=== PATIENT | male | born 1960 | race Caucasian/White ===

== ENCOUNTER 2022-02-10 09:40 | Outpatient (REF) | payer OTHER, SELFPAY ==
[2022-02-10 11:39] LABS: Appearance Urine CLEAR; Color Urine YELLOW; Glucose Urine UA NEG (NEG); Leukocyte Esterase Urine NEG (NEG); Nitrite Urine NEG (NEG); PH 5.5 (5.0-8.0); Specific Gravity - Urine 1.015 (1.005-1.025); Urine Blood NEG (NEG); Urine Ketones NEG (NEG); Urine Protein NEG (NEG-TRACE)
[2022-02-10 12:01] LABS: Estimated Average Glucose 169 mg/dL; Hemoglobin A1c % 7.5 %
[2022-02-10 12:07] LABS: Alanine Aminotransferase 48 U/L (0-40); Albumin Level 4.3 g/dL (3.5-5.0); Alkaline Phosphatase 163 U/L (39-117); Anion Gap 13 (12-20); Aspartate Amino Transferase 22 U/L (5-37); Bilirubin Total 0.7 mg/dL (0.0-1.0); Blood Urea Nitrogen 14 mg/dL (9-16); Calcium 9.6 mg/dL (8.4-10.2); Carbon Dioxide 27 mmol/L (22-29); Chloride 99 mmol/L (96-108); Cholesterol 160 mg/dL; Estimated Glomerular Filt Rate > 60; Glucose Fasting 206 mg/dL (60-99); HDL Cholesterol 26 mg/dL; Potassium 4.7 mmol/L (3.3-5.1); Sodium 134 mmol/L (135-145); Total Protein 7.2 g/dL (6.5-8.0); Triglycerides 447 mg/dL
[2022-02-10 12:16] LABS: Prostate Specific Antigen Scr 0.73 ng/mL (<0.05-4.0); TSH reflex Free T4 0.87 uIU/mL (0.32-4.0)
[2022-02-10 12:17] LABS: Creatinine Urine 63.49 mg/dL; Microalbum/Creatinine Ratio Ur 15.7 ug/mg cr
== END 2022-02-10 09:41 | disposition home or self-care (01) ==
LOC: HO.HMGCLDS 09:40
PROVIDERS: Visit Provider Nurse Practitioner Family
DX: E11.9 Type 2 diabetes mellitus without complications (principal); Z12.5 Encounter for screening for malignant neoplasm of prostate
CPT/HCPCS: 36415; 80053; 80061; 81003; 82043; 83036; 84153; 84443

== ENCOUNTER 2022-03-06 10:41 | Outpatient (REF) | payer OTHER, SELFPAY ==
[2022-03-06 12:45] LABS: HBc Num1 0.08 S/CO (0.00-0.79); HBsAGNum1 0.25 S/CO (0.00-0.99); Hepatitis B Core Antibody Nonreactive (Nonreactive); Hepatitis B Surface Antigen Negative (Negative); ~Hepatitis B Surface Antibody NONREACTIVE (Nonreactive); ~Hepatitis C Antibody Nonreactive (Nonreactive)
[2022-03-08 03:53] LABS: Hepatitis A Antibody IgM 0.21 Index (0-0.79); ~Hepatitis A Antibody IgM Nonreactive (Nonreactive)
== END 2022-03-06 10:42 | disposition home or self-care (01) ==
LOC: HO.HMGCLDS 10:41
PROVIDERS: Visit Provider Nurse Practitioner Family
DX: R74.8 Abnormal levels of other serum enzymes (principal)
CPT/HCPCS: 36415; 86704; 86706; 86709; 86803; 87340

== ENCOUNTER 2022-04-14 08:42 | Outpatient (REF) | payer OTHER, SELFPAY ==
--- NOTE | ~2022-04-14 | US_ITS ---
EXAMINATION: US ABDOMEN COMPLETE CLINICAL INFORMATION: Abnormal levels of other serum enzymes. COMPARISON: None TECHNIQUE: Real-time imaging of the abdominal viscera. FINDINGS: PANCREAS: The pancreas appears unremarkable, without masses or ductal dilatation, with the exception of the tail which is obscured by bowel gas. ABDOMINAL AORTA: The proximal, mid, and distal segments are normal in caliber. INFERIOR VENA CAVA: Visualized portions are normal. LIVER: The liver is normal in size. The liver contour is normal. There is diffuse increased liver parenchymal echogenicity, consistent with hepatic steatosis. No focal hepatic lesion. GALLBLADDER: Surgically absent. COMMON BILE DUCT: Normal in caliber measuring 0.98 cm in diameter. RIGHT KIDNEY: An upper pole cyst is present measuring just over a centimeter in size. No solid renal masses are seen. This finding is Bosniak class I and needs no further imaging or follow up. No hydronephrosis or renal calculi. The kidney measures 10.4 cm in maximum dimension. LEFT KIDNEY: A tiny subcentimeter Bosniak class I simple renal cyst is present at the upper pole. 2 echogenic foci seen in the midpole measuring between 2 and 3 mm in size consistent with nonobstructing calculi. No hydronephrosis. The kidney measures 11.0 cm in maximum dimension. SPLEEN: Normal. The spleen measures 8.2 cm in maximum dimension. FREE FLUID: None. US/US abdomen complete IMPRESSION: Hepatic steatosis. Probable nonobstructing punctate left renal calculi.
== END 2022-04-14 08:43 | disposition home or self-care (01) ==
LOC: HO.HMGCX 08:42
PROVIDERS: PCP Nurse Practitioner Family; Visit Provider Nurse Practitioner Family
DX: R74.8 Abnormal levels of other serum enzymes (principal)
CPT/HCPCS: 76700

== ENCOUNTER 2022-04-28 13:29 | Outpatient (REF) | payer OTHER, SELFPAY ==
--- NOTE | ~2022-04-28 | CT_ITS ---
EXAMINATION: CT CHEST SCREENING CLINICAL INFORMATION: Current smoker. 45 pack year history. COMPARISON: None TECHNIQUE: Multidetector volumetric CT imaging of the chest is performed without contrast using low dose technique. Additional 2D coronal and sagittal reformatted images and axial 3D maximum intensity projection (MIP) images are generated on the CT workstation. This CT examination was performed using dose optimization techniques as appropriate, variously including the following: *Automated exposure control *Adjustment of mA and/or kV according to patient size (this includes techniques or standardized protocols for targeted exams where dose is matched to indication/reason for exam; i.e. extremities or head) *Use of iterative reconstruction technique DLP: 223 mGy-cm FINDINGS: LUNGS: There is evidence of mild paraseptal emphysema. There is a 3 mm calcified left upper lobe nodule axial image 133 series 5. There is a 2 mm peripheral or subpleural right upper lobe nodule axial image 157 series 5. There are clustered right lower lobe nodules for example axial image 198 series 5. There is evidence of mild airways disease in the right lower lobe with bronchial wall thickening and soft tissue opacification. There is a 1 cm cyst in the right lower lobe. MEDIASTINUM: There is coronary artery calcification. The heart size is normal. There are no enlarged hilar or mediastinal lymph nodes. There is no pericardial effusion. PLEURA: There is no pleural effusion. No pleural mass or thickening. AXILLA: No lymphadenopathy. UPPER ABDOMEN: The gallbladder has been removed. There is diverticulosis of the colon. OSSEOUS STRUCTURES: There are degenerative changes of the spine. CT/CT lung screening IMPRESSION: Small pulmonary nodules or micronodules. Right lower lobe nodules may be related to airways disease. Mild coronary artery calcification. ASSESSMENT: Lung-RADS category 2: Benign. RECOMMENDATION: Annual low-dose chest CT followup recommended.
== END 2022-04-28 13:30 | disposition home or self-care (01) ==
LOC: HO.CT 13:29
PROVIDERS: Visit Provider Physician Assistant Medical
DX: Z12.2 Encounter for screening for malignant neoplasm of respiratory organs (principal); F17.210 Nicotine dependence, cigarettes, uncomplicated
CPT/HCPCS: 71271; G0296

== ENCOUNTER 2022-05-19 10:28 | Outpatient (REF) | payer OTHER, SELFPAY ==
[2022-05-19 12:00] LABS: MANUAL DIFF FLAG NO
[2022-05-19 12:04] LABS: Basophils Absolute Auto 0.1 X10*3/uL (0.0-0.2); Basophils Percent Auto 0.6 % (0-2); Eosinophils Absolute Auto 0.1 X10*3/uL (0.0-0.4); Eosinophils Percent Auto 1.2 % (0-4); Hematocrit 45.8 % (42.0-52.0); Hemoglobin 15.8 g/dl (14.0-18.0); Imm Gran Abs Auto 0.04 X10*3/uL (0.00-0.03); Imm Gran Pct Auto 0.5 % (0.0-0.4); Lymphocytes Absolute Auto 2.5 X10*3/uL (1.2-4.9); Lymphocytes Percent Auto 31.6 % (20-40); Mean Corpuscular HGB Conc 34.5 g/dl (31.0-36.0); Mean Corpuscular Hemoglobin 32.1 pg (27.0-33.0); Mean Corpuscular Volume 93.1 fL (80.0-98.0); Mean Platelet Volume 9.6 fL (9.4-12.4); Monocytes Absolute Auto 0.7 X10*3/uL (0.1-1.2); Monocytes Percent Auto 8.4 % (2-11); Neutrophils Absolute Auto 4.6 x10*3/uL (2.0-8.3); Neutrophils Percent Auto 57.7 % (45-73); Platelet Count 287 X10*3/uL (160-400); Red Blood Count 4.92 X10*6/uL (4.60-5.80); Red Cell Distribution Width 13.5 % (11.0-16.0); White Blood Count 8.1 X10*3/uL (4.8-10.8)
[2022-05-19 13:08] LABS: Alanine Aminotransferase 40 U/L (0-40); Albumin Level 4.3 g/dL (3.5-5.0); Alkaline Phosphatase 154 U/L (39-117); Anion Gap 14 (12-20); Aspartate Amino Transferase 26 U/L (5-37); Bilirubin Total 0.6 mg/dL (0.0-1.0); Blood Urea Nitrogen 8 mg/dL (9-16); Calcium 9.1 mg/dL (8.4-10.2); Carbon Dioxide 23 mmol/L (22-29); Chloride 107 mmol/L (96-108); Cholesterol 116 mg/dL; Estimated Glomerular Filt Rate > 60; Glucose Random 153 mg/dL (60-115); HDL Cholesterol 33 mg/dL; LDL Cholesterol Calculated 52 mg/dl; Potassium 4.3 mmol/L (3.3-5.1); Sodium 140 mmol/L (135-145); Total Protein 7.5 g/dL (6.5-8.0); Triglycerides 159 mg/dL
[2022-05-19 14:45] LABS: Estimated Average Glucose 143 mg/dL; Hemoglobin A1c % 6.6 %
== END 2022-05-19 10:29 | disposition home or self-care (01) ==
LOC: HO.HMGCLDS 10:28
PROVIDERS: Visit Provider Nurse Practitioner Family
DX: E11.9 Type 2 diabetes mellitus without complications (principal)
CPT/HCPCS: 36415; 80053; 80061; 83036; 85025

== ENCOUNTER 2023-01-18 13:19 | Outpatient (REF) | payer OTHER, SELFPAY ==
[2023-01-18 14:06] LABS: MANUAL DIFF FLAG NO
[2023-01-18 14:10] LABS: Basophils Absolute Auto 0.1 X10*3/uL (0.0-0.2); Basophils Percent Auto 0.9 % (0-2); Eosinophils Absolute Auto 0.4 X10*3/uL (0.0-0.4); Hematocrit 47.6 % (42.0-52.0); Hemoglobin 16.1 g/dl (14.0-18.0); Imm Gran Abs Auto 0.02 X10*3/uL (0.00-0.03); Imm Gran Pct Auto 0.3 % (0.0-0.4); Lymphocytes Absolute Auto 3.5 X10*3/uL (1.2-4.9); Lymphocytes Percent Auto 44.1 % (20-40); Mean Corpuscular HGB Conc 33.8 g/dl (31.0-36.0); Mean Corpuscular Volume 91.7 fL (80.0-98.0); Mean Platelet Volume 9.4 fL (9.4-12.4); Monocytes Absolute Auto 0.6 X10*3/uL (0.1-1.2); Monocytes Percent Auto 7.5 % (2-11); Neutrophils Absolute Auto 3.3 x10*3/uL (2.0-8.3); Neutrophils Percent Auto 42.2 % (45-73); Platelet Count 261 X10*3/uL (160-400); Red Blood Count 5.19 X10*6/uL (4.60-5.80); Red Cell Distribution Width 13.3 % (11.0-16.0); White Blood Count 7.9 X10*3/uL (4.8-10.8)
[2023-01-18 16:37] LABS: Alanine Aminotransferase 18 U/L (0-40); Alkaline Phosphatase 144 U/L (39-117); Anion Gap 14 (12-20); Aspartate Amino Transferase 19 U/L (5-37); Bilirubin Total 0.6 mg/dL (0.0-1.0); Blood Urea Nitrogen 8 mg/dL (9-16); Calcium 9.2 mg/dL (8.4-10.2); Carbon Dioxide 22 mmol/L (22-29); Chloride 105 mmol/L (96-108); Cholesterol 202 mg/dL; Estimated Glomerular Filt Rate > 60; Glucose Fasting 109 mg/dL (60-99); HDL Cholesterol 35 mg/dL; LDL Cholesterol Calculated 115 mg/dl; Potassium 4.7 mmol/L (3.3-5.1); Prostate Specific Antigen Scr 1.06 ng/mL (<0.05-4.0); Sodium 136 mmol/L (135-145); TSH reflex Free T4 1.77 uIU/mL (0.32-4.0); Total Protein 6.9 g/dL (6.5-8.0); Triglycerides 263 mg/dL
[2023-01-18 17:13] LABS: Appearance Urine Clear; Color Urine Yellow; Glucose Urine UA Negative (Negative); Leukocyte Esterase Urine Negative (Negative); Nitrite Urine Negative (Negative); Specific Gravity - Urine 1.015 (1.005-1.025); Urine Blood Negative (Negative); Urine Ketones Negative (Negative); Urine Protein Negative (Neg-Trace)
== END 2023-01-18 13:20 | disposition home or self-care (01) ==
LOC: HO.HMGCLDS 13:19
PROVIDERS: PCP Nurse Practitioner Family; Visit Provider Nurse Practitioner Family
DX: Z12.5 Encounter for screening for malignant neoplasm of prostate (principal); E11.9 Type 2 diabetes mellitus without complications
CPT/HCPCS: 36415; 80053; 80061; 81003; 84153; 84443; 85025

== ENCOUNTER 2023-08-10 14:21 | Outpatient (REF) | payer OTHER, SELFPAY ==
--- NOTE | ~2023-08-10 | CT_ITS ---
EXAMINATION: CT CHEST SCREENING CLINICAL INFORMATION: Current smoker with 45 pack-year history. COMPARISON: 04/28/2022 TECHNIQUE: Multidetector volumetric CT imaging of the chest is performed without contrast using low dose technique. Additional 2D coronal and sagittal reformatted images and axial 3D maximum intensity projection (MIP) images are generated on the CT workstation. This CT examination was performed using dose optimization techniques as appropriate, variously including the following: *Automated exposure control *Adjustment of mA and/or kV according to patient size (this includes techniques or standardized protocols for targeted exams where dose is matched to indication/reason for exam; i.e. extremities or head) *Use of iterative reconstruction technique DLP: 53 mGy-cm FINDINGS: PHYSICAL THERAPY COORDINATOR: Unremarkable LUNGS: Trachea with small amount of debris, likely mucus. Hyperinflation with flattening of the hemidiaphragms. Mild centrilobular emphysema. Diffuse thickening of the bronchi. Trace dependent atelectasis. No change: RUL; 2 mm subpleural, 6:203. MONIQUE: 3 mm calcified, 6:165. MEDIASTINUM: Unremarkable thyroid. Nonspecific lymph nodes. No pathologic lymphadenopathy. CORONARY ARTERY CALCIFICATION: Severe. PLEURA: There is no pleural effusion. No pleural mass or thickening. SOFT TISSUE/AXILLA: Gynecomastia. No lymphadenopathy. UPPER ABDOMEN: Status post cholecystectomy. OSSEOUS STRUCTURES: Healed sternal fracture. Degenerative changes. CT/CT lung screening IMPRESSION: Stable calcified and noncalcified lung nodules, none larger than 3 mm. ASSESSMENT: Lung-RADS category 2: Benign RECOMMENDATION: Routine annual low-dose CT screening in 12 months.
== END 2023-08-10 14:22 | disposition home or self-care (01) ==
LOC: HO.CT 14:21
PROVIDERS: PCP Nurse Practitioner Family; Visit Provider Physician Assistant Medical
DX: Z12.2 Encounter for screening for malignant neoplasm of respiratory organs (principal); F17.210 Nicotine dependence, cigarettes, uncomplicated
CPT/HCPCS: 71271

== ENCOUNTER 2023-10-10 10:01 | Outpatient (REF) | payer OTHER, SELFPAY ==
[2023-10-10 13:20] LABS: MANUAL DIFF FLAG NO
[2023-10-10 13:35] LABS: Basophils Absolute Auto 0.1 X10*3/uL (0.0-0.2); Basophils Percent Auto 0.7 % (0-2); Eosinophils Absolute Auto 0.2 X10*3/uL (0.0-0.4); Eosinophils Percent Auto 2.5 % (0-4); Hematocrit 51.1 % (42.0-52.0); Hemoglobin 17.8 g/dl (14.0-18.0); Imm Gran Abs Auto 0.04 X10*3/uL (0.00-0.03); Imm Gran Pct Auto 0.5 % (0.0-0.4); Lymphocytes Absolute Auto 2.6 X10*3/uL (1.2-4.9); Lymphocytes Percent Auto 31.5 % (20-40); Mean Corpuscular HGB Conc 34.8 g/dl (31.0-36.0); Mean Corpuscular Hemoglobin 34.7 pg (27.0-33.0); Mean Corpuscular Volume 99.6 fL (80.0-98.0); Mean Platelet Volume 9.8 fL (9.4-12.4); Monocytes Absolute Auto 0.7 X10*3/uL (0.1-1.2); Monocytes Percent Auto 8.6 % (2-11); Neutrophils Absolute Auto 4.7 x10*3/uL (2.0-8.3); Neutrophils Percent Auto 56.2 % (45-73); Platelet Count 218 X10*3/uL (160-400); Red Blood Count 5.13 X10*6/uL (4.60-5.80); Red Cell Distribution Width 13.1 % (11.0-16.0); White Blood Count 8.3 X10*3/uL (4.8-10.8)
[2023-10-10 13:44] LABS: Appearance Urine Clear; Color Urine Yellow; Glucose Urine UA >=1000 mg/dL (Negative); Leukocyte Esterase Urine Negative (Negative); Nitrite Urine Negative (Negative); PH 6.5 (5.0-9.0); UMIC TRIGGER UACC YES; Urine Blood Negative (Negative); Urine Ketones Negative (Negative); Urine Protein Negative (Neg-Trace)
[2023-10-10 13:55] LABS: Bacteria Urine None Seen (None Seen); Hyaline Casts Urine 0-2 /LPF (0-2); RBC Urine 0-2 /HPF (0-2); Squamous Epithelial Cell Urine 0-2 /HPF (0-2); WBC Urine 0-5 /HPF (0-5)
[2023-10-10 14:03] LABS: Alanine Aminotransferase 31 U/L (0-40); Albumin Level 4.3 g/dL (3.5-5.0); Alkaline Phosphatase 138 U/L (39-117); Anion Gap 10 (12-20); Aspartate Amino Transferase 24 U/L (5-37); Bilirubin Total 0.4 mg/dL (0.0-1.0); Blood Urea Nitrogen 8 mg/dL (9-16); Carbon Dioxide 27 mmol/L (22-29); Chloride 103 mmol/L (96-108); Cholesterol 147 mg/dL (<200); Estimated Glomerular Filt Rate > 60; Gamma Glutamyl Transpeptidase 90 U/L (11-51); Glucose Fasting 116 mg/dL (60-99); HDL Cholesterol 37 mg/dL (>40); LDL Cholesterol Calculated 42 mg/dL (<100); Potassium 4.1 mmol/L (3.3-5.1); Sodium 136 mmol/L (135-145); Total Protein 7.5 g/dL (6.5-8.0); Triglycerides 341 mg/dL (<150)
[2023-10-10 14:19] LABS: Creatinine Urine 70.14 mg/dL; Microalbum/Creatinine Ratio Ur 8.5 ug/mg cr (<30)
[2023-10-10 14:20] LABS: TSH reflex Free T4 1.18 uIU/mL (0.32-4.0)
[2023-10-10 14:37] LABS: Estimated Average Glucose 108 mg/dL; Hemoglobin A1c % 5.4 % (<6.0)
[2023-10-14 19:53] LABS: Alk.Phos Iso. Macrohepatic 0 % (<=0); Alk.Phos Isoenzymes Bone 25 % (28-66); Alk.Phos Isoenzymes Intest 21 % (1-24); Alk.Phos Isoenzymes Liver 54 % (25-69); Alk.Phos Isoenzymes Placental 0 % (<=0); Alk.Phos Isoenzymes Total 126 U/L (35-144)
== END 2023-10-10 10:02 | disposition home or self-care (01) ==
LOC: HO.HMGCLDS 10:01
PROVIDERS: PCP Nurse Practitioner Family; Visit Provider Nurse Practitioner Family
DX: R74.8 Abnormal levels of other serum enzymes (principal); E11.9 Type 2 diabetes mellitus without complications
CPT/HCPCS: 36415; 80053; 80061; 81001; 82043; 82570; 82977; 83036; 84080; 84443; 85025

== ENCOUNTER 2024-01-10 13:26 | Outpatient (AMB) | payer OTHER, SELFPAY ==
[2024-01-10 13:30] VITALS: BP 116/72; PULSE 81; O2SAT 95; BMI 24.0
--- NOTE | 2024-01-10 13:30 | MHC.PC.OV ---
Vital Signs 01/10/24 13:30 Height 5 ft 7 in Weight 153 lb 4 oz BMI 24.0 BP 116/72 Blood Pressure Location Rt brachial Position Sitting Pulse 81 Pulse Source Pulse Oximeter Pulse Oximetry (%) 95 Oxygen Delivery Method Room Air Intake Visit Reasons: Physical exam Intake Note: Pt is here for his Annual PE Allergies No Known Allergies Allergy (Verified 01/10/24 13:33) Tobacco use date assessed: 01/10/24 Dental Screening Dental Screen Date: 01/10/24 Did you have a dental visit in the last 12 months?: Yes Did you have a dental problem in the last 6 months where you did not have access to dental care?: No Was dental information given to patient?: Patient has dentist HPI Physical exam HPI Details Pt is here for a PE. Will order labs. Colon screen is up to date. Due for PSA, will order. Denies dribbling with urination, weak stream, and frequent nocturia. He does report incomplete bladder emptying. Refuses CHERELLE today. Pt is a diabetic, on a statin. A1C in office today is 5.3. Microalbumin is up to date. Denies polyuria, polydipsia, does report neuropathy. Pt denies any signs and symptoms of hypoglycemia and does know how to correct it. Pt reports a recent blood sugar reading of 109. Eye exam is up to date. Pt follows up with cardiology. Pt has yearly low-dose lung CTs due to smoking. COPD: Stable. Pt smokes very few cigarettes daily. Denies chest pain, shortness of breath, and dizziness. Will confirm pt's med list with his slackline operator. [facility] Medical History (Updated 01/10/24 @ 14:18 by DOMINGO Portillo) Myocardial infarction Cocaine use Cardiac arrest Afib Nephrolithiasis Cervical radiculopathy Chronic low back pain Osteoarthritis of hips, bilateral GERD (gastroesophageal reflux disease) BPH (benign prostatic hyperplasia) Alcoholic peripheral neuropathy Hyperlipidemia Diabetes mellitus type 2, controlled Hypertensive retinopathy Peripheral neuropathy Hypertension, essential Personal history of nicotine dependence Diabetes Surgical History History of colonoscopy History of cholecystectomy History of neck surgery Family History Brother Myocardial infarction Social History Housing: Other Patient Tobacco Use Status: Current everyday Tobacco user Cigarettes Per Day: 5 e-Cigarette/Vaping Use: Never Used Second Hand Smoke Exposure: No service: Yes Current occupational status: disabled Cognitive needs: No Hearing needs: Yes Vision needs: No Questionnaire PHQ-9 Over the last 2 weeks, how often have you been bothered by any of the following problems? 1. Little interest or pleasure in doing things: not at all 2. Feeling down, depressed, or hopeless: not at all 3. Trouble falling or staying asleep, or sleeping too much: several days 4. Feeling tired or having little energy: not at all 5. Poor appetite or overeating: not at all 6. Feeling bad about yourself - or that you are a failure or have let yourself or your family down: not at all 7. Trouble concentrating on things, such as reading the newspaper or watching television: not at all 8. Moving or speaking so slowly that other people could have noticed. Or the opposite - being so fidgety or restless that you have been moving around a lot more than usual: not at all 9. Thoughts that you would be better off or of hurting yourself in some way: not at all Total score: 1 Source: Developed by Drs. Fredo Bah, Gloria Olivas, Ankit Zuniga and colleagues, with an educational sara from [employer]. Thrive Questionnaire Date Thrive assessed: 01/10/24 I am a: Patient What is your living situation today?: I have a place to live, but I am worried about losing it in the future Within the past 12 months, did the food you bought not last and you didn't have the money to get more?: Sometimes True Within the past 12 months, did you worry whether your food would run out before you got money to buy more?: Sometimes True Do you have trouble paying for medicines?: No Do you have trouble getting transportation to medical appointments?: No Do you have trouble paying your heating and electricity bill?: Yes Do you have trouble taking care of your child, family member or friend?: No Do you have trouble with day-to-day activities such as bathing, preparing meals, shopping, managing finances, etc.?: No Are you currently unemployed and looking for a job?: No Are you interested in more education?: No THRIVE Score: 4 AUDIT C Alcohol Use Questionnaire (AUDIT-C) 1. How often do you have a drink containing alcohol?: 2-3 times a week 2. How many drinks containing alcohol do you have on a typical day when you are drinking?: 1 or 2 3. How often do you have six or more drinks on one occasion?: Never Total Score: 3 Score Reviewed/Action Taken: Yes RUTH ANN-7 AMB Questionnaire RUTH ANN-7 Date RUTH ANN - 7 assessed: 01/10/24 Feeling nervous, anxious, or on edge: 0 = Not at all Not being able to stop or control worryin = Not at all Worrying too much about different things: 0 = Not at all Trouble relaxin = Several days Being so restless that it is hard to sit still: 1 = Several days Becoming easily annoyed or irritable: 0 = Not at all Feeling afraid as if something awful might happen: 0 = Not at all Total RUTH ANN-7 score (0-4 normal; 5-9 mild; 10-14 moderate; 15-21 severe): 2 Source: Developed by Drs. Fredo Bah, Gloria Olivas, Ankit Zuniga and colleagues, with an educational sara from [employer]. Review of Systems Const Denies chills and Denies fever(s) Eyes Denies blurry vision ENT Denies vertigo, Denies dizziness and Denies sore throat Card Denies chest pain at rest, Denies chest pain with activity, Denies diaphoresis, Denies dyspnea and Denies dyspnea on exertion Resp Denies cough, Denies dyspnea, Denies dyspnea on exertion and Denies wheezing GI Denies abdominal pain, Denies melena, Denies hematochezia, Denies constipation, Denies diarrhea and Denies loose stools Denies hematuria Musc Denies numbness and Denies tingling Skin/Breast Denies lesions Neuro Denies vertigo, Denies dizziness, Denies numbness and Denies tingling Psych Denies anxiety, Denies depression, Denies homicidal ideation, Denies suicidal ideation and Denies other (substance abuse) Aller/Immun Denies wheezing Physical exam (Primary Care) Vital Signs: Last Vital Signs Pulse 81 01/10/24 13:30 BP 116/72 01/10/24 13:30 Pulse Ox 95 01/10/24 13:30 Oxygen Delivery Method Room Air 01/10/24 13:30 BMI result Body Mass Index 24.0 Tobacco/Smoking Status: Tobacco use Status Tobacco use date assessed 01/10/24 01/10/24 13:38 Patient Tobacco Use Status Current everyday Tobacco 01/10/24 13:38 e-Cigarette/Vaping Use Never Used 01/10/24 13:38 PHQ-9: PHQ-9 Score PHQ-9: Total score 1 01/10/24 17:13 Thrive Assessment: Date of Thrive Assessment Date Thrive assessed 01/10/24 01/10/24 14:23 Const General: cooperative Nutritional Appearance: well nourished Orientation/consciousness: patient oriented x3 HENMT Head: Yes normal to inspection, Yes normocephalic and Yes atraumatic Ears: TM's normal bilaterally Eyes General: appearance normal, both eyes and all related structures Alignment and Position: alignment normal and position normal Neck Neck: Yes normal visual inspection and Yes no lymphadenopathy Thyroid: Thyroid normal Resp Effort & Inspection: normal respiratory effort Auscultation: clear to auscultation bilaterally Cardio Rate: regular rate Rhythm: regular rhythm Heart sounds: S1 normal heart sound present, S2 normal heart sound present and no murmurs GI Palpation (GI): Soft to palpation and nontender Auscultation: normal bowel sounds Male General Exam: Yes normal external exam Penis: normal penis Scrotum: scrotum normal, testes descended bilaterally and no inguinal hernias Testes: no testicular mass Skin Rashes: no rashes Neuro General: patient oriented x3, moves all extremities, no focal motor deficits and deep tendon reflexes 2+ bilaterally Romberg Test: Negative Extrem Other: bilat feet: + sensation with use of monofilament, feet intact, onychomycosis noted bilat, elongated toenails Psych Appearance: grossly normal Mental Status: mental status grossly normal Speech and movement: Normal speech and movement present Affect: normal affect Attitude: cooperative Thought process: Normal thought process present Thought content: Normal thought content present Insight: Good insight present (Psych) Judgement: Good judgement present (Psych) Results AMB Hemoglobin A1c AMB Hemoglobin A1c 5.8 % Last Edit by Mimi [place] CMA on 01/10/24 14:14 Results Reviewed Results Reviewed: Laboratory Last Values Hgb A1c (Clinic) 5.8 % (4.0-6.0) 01/10/24 14:13 Assessment and Plan Assessment & Plan (1) Diabetes: Code(s): E11.9 - Type 2 diabetes mellitus without complications (2) Myocardial infarction: Code(s): I21.9 - Acute myocardial infarction, unspecified (3) Afib: Code(s): I48.91 - Unspecified atrial fibrillation (4) COPD (chronic obstructive pulmonary disease): Code(s): J44.9 - Chronic obstructive pulmonary disease, unspecified Plan The patient agreed to the use of a medical affairs specialist for this encounter. Scribed for DOMINGO Byers by Flora Eagle medical affairs specialist, on 01/10/2024 at 13:40 EST. Orders: Orders Comprehensive [place]. Panel Fast 01/15/24 E11.9 - Type 2 diabetes mellitus without complications Microalbumin, Random (w Creat) 01/15/24 E11.9 - Type 2 diabetes mellitus without complications Prostate Specific Antigen Scr 01/15/24 Z12.5 - Encounter for screening for malignant neoplasm of prostate AMB Hemoglobin A1c 01/10/24 E11.9 - Type 2 diabetes mellitus without complications Complete Blood Count Auto Diff 01/15/24 E11.9 - Type 2 diabetes mellitus without complications TSH reflex Free T4 01/15/24 E11.9 - Type 2 diabetes mellitus without complications UA CC w/rflx Micro + Cult 01/15/24 E11.9 - Type 2 diabetes mellitus without complications Lipid Panel 01/15/24 E11.9 - Type 2 diabetes mellitus without complications Coding Level of Care Code Est Pt Prev Care 40-64y(42947) Diagnoses Diabetes E11.9 Myocardial infarction I21.9 Afib I48.91 COPD (chronic obstructive pulmonary disease) J44.9
== END 2024-01-10 14:19 | disposition home or self-care (01) ==
PROVIDERS: PCP Nurse Practitioner Family; Visit Provider Nurse Practitioner Family
DX: Z00.00 Encounter for general adult medical examination without abnormal findings (principal); E11.9 Type 2 diabetes mellitus without complications; I48.91 Unspecified atrial fibrillation; J44.9 Chronic obstructive pulmonary disease, unspecified; I25.2 Old myocardial infarction
CPT/HCPCS: 83036; 99396

== ENCOUNTER 2024-01-15 11:19 | Outpatient (REF) | payer OTHER, SELFPAY ==
[2024-01-15 13:23] LABS: MANUAL DIFF FLAG NO
[2024-01-15 13:33] LABS: Basophils Absolute Auto 0.1 X10*3/uL (0.0-0.2); Basophils Percent Auto 0.8 % (0-2); Eosinophils Absolute Auto 0.2 X10*3/uL (0.0-0.4); Eosinophils Percent Auto 2.6 % (0-4); Hemoglobin 17.8 g/dl (14.0-18.0); Imm Gran Abs Auto 0.02 X10*3/uL (0.00-0.03); Imm Gran Pct Auto 0.2 % (0.0-0.4); Lymphocytes Absolute Auto 2.4 X10*3/uL (1.2-4.9); Lymphocytes Percent Auto 26.7 % (20-40); Mean Corpuscular HGB Conc 34.2 g/dl (31.0-36.0); Mean Corpuscular Hemoglobin 33.3 pg (27.0-33.0); Mean Corpuscular Volume 97.2 fL (80.0-98.0); Mean Platelet Volume 9.4 fL (9.4-12.4); Monocytes Absolute Auto 0.6 X10*3/uL (0.1-1.2); Monocytes Percent Auto 6.7 % (2-11); Neutrophils Absolute Auto 5.6 x10*3/uL (2.0-8.3); Platelet Count 261 X10*3/uL (160-400); Red Blood Count 5.35 X10*6/uL (4.60-5.80); Red Cell Distribution Width 12.6 % (11.0-16.0); White Blood Count 8.8 X10*3/uL (4.8-10.8)
[2024-01-15 13:36] LABS: Appearance Urine Clear; Color Urine Yellow; Glucose Urine UA >=1000 mg/dL (Negative); Leukocyte Esterase Urine Negative (Negative); Nitrite Urine Negative (Negative); Specific Gravity - Urine 1.025 (1.005-1.025); UMIC TRIGGER UACC YES; Urine Blood Negative (Negative); Urine Ketones Negative (Negative); Urine Protein Negative (Neg-Trace)
[2024-01-15 13:41] LABS: Bacteria Urine None Seen (None Seen); Hyaline Casts Urine 0-2 /LPF (0-2); RBC Urine 0-2 /HPF (0-2); Squamous Epithelial Cell Urine 0-2 /HPF (0-2); WBC Urine 0-5 /HPF (0-5)
[2024-01-15 14:06] LABS: Creatinine Urine 85.32 mg/dL; Microalbum/Creatinine Ratio Ur 11.7 ug/mg cr (<30)
[2024-01-15 14:40] LABS: Alanine Aminotransferase 17 U/L (0-40); Albumin Level 4.1 g/dL (3.5-5.0); Alkaline Phosphatase 115 U/L (39-117); Anion Gap 9 (12-20); Aspartate Amino Transferase 16 U/L (5-37); Bilirubin Total 0.9 mg/dL (0.0-1.0); Blood Urea Nitrogen 6 mg/dL (9-16); Calcium 9.1 mg/dL (8.4-10.2); Carbon Dioxide 27 mmol/L (22-29); Chloride 105 mmol/L (96-108); Cholesterol 174 mg/dL (<200); Estimated Glomerular Filt Rate > 60; Glucose Fasting 104 mg/dL (60-99); HDL Cholesterol 43 mg/dL (>40); LDL Cholesterol Calculated 73 mg/dL (<100); Sodium 137 mmol/L (135-145); Triglycerides 291 mg/dL (<150)
[2024-01-15 14:50] LABS: Prostate Specific Antigen Scr 1.05 ng/mL (<0.05-4.0)
[2024-01-15 14:59] LABS: TSH reflex Free T4 0.68 uIU/mL (0.32-4.0)
== END 2024-01-15 11:20 | disposition home or self-care (01) ==
LOC: HO.HMGCLDS 11:19
PROVIDERS: PCP Nurse Practitioner Family; Visit Provider Nurse Practitioner Family
DX: Z12.5 Encounter for screening for malignant neoplasm of prostate (principal); E11.9 Type 2 diabetes mellitus without complications
CPT/HCPCS: 36415; 80053; 80061; 81001; 82043; 82570; 84153; 84443; 85025

== ENCOUNTER 2024-07-07 10:17 | Outpatient (REF) | payer OTHER, SELFPAY ==
[2024-07-07 13:12] LABS: MANUAL DIFF FLAG NO
[2024-07-07 13:23] LABS: Basophils Absolute Auto 0.1 X10*3/uL (0.0-0.2); Eosinophils Absolute Auto 0.3 X10*3/uL (0.0-0.4); Eosinophils Percent Auto 4.6 % (0-4); Hematocrit 51.7 % (42.0-52.0); Imm Gran Abs Auto 0.04 X10*3/uL (0.00-0.03); Imm Gran Pct Auto 0.6 % (0.0-0.4); Lymphocytes Absolute Auto 2.9 X10*3/uL (1.2-4.9); Lymphocytes Percent Auto 39.8 % (20-40); Mean Corpuscular HGB Conc 34.8 g/dl (31.0-36.0); Mean Corpuscular Hemoglobin 33.8 pg (27.0-33.0); Monocytes Absolute Auto 0.7 X10*3/uL (0.1-1.2); Monocytes Percent Auto 9.1 % (2-11); Neutrophils Absolute Auto 3.3 x10*3/uL (2.0-8.3); Neutrophils Percent Auto 44.9 % (45-73); Platelet Count 291 X10*3/uL (160-400); Red Blood Count 5.33 X10*6/uL (4.60-5.80); Red Cell Distribution Width 12.5 % (11.0-16.0); White Blood Count 7.2 X10*3/uL (4.8-10.8)
[2024-07-07 13:31] LABS: Estimated Average Glucose 108 mg/dL; Hemoglobin A1c % 5.4 % (<6.0)
[2024-07-07 13:32] LABS: Appearance Urine Clear; Color Urine Yellow; Glucose Urine UA >=1000 mg/dL (Negative); Leukocyte Esterase Urine Negative (Negative); Nitrite Urine Negative (Negative); PH 5.5 (5.0-9.0); Specific Gravity - Urine >= 1.030 (1.005-1.025); UMIC TRIGGER UACC YES; Urine Blood Negative (Negative); Urine Ketones Negative (Negative); Urine Protein Negative (Neg-Trace)
[2024-07-07 13:46] LABS: Alanine Aminotransferase 20 U/L (0-40); Albumin Level 4.3 g/dL (3.5-5.0); Alkaline Phosphatase 102 U/L (39-117); Anion Gap 13 (12-20); Aspartate Amino Transferase 21 U/L (5-37); Bilirubin Total 0.8 mg/dL (0.0-1.0); Blood Urea Nitrogen 11 mg/dL (9-16); Calcium 9.6 mg/dL (8.4-10.2); Carbon Dioxide 21 mmol/L (22-29); Chloride 108 mmol/L (96-108); Cholesterol 116 mg/dL (<200); Estimated Glomerular Filt Rate > 60; Glucose Fasting 101 mg/dL (60-99); HDL Cholesterol 37 mg/dL (>40); LDL Cholesterol Calculated 50 mg/dL (<100); Potassium 4.1 mmol/L (3.3-5.1); Sodium 138 mmol/L (135-145); Total Protein 7.5 g/dL (6.5-8.0); Triglycerides 148 mg/dL (<150)
[2024-07-07 13:51] LABS: TSH reflex Free T4 0.39 uIU/mL (0.32-4.0)
[2024-07-07 13:56] LABS: Bacteria Urine None Seen (None Seen); Hyaline Casts Urine 0-2 /LPF (0-2); RBC Urine 0-2 /HPF (0-2); Squamous Epithelial Cell Urine 0-2 /HPF (0-2); WBC Urine 0-5 /HPF (0-5)
== END 2024-07-07 10:18 | disposition home or self-care (01) ==
LOC: HO.HMGCLDS 10:17
PROVIDERS: PCP Nurse Practitioner Family; Visit Provider Nurse Practitioner Family
DX: E11.9 Type 2 diabetes mellitus without complications (principal)
CPT/HCPCS: 36415; 80053; 80061; 81001; 83036; 84443; 85025

== ENCOUNTER 2024-07-10 14:08 | Outpatient (AMB) | payer OTHER, SELFPAY ==
[2024-07-10 14:15] VITALS: BP 118/66; PULSE 72; O2SAT 96; BMI 23.0
--- NOTE | 2024-07-10 14:15 | MHC.PC.OV ---
Vital Signs 07/10/24 14:15 Height 5 ft 7 in Weight 147 lb BMI 23.0 BP 118/66 Blood Pressure Location Rt brachial Position Sitting Pulse 72 Pulse Source Pulse Oximeter Pulse Oximetry (%) 96 Intake Visit Reasons: 6 month follow up Allergies No Known Allergies Allergy (Verified 07/10/24 15:04) Medication List - Last Reconciled 07/10/24 by DOMINGO Portillo aspirin (Adult Aspirin Regimen) 81 mg PO DAILY atorvastatin 80 mg PO DAILY 90 days blood sugar diagnostic (FreeStyle Lite Strips) As directed blood-glucose meter (FreeStyle [place] Lite kit) bid diazepam 5 mg PO BID PRN 30 days empagliflozin (Jardiance) 10 mg PO DAILY 90 days fenofibric acid (choline) 45 mg PO BEDTIME folic acid 1 mg PO DAILY 90 days gabapentin 900 mg PO TID PRN lancets (FreeStyle Lancets) bid loratadine 10 mg PO DAILY metformin ER 1,000 mg (2 x 500 mg) PO BID 90 days metoprolol tartrate 12.5 mg PO BID tramadol 50 mg PO TID PRN Tobacco use date assessed: 01/10/24 Dental Screening Dental Screen Date: 01/10/24 HPI 6 month follow up HPI Details Pt is a diabetic, on a statin. Last A1C was 5.4. Microalbumin is up to date. Denies polyuria, polydipsia, and neuropathy. Pt denies any signs and symptoms of hypoglycemia and does know how to correct it. Eye exam is up to date. [facility] Medical History CAD (coronary artery disease) History of ST elevation myocardial infarction (STEMI) (~08/2022) History of cardiac arrest (~08/2022) Afib (~08/2022) Hypertension, essential Hyperlipidemia Diabetes COPD (chronic obstructive pulmonary disease) Nicotine dependence, cigarettes, uncomplicated Cocaine use GERD (gastroesophageal reflux disease) BPH (benign prostatic hyperplasia) Hypertensive retinopathy Nephrolithiasis Peripheral neuropathy Cervical radiculopathy Chronic low back pain Osteoarthritis of hips, bilateral Surgical History History of heart artery stent History of neck surgery History of cholecystectomy History of colonoscopy Family History Brother Myocardial infarction Social History Housing: Other Patient Tobacco Use Status: Current everyday Tobacco user Cigarettes Per Day: 5 e-Cigarette/Vaping Use: Never Used Second Hand Smoke Exposure: No service: Yes Current occupational status: disabled Cognitive needs: No Hearing needs: Yes Vision needs: No Questionnaire PHQ-9 Over the last 2 weeks, how often have you been bothered by any of the following problems? 1. Little interest or pleasure in doing things: not at all 2. Feeling down, depressed, or hopeless: not at all 3. Trouble falling or staying asleep, or sleeping too much: nearly every day 4. Feeling tired or having little energy: several days 5. Poor appetite or overeating: several days 6. Feeling bad about yourself - or that you are a failure or have let yourself or your family down: not at all 7. Trouble concentrating on things, such as reading the newspaper or watching television: not at all 8. Moving or speaking so slowly that other people could have noticed. Or the opposite - being so fidgety or restless that you have been moving around a lot more than usual: not at all 9. Thoughts that you would be better off or of hurting yourself in some way: not at all Total score: 5 Depression Screening Interpretation: Negative Depression Screening Done: Yes 54184 - PHQ-9 Billing: Yes Source: Developed by Drs. Fredo Bah, Gloria Olivas, Ankit Zuniga and colleagues, with an educational sara from [employer]. Thrive Questionnaire Date Thrive assessed: 07/10/24 I am a: Patient What is your living situation today?: I have a steady place to live Within the past 12 months, did the food you bought not last and you didn't have the money to get more?: Sometimes True Within the past 12 months, did you worry whether your food would run out before you got money to buy more?: Often true Do you have trouble paying for medicines?: No Do you have trouble getting transportation to medical appointments?: No Do you have trouble paying your heating and electricity bill?: Yes Do you have trouble taking care of your child, family member or friend?: No Do you have trouble with day-to-day activities such as bathing, preparing meals, shopping, managing finances, etc.?: No Are you currently unemployed and looking for a job?: No Are you interested in more education?: No Please select the resources that you would like help with: None Currently or been in a relationship where the following occur: No concerns reported THRIVE Score: 3 AUDIT C Alcohol Use Questionnaire (AUDIT-C) 1. How often do you have a drink containing alcohol?: 2-4 times a month 2. How many drinks containing alcohol do you have on a typical day when you are drinking?: 1 or 2 3. How often do you have six or more drinks on one occasion?: Never Total Score: 2 Score Reviewed/Action Taken: Yes RUTH ANN-7 AMB Questionnaire RUTH ANN-7 Date RUTH ANN - 7 assessed: 07/10/24 Feeling nervous, anxious, or on edge: 0 = Not at all Not being able to stop or control worryin = Not at all Worrying too much about different things: 1 = Several days Trouble relaxin = Several days Being so restless that it is hard to sit still: 1 = Several days Becoming easily annoyed or irritable: 0 = Not at all Feeling afraid as if something awful might happen: 0 = Not at all Total RUTH ANN-7 score (0-4 normal; 5-9 mild; 10-14 moderate; 15-21 severe): 3 Source: Developed by Drs. Fredo Bah, Gloria Olivas, Ankit Zuniga and colleagues, with an educational sara from [employer]. RUTH ANN-7 Assessment Billing RUTH ANN-7 Assessment Tool: RUTH ANN-7 Assessment 00703 Review of Systems Const Reports as per HPI Physical exam (Primary Care) Vital Signs: Last Vital Signs Pulse 72 07/10/24 14:15 BP 118/66 07/10/24 14:15 Pulse Ox 96 07/10/24 14:15 BMI result Body Mass Index 23.0 Tobacco/Smoking Status: Tobacco use Status Tobacco use date assessed 01/10/24 07/10/24 14:18 Patient Tobacco Use Status Current everyday Tobacco 07/10/24 14:18 e-Cigarette/Vaping Use Never Used 07/10/24 14:18 PHQ-9: PHQ-9 Score PHQ-9: Total score 5 07/10/24 14:18 Depression Screening Interpretation: Negative Thrive Assessment: Date of Thrive Assessment Date Thrive assessed 07/10/24 07/10/24 14:18 Currently or been in a relationship where the following occur: No concerns reported Const General: cooperative Orientation/consciousness: patient oriented x3 Resp Other: lungs with scattered wheezes, slightly diminished Effort & Inspection: normal respiratory effort Cardio Rate: regular rate Rhythm: regular rhythm Heart sounds: S1 normal heart sound present and S2 normal heart sound present Neuro General: patient oriented x3 Extrem Other: bilat feet: + sensation with use of monofilament, feet intact, onychomycosis noted bilat, feet are dry appearing Psych Appearance: grossly normal Mental Status: mental status grossly normal Speech and movement: Normal speech and movement present Affect: normal affect Attitude: cooperative Thought process: Normal thought process present Thought content: Normal thought content present Insight: Good insight present (Psych) Judgement: Good judgement present (Psych) Assessment and Plan Assessment & Plan (1) Diabetes: Code(s): E11.9 - Type 2 diabetes mellitus without complications Plan: well controlled currently, eating much better, feeling much better Plan The patient agreed to the use of a medical secretary teacher for this encounter. Scribed for DOMINGO Byers by Flora Eagle medical secretary teacher, on 07/10/2024 at 14:45 EST. Coding Level of Care Code Est Pt Level 3 (91924) Diagnoses Diabetes E11.9 Additional Codes RUTH ANN-7 Assessment Billing - RUTH ANN-7 Assessment Tool: RUTH ANN-7 Assessment [id number] ([id number])
== END 2024-07-10 15:00 | disposition home or self-care (01) ==
PROVIDERS: PCP Nurse Practitioner Family; Visit Provider Nurse Practitioner Family
DX: E11.9 Type 2 diabetes mellitus without complications (principal)
CPT/HCPCS: 99213

== ENCOUNTER → 2024-10-02 10:57 | Outpatient (BNVA) | payer OTHER, SELFPAY | PROVIDERS: PCP Nurse Practitioner Family ==

== ENCOUNTER → 2024-10-17 10:38 | Outpatient (BNVA) | payer OTHER, SELFPAY | PROVIDERS: PCP Nurse Practitioner Family ==

== ENCOUNTER 2024-11-20 12:38 | Outpatient (REF) | payer OTHER, SELFPAY ==
--- NOTE | ~2024-11-20 | US_ITS ---
CLINICAL HISTORY: N20.0 - Calculus of kidney US Renal Comparison: None Findings: Right kidney normal size and echotexture, 9.8 cm length. Multiple simple appearing cysts. Scattered sub cm echogenic foci without shadowing or twinkle. Left kidney normal size and echotexture, 10.0 cm length. A single simple appearing 7 mm upper pole cyst is seen. No shadowing stones identified. No collecting system dilatation of either kidney. Normal color Doppler. Urinary bladder is unremarkable. Prevoid volume 78 mL. Postvoid volume 9.5 mL. Bilateral ureteral jets are visualized. IMPRESSION: 1. Simple appearing bilateral renal cysts. 2. Echogenic foci seen on the right without shadowing or twinkle. These could be small stones. No obstruction. This document has been electronically signed by: Mckenzie Burnette MD on 11/25/2024 06:37:59
== END 2024-11-20 12:39 | disposition home or self-care (01) ==
LOC: HO.HMGCX 12:38
PROVIDERS: PCP Nurse Practitioner Family; Visit Provider Nurse Practitioner Family
DX: N20.0 Calculus of kidney (principal)
CPT/HCPCS: 76770

== ENCOUNTER → 2024-11-20 12:39 | Outpatient (BNV) | payer OTHER, SELFPAY | PROVIDERS: PCP Nurse Practitioner Family; Visit Provider Radiology Diagnostic Radiology | DX: N20.0 Calculus of kidney (principal) | CPT/HCPCS: 76770 ==

== ENCOUNTER 2025-02-09 11:05 | Outpatient (AMB) | payer OTHER, SELFPAY ==
[2025-02-09 11:19] VITALS: BP 118/70; PULSE 74; O2SAT 96; BMI 22.7
--- NOTE | 2025-02-09 11:19 | A.OFFPC_ITS ---
Vital Signs 02/09/25 11:19 Height 5 ft 7 in Weight 145 lb BMI 22.7 BP 118/70 Blood Pressure Location Lt brachial Position Sitting Pulse 74 Pulse Source Pulse Oximeter Pulse Oximetry (%) 96 Intake Visit Reasons: PE Web Services Professional Required: No Accompanied by: Self / Same As Patient Allergies No Known Allergies Allergy (Verified 02/09/25 11:48) Medication List - Last Reconciled 02/09/25 by BIA PortilloP- aspirin (Adult Aspirin Regimen) 81 mg PO DAILY atorvastatin 80 mg PO DAILY 90 days blood sugar diagnostic (FreeStyle Lite Strips) As directed blood sugar diagnostic (True Metrix Glucose Test Strip) Test blood sugar once a day blood-glucose meter (FreeStyle [place] Lite kit) bid diazepam 5 mg PO BID PRN 30 days empagliflozin (Jardiance) 10 mg PO DAILY 90 days fenofibric acid (choline) 45 mg PO BEDTIME folic acid 1 mg PO DAILY 90 days gabapentin 900 mg (3 x 300 mg) PO TID 30 days lancets (FreeStyle Lancets) bid lancets (Lancets,Thin) Test blood sugar twice a day loratadine 10 mg PO DAILY metformin ER 1,000 mg (2 x 500 mg) PO BID 90 days metoprolol tartrate 12.5 mg (1/2 x 25 mg) PO BID 90 days Tobacco use date assessed: 02/09/25 Fall risk assessment: No Falls in past year Last assessed Fall Risk: 02/09/25 Dental Screening Dental Screen Date: 02/09/25 Did you have a dental visit in the last 12 months?: Yes Did you have a dental problem in the last 6 months where you did not have access to dental care?: No Was dental information given to patient?: Patient has dentist HPI PE HPI Details History of Present Illness The patient is a 64-year-old male presenting for a physical exam and routine fol low-up. He has a previous history of myocardial infarction. He denies any current symptoms including chest pain, shortness of breath, abdominal pain, blood in stool, constipation, or diarrhea. He has refused a digital rectal exam but will undergo PSA testing. The patient denies experiencing any neuropathy, polyuria, or polydipsia. He has a documented case of onychomycosis bilaterally. His colon cancer screening is up to date, and he undergoes regular eye examinations annually. The patient's lung sounds are diminished bilaterally, and he has a cardiology follow-up scheduled. He was part of our LDCT program. will check to see if we can get him in for a follow up screening. diabetic: a1c is well controlled currently. Health Maintenance - Colon cancer screening is up to date - Refusal of digital rectal exam; PSA te st planned - Regular annual eye examinations - Scheduled cardiology follow-up Social History Review of Systems - Cardiovascular: Denies chest pain, den ies shortness of breath - Gastrointestinal: Denies abdominal michele n, denies blood in stool, denies constipation, denies diarrhea - Genitourinary: Denies polyuria, denies polydipsia - Neurological: Denies neuropathy Physical Exam General: Cooperative, healthy appearing, comfortable, no acute distress and well developed Orientation: Patient oriented x3 Limitations: No limitations Head: Normal to inspection Ears: Hearing grossly normal bilaterally Nose: Normal external nose present Face and sinus: Normal facial exam Eyes: Appearance normal, both eyes and all related structures Neck: Normal visual inspection and Yes full ROM Respiratory: Lungs were somewhat diminished in moving air bilaterally Cardiovascular: Regular rate and rhythm. Normal S1 and S2 GI: Normal to inspection. Soft to palpation and nontender Skin: Onychomycosis noted bilaterally Neuro: Patient oriented x3 Extremities: Normal to inspection. Monofilament test of feet was intact with good sensation. Feet were intact. Results Plan The patient's health concerns were addressed, and necessary plans were made for ongoing management. He will maintain regular cardiac follow-ups due to his past myocardial infarction. Although he refused a digital rectal exam, a PSA test will be conducted as an alternative. I emphasized the importance of promptly completing the ordered lab tests. His lung sounds will continue to be monitored as part of his respiratory evaluation. The patient is advised to keep up with his annual eye examinations. Discussion Notes During the consultation, the patient and I discussed his health maintenance stra tegies, including his cardiology follow-up and annual eye exams. We reviewed the option of the digital rectal exam, but the patient preferred PSA testing instead, to which he agreed. I highlighted the need to complete the pending lab work shortly. The discussion included the observation of diminished lung sounds and its implications. I provided information on the management of onychomycosis and ensured he understood the importance of continued monitoring and follow-up, with reassurance given about the current plan. Patient Instructions - Schedule & complete PSA test as discus sed - Continue with regular cardiology appoi ntments and follow-ups - Maintain annual eye examinations - Complete lab work/tests as soon as pos sible - Continue monitoring for any new sympto ms or changes in health [facility] Medical History CAD (coronary artery disease) History of ST elevation myocardial infarction (STEMI) (~08/2022) History of cardiac arrest (~08/2022) Afib (~08/2022) Hypertension, essential Hyperlipidemia Diabetes COPD (chronic obstructive pulmonary disease) Nicotine dependence, cigarettes, uncomplicated Cocaine use GERD (gastroesophageal reflux disease) BPH (benign prostatic hyperplasia) Hypertensive retinopathy Nephrolithiasis Peripheral neuropathy Cervical radiculopathy Chronic low back pain Osteoarthritis of hips, bilateral Surgical History History of heart artery stent History of neck surgery History of cholecystectomy History of colonoscopy Family History Brother Myocardial infarction Social History Housing: Other Patient Tobacco Use Status: Current everyday Tobacco user Cigarettes Per Day: 5 e-Cigarette/Vaping Use: Never Used Second Hand Smoke Exposure: No service: Yes Current occupational status: disabled Cognitive needs: No Hearing needs: Yes Vision needs: No Questionnaire PHQ-9 Over the last 2 weeks, how often have you been bothered by any of the following problems? 1. Little interest or pleasure in doing things: not at all 2. Feeling down, depressed, or hopeless: not at all 3. Trouble falling or staying asleep, or sleeping too much: several days 4. Feeling tired or having little energy: not at all 5. Poor appetite or overeating: not at all 6. Feeling bad about yourself - or that you are a failure or have let yourself or your family down: not at all 7. Trouble concentrating on things, such as reading the newspaper or watching television: not at all 8. Moving or speaking so slowly that other people could have noticed. Or the opposite - being so fidgety or restless that you have been moving around a lot more than usual: not at all 9. Thoughts that you would be better off or of hurting yourself in some way: not at all Total score: 1 Depression Screening Interpretation: Negative Depression Screening Done: Yes 25532 - PHQ-9 Billing: Yes Source: Developed by Drs. Fredo Bah, Gloria Olivas, Ankit Zuniga and colleagues, with an educational sara from [employer]. Thrive Questionnaire Date Thrive assessed: 02/09/25 I am a: Patient What is your living situation today?: I have a steady place to live Within the past 12 months, did the food you bought not last and you didn't have the money to get more?: Never true Within the past 12 months, did you worry whether your food would run out before you got money to buy more?: Sometimes True Do you have trouble paying for medicines?: No Do you have trouble getting transportation to medical appointments?: No Do you have trouble paying your heating and electricity bill?: Yes Do you have trouble taking care of your child, family member or friend?: No Do you have trouble with day-to-day activities such as bathing, preparing meals, shopping, managing finances, etc.?: No Are you currently unemployed and looking for a job?: No Are you interested in more education?: No Please select the resources that you would like help with: Food and Utilities Currently or been in a relationship where the following occur: No concerns reported THRIVE Score: 2 AUDIT C Alcohol Use Questionnaire (AUDIT-C) 1. How often do you have a drink containing alcohol?: Monthly or less 2. How many drinks containing alcohol do you have on a typical day when you are drinking?: 1 or 2 3. How often do you have six or more drinks on one occasion?: Never Total Score: 1 Score Reviewed/Action Taken: Yes RUTH ANN-7 AMB Questionnaire RUTH ANN-7 Date RUTH ANN - 7 assessed: 02/09/25 Feeling nervous, anxious, or on edge: 1 = Several days Not being able to stop or control worryin = Several days Worrying too much about different things: 1 = Several days Trouble relaxin = Not at all Being so restless that it is hard to sit still: 0 = Not at all Becoming easily annoyed or irritable: 0 = Not at all Feeling afraid as if something awful might happen: 1 = Several days Total RUTH ANN-7 score (0-4 normal; 5-9 mild; 10-14 moderate; 15-21 severe): 4 Source: Developed by Drs. Frdeo Bah, Gloria Olivas, Ankit Zuniga and colleagues, with an educational sara from [employer]. RUTH ANN-7 Assessment Billing RUTH ANN-7 Assessment Tool: RUTH ANN-7 Assessment 73484 Physical exam (Primary Care) Vital Signs: Last Vital Signs Pulse 74 02/09/25 11:19 BP 118/70 02/09/25 11:19 Pulse Ox 96 02/09/25 11:19 BMI result Body Mass Index 22.7 Tobacco/Smoking Status: Tobacco use Status Tobacco use date assessed 02/09/25 02/09/25 11:22 Patient Tobacco Use Status Current everyday Tobacco 02/09/25 11:22 e-Cigarette/Vaping Use Never Used 02/09/25 11:22 PHQ-9: PHQ-9 Score PHQ-9: Total score 1 02/09/25 12:06 Depression Screening Interpretation: Negative Thrive Assessment: Date of Thrive Assessment Date Thrive assessed 02/09/25 02/09/25 11:22 Currently or been in a relationship where the following occur: No concerns reported Results AMB Hemoglobin A1c AMB Hemoglobin A1c 5.2 % Last Edit by Bryan Poon CMA on 02/09/25 11: 44 Results Reviewed Results Reviewed: Laboratory Last Values Hgb A1c (Clinic) 5.2 % (4.0-6.0) 02/09/25 11:33 Coding Level of Care Code Est Pt Prev Care 40-64y(04536) Diagnoses Physical exam Z00.00 Diabetes E11.9 COPD (chronic obstructive pulmonary disease) J44.9 Additional Codes RUTH ANN-7 Assessment Billing - RUTH ANN-7 Assessment Tool: RUTH ANN-7 Assessment 69803 ([id number]) PHQ-9 - 43624 - PHQ-9 Billing: Yes ([id number]) Assessment & Plan Assessment & Plan (1) Physical exam: Code(s): Z00.00 - Encounter for general adult medical examination without abnormal findings Category: Medical (2) Diabetes: Code(s): E11.9 - Type 2 diabetes mellitus without complications Category: Medical (3) COPD (chronic obstructive pulmonary disease): Code(s): J44.9 - Chronic obstructive pulmonary disease, unspecified Category: Medical Plan . Orders: Orders AMB Hemoglobin A1c Today Z13.9 - Encounter for screening, unspecified PFT pulmonary function test Today J44.9 - Chronic obstructive pulmonary disease, unspecified
--- OUTSIDE RECORDS SUMMARY | 2025-02-09 12:41 | XMS_ITS | Encounter Summary ---
[facility] Address [address] [facility] [place] [address] Care Team Providers Care Middle School Director Name Role Phone Ayse Castillo MD Primary Care Provider Quentin Winn PA-C Primary Care Provider [facility] Pcp Primary Care Provider Unavailabl e Reason for Visit * Reason Comments E-prescribe Rx Request Encounter Details Date Type Department Care Team Description 02/25/2021 Refill Medicine/Pediatrics [address] [address] Ayse Castillo MD E-prescribe Rx Request Social History Tobacco Use Types Packs/Day Years Used Date Smoking Tobacco: Every Day Cigarettes 0.5 35 Smokeless Tobacco: Never Alcohol Use Standard Drinks/Week Comments No 0 (1 standard drink = 0.6 oz pure alcohol) Recently detoxed. States he is dry Sex Assigned at Date Recorded Not on file documented as of this encounter Miscellaneous Notes * Telephone Encounter - Vinicio Jainbenedicto - 02/25/2021 4:03 PM EDT Patient would like script to be: E-PRESCRIBED/FAXED TO PHARMACY WHEN WAS THE PATIENT'S LAST APPOINTMENT IN ADULT MEDICINE? 01/19/21 WHEN WAS THE LAST TIME THE PATIENT SAW THEIR PCP? Same as above Does patient have an upcoming appointment? Yes 05/19/21 (THE MEDICATION REQUESTED IS ON THE MED LIST ABOVE) All of the medications requested were on the CURRENT MEDS list Did you check the Pharmacy information above?: YES Patient wants: 90 -day supply Is this a mail order prescription request ? NO If the refill is from a FAXED refill request what is the RX # listed on the fax? N/A Patients current insurance carrier is: Payor: [employer] - MEDICARE / Plan: MEDICARE FFS $0 [place] [id number] / Product Type: INDEMNITY Insurance ID #: [id number] documented in this encounter Plan of Treatment Not on file documented as of this encounter Visit Diagnoses Not on filedocumented in this encounter Care Teams Middle School Director Relationship Specialty Start Date End Date Ayse Castillo MD PCP - General Internal Medicine 05/18/16 1 Quentin Chatterjee PA-C PCP - General Med/Peds 07/08/21 05/30/22 [facility], Pcp PCP - General Internal Medicine 05/31/22 documented as of this encounter
--- OUTSIDE RECORDS SUMMARY | 2025-02-09 12:41 | XMS_ITS | Encounter Summary ---
Author Organization [facility] Address [address] [facility] [place] [address] Care Team Providers Care Account Analyst Name Role Phone Landen Shearer MD Primary Care Provider [phone] Candice Butt MD Primary Care Provider Ronit Frankel MD Primary Care Provider Ayse Jackson MD Primary Care Provider Quentin Winn PA-C Primary Care Provider Unavail [facility] Pcp Primary Care Provider Unavailabl e Encounter Details Date Type Department Care Team Description 09/18/2012 Pt. Non Urgent Medical Question Adult Medicine - [address] [address] Landen Shearer MD [address] [place] [address] Social History Tobacco Use Types Packs/Day Years Used Date Smoking Tobacco: Every Day Cigarettes 0.5 35 Smokeless Tobacco: Current Alcohol Use Standard Drinks/Week Comments Yes 0 (1 standard drink = 0.6 oz pure alcohol) Recently detoxed. States he is dry Sex Assigned at Date Recorded Not on file documented as of this encounter Progress Notes * Melinda Leon L.P.N. - 09/18/2012 1:07 PM ESTFrom: SLICK AMADOR To: Landen Shearer MD Sent: SunSep 18, 2012 12:44 PM Subject: infection stomache not sure if im supposed to get a renewal of medication ran out documented in this encounter Plan of Treatment Not on file documented as of this encounter Visit Diagnoses Not on filedocumented in this encounter Care Teams Account Analyst Relationship Specialty Start Date End Date Landen Shearer MD [address] [place] [address] PCP - General Internal Medicine 08/27/12 08/25/14 Candice Butt MD [address] [place] [address] PCP - General Internal Medicine 08/26/14 09/07/15 Ronit La MD [address] [place] [address] PCP - General Internal Medicine 09/08/15 05/17/16 Ayse Castillo MD [address] [place] [address] PCP - General Internal Medicine 05/18/16 07/07/21 Quentin Chatterjee PA-C [address] [place] [address] PCP - General Med/Peds 07/08/21 05/30/22 [facility]ly [facility], Pcp [address] [place] [address] PCP - General Internal Medicine 05/31/22 documented as of this encounter
--- OUTSIDE RECORDS SUMMARY | 2025-02-09 12:41 | XMS_ITS | Encounter Summary ---
Author Organization [facility] Address [address] [facility] [place] [address] Care Team Providers Care Shot Dropper Name Role Phone Ayse Castillo MD Primary Care Provider Quentin Winn PA-C Primary Care Provider [facility], Pcp [facility] Encounter Details Date Type Department Care Team Description 01/05/2021 Coordinate Measuring Machine Operator Report Medical Records [address] [facility] [place] [address] Landen Nazario Social History Tobacco Use Types Packs/Day Years Used Date Smoking Tobacco: Every Day Cigarettes 0.5 35 Smokeless Tobacco: Never Alcohol Use Standard Drinks/Week Comments No 0 (1 standard drink = 0.6 oz pure alcohol) Recently detoxed. States he is dry Sex Assigned at Date Recorded Not on file documented as of this encounter Plan of Treatment Not on file documented as of this encounter Visit Diagnoses Not on filedocumented in this encounter Care Teams Shot Dropper Relationship Specialty Start Date End Date Ayse Castillo MD PCP - General Internal Medicine 05/18/16 1 Quentin Chatterjee PA-C PCP - General Med/Peds 07/08/21 05/30/22 [facility], Pcp PCP - General Internal Medicine 05/31/22 documented as of this encounter
--- OUTSIDE RECORDS SUMMARY | 2025-02-09 12:41 | XMS_ITS | Encounter Summary ---
Author Organization [facility] Address [address] [facility] [place] [address] Care Team Providers Care Driver Service Technician Name Role Phone Ayse Castillo MD Primary Care Provider Quentin Winn PA-C Primary Care Provider [facility], Pcp Primary Care Provider Unavailabl e Reason for Visit * Reason Onset Date Comments Fifth Hand Feedback 01/16/2020 Dr. Torres Encounter Details Date Type Department Care Team Description 01/16/2020 Telephone Medicine/Pediatrics [address] [address] Ayse Castillo MD Fifth Hand Feedback (Dr. Torres) Social History Tobacco Use Types Packs/Day Years Used Date Smoking Tobacco: Every Day Cigarettes 0.5 35 Smokeless Tobacco: Never Alcohol Use Standard Drinks/Week Comments No 0 (1 standard drink = 0.6 oz pure alcohol) Recently detoxed. States he is dry Sex Assigned at Date Recorded Not on file documented as of this encounter Miscellaneous Notes * Telephone Encounter - Arianne Taylor - 01/16/2020 12:41 PM EST Per faxed request for Dr. Torres at [facility]; provider is out of network. Out of network request submitted online, awaiting response Confirm Notification/Prior Authorization Thank you for your online Notification/Prior Authorization submission. The notification/prior authorization case information was transmitted on 01/16/2020 at 11:54 AM DEVELOPER DESIGNER. The notification/prior authorization reference number is [id number]. Please print this page for your records. The reference number above acknowledges receipt of your notification or prior authorization request. Please write this number down and refer to it for future inquiries. Coverage and payment for an item or service is governed by the member's benefit plan document, and, if applicable, the provider's participation agreement with the Health Plan. Please note that if you wish to cancel these services at any time, or if you have any questions, please contact us by calling the number on the back of the member's ID card. Thank you. Expand all Collapse all Attach Clinical Documentation Select files The maximum file size that can be attached is 25MB, but you can attach multiple files. Acceptable file types are bmp, doc, docx, gif, jpg, jpeg, pdf, png, tiff and txt. Filename can contain only: a-z, A-Z, 0-9, space, underscore and dash/hyphen. Please refer to Medical Records Requirements for Pre-Service to determine what specific clinical documentation is required to be attached to this request. Patient Details PATIENT NAME Relationship Verbal Language Preference Message Slick PerezSNADEC Employee [employer] A future timeline may be available for this member. For future coverageplease call the telephone number located on the back of the member's Medical ID card. Member Number Effective Date Written Language Preference [id number] 11/12/2019 [employer] Group Number Termination Date [id number] 11/11/2020 Product Insurance Type HMO Medicare New Z01.00 ENC EXAM EYES VISION W/O ABNRM FIND New [id number] Office or other outpatient visit for the karen Torres, [id number], [id number], [address] [facility] [address] [address] documented in this encounter Plan of Treatment Not on file documented as of this encounter Visit Diagnoses Not on filedocumented in this encounter Care Teams Driver Service Technician Relationship Specialty Start Date End Date Ayse Castillo MD PCP - General Internal Medicine 05/18/16 1 Quentin Chatterjee PA-C PCP - General Med/Peds 07/08/21 05/30/22 [facility], Pcp PCP - General Internal Medicine 05/31/22 documented as of this encounter
--- OUTSIDE RECORDS SUMMARY | 2025-02-09 12:42 | XMS_ITS | Encounter Summary ---
Author [facility] Address [address] [facility] [place] [address] Care Team Providers Care Recreational Specialist Name Role Phone Ronit La MD Primary Care Provider Ayse Jackson MD Primary Care Provider Quentin Winn PA-C Primary Care Provider Unavail [facility], Pcp [facility] Encounter Details Date Type Department Care Team Description 02/11/2016 Hospital Medical Records [address] [place] [address] Bereket Maurice MD [address] [place] [address] Social History Tobacco Use Types Packs/Day Years [...] on filedocumented in this encounter Care Teams Recreational Specialist Relationship Specialty Start Date End Date Ronit La MD PCP - General Internal Medicine 09/08/15 05/17/16 Ayse Castillo MD PCP - General Internal Medicine 05/18/16 1 Quentin Chatterjee PA-C PCP - General Med/Peds 07/08/21 05/30/22 [facility], Pcp PCP - General Internal Medicine 05/31/22 documented as of this encounter
--- OUTSIDE RECORDS SUMMARY | 2025-02-09 12:42 | XMS_ITS | Encounter Summary ---
Author [facility] Address [address] [facility] [place] [address] Care Team Providers Care Knifeman Name Role Phone Ayse Castillo MD Primary Care Provider Quentin Winn PA-C Primary Care Provider [facility], Pcp [facility] Encounter Details Date Type Department Care Team Description 04/23/2019 Outbound Telemarketer Report Medical Records [address] [facility] [place] [address] Landen Nazario Social History Tobacco Use Types [...] on filedocumented in this encounter Care Teams Knifeman Relationship Specialty Start Date End Date Ayse Castillo MD PCP - General Internal Medicine 05/18/16 1 Quentin Chatterjee PA-C PCP - General Med/Peds 07/08/21 05/30/22 [facility], Pcp PCP - General Internal Medicine 05/31/22 documented as of this encounter
--- OUTSIDE RECORDS SUMMARY | 2025-02-09 12:42 | XMS_ITS | Encounter Summary ---
Author Organization [facility] Address [address] [facility] [place] [address] Care Team Providers Care Auto Tester Name Role Phone Landen Shearer MD Primary Care Provider [phone] Candice Butt MD Primary Care Provider Ronit Frankel MD Primary Care Provider Ayse Jackson MD Primary Care Provider Quentin Winn PA-C Primary Care Provider [facility] Pcp [facility] Encounter Details Date Type Department Care Team Description 02/10/2014 Micrographics Services Supervisor Report Medical Records [address] [place] [address] Quentin Schmitt PA-C Social History Tobacco Use Types Packs/Day Years [...] on filedocumented in this encounter Care Teams Auto Tester Relationship Specialty Start Date End Date Landen Shearer MD [address] [place] [address] PCP - General Internal Medicine 08/27/12 08/25/14 Candice Butt MD [address] [place] [address] PCP - General Internal Medicine 08/26/14 09/07/15 Ronit La MD [address] [place] [address] PCP - General Internal Medicine 09/08/15 05/17/16 Ayse Castillo MD [address] [place] [address] PCP - General Internal Medicine 05/18/16 07/07/21 Quentin Chatterjee PA-C [address] [place] [address] PCP - General Med/Peds 07/08/21 05/30/22 [facility], Pcp [address] [place] [address] PCP - General Internal Medicine 05/31/22 documented as of this encounter
--- OUTSIDE RECORDS SUMMARY | 2025-02-09 12:42 | XMS_ITS | Encounter Summary ---
Author Organization [facility] Address [address] [facility] [place] [address] Care Team Providers Care Scale Attendant Name Role Phone Ayse Castillo MD Primary Care Provider Quentin Winn PA-C Primary Care Provider [facility], Pcp [facility] Encounter Details Date Type Department Care Team Description 07/23/2019 Principal Software Engineer Report Medical Records [address] [facility] [place] [address] Landen Nazario Social History Tobacco Use Types [...] on filedocumented in this encounter Care Teams Scale Attendant Relationship Specialty Start Date End Date Ayse Castillo MD PCP - General Internal Medicine 05/18/16 1 Quentin Chatterjee PA-C PCP - General Med/Peds 07/08/21 05/30/22 [facility], Pcp PCP - General Internal Medicine 05/31/22 documented as of this encounter
--- OUTSIDE RECORDS SUMMARY | 2025-02-09 12:42 | XMS_ITS | Encounter Summary ---
Author Organization [facility] Address [address] [facility] [place] [address] Care Team Providers Care Talent Acquisition Coordinator Name Role Phone Ayse Castillo MD Primary Care Provider Quentin Winn PA-C Primary Care Provider [facility], Pcp Primary Care [facility] Encounter Details Date Type Department Care Team Description 10/23/2016 Archery Equipment Hay Sorter Report Medical Records [address] [facility] [place] [address] Landen Nazario Social History Tobacco Use Types [...] on filedocumented in this encounter Care Teams Talent Acquisition Coordinator Relationship Specialty Start Date End Date Ayse Castillo MD PCP - General Internal Medicine 05/18/16 1 Quentin Chatterjee PA-C PCP - General Med/Peds 07/08/21 05/30/22 [facility], Pcp PCP - General Internal Medicine 05/31/22 documented as of this encounter
--- OUTSIDE RECORDS SUMMARY | 2025-02-09 12:42 | XMS_ITS | Encounter Summary ---
Author Organization [facility] Address [address] [facility] [place] [address] Care Team Providers Care Roofing Layer Name Role Phone Ayse Castillo MD Primary Care Provider Quentin Winn PA-C Primary Care Provider Unavail [facility], Pcp Primary Care Provider Unavailabl e Encounter Details Date Type Department Care Team Description 08/22/2018 Orders Only Medicine/Pediatrics - [address] [id number] Quentin Chatterjee PA-C Social History Tobacco Use Types Packs/Day [...] on filedocumented in this encounter Care Teams Roofing Layer Relationship Specialty Start Date End Date Ayse Castillo MD PCP - General Internal Medicine 05/18/16 1 Quentin Chatterjee PA-C PCP - General Med/Peds 07/08/21 05/30/22 [facility], Pcp PCP - General Internal Medicine 05/31/22 documented as of this encounter
--- OUTSIDE RECORDS SUMMARY | 2025-02-09 12:42 | XMS_ITS | Encounter Summary ---
Author Organization [facility] Address [address] [facility] [place] [address] Care Team Providers Care Edge Plugger Name Role Phone Quentin Chatterjee PA-C Primary Care Provider Unavail able [facility], Pcp Primary Care Provider Unavailabl e Encounter Details Date Type Department Care Team Description 01/05/2022 Freight Car Cleaner Report Medical Records [address] [place] [address] [place] [address] [place] [address] Social History Tobacco Use Types Packs/Day Years [...] on filedocumented in this encounter Care Teams Edge Plugger Relationship Specialty Start Date End Date Quentin Chatterjee PA-C PCP - General Med/Peds 07/08/21 05/30/22 [facility], Pcp PCP - General Internal Medicine 05/31/22 documented as of this encounter
--- OUTSIDE RECORDS SUMMARY | 2025-02-09 12:42 | XMS_ITS | Encounter Summary ---
Author [facility] Address [address] [facility] [place] [address] Care Team Providers Care Dietitian Name Role Phone Ayse Castillo MD Primary Care Provider Quentin Winn PA-C Primary Care Provider [facility], Pcp [facility] Encounter Details Date Type Department Care Team Description 12/10/2018 Tobacco Cutter Report Medical Records 4 [facility] [place] [address] Landen Nazario Social History Tobacco Use Types [...] on filedocumented in this encounter Care Teams Dietitian Relationship Specialty Start Date End Date Ayse Castillo MD PCP - General Internal Medicine 05/18/16 1 Quentin Chatterjee PA-C PCP - General Med/Peds 07/08/21 05/30/22 [facility], Pcp PCP - General Internal Medicine 05/31/22 documented as of this encounter
--- OUTSIDE RECORDS SUMMARY | 2025-02-09 12:42 | XMS_ITS | Encounter Summary ---
Author Organization [facility] Address [address] [facility] [place] [address] Care Team Providers Care Ticket Collector Or Usher Name Role Phone Ayse Castillo MD Primary Care Provider Quentin Winn PA-C Primary Care Provider [facility], Pcp Primary [facility] Encounter Details Date Type Department Care Team Description 03/27/2018 Release of Information Medical Records [address] [place] [address] [place] [address] Abstract, Provider Social History Tobacco Use Types Packs/Day Years [...] on filedocumented in this encounter Care Teams Ticket Collector Or Usher Relationship Specialty Start Date End Date Ayse Castillo MD PCP - General Internal Medicine 05/18/16 1 Quentin Chatterjee PA-C PCP - General Med/Peds 07/08/21 05/30/22 [facility], Pcp PCP - General Internal Medicine 05/31/22 documented as of this encounter
--- OUTSIDE RECORDS SUMMARY | 2025-02-09 12:42 | XMS_ITS | Encounter Summary ---
Author Organization [facility] Address [address] [place] [address] Care Team Providers Care Audit Practice Intern Name Role Phone Ronit La MD Primary Care Provider Ayse Jackson MD Primary Care Provider Quentin Winn PA-C Primary Care Provider Unavail [facility], Pcp Primary Care Provider [facility] Reason for Visit * Reason Onset Date Comments Provider Call Back 03/22/2016 Encounter Details Date Type Department Care Team Description 03/22/2016 Telephone General Surgery [address] [place], [place] [id number] Bereket Maurice MD [address] [place] [address] Provider Call Back Social History Tobacco Use Types Packs/Day Years Used Date Smoking Tobacco: Every Day Cigarettes 0.5 35 Smokeless Tobacco: Never Alcohol Use Standard Drinks/Week Comments No 0 (1 standard drink = 0.6 oz pure alcohol) Recently detoxed. States he is dry Sex Assigned at Date Recorded Not on file documented as of this encounter Miscellaneous Notes * Telephone Encounter - Layne Rodas M.A. - 03/22/2016 3:10 PM EDT Ok thank you . * Telephone Encounter - Bereket Maurice MD - 03/22/2016 3:02 PM EDT I called pt- he will start BAx, come to office tomorrow, to ED before thet if he gets sick * Telephone Encounter - Layne Rodas M.A. - 03/22/2016 2:10 PM EDT I called [facility] spoke to Massiel due to the message being sent back to the surgery pool she states that the PCP wont see the patient due to it not being a medical issue that's it a surgical issue I explain to her that I suggest for him to call them due to the fact I dont have a surgeon in office she stated why I don't call the education program specialist surgeon I explained to her I was sending the message to DR.frank FOUNTAIN and also had suggested for the patient to go to the ER , but the patient refused due to it being to expensive she states she was going to talk to her solar installation manager and the her doctor the patient was not call yet from [facility] , I will forward message to to see if he will add him in tomorrow . Routed to Dr.Frank FOUNTAIN * Telephone Encounter - Layne Rodas M.A. - 03/22/2016 1:15 PM EDT Called patient he had a a hard ball where he has the incision from his surgery on 02/11/16 , it veryred he feels its infected I explained to that there is no surgeon in the office To call his PCP or go to the ER he states its expensive to go to the ER , he willcall his PCP to see if they can see him and I will book him an appt to see Dr Douglas on Sunday if needed he will call me back . * Telephone Encounter - Zahira Quiñones - 03/22/2016 11:36 AM EDT Pt calling stating he did have ( Lap Beatrice 02/11/16) pt c/o increase pain in that area as well as redness,bloating and feels hard to touch. Pt worried this may be infected. Please advise. Pt aware provider not in the office until tomorrow. documented in this encounter Plan of Treatment Not on file documented as of this encounter Visit Diagnoses Diagnosis Cellulitis, unspecified cellulitis site- Primary documented in this encounter Care Teams Audit Practice Intern Relationship Specialty Start Date End Date Ronit La MD PCP - General Internal Medicine 09/08/15 05/17/16 Ayse Castillo MD PCP - General Internal Medicine 05/18/16 1 Quentin Chatterjee PA-C PCP - General Med/Peds 07/08/21 05/30/22 [facility], Pcp PCP - General Internal Medicine 05/31/22 documented as of this encounter
--- OUTSIDE RECORDS SUMMARY | 2025-02-09 12:42 | XMS_ITS | Encounter Summary ---
Author Organization [facility] Address [address] [facility] [place] [address] Care Team Providers Care Rough Patcher Name Role Phone Candice Butt MD Primary Care Provider Ronit Farnkel MD Primary Care Provider Ayse Jackson MD Primary Care Provider Quentin Winn PA-C Primary Care Provider Unavail able [facility] Pcp [facility] Encounter Details Date Type Department Care Team Description 12/11/2014 Clinical Appeals Rn Report Medical Records [address] [place] [address] [place] [address] Landen Nazario Social History Tobacco Use Types [...] on filedocumented in this encounter Care Teams Rough Patcher Relationship Specialty Start Date End Date Candice Butt MD PCP - General Internal Medicine 08/26/14 09/07/15 Ronit La MD PCP - General Internal Medicine 09/08/15 05/17/16 Ayse Castillo MD PCP - General Internal Medicine 05/18/16 1 Quentin Chatterjee PA-C PCP - General Med/Peds 07/08/21 05/30/22 [facility], Pcp PCP - General Internal Medicine 05/31/22 documented as of this encounter
--- OUTSIDE RECORDS SUMMARY | 2025-02-09 12:42 | XMS_ITS | Encounter Summary ---
Author Organization [facility] [employer] [facility] Address [address] [facility] [place] [address] Care Team Providers Care Intraoperative Neuro Tech Name Role Phone Landen Shearer MD Primary Care Provider [phone] Candice Butt MD Primary Care Provider Ronit Frankel MD Primary Care Provider UnavailAyse Jordan MD Primary Care Provider Quentin Winn PA-C Primary Care Provider Unavail [facility] Pcp Primary Care Provider Unavailabl e Encounter Details Date Type Department Care Team Description 10/03/2013 Property Handler Report Medical Records [address] [place] [address] Cristina Anton MD [address] [place] [address] Social History Tobacco Use Types Packs/Day Years [...] on filedocumented in this encounter Care Teams Intraoperative Neuro Tech Relationship Specialty Start Date End Date Landen Shearer MD [address] [place] [address] PCP - General Internal Medicine 08/27/12 08/25/14 Candice Butt MD [address] [place] [address] PCP - General Internal Medicine 08/26/14 09/07/15 Ronit La MD [address] [place] [address] PCP - General Internal Medicine 09/08/15 05/17/16 Ayse Castillo MD [address] [place] [address] PCP - General Internal Medicine 05/18/16 07/07/21 Quentin Chatterjee PA-C [address] [place] [address] PCP - General Med/Peds 07/08/21 05/30/22 [facility], Pcp [address] [place] [address] PCP - General Internal Medicine 05/31/22 documented as of this encounter
--- OUTSIDE RECORDS SUMMARY | 2025-02-09 12:42 | XMS_ITS | Encounter Summary ---
Author Organization [facility] Address [address] [facility] [place] [address] Care Team Providers Care Community Affairs Director Name Role Phone Ayse Castillo MD Primary Care Provider Quentin Winn PA-C Primary Care Provider [facility], Pcp Primary Care Provider Unavailabl e Reason for Visit * Reason Onset Date Comments Coal Cutting Machine Operator Feedback 11/20/2019 Dr Landen Nazario Encounter Details Date Type Department Care Team Description 11/20/2019 Telephone Adult Medicine [facility] [address] [place] [address] Ayse Castillo MD Coal Cutting Machine Operator Feedback (Dr Landen Nazario) Social History Tobacco Use Types Packs/Day Years Used Date Smoking Tobacco: Every Day Cigarettes 0.5 35 Smokeless Tobacco: Never Alcohol Use Standard Drinks/Week Comments No 0 (1 standard drink = 0.6 oz pure alcohol) Recently detoxed. States he is dry Sex Assigned at Date Recorded Not on file documented as of this encounter Miscellaneous Notes * Telephone Encounter - Shannan Howe - 12/09/2019 10:18 AM EST Checked status online, referral still not processed * Telephone Encounter - Nuno Wang - 12/09/2019 9:24 AM EST [facility] calling on the status of the referral, please call specialty office [phone] / Toya * Telephone Encounter - Salma Jorge L - 12/03/2019 10:44 AM EST Referral not on line as of yet we are having an issue with [facility], * Telephone Encounter - Peace Kelly - 12/03/2019 10:40 AM EST [facility] calling on status of refferal please call them back [phone] * Telephone Encounter - Leslie Kaiser - 12/01/2019 11:41 AM EST Checked status online, referral still not processed. Refaxed to [facility]. * Telephone Encounter - Leslie Kaiser - 11/24/2019 8:12 AM EST Could not process online, submitted on paper to [facility]. * Telephone Encounter - Vinicio Martinez - 11/20/2019 1:28 PM EST What insurance does the patient have today? [employer] complete HMO ?? Effective 08/12/09: BS will not retro referral requests over 90 days. If request is for this please instruct patient to call the 800# on their insurance card to appeal. Do not submit a request. ?? Referrals cannot be processed if the insurance is not accurate. If the insurance listed above in red is NO BILLING INFORMATION FOUND FOR THIS ENCOUTNER The patients correct insurance must be obtained and registered in [facility] or their referral can not be processed. ?? Is this a retro request? 11/20/2019 ?? If yes for what date of service do you need the retro referral? 11/20/2019 ?? Who is calling to request this referral? [facility] ?? If the caller is not the patient, what is their name? Shiana ?? Ask the patient WHO referred them to this specialty: Not an initial visit; it is for follow up/continuation of care. Patients PCP is Dr. Ayse Castillo ?? FIRST and LAST NAME of SPECIALIST PATIENT is seeing: Dr. Landen Nazario ?? What specialty is this? Pain Management ?? DIAGNOSIS Patient is being seen for (Not a body part or a procedure) Bilateral primary osteoarthritis of hip; M16.0 ?? Have you seen this SPECIALIST for this PROBLEM/DX before?YES ?? If YES, when:07/23/19 ?? Have you checked REVIEW or the APPT DESK to see if this referral has already been done or has visits left? YES ?? Is this visit:Follow Up ?? Address of Specialist:[address] [place] [address] ?? Phone # of Specialist:[phone] ?? Fax #: (if applicable):[phone] ?? Does patient have an appointment scheduled?: YES ?? Date of appointment- (including a retro-request): 11/20/2019 with 6 visits ?? Is this appointment related to: Not MVA, WC or Surgery related ? documented in this encounter Plan of Treatment Not on file documented as of this encounter Visit Diagnoses Not on filedocumented in this encounter Care Teams Community Affairs Director Relationship Specialty Start Date End Date Ayse Castillo MD PCP - General Internal Medicine 05/18/16 1 Quentin Chatterjee PA-C PCP - General Med/Peds 07/08/21 05/30/22 [facility], Pcp PCP - General Internal Medicine 05/31/22 documented as of this encounter
--- OUTSIDE RECORDS SUMMARY | 2025-02-09 12:42 | XMS_ITS | Encounter Summary ---
Author Organization [facility] Address [address] [facility] [place] [address] Care Team Providers Care Steam Powerplant Supervisor Name Role Phone Quentin Chatterjee PA-C Primary Care Provider Unavail able [facility], Pcp Primary Care Provider Unavailabl e Encounter Details Date Type Department Care Team Description 08/17/2021 Welt Insole Channeler Report Medical Records [address] [facility] [place] [address] Landen Nazario Social History Tobacco Use Types Packs/Day Years Used Date Smoking Tobacco: Every Day Cigarettes 0.5 35 Smokeless Tobacco: Never Alcohol Use Standard Drinks/Week Comments No 0 (1 standard drink = 0.6 oz pure alcohol) Recently detoxed. States he is dry Sex Assigned at Date Recorded Not on file COVID-19 Exposure Response Date Recorded In the last month, have you been in contact with someone who was confirmed or suspected to have Coronavirus / COVID-19? No / Unsure 08/19/2021 1:42 PM EDT documented as of this encounter Plan of Treatment Not on file documented as of this encounter Visit Diagnoses Not on filedocumented in this encounter Care Teams Steam Powerplant Supervisor Relationship Specialty Start Date End Date Quentin Chatterjee PA-C PCP - General Med/Peds 07/08/21 05/30/22 [facility], Pcp PCP - General Internal Medicine 05/31/22 documented as of this encounter
--- OUTSIDE RECORDS SUMMARY | 2025-02-09 12:42 | XMS_ITS | Encounter Summary ---
Author Organization [facility] Address [address] [facility] [place] [address] Care Team Providers Care Warehouse Trainer Name Role Phone Ronit La MD Primary Care Provider Ayse Jackson MD Primary Care Provider Quentin Winn PA-C Primary Care Provider [facility], Pcp Primary Care Provider [facility] Encounter Details Date Type Department Care Team Description 04/03/2016 Back Maker Report Medical Records [address] [place] [address] [place] [address] Landen Nazario Social History Tobacco Use Types [...] on filedocumented in this encounter Care Teams Warehouse Trainer Relationship Specialty Start Date End Date Ronit La MD PCP - General Internal Medicine 09/08/15 05/17/16 Ayse Castillo MD PCP - General Internal Medicine 05/18/16 1 Quentin Chatterjee PA-C PCP - General Med/Peds 07/08/21 05/30/22 [facility], Pcp PCP - General Internal Medicine 05/31/22 documented as of this encounter
--- OUTSIDE RECORDS SUMMARY | 2025-02-09 12:42 | XMS_ITS | Clinical Summary ---
Author Organization [facility] Address [address] [place] [address] Phone Care Team Providers Care Enrollment Management Vice President Name Role Phone Physician, No Pcp Primary Care Provider Unavaila ble Allergies No known active allergies Encounters Date Type Department Care Team Description 11/19/2024 6:18 PM EST - 11/20/2024 1:49 AM EST Emergency [facility] Emergency [address] [place] [address] Heart palpitations (Primary Dx) Discharge Disposition: Home or Self Care from Last 3 Months Surgical History Surgery Date Site/Laterality Comments OTHER SURGICAL HISTORY PROCEDURE: DENIES PREVIOUS SURGERY COLONOSCOPY 08/20/2015 PROCEDURE: HISTORICAL COLONOSCOPY; COMMENT: diverticulosis; no polyps CHOLECYSTECTOMY 02/11/2016 PROCEDURE: HISTORICAL CHOLECYSTECTOMY Medical History Medical History Date Comments Chest pressure 09/09/2012 DX:Chest pressur e GERD (gastroesophageal reflu x disease) 08/29/2012 DX:GERD (gastroesophageal re flux disease) H. pylori infection 09/02/2012 DX:H. pylori infection Tobacco abuse 08/29/2012 DX:Tobacco abuse Herniated lumbar intervertebral disc 09/17/2014 DX:Herniated lumbar intervertebral disc; COMMENT: Sees [facility] Family History Medical History Relation Name Comments No Known Problems Aunt No Known Problems Brother 1 Other: early cad Brother 2 No Known Problems Father No Known Problems Maternal Grandfather No Known Problems Maternal Grandmother Arthritis Mother hands, Glaucoma Cataracts Mother Glaucoma Mother No Known Problems Other No Known Problems Paternal Grandfather No Known Problems Paternal Grandmother Arthritis Sister No Known Problems Uncle Blindness Neg Hx Macular degeneration Neg Hx Strabismus Neg Hx Relation Name Status Comments Aunt Brother 1 (Age 55) [place] Brother 2 Father unsure Maternal Grandfather Maternal Grandmother Mother Alive CAD, stents Other Paternal Grandfather Paternal Grandmother Sister Uncle Social History Tobacco Use Types Packs/Day Years Used Date Smoking Tobacco: Every Day Cigarettes Smokeless Tobacco: Never Alcohol Use Standard Drinks/Week Comments No 0 (1 standard drink = 0.6 oz pur e alcohol) Sex and Gender Information Value Date Recorded Sex Assigned at Not on file Legal Sex Male 5:51 PM EST Gender Identity Not on file Sexual Orientation Not on file Obstetrics History Last Filed Vital Signs Vital Sign Reading Time Taken Comments Blood Pressure 136/75 11/20/2024 12:52 AM EST Pulse 56 11/20/2024 12:52 AM EST Temperature 36.9 ??C (98.4 ??F) 11/19/2024 10:[address] Respiratory Rate 17 11/19/2024 10:29 PM EST Oxygen Saturation 96% 11/19/2024 10:29 PM EST Inhaled Oxygen Concentration - - Weight 66.7 kg (147 lb) 11/19/2024 6:32 PM EST Height 170.2 cm (5' 7 ) 11/19/2024 6:32 PM EST Body Mass Index 23.02 11/19/2024 6:32 PM EST Plan of Treatment Health Maintenance Due Date Last Done Comments Diabetes: Annual Foot Exam 1970 Diabetes: Annual Retina Eye Exam 1970 Zoster Vaccines (1 of 2) 2010 Cholesterol Screening (Lipid Panel) 10/21/2022 Colorectal Cancer Screening: Colonoscopy 10/21/2022 Depression Screening 10/21/2022 HIV Screening 10/21/2022 Hepatitis C Screening 10/21/2022 Medicare Annual Wellness Visit 10/21/2022 Social Influencers of Health Screening 10/21/2022 Diabetes: Annual Urine Albumin-Creatinine Ratio (uACR) 10/28/2022 Diabetes: Blood Sugar Contro l Test (HGBA1C) 10/28/2022 COVID-19 Vaccine (2023-2 5 season) 2024 05/12/2021, 04/14/2021 Influenza Vaccine (#1) 2024 , 10/19/2020, 09/23/2012 Diabetes: Annual GFR (Glomerular Filtration Rate) 11/19/2025 11/19/2024 Hypertension/CHF/CAD Annual BMP Blood Test 11/19/2025 11/19/2024 DTaP,Tdap,and Td Vaccines (2 - Td or Tdap) 08/19/2031 08/19/2021 RSV Immunization Patients 60 + Years Old (1 - 1-dose 75+ series) 2035 Pneumococcal Vaccine: 50+ Years Completed 01/16/2023, 06/24/2015 Pneumococcal Vaccine: Pediatrics (0 to 5 Years) and At-Risk Patients (6 to 64 Years) Completed 01/16/2023, 06/24/2015 HIB Vaccines Aged Out No longer eligi ble based on patient's age to complete this topic HPV Vaccines Aged Out No longer eligi ble based on patient's age to complete this topic Hepatitis A Vaccines Aged Out No long er eligible based on patient's age to complete this topic Hepatitis B Vaccines Aged Out No long er eligible based on patient's age to complete this topic IPV Vaccines Aged Out No longer eligi ble based on patient's age to complete this topic MMR Vaccines Aged Out No longer eligi ble based on patient's age to complete this topic Meningococcal ACWY Vaccine Aged Out N o longer eligible based on patient's age to complete this topic Meningococcal B Vacine Aged Out No lo nger eligible based on patient's age to complete this topic RSV Immunization Patients Under 20 months Aged Out No longer eligible b ased on patient's age to complete this topic Varicella Vaccines Aged Out No longer eligible based on patient's age to complete this topic Procedures Procedure Name Priority Date/Time Associated Diagnosis Comments TROPONIN I HIGH SENSITIVITY STAT 11/19/2024 7:51 PM EST XR CHEST 2 VIEWS STAT 11/19/2024 7:04 PM EST CBC WITH AUTO DIFFERENTIAL STAT 11/19/2024 6:42 PM EST B-TYPE NATRIURETIC PEPTIDE STAT 11/19/2024 6:42 PM EST MAGNESIUM STAT 11/19/2024 6:42 PM EST LIPASE STAT 11/19/2024 6:42 PM EST COMPREHENSIVE METABOLIC PANEL STAT 11/19/2024 6:42 PM EST CBC AND DIFFERENTIAL STAT 11/19/2024 6:42 PM EST TROPONIN I HIGH SENSITIVITY STAT 11/19/2024 6:42 PM EST ECG 12-LEAD STAT 11/19/2024 6:11 PM EST ECG ANNOTATED 11/19/2024 ECG ANNOTATED 11/19/2024 ECG ANNOTATED 11/19/2024 from Last 3 Months Results * Troponin I high sensitivity (11/19/2024 7:51 PM EST) Only the most recent of2 resultswithin the time period is included. High Sensitivity Troponin I 13 <=79 ng/L LAB CHEMISTRY METHOD 11/19/2024 8:25 PM EST [facility] Blood Venous blood specimen / Unknown Venipuncture / Unknown 11/19/2024 7:51 PM EST 11/19/2024 7:56 PM EST Narrative [facility] - 11/19/2024 8:25 PM EST High levels of biotin in samples may falsely decrease hsTroponin values. ??Use caution when interpreting hsTroponin results in patients taking biotin who exhibit renal impairment (eGFR <60) or in patients taking more than 20 mg/day of biotin. us [place] DO LAB BLOOD ORDERABLES Final Res ult [facility] [address] [place] [address], [place] [phone] * XR Chest 2 Views (11/19/2024 7:04 PM EST) Anatomical Region Laterality Modality Body Radiographic Jana ging 11/20/2024 8:57 AM EST Impressions 11/20/2024 8:58 AM EST No acute pulmonary disease. Findings as above consistent with COPD. No change since 03/02/2022. Code 33232 -------- FINAL REPORT -------- Dictated By: Alec Ramsey Dictated Date: 11/20/2024 08:57 ET Assigned Physician: Alec Ramsey Reviewed and Electronically Signed By: Alec Ramsey Signed Date: 11/20/2024 08:58 ET Workstation ID: [id number] Transcribed By: Self Edit Transcribed Date: 11/20/2024 08:57 ET Narrative 11/20/2024 8:58 AM EST HISTORY: The patient is a 64-year-old male smoker with chest pain. FINDINGS: PA and lateral radiographs of the chest demonstrate mild degenerative change of the thoracic spine, without significant change since the prior study performed 03/02/2022. The cardiac silhouette is within normal limits. The aortic knob is calcified. The lungs are again seen to be hyperinflated with flattening of the diaphragm consistent with chronic obstructive pulmonary disease. ??There is no consolidation, mass, pulmonary vascular congestion, or pleural effusion. Procedure Note Alec Ramsey MD - 11/20/2024 HISTORY: The patient is a 64-year-old male smoker with chest pain. FINDINGS: PA and lateral radiographs of the chest demonstrate milddegenerative change of the thoracic spine, without significant changesince the prior study performed 03/02/2022. The cardiac silhouette iswithin normal limits. The aortic knob is calcified. The lungs are againseen to be hyperinflated with flattening of the diaphragm consistent withchronic obstructive pulmonary disease. There is no consolidation, mass,pulmonary vascular congestion, or pleural effusion. IMPRESSION: No acute pulmonary disease. Findings as above consistent with COPD. Nochange since 03/02/2022. Code 56574 -------- FINAL REPORT -------- Dictated By: Alec Ramsey Dictated Date: 11/20/2024 08:57 ET Assigned Physician: Alec Ramsey Reviewed and Electronically Signed By: Alec Ramsey Signed Date: 11/20/2024 08:58 ET Workstation ID: [id number] Transcribed By: Self Edit Transcribed Date: 11/20/2024 08:57 ET [place] DO IMG XR PROCEDURES Final Result * (ABNORMAL) CBC auto differential (11/19/2024 6:42 PM EST) WBC 9.3 4.8 - 10.8 K/mcL LAB HEMETOLOGY METHOD 11/19/2024 7:00 PM [facility] RBC 5.20 4.50 - 5.50 M/mcL LAB HEMETOLOGY METHOD 11/19/2024 7:00 PM [facility] Hemoglobin 17.8(H) 13.5 - 17.5 g/dL LAB HEMETOLOGY METHOD 11/19/2024 7:00 PM [facility] Hematocrit 50.3 42.0 - 54.0 % LAB HEMETOLOGY METHOD 11/19/2024 7:00 PM [facility] MCV 96.5 79.0 - 98.0 FL LAB HEMETOLOGY METHOD 11/19/2024 7:00 PM [facility] MCH 34.2(H) 27.0 - 32.0 pcg LAB HEMETOLOGY METHOD 11/19/2024 7:00 PM [facility] MCHC 35.4 32.0 - 37.0 g/dL LAB HEMETOLOGY METHOD 11/19/2024 7:00 PM [facility] RDW 12.0 11.0 - 15.0 % LAB HEMETOLOGY METHOD 11/19/2024 7:00 PM [facility] Platelets 228 130 - 400 K/mcL LAB HEMETOLOGY METHOD 11/19/2024 7:00 PM [facility] MPV 9.7 7.0 - 11.0 FL LAB HEMETOLOGY METHOD 11/19/2024 7:00 PM [facility] NRBC 0.0 <1.0 % LAB HEMETOLOGY METHOD 11/19/2024 7:00 PM [facility] NRBC Absolute 0.00 <0.10 K/mcL LAB HEMETOLOGY METHOD 11/19/2024 7:00 PM [facility] Neutrophils Relative 50.4 % LAB HEMETOLOGY METHOD 11/19/2024 7:00 PM [facility] Lymphocytes Relative 35.0 % LAB HEMETOLOGY METHOD 11/19/2024 7:00 PM [facility] Monocytes Relative 9.0 % LAB HEMETOLOGY METHOD 11/19/2024 7:00 PM [facility] Eosinophils Relative 4.3 % LAB HEMETOLOGY METHOD 11/19/2024 7:00 PM [facility] Basophils Relative 0.9 % LAB HEMETOLOGY METHOD 11/19/2024 7:00 PM [facility] Immature Granulocytes Relative 0.4 % LAB HEMETOLOGY METHOD 11/19/2024 7:00 PM [facility] Neutrophils Absolute 4.68 1.50 - 7.00 K/mcL LAB HEMETOLOGY METHOD 11/19/2024 7:00 PM [facility] Lymphocytes Absolute 3.25 1.00 - 5.00 K/mcL LAB HEMETOLOGY METHOD 11/19/2024 7:00 PM [facility] Monocytes Absolute 0.84 0.20 - 1.00 K/mcL LAB HEMETOLOGY METHOD 11/19/2024 7:00 PM [facility] Eosinophils Absolute 0.40 0.00 - 0.50 K/mcL LAB HEMETOLOGY METHOD 11/19/2024 7:00 PM [facility] Basophils Absolute 0.08 0.00 - 0.20 K/mcL LAB HEMETOLOGY METHOD 11/19/2024 7:00 PM [facility] Immature Granulocytes Absolute 0.04(H) 0.00 - 0.03 K/mcL LAB HEMETOLOGY METHOD 11/19/2024 7:00 PM EST [facility] Blood Venous blood specimen / Unknown Venipuncture / Unknown 11/19/2024 6:42 PM EST 11/19/2024 6:49 PM EST us [place] DO LAB BLOOD ORDERABLES Final Res ult Performing Organization Address City/[facility]/ZIP Co de Phone Number [facility] [address] [place] [address], [place] [phone] * B-type natriuretic peptide (11/19/2024 6:42 PM EST) BNP 54 <=100 pcg/mL LAB CHEMISTRY METHOD 11/19/2024 7:27 PM EST [facility] Blood Venous blood specimen / Unknown Venipuncture / Unknown 11/19/2024 6:42 PM EST 11/19/2024 6:49 PM EST us [place] DO LAB BLOOD ORDERABLES Final Res ult Performing Organization Address [facility]/ZIP Co de Phone Number [facility] [address] [place] [address], [place] [phone] * Magnesium (11/19/2024 6:42 PM EST) Magnesium 2.2 1.9 - 2.6 mg/dL LAB CHEMISTRY METHOD 11/19/2024 7:36 PM EST [facility] Blood Venous blood specimen / Unknown Venipuncture / Unknown 11/19/2024 6:42 PM EST 11/19/2024 6:49 PM EST us [place] DO LAB BLOOD ORDERABLES Final Res ult Performing Organization Address City/[facility]/ZIP Co de Phone Number [facility] [address] [place] [address], [place] [phone] * Lipase (11/19/2024 6:42 PM EST) Lipase 57 13 - 75 unit/L LAB CHEMISTRY METHOD 11/19/2024 7:36 PM [facility] Blood Venous blood specimen / Unknown Venipuncture / Unknown 11/19/2024 6:42 PM EST 11/19/2024 6:49 PM EST us [place] DO LAB BLOOD ORDERABLES Final Res ult [facility] [address] [place] [address], * (ABNORMAL) Comprehensive metabolic panel (11/19/2024 6:42 PM EST) Pathologist [facility] Sodium 136 133 - 145 mmol/L LAB CHEMISTRY METHOD 11/19/2024 7:36 PM [facility] Potassium 4.3 3.5 - 5.5 mmol/L LAB CHEMISTRY METHOD 11/19/2024 7:36 PM [facility] Chloride 107 96 - 110 mmol/L LAB CHEMISTRY METHOD 11/19/2024 7:36 PM [facility] CO2 24 21 - 32 mmol/L LAB CHEMISTRY METHOD 11/19/2024 7:36 PM [facility] Anion Gap 5 3 - 11 LAB CHEMISTRY METHOD 11/19/2024 7:36 PM [facility] Glucose 92 70 - 100 mg/dL LAB CHEMISTRY METHOD 11/19/2024 7:36 PM [facility] BUN 14 5 - 25 mg/dL LAB CHEMISTRY METHOD 11/19/2024 7:36 PM [facility] Creatinine 0.87 0.70 - 1.30 mg/dL LAB CHEMISTRY METHOD 11/19/2024 7:36 PM [facility] eGFR 96 >=60 mL/min/1. 73m2 LAB CHEMISTRY METHOD 11/19/2024 7:36 PM [facility] Comment:Calculation based on the??Chronic Kidney Disease Epidemiology Collaboration (CKD-EPI) equation refit??without adjustment for race. BUN/Creatinine Ratio 16.1 LAB CHEMISTRY METHOD 11/19/2024 7:36 PM [facility] Calcium 9.5 8.5 - 10.5 mg/dL LAB CHEMISTRY METHOD 11/19/2024 7:36 PM [facility] AST (SGOT) 25 10 - 42 unit/L LAB CHEMISTRY METHOD 11/19/2024 7:36 PM [facility] ALT (SGPT) 36 10 - 60 unit/L LAB CHEMISTRY METHOD 11/19/2024 7:36 PM [facility] Alkaline Phosphatase 125(H) 42 - 121 unit/L LAB CHEMISTRY METHOD 11/19/2024 7:36 PM [facility] Total Protein 7.4 6.0 - 8.0 g/dL LAB CHEMISTRY METHOD 11/19/2024 7:36 PM [facility] Albumin 4.1 3.2 - 5.0 g/dL LAB CHEMISTRY METHOD 11/19/2024 7:36 PM [facility] Total Bilirubin 0.7 0.0 - 1.4 mg/dL LAB CHEMISTRY METHOD 11/19/2024 7:36 PM [facility] Blood Venous blood specimen / Unknown Venipuncture / Unknown 11/19/2024 6:42 PM EST 11/19/2024 6:49 PM EST us [place] DO LAB BLOOD ORDERABLES Final Res ult [facility] [address] [place] [address], * ECG 12 lead (11/19/2024 6:11 PM EST) Ventricular Rate ECG 60 BPM GEMUSE Atrial Rate 60 BPM GEMUSE P-R Interval 132 ms GEMUSE QRS Duration 94 ms GEMUSE Q-T Interval 426 ms GEMUSE QTc 426 ms GEMUSE P Wave [place] 70 degrees GEMUSE R [place] -30 degrees GEMUSE T [place] -6 degrees GEMUSE ECG Interpretation Normal sinus rhythm Left axis deviation Abnormal ECG When compared with ECG of 02-MAR-2022 13:47, Vent. rate has decreased BY ??46 BPM Confirmed by Natalie CRUZ YUFENG ([id number]) on 11/20/2024 5:13:08 PM GEMUSE 11/19/2024 6:11 PM EST 11/20/2024 5:13 PM EST South Cruz DO ECG ORDERABLES Final Result GEMUSE * ECG-Annotated (11/19/2024) Only the most recent of3 resultswithin the time period is included. Provider Onbase MD ECG ORDERABLES Final Result from Last 3 Months Insurance MEDICAID - [place] [employer] MEDICARE Care Teams Enrollment Management Vice President Relationship Specialty Start Date End Date Physician, No Pcp PCP - General 11/19/24
--- OUTSIDE RECORDS SUMMARY | 2025-02-09 12:42 | XMS_ITS | Encounter Summary ---
Author Organization [facility] Address [address] [facility] [place] [address] Care Team Providers Care Quality Audit Representative Name Role Phone Landen Shearer MD Primary Care Provider [phone] Candice Butt MD Primary Care Provider Ronit Frankel MD Primary Care Provider Ayse Jackson MD Primary Care Provider Quentin Winn PA-C Primary Care Provider [facility] Pcp Primary Care Provider Unavailabl e Encounter Details Date Type Department Care Team Description 03/06/2014 Quality Officer Report Medical Records [address] [place] [id number] Fredo Menendez Social History Tobacco Use Types Packs/Day Years [...] on filedocumented in this encounter Care Teams Quality Audit Representative Relationship Specialty Start Date End Date Landen Shearer MD [address] [place] [phone] PCP - General Internal Medicine 08/27/12 08/25/14 Candice Butt MD [address] [place] [phone] PCP - General Internal Medicine 08/26/14 09/07/15 Ronit La MD [address] [place] [address] PCP - General Internal Medicine 09/08/15 05/17/16 Ayse Castillo MD [address] [place] [id number] PCP - General Internal Medicine 05/18/16 07/07/21 Quentin Chatterjee PA-C [address] [place] [id number] PCP - General Med/Peds 07/08/21 05/30/22 [facility], Pcp [address] [place] [phone] PCP - General Internal Medicine 05/31/22 documented as of this encounter
--- OUTSIDE RECORDS SUMMARY | 2025-02-09 12:42 | XMS_ITS | Clinical Summary ---
Author Organization [facility] Address [address] [facility] [place] [address] Care Team Providers Care Laboratory Sampler Name Role Phone Community, Pcp Primary Care Provider Unavailabl e Allergies Active Allergy Reactions Severity Noted Date Comments Pamelor 03/12/2018 Medications Medication Sig Dispensed Refills Start Date End Date Status gabapentin (NEURONTIN) 300 MG capsule Take 300 mg by mouth. 3 tabs tid 0 Active diazepam (VALIUM) 5 MG tablet Take 5 mg by mouth 2 times daily as needed. 0 Active Eszopiclone (LUNESTA OR) Take 2 mg by mouth at bedtime. 0 Active tramadol (ULTRAM) 50 MG tablet Take 1 Tab by mouth every 6 hours as needed for Pain. 56 Tab 0 03/12/2018 Active Alcohol Swabs (ALCOHOL PADS) 70 % Pads Apply 1 Each topically daily. Before pricking finger to check sugars. 200 Each 0 12/18/2018 Active Blood Glucose Monitoring Suppl (ONE TOUCH ULTRA SYSTEM KIT) W/DEVICE Kit Use to check sugars twice daily for DM, E11.65 1 Kit 0 01/14/2019 Active Lancet Devices (ONE TOUCH DELICA LANCING DEV) Misc Use to check sugars twice daily for DM, E11.65 100 Each 5 01/14/2019 Active ONETOUCH DELICA LANCETS FINE Misc Use to check sugars twice daily for DM, E11.65 100 Each 06/23/2020 Active Nicotine Polacrilex 2 MG Gum Take 1 Each by mouth as needed for Other (cigarette cravings; not to exceed one piece an hour or 20/day). 270 Each 1 10/19/2020 Active ALBUTEROL SULFATE (PROAIR HFA) 108 (90 Base) MCG/ACT Aero Soln Inhale 2 Puffs into the lungs every 6 hours as needed for Cough, Wheezing or Shortness of Breath. 1 Inhaler 1 10/19/2020 Active hydrOXYzine (VISTARIL) 50 MG capsule Take 1 capsule by mouth daily. 0 04/08/2021 Active celecoxib (CELEBREX) 200 MG capsule TAKE 1 CAPSULE DAILY 90 capsule 1 07/20/2021 Active Glucose Blood (ONE TOUCH ULTRA TEST STRIPS) Strip Use to check sugars twice daily for DM, E11.65 100 Strip 5 08/18/2021 Active atorvastatin (LIPITOR) 80 MG tablet TAKE 1 TABLET DAILY 90 tablet 1 08/22/2021 Active glipiZIDE (GLUCOTROL) 2.5 MG 24 hr tablet Take 1 tablet by mouth daily (with breakfast). In addition to metformin for diabetes; do not take if unable to eat 90 tablet 0 11/23/2021 Active hydrochlorothiazide (HYDRODIURIL) 25 MG tablet TAKE 1 TABLET EVERY MORNING 30 Tablet 0 05/01/2022 Active metformin (GLUCOPHAGE-XR) 500 MG 24 hr tablet TAKE 2 TABLETS 2 TIMES DAILY WITH MEALS 360 Tablet 0 05/31/2022 Active Active Problems Problem Noted Date Nephrolithiasis 12/14/2020 Overview: [facility]rology Osteoarthritis, hip, bilateral 9 Overview: PSS Alcoholic peripheral neuropathy 12/18/19 19 Diabetes mellitus 05/20/2018 Ventral hernia 10/14/2017 Polysubstance abuse 10/14/2017 Cervical radiculopathy 01/16/2017 Overview: Injections C6-7 with [facility] Essential hypertension 10/26/2015 Hyperlipemia 07/07/2015 BPH (benign prostatic hyperplasia) 06/24 Herniated lumbar intervertebral disc 04/2014 Overview: Sees [facility] Shoulder bursitis 01/27/2013 Chest pressure 09/09/2012 Overview: Stress test negative. H. pylori infection 09/02/2012 GERD (gastroesophageal reflux disease) 1 Tobacco abuse 08/29/2012 Immunizations Name Administration Dates Next Due COVID-19 (Moderna) 05/12/2021,04/14/2021 Influenza (> 6 Months) 09/23/2012 Influenza Vaccine-preservati ve Free-quadrivalent 4 Years 08/19/2021,10/19/2020 Pneumoccoccal(Adult) Polysaccharide PPSV23 06/24 Tdap 08/19/2021 Family History Medical History Relation Name Comments No Known Problems Aunt No Known Problems Brother 1 early cad Brother 2 No Known Problems Father No Known Problems Maternal Grandfather No Known Problems Maternal Grandmother Arthritis Mother hands, Glaucoma Cataract Mother Glaucoma Mother No Known Problems Other No Known Problems Paternal Grandfather No Known Problems Paternal Grandmother Arthritis Sister No Known Problems Uncle Blindness Negative Hx Macular Degeneration Negative Hx Strabismus Negative Hx Relation Name Status Comments Aunt Brother 1 (Age 55) [place] Brother 2 Father unsure Maternal Grandfather Maternal Grandmother Mother Alive CAD, stents Other Paternal Grandfather Paternal Grandmother Sister Uncle Social History Tobacco Use Types Packs/Day Years Used Date Smoking Tobacco: Every Day Cigarettes 0.5 35 Smokeless Tobacco: Never Tobacco Cessation:Ready to Q uit: No; Counseling Given: Yes Alcohol Use Standard Drinks/Week Comments No 0 (1 standard drink = 0.6 oz pure alcohol) Recently detoxed. States he is dry Sex Assigned at Date Recorded Not on file Last Filed Vital Signs Vital Sign Reading Time Taken Comments Blood Pressure 128/68 08/19/2021 1:47 PM EDT Pulse 88 08/19/2021 1:47 PM EDT Temperature 36.6 ??C (97.8 ??F) 03/15/2020 1:58 PM ED T Respiratory Rate 10 07/08/2020 12:59 PM EDT Oxygen Saturation 94% 08/20/2015 1:52 PM EDT Inhaled Oxygen Concentration - - Weight 81.9 kg (180 lb 9.6 oz) 08/19/2021 1:47 P M EDT Height 170.2 cm (5' 7 ) 08/19/2021 1:47 PM EDT Body Mass Index 28.29 08/19/2021 1:47 PM EDT Plan of Treatment Health Maintenance Due Date Last Done Comments DEPRESSION SCREEN 1972 SHINGLES VACCINE (1 of 2) 2010 DIABETES: ANNUAL URINE PROTE IN TEST (MICROALBUMIN) 10/25/2021 10/25/2020, 03/13/2019 DIABETES: BLOOD SUGAR CONTRO L TEST (HGBA1C) 11/17/2021 08/17/2021, 05/17/2021, 01/13/2021, Additional history exists DIABETES: ANNUAL FOOT EXAM 01/19/202201/19 (Completed), 03/15/2020 (External Completion), 03/21/2019 DIABETES: ANNUAL EYE EXAM 05/03/20222020, 04/25/2021 (External Completion of test per patient (Patient reports normal results)), 08/13/2018, Additional history exists DIABETES/HEART DISEASE: MIKEY AL CHOLESTEROL (LDL) 05/17/2022 05/17/2021, 05/17/2021, 07/08/2020, Additional history exists TOBACCO CHECK/ADVISE 06/09/2024 06/09/2022, 05/31/2022, 05/01/2022, Additional history exists Covid-19 Vaccine (3 - 2022-2 4 season) 2024 05/12/2021, 04/14/2021 INFLUENZA (#1) 2024 08/19/2021, 06/2020 (Completed), 10/19/2020, Additional history exists BMI CHECK/ADVISE 11/12/2024 08/19/2021, 06/2021, 01/19/2021, Additional history exists PNEUMOCOCCAL VACCINE FOR HIG H RISK PATIENTS (#2) 2025 06/24/2015 COLON CANCER SCREENING 08/20/2025 5, 12/04/2012 (Refused) DTAP/TDAP/TD (3 - Td or Tdap) 08/19/2031, 08/15/2011 (External Completion) HEPATITIS C SCREENING Completed 10/09/2017, 015 Care Teams Laboratory Sampler Relationship Specialty Start Date End Date [facility], Pcp PCP - General Internal Medicine 05/31/22
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
--- OUTSIDE RECORDS SUMMARY | 2025-02-09 12:42 | XMS_ITS | Encounter Summary ---
Author Organization [facility] Address [address] [facility] [place] [address] Care Team Providers Care Housekeeping And Laundry Team Leader Name Role Phone Ayse Castillo MD Primary Care Provider Quentin Winn PA-C Primary Care Provider [facility], Pcp [facility] Encounter Details Date Type Department Care Team Description 04/09/2018 Chief Talent Officer Report Medical Records 4 [facility] [place] [address] Landen Nazario Social History Tobacco Use Types [...] on filedocumented in this encounter Care Teams Housekeeping And Laundry Team Leader Relationship Specialty Start Date End Date Ayse Castillo MD PCP - General Internal Medicine 05/18/16 1 Quentin Chatterjee PA-C PCP - General Med/Peds 07/08/21 05/30/22 [facility], Pcp PCP - General Internal Medicine 05/31/22 documented as of this encounter
--- OUTSIDE RECORDS SUMMARY | 2025-02-09 12:42 | XMS_ITS | Encounter Summary ---
Author Organization [facility] Address [address] [facility] [place] [address] Care Team Providers Care Photographic Editor Name Role Phone [facility], Pcp Primary Care Provider Unavailabl e Reason for Visit * Reason Comments E-prescribe Rx Request Encounter Details Date Type Department Care Team Description 06/09/2022 Refill Walk In [facility] [address] [place] [address] Dilia Gonzalez PA-C E-prescribe Rx Request Social History Tobacco Use [...] on filedocumented in this encounter Care Teams Photographic Editor Relationship Specialty Start Date End Date Community, Pcp PCP - General Internal Medicine 05/31/22 documented as of this encounter
--- OUTSIDE RECORDS SUMMARY | 2025-02-09 12:42 | XMS_ITS | Encounter Summary ---
[facility] Organization [facility] Address [address] [facility] [place] [address] Care Team Providers Care Computer Animator Name Role Phone Ayse Castillo MD Primary Care Provider Quentin Winn PA-C Primary Care Provider [facility], Pcp Primary Care Provider [facility] Encounter Details Date Type Department Care Team Description 10/09/2017 Basket Person Report Medical Records 4 [facility] [place] [address] Abstract, Provider Social History Tobacco Use Types [...] on filedocumented in this encounter Care Teams Computer Animator Relationship Specialty Start Date End Date Ayse Castillo MD PCP - General Internal Medicine 05/18/16 1 Quentin Chatterjee PA-C PCP - General Med/Peds 07/08/21 05/30/22 [facility], Pcp PCP - General Internal Medicine 05/31/22 documented as of this encounter
--- OUTSIDE RECORDS SUMMARY | 2025-02-09 12:42 | XMS_ITS | Encounter Summary ---
Author Organization [facility] Address [address] [facility] [place] [address] Care Team Providers Care Human Service Coordinator Name Role Phone Candice Butt MD Primary Care Provider Ronit Frankel MD Primary Care Provider Ayse Jackson MD Primary Care Provider Quentin Winn PA-C Primary Care Provider Unavail able [facility], Pcp Primary Care [facility] Encounter Details Date Type Department Care Team Description 05/17/2015 Pharmacy Technologist Report Medical Records [address] [place] [address] [place] [address] Landen Nazario Social History Tobacco Use Types [...] on filedocumented in this encounter Care Teams Human Service Coordinator Relationship Specialty Start Date End Date Candice Butt MD PCP - General Internal Medicine 08/26/14 09/07/15 Ronit La MD PCP - General Internal Medicine 09/08/15 05/17/16 Ayse Castillo MD PCP - General Internal Medicine 05/18/16 1 Quentin Chatterjee PA-C PCP - General Med/Peds 07/08/21 05/30/22 [facility], Pcp PCP - General Internal Medicine 05/31/22 documented as of this encounter
--- OUTSIDE RECORDS SUMMARY | 2025-02-09 12:42 | XMS_ITS | Encounter Summary ---
Author Organization [facility] Address [address] [facility] [place] [address] Care Team Providers Care Commercial Fisher Name Role Phone Candice Butt MD Primary Care Provider Ronit Frankel MD Primary Care Provider Ayse Jackson MD Primary Care Provider Quentin Winn PA-C Primary Care Provider Unavail able [facility], Pcp Primary Care Provider [facility] Encounter Details Date Type Department Care Team Description 10/30/2014 SOFTWARE LICENSING SPECIALIST/Mass[place] Report Medical Records [address] [place] [address] Abstract, Provider Social History Tobacco Use Types [...] on filedocumented in this encounter Care Teams Commercial Fisher Relationship Specialty Start Date End Date Candice Butt MD PCP - General Internal Medicine 08/26/14 09/07/15 Ronit La MD PCP - General Internal Medicine 09/08/15 05/17/16 Ayse Castillo MD PCP - General Internal Medicine 05/18/16 1 Quentin Chatterjee PA-C PCP - General Med/Peds 07/08/21 05/30/22 [facility], Pcp PCP - General Internal Medicine 05/31/22 documented as of this encounter
--- OUTSIDE RECORDS SUMMARY | 2025-02-09 12:42 | XMS_ITS | Encounter Summary ---
Author Organization [facility] Address [address] [facility] [place] [address] Care Team Providers Care Bleach Maker Name Role Phone Ayse Castillo MD Primary Care Provider Quentin Winn PA-C Primary Care Provider [facility], Pcp Primary Care Provider Unavailabl e Reason for Visit * Reason Onset Date Comments Medication 05/03/2017 Encounter Details Date Type Department Care Team Description 05/03/2017 Telephone Medicine/Pediatrics [address] [address] Ayse Castillo MD Medication Social History Tobacco Use Types Packs/Day Years Used Date Smoking Tobacco: Every Day Cigarettes 0.5 35 Smokeless Tobacco: Never Alcohol Use Standard Drinks/Week Comments No 0 (1 standard drink = 0.6 oz pure alcohol) Recently detoxed. States he is dry Sex Assigned at Date Recorded Not on file documented as of this encounter Miscellaneous Notes * Telephone Encounter - Yasmeen Hester M.A. - 05/03/2017 5:11 PM EDT Spoke with the pt. He is taking flexeril 10 mg at for his back pain. Med list updated. () to PCP * Telephone Encounter - Catrachito Hess - 05/03/2017 4:56 PM EDT Caller requesting call back from provider: Is the caller the patient? YES Reason for call back: Patient had apt today, calling to update medication list, cycoodenzatri cream. Caller offered to speak with the nurse for assistance: YES Response: Patient offered to speak with nurse for assistance and patient agreed. Message forwarded to nurse. documented in this encounter Plan of Treatment Not on file documented as of this encounter Visit Diagnoses Not on filedocumented in this encounter Care Teams Bleach Maker Relationship Specialty Start Date End Date Ayse Castillo MD PCP - General Internal Medicine 05/18/16 1 Quentin Chatterjee PA-C PCP - General Med/Peds 07/08/21 05/30/22 [facility] PCP - General Internal Medicine 05/31/22 documented as of this encounter
--- OUTSIDE RECORDS SUMMARY | 2025-02-09 12:42 | XMS_ITS | Encounter Summary ---
Author Organization [facility] Address [address] [place] [address] Care Team Providers Care Job Order Clerk Name Role Phone Quentin Chatterjee PA-C Primary Care Provider Unavail able [facility], Pcp Primary Care Provider Unavailabl e Reason for Visit * Reason Onset Date Comments Annual Wellness Outreach 08/05/2021 Encounter Details Date Type Department Care Team Description 08/05/2021 Telephone Adult Medicine [address] [place] [address] Carmela Gottlieb MD Annual Wellness Outreach Social History Tobacco Use Types Packs/Day Years Used Date Smoking Tobacco: Every Day Cigarettes 0.5 35 Smokeless Tobacco: Never Alcohol Use Standard Drinks/Week Comments No 0 (1 standard drink = 0.6 oz pure alcohol) Recently detoxed. States he is dry Sex Assigned at Date Recorded Not on file documented as of this encounter Miscellaneous Notes * Telephone Encounter - Eugenia Baptiste - 08/05/2021 3:32 PM EDT Mr. Chanel was contacted by telephone. Annual Wellness Visit flowsheet NOT completed today. Pt statedrather go over questions with provider at visit. documented in this encounter Plan of Treatment Not on file documented as of this encounter Visit Diagnoses Not on filedocumented in this encounter Care Teams Job Order Clerk Relationship Specialty Start Date End Date Quentin Chatterjee PA-C PCP - General Med/Peds 07/08/21 05/30/22 [facility], Pcp PCP - General Internal Medicine 05/31/22 documented as of this encounter
--- OUTSIDE RECORDS SUMMARY | 2025-02-09 12:42 | XMS_ITS | Encounter Summary ---
Author Organization [facility] Address [address] [facility] [place] [address] Care Team Providers Care Deer Farmer Name Role Phone Ayse Castillo MD Primary Care Provider Quentin Winn PA-C Primary Care Provider [facility], Pcp Primary Care Provider [facility] Encounter Details Date Type Department Care Team Description 04/17/2017 Postpartum Rn Report Medical Records 4 [facility] [place] [address] Landen Nazario Social History Tobacco Use Types [...] on filedocumented in this encounter Care Teams Deer Farmer Relationship Specialty Start Date End Date Ayse Castillo MD PCP - General Internal Medicine 05/18/16 1 Quentin Chatterjee PA-C PCP - General Med/Peds 07/08/21 05/30/22 [facility], Pcp PCP - General Internal Medicine 05/31/22 documented as of this encounter
--- OUTSIDE RECORDS SUMMARY | 2025-02-09 12:42 | XMS_ITS | Encounter Summary ---
Author Organization [facility] Address [address] [facility] [place] [address] Care Team Providers Care Plugman Name Role Phone Ronit La MD Primary Care Provider Ayse Jackson MD Primary Care Provider Quentin Winn PA-C Primary Care Provider [facility], Pcp Primary Care Provider [facility] Encounter Details Date Type Department Care Team Description 10/22/2015 Board Hammer Operator Report Medical Records [address] [place], [place] [address] [address] Fredo Menendez Social History Tobacco Use Types Packs/Day Years Used Date Smoking Tobacco: Every Day Cigarettes 0.5 35 Smokeless Tobacco: Current Alcohol Use Standard Drinks/Week Comments No 0 (1 standard drink = 0.6 oz pure alcohol) Recently detoxed. States he is dry Sex Assigned at Date Recorded Not on file documented as of this encounter Plan of Treatment Not on file documented as of this encounter Visit Diagnoses Not on filedocumented in this encounter Care Teams Plugman Relationship Specialty Start Date End Date Ronit La MD PCP - General Internal Medicine 09/08/15 05/17/16 Ayse Castillo MD PCP - General Internal Medicine 05/18/16 1 Quentin Chatterjee PA-C PCP - General Med/Peds 07/08/21 05/30/22 [facility], Pcp PCP - General Internal Medicine 05/31/22 documented as of this encounter
--- OUTSIDE RECORDS SUMMARY | 2025-02-09 12:42 | XMS_ITS | Encounter Summary ---
Author Organization [facility] Address [address] [facility] [place] [address] Care Team Providers Care Detailer Furniture Name Role Phone Landen Shearer MD Primary Care Provider [phone] Candice Butt MD Primary Care Provider Ronit Frankel MD Primary Care Provider Ayse Jackson MD Primary Care Provider Quentin Winn PA-C Primary Care Provider [facility] Pcp Primary Care Provider Unavailabl e Encounter Details Date Type Department Care Team Description 01/01/2014 Gmat Tutor Report Medical Records [address] [place] [address] Landen Nazario Social History Tobacco Use Types [...] on filedocumented in this encounter Care Teams Detailer Furniture Relationship Specialty Start Date End Date Landen Shearer MD [address] [place] [id number] PCP - General Internal Medicine 08/27/12 08/25/14 Candice Butt MD [address] [place] [address] PCP - General Internal Medicine 08/26/14 09/07/15 Ronit La MD [address] [place] [address] PCP - General Internal Medicine 09/08/15 05/17/16 Ayse Castillo MD [address] [place] [address] PCP - General Internal Medicine 05/18/16 07/07/21 Quentin Chatterjee PA-C [address] [place] [address] PCP - General Med/Peds 07/08/21 05/30/22 [facility], Pcp [address] [place] [address] PCP - General Internal Medicine 05/31/22 documented as of this encounter
--- OUTSIDE RECORDS SUMMARY | 2025-02-09 12:42 | XMS_ITS | Encounter Summary ---
Author Organization [facility] Address [address] [facility] [place] [address] Care Team Providers Care Statistical Secretary Name Role Phone Ayse Castillo MD Primary Care Provider Quentin Winn PA-C Primary Care Provider [facility], Pcp [facility] Encounter Details Date Type Department Care Team Description 10/20/2016 Release of Information Medical Records [address] [place] [address] [place] [address] Abstract, Provider Social History Tobacco Use Types [...] on filedocumented in this encounter Care Teams Statistical Secretary Relationship Specialty Start Date End Date Ayse Castillo MD PCP - General Internal Medicine 05/18/16 1 Quentin Chatterjee PA-C PCP - General Med/Peds 07/08/21 05/30/22 [facility], Pcp PCP - General Internal Medicine 05/31/22 documented as of this encounter
--- OUTSIDE RECORDS SUMMARY | 2025-02-09 12:42 | XMS_ITS | Encounter Summary ---
Author Organization [facility] Address [address] [facility] [place] [address] Care Team Providers Care Programmer Engineering And Scientific Name Role Phone Ayse Castillo MD Primary Care Provider Qeuntin Winn PA-C Primary Care Provider [facility], Pcp Primary Care Provider [facility] Encounter Details Date Type Department Care Team Description 07/02/2018 Resident Care Technician Report Medical Records 4 [facility] [place] [address] Landen Nazario Social History Tobacco Use Types [...] on filedocumented in this encounter Care Teams Programmer Engineering And Scientific Relationship Specialty Start Date End Date Ayse Castillo MD PCP - General Internal Medicine 05/18/16 1 Quentin Chatterjee PA-C PCP - General Med/Peds 07/08/21 05/30/22 [facility], Pcp PCP - General Internal Medicine 05/31/22 documented as of this encounter
== END 2025-02-09 11:55 | disposition home or self-care (01) ==
PROVIDERS: PCP Nurse Practitioner Family; Visit Provider Nurse Practitioner Family
DX: Z00.00 Encounter for general adult medical examination without abnormal findings (principal); E11.9 Type 2 diabetes mellitus without complications; J44.9 Chronic obstructive pulmonary disease, unspecified; Z13.9 Encounter for screening, unspecified

== ENCOUNTER → 2025-02-09 11:05 | Outpatient (BNVA) | payer OTHER, SELFPAY | PROVIDERS: PCP Nurse Practitioner Family; Visit Provider Nurse Practitioner Family | DX: Z00.00 Encounter for general adult medical examination without abnormal findings (principal); E11.9 Type 2 diabetes mellitus without complications; J44.9 Chronic obstructive pulmonary disease, unspecified; I25.2 Old myocardial infarction | CPT/HCPCS: 83036; 96127 ==

== ENCOUNTER 2025-03-20 12:48 | Outpatient (REF) | payer MEDICARE, MEDICAID, SELFPAY ==
--- NOTE | 2025-03-20 12:51 | PFT_ITS ---
Indication: COPD Spirometry [FEV1 FVC 69%; FEV1 2.45 L; FVC 3.53 L. no significant response to bronchodilators noted. To note, the patient did have difficulties performing this maneuver and was stopping prematurely. Therefore the data is suboptimal.] Lung Volumes [Total lung capacity 90% predicted] Diffusion Capacity [DLCO 98% predicted] Comparisons [none] Interpretation [This was a suboptimal study. The patient had difficult time performing the spirometry. Evaluating the post bronchodilator numbers are appears to be a mild obstructive ventilatory defect which could be consistent with COPD. Although his Breo bronchodilator numbers are perfectly normal. Lung volumes and diffusing capacity are both within normal limits. Clinical correlation warranted.] MTDD
--- OUTSIDE RECORDS SUMMARY | 2025-03-20 12:51 | XMS_ITS | Encounter Summary ---
Author Organization [facility] Address [address] [facility] [place] [address] Care Team Providers Care Director Of Enrollment Name Role Phone Ayse Castillo MD Primary Care Provider Quentin Winn PA-C Primary Care Provider [facility], Pcp Primary Care Provider [facility] e Encounter Details Date Type Department Care Team Description 09/03/2020 Brass Pickler Report Medical Records 4 [facility] [place] [address] Landen Nazario Social History Tobacco Use Types [...] on filedocumented in this encounter Care Teams Director Of Enrollment Relationship Specialty Start Date End Date Ayse Castillo MD PCP - General Internal Medicine 05/18/16 1 Quentin Chatterjee PA-C PCP - General Med/Peds 07/08/21 05/30/22 [facility], Pcp PCP - General Internal Medicine 05/31/22 documented as of this encounter
--- OUTSIDE RECORDS SUMMARY | 2025-03-20 12:51 | XMS_ITS | Encounter Summary ---
Author Organization [facility] Address [address] [facility] [place] [address] Care Team Providers Care Medical Records Tech Name Role Phone Ronit La MD Primary Care Provider Ayse Jackson MD Primary Care Provider Quentin Winn PA-C Primary Care Provider [facility], Pcp Primary Care Provider [facility] Encounter Details Date Type Department Care Team Description 01/13/2016 Business Doc Medical Records [address] [place] [address] [place] [address] Abstract, Provider Social History Tobacco Use Types [...] on filedocumented in this encounter Care Teams Medical Records Tech Relationship Specialty Start Date End Date Ronit La MD PCP - General Internal Medicine 09/08/15 05/17/16 Ayse Castillo MD PCP - General Internal Medicine 05/18/16 1 Quentin Chatterjee PA-C PCP - General Med/Peds 07/08/21 05/30/22 [facility], Pcp PCP - General Internal Medicine 05/31/22 documented as of this encounter
--- OUTSIDE RECORDS SUMMARY | 2025-03-20 12:51 | XMS_ITS | Encounter Summary ---
Author Organization [facility] Address [address] [facility] [place] [address] Care Team Providers Care Pathology Tech Name Role Phone Ayse Castillo MD Primary Care Provider Quentin Winn PA-C Primary Care Provider [facility], Pcp Primary Care Provider [facility] Encounter Details Date Type Department Care Team Description 04/27/2021 Results Technician Report Medical Records [address] [facility] [place] [address] Landen Nazario Social History Tobacco Use Types [...] on filedocumented in this encounter Care Teams Pathology Tech Relationship Specialty Start Date End Date Ayse Castillo MD PCP - General Internal Medicine 05/18/16 1 Quentin Chatterjee PA-C PCP - General Med/Peds 07/08/21 05/30/22 [facility], Pcp PCP - General Internal Medicine 05/31/22 documented as of this encounter
--- OUTSIDE RECORDS SUMMARY | 2025-03-20 12:51 | XMS_ITS | Encounter Summary ---
Author Organization [facility] Address [address] [facility] [place] [address] Care Team Providers Care Health Technician Name Role Phone Landen Shearer MD Primary Care Provider [phone] Candice Butt MD Primary Care Provider Ronit Frankel MD Primary Care Provider Ayse Jackson MD Primary Care Provider Quentin Winn PA-C Primary Care Provider [facility] Pcp Primary Care Provider [facility] Encounter Details Date Type Department Care Team Description 02/10/2014 Fashion Consultant Report Medical Records [address] [place] [address] Quentin Schmitt PA-C Social History Tobacco Use [...] on filedocumented in this encounter Care Teams Health Technician Relationship Specialty Start Date End Date Landen Shearer MD [address] [place] [address] PCP - General Internal Medicine 08/27/12 08/25/14 Candice Butt MD [address] [place] [address] PCP - General Internal Medicine 08/26/14 09/07/15 Ronit La MD [address] [place] [address] PCP - General Internal Medicine 09/08/15 05/17/16 Ayse Castillo MD [address] [place] [address] PCP - General Internal Medicine 05/18/16 07/07/21 Quentin Chatterjee PA-C [address] [place] [address] PCP - General Med/Peds 07/08/21 05/30/22 [facility], Pcp [address] [place] [address] PCP - General Internal Medicine 05/31/22 documented as of this encounter
--- OUTSIDE RECORDS SUMMARY | 2025-03-20 12:51 | XMS_ITS | Encounter Summary ---
Author Organization [facility] Address [address] [facility] [place] [address] Care Team Providers Care Metal Bonding Worker Name Role Phone Landen Shearer MD Primary Care Provider [phone] Candice Butt MD Primary Care Provider Ronit Frankel MD Primary Care Provider Ayse Jackson MD Primary Care Provider Quentin Winn PA-C Primary Care Provider [facility] Pcp Primary Care Provider Unavailabl e Encounter Details Date Type Department Care Team Description 01/01/2014 Rehab Assistant Report Medical Records [address] [place] [id number] Landen Nazario Social History Tobacco Use Types [...] on filedocumented in this encounter Care Teams Metal Bonding Worker Relationship Specialty Start Date End Date Landen Shearer MD [address] [place] [address] [phone] PCP - General Internal Medicine 08/27/12 08/25/14 Candice Butt MD [address] [place] [address] PCP - General Internal Medicine 08/26/14 09/07/15 Ronit La MD [address] [place] [address] PCP - General Internal Medicine 09/08/15 05/17/16 Ayse Castillo MD [address] [place] [address] PCP - General Internal Medicine 05/18/16 07/07/21 Quentin Chatterjee PA-C [address] [place] [address] PCP - General Med/Peds 07/08/21 05/30/22 [facility] Pcp [address] [place] [address] PCP - General Internal Medicine 05/31/22 documented as of this encounter
--- OUTSIDE RECORDS SUMMARY | 2025-03-20 12:51 | XMS_ITS | Encounter Summary ---
Author Organization [facility] Address [address] [facility] [place] [address] Care Team Providers Care Stained Glass Installer Name Role Phone Landen Shearer MD Primary Care Provider [phone] Candice Butt MD Primary Care Provider Ronit Frankel MD Primary Care Provider Ayse Jackson MD Primary Care Provider Quentin Winn PA-C Primary Care Provider [facility] Pcp Primary Care Provider Unavailabl e Encounter Details Date Type Department Care Team Description 02/13/2013 Supervisor Offset Plate Preparation Report Medical Records [address] [place] [address] Landen Nazario Social History Tobacco Use Types [...] on filedocumented in this encounter Care Teams Stained Glass Installer Relationship Specialty Start Date End Date Landen Shearer MD [address] [place] [address] [phone] PCP - General Internal Medicine 08/27/12 08/25/14 Candice Butt MD [address] [place] [address] PCP - General Internal Medicine 08/26/14 09/07/15 Ronit La MD [address] [place] [address] PCP - General Internal Medicine 09/08/15 05/17/16 Ayse Castillo MD [address] [place] [address] PCP - General Internal Medicine 05/18/16 07/07/21 Quentin Chatterjee PA-C [address] [place] [address] PCP - General Med/Peds 07/08/21 05/30/22 [facility], Pcp [address] [place] [address] PCP - General Internal Medicine 05/31/22 documented as of this encounter
--- OUTSIDE RECORDS SUMMARY | 2025-03-20 12:51 | XMS_ITS | Encounter Summary ---
Author Organization [facility] Address [address] [facility] [place] [address] Care Team Providers Care Pilot Can Router Name Role Phone Ayse Castillo MD Primary Care Provider Quentin Winn PA-C Primary Care Provider [facility], Pcp Primary Care Provider [facility] e Encounter Details Date Type Department Care Team Description 07/02/2018 Faucet Polisher Report Medical Records 4 [facility] [place] [address] Landen Nazario Social History Tobacco Use Types [...] on filedocumented in this encounter Care Teams Pilot Can Router Relationship Specialty Start Date End Date Ayse Castillo MD PCP - General Internal Medicine 05/18/16 1 Quentin Chatterjee PA-C PCP - General Med/Peds 07/08/21 05/30/22 [facility], Pcp PCP - General Internal Medicine 05/31/22 documented as of this encounter
--- OUTSIDE RECORDS SUMMARY | 2025-03-20 12:51 | XMS_ITS | Encounter Summary ---
Author Organization [facility] Address [address] [facility] [place] [address] Care Team Providers Care Terra Cotta Setter Name Role Phone Candice Butt MD Primary Care Provider Ronit Frankel MD Primary Care Provider Ayse Jackson MD Primary Care Provider Quentin Winn PA-C Primary Care Provider Unavail able [facility], Pcp [facility] Encounter Details Date Type Department Care Team Description 12/11/2014 Patch Setter Report Medical Records [address] [place] [address] [place] [address] Landen Nazario Social History Tobacco Use Types [...] on filedocumented in this encounter Care Teams Terra Cotta Setter Relationship Specialty Start Date End Date Candice Butt MD PCP - General Internal Medicine 08/26/14 09/07/15 Ronit La MD PCP - General Internal Medicine 09/08/15 05/17/16 Ayse Castillo MD PCP - General Internal Medicine 05/18/16 1 Quentin Chatterjee PA-C PCP - General Med/Peds 07/08/21 05/30/22 [facility], Pcp PCP - General Internal Medicine 05/31/22 documented as of this encounter
--- OUTSIDE RECORDS SUMMARY | 2025-03-20 12:51 | XMS_ITS | Clinical Summary ---
Author Organization [facility] Address [address] [place] [address] Phone Care Team Providers Care Equipment Sales Specialist Name Role Phone Physician, No Pcp Primary Care Provider Unavaila ble Allergies No known active allergies Surgical History Surgery Date Site/Laterality Comments OTHER [...] 09/17/2014 DX:Herniated lumbar intervertebral disc; COMMENT: Sees [facility] Family History Medical History [...] Status Comments Aunt Brother 1 (Age 55) [place] Brother 2 Father unsure Maternal Grandfather Maternal [...] 1970 Diabetes: Annual Retina Eye Exam 1970 Hepatitis A Vaccines (1 of 2 - Risk 2-dose series) 1979 Zoster Vaccines (1 of 2) 2010 Cholesterol Screening (Lipid Panel) 10/21/2022 Colorectal Cancer Screening: Colonoscopy 10/21/2022 Depression Screening 10/21/2022 HIV Screening 10/21/2022 Hepatitis C Screening 10/21/2022 Medicare Annual Wellness Visit 10/21/2022 Social Influencers of Health Screening 10/21/2022 Diabetes: Annual Urine Albumin-Creatinine Ratio (uACR) 10/28/2022 Diabetes: Blood Sugar Contro l Test (HGBA1C) 10/28/2022 COVID-19 Vaccine (2023-2 5 season) 2024 05/12/2021, 04/14/2021 Influenza Vaccine (Season Ended) 2025 08/19/2021, 10/19/2020, 09/23/2012 Diabetes: Annual GFR (Glomerular Filtration Rate) 11/19/2025 11/19/2024 Hypertension/CHF/CAD Annual BMP Blood Test 11/19/2025 11/19/2024 DTaP,Tdap,and Td Vaccines (2 - Td or Tdap) 08/19/2031 08/19/2021 RSV Immunization Adult Patients (1 - 1-dose 75+ series) 2035 Pneumococcal [...] age to complete this topic Meningococcal B Vaccine Aged Out No l onger eligible based on patient's age to complete this topic RSV Immunization Patients Under 20 months Aged Out No longer eligible b ased on patient's age to complete this topic Varicella Vaccines Aged Out No longer eligible based on patient's age to complete this topic Procedures Procedure Name Priority Date/Time Associated Diagnosis Comments COMPREHENSIVE METABOLIC PANEL STAT 11/19/2024 6:42 PM EST from Last 3 Months or Most Recently Relevant to Health Maintenance Results * (ABNORMAL) Comprehensive metabolic panel (11/19/2024 6:42 PM EST) Sodium 136 133 - 145 mmol/L LAB CHEMISTRY METHOD 11/19/2024 7:36 PM EST [facility] Potassium 4.3 3.5 - 5.5 mmol/L LAB CHEMISTRY METHOD 11/19/2024 7:36 PM EST [facility] Chloride 107 96 - 110 mmol/L LAB CHEMISTRY METHOD 11/19/2024 7:36 PM EST [facility] CO2 24 21 - 32 mmol/L LAB CHEMISTRY METHOD 11/19/2024 7:36 PM EST [facility] Anion Gap 5 3 - 11 LAB CHEMISTRY METHOD 11/19/2024 7:36 PM [facility] Glucose 92 70 - 100 mg/dL LAB CHEMISTRY METHOD 11/19/2024 7:36 PM [facility] BUN 14 5 - 25 mg/dL LAB CHEMISTRY METHOD 11/19/2024 7:36 PM [facility] Creatinine 0.87 0.70 - 1.30 mg/dL LAB CHEMISTRY METHOD 11/19/2024 7:36 PM [facility] eGFR 96 >=60 mL/min/1. 73m2 LAB CHEMISTRY METHOD 11/19/2024 7:36 PM [facility] Comment:Calculation based on the??Chronic Kidney Disease Epidemiology Collaboration (CKD-EPI) equation refit??without adjustment for race. BUN/Creatinine Ratio 16.1 LAB CHEMISTRY METHOD 11/19/2024 7:36 PM [facility] Calcium 9.5 8.5 - 10.5 mg/dL LAB CHEMISTRY METHOD 11/19/2024 7:36 PM [facility] AST (SGOT) 25 10 - 42 unit/L LAB CHEMISTRY METHOD 11/19/2024 7:36 PM [facility] ALT (SGPT) 36 10 - 60 unit/L LAB CHEMISTRY METHOD 11/19/2024 7:36 PM [facility] Alkaline Phosphatase 125(H) 42 - 121 unit/L LAB CHEMISTRY METHOD 11/19/2024 7:36 PM [facility] Total Protein 7.4 6.0 - 8.0 g/dL LAB CHEMISTRY METHOD 11/19/2024 7:36 PM [facility] Albumin 4.1 3.2 - 5.0 g/dL LAB CHEMISTRY METHOD 11/19/2024 7:36 PM [facility] Total Bilirubin 0.7 0.0 - 1.4 mg/dL LAB CHEMISTRY METHOD 11/19/2024 7:36 PM [facility] Blood Venous blood specimen / Unknown Venipuncture / Unknown 11/19/2024 6:42 PM EST 11/19/2024 6:49 PM EST [place] DO LAB BLOOD ORDERABLES Final Res ult [facility] [address] [place] [address], from Last 3 Months or Most Recently Relevant to Health Maintenance Insurance MEDICAID - [place] [employer] MEDICARE Care Teams Equipment Sales Specialist Relationship Specialty Start Date End Date Physician, No Pcp PCP - General 11/19/24
--- OUTSIDE RECORDS SUMMARY | 2025-03-20 12:51 | XMS_ITS | Encounter Summary ---
Author Organization [facility] Address [address] [facility] [place] [address] Care Team Providers Care Superintendent Nonselling Name Role Phone Landen Shearer MD Primary Care Provider [phone] Candice Butt MD Primary Care Provider Ronit Frankel MD Primary Care Provider Ayse Jackson MD Primary Care Provider Quentin Winn PA-C Primary Care Provider [facility] Pcp Primary Care Provider Unavailabl e Encounter Details Date Type Department Care Team Description 03/20/2013 Poultry Dressing Worker Report Medical Records [address] [place] [address] Landen Nazario Social History Tobacco Use Types [...] on filedocumented in this encounter Care Teams Superintendent Nonselling Relationship Specialty Start Date End Date Landen Shearer MD [address] [place] [address] [phone] PCP - General Internal Medicine 08/27/12 08/25/14 Candice Butt MD [address] [place] [address] PCP - General Internal Medicine 08/26/14 09/07/15 Ronit La MD [address] [place] [address] PCP - General Internal Medicine 09/08/15 05/17/16 Ayse Castillo MD [address] [place] [address] PCP - General Internal Medicine 05/18/16 07/07/21 Quentin Chatterjee PA-C [address] [place] [address] PCP - General Med/Peds 07/08/21 05/30/22 [facility], Pcp [address] [place] [address] PCP - General Internal Medicine 05/31/22 documented as of this encounter
--- OUTSIDE RECORDS SUMMARY | 2025-03-20 12:51 | XMS_ITS | Encounter Summary ---
[facility] Organization [facility] Address [address] [facility] [place] [address] Care Team Providers Care Construction Trench Digger Name Role Phone Ayse Castillo MD Primary Care Provider Quentin Winn PA-C Primary Care Provider [facility], Pcp Primary Care Provider [facility] Encounter Details Date Type Department Care Team Description 04/09/2018 Chemistry Intern Report Medical Records 4 [facility] [place] [address] Landen Nazario Social History Tobacco Use Types [...] on filedocumented in this encounter Care Teams Construction Trench Digger Relationship Specialty Start Date End Date Ayse Castillo MD PCP - General Internal Medicine 05/18/16 1 Quentin Chatterjee PA-C PCP - General Med/Peds 07/08/21 05/30/22 [facility], Pcp PCP - General Internal Medicine 05/31/22 documented as of this encounter
--- OUTSIDE RECORDS SUMMARY | 2025-03-20 12:51 | XMS_ITS | Encounter Summary ---
Author Organization [facility] Address [address] [facility] [place] [address] Care Team Providers Care Cable Engineer Name Role Phone Landen Shearer MD Primary Care Provider [phone] Candice Butt MD Primary Care Provider Ronit Frankel MD Primary Care Provider Ayse Jackson MD Primary Care Provider Quentin Winn PA-C Primary Care Provider [facility] Pcp Primary Care Provider Unavailabl Encounter Details Date Type Department Care Team Description 09/02/2012 Release of Information Medical Records [address] [place] [address] Abstract, Provider Social History Tobacco Use Types [...] on filedocumented in this encounter Care Teams Cable Engineer Relationship Specialty Start Date End Date Landen Shearer MD [address] [place] [address] [phone] PCP - General Internal Medicine 08/27/12 08/25/14 Candice Butt MD [address] [place] [address] PCP - General Internal Medicine 08/26/14 09/07/15 Ronit La MD [address] [place] [address] [place] [address] PCP - General Internal Medicine 09/08/15 05/17/16 Ayse Castillo MD [address] [place] [address] PCP - General Internal Medicine 05/18/16 07/07/21 Quentin Chatterjee PA-C [address] [place] [address] PCP - General Med/Peds 07/08/21 05/30/22 [facility], Pcp [address] [place] [address] PCP - General Internal Medicine 05/31/22 documented as of this encounter
--- OUTSIDE RECORDS SUMMARY | 2025-03-20 12:51 | XMS_ITS | Encounter Summary ---
Author Organization [facility] Address [address] [facility] [place] [address] Care Team Providers Care Garnett Room Worker Name Role Phone Ayse Castillo MD Primary Care Provider Quentin Winn PA-C Primary Care Provider [facility], Pcp Primary Care Provider [facility] Encounter Details Date Type Department Care Team Description 05/03/2021 Manager Art Report Medical Records [address] [facility] [place] [address] [place] Social History Tobacco Use Types Packs/Day Years [...] on filedocumented in this encounter Care Teams Garnett Room Worker Relationship Specialty Start Date End Date Ayse Castillo MD PCP - General Internal Medicine 05/18/16 1 Quentin Chatterjee PA-C PCP - General Med/Peds 07/08/21 05/30/22 [facility], Pcp PCP - General Internal Medicine 05/31/22 documented as of this encounter
--- OUTSIDE RECORDS SUMMARY | 2025-03-20 12:51 | XMS_ITS | Encounter Summary ---
Author Organization [facility] Address [address] [facility] [place] [address] Care Team Providers Care Billing Checker Name Role Phone Ayse Castillo MD Primary Care Provider Quentin Winn PA-C Primary Care Provider [facility], Pcp Primary Care Provider Unavailabl e Reason for Visit * Reason Onset Date Comments Telecasting Technician Feedback 11/20/2019 Dr Landen Nazario Encounter Details Date Type Department Care Team Description 11/20/2019 Telephone Adult Medicine [facility] [address] [place] [address] Ayse Castillo MD Telecasting Technician Feedback (Dr Landen Nazario) Social History Tobacco [...] Nuno Wang - 12/09/2019 9:24 AM EST [facility] calling on the status of the referral, please call specialty office [phone] / Toya * Telephone Encounter - Salma Jorge L - 12/03/2019 10:44 AM EST Referral not on line as of yet we are having an issue with [facility], * Telephone Encounter - Peace Kelly - 12/03/2019 10:40 AM EST [facility] calling on status of refferal please call them back [phone] * Telephone Encounter - Leslie Kaiser - 12/01/2019 11:41 AM EST Checked status online, referral still not processed. Refaxed to [facility]. * Telephone Encounter - Leslie Kaiser - 11/24/2019 8:12 AM EST Could not process online, submitted on paper to [facility]. * Telephone Encounter - Vinicio Martinez - [...] insurance must be obtained and registered in [facility] or their referral can not be processed. ?? Is this a retro request? 11/20/2019 ?? If yes for what date of service do you need the retro referral? 11/20/2019 ?? Who is calling to request this referral? [facility] ?? If the caller [...] Is this visit:Follow Up ?? Address of Specialist:[address] [place] [address] ?? Phone # of Specialist:[phone] ?? Fax #: (if applicable):[phone] ?? Does patient have an appointment scheduled?: YES ?? Date of appointment- (including a retro-request): 11/20/2019 with 6 visits ?? Is this appointment related to: Not MVA, WC or Surgery related ? documented in this encounter Plan of Treatment Not on file documented as of this encounter Visit Diagnoses Not on filedocumented in this encounter Care Teams Billing Checker Relationship Specialty Start Date End Date Ayse Castillo MD PCP - General Internal Medicine 05/18/16 1 Quentin Chatterjee PA-C PCP - General Med/Peds 07/08/21 05/30/22 [facility], Pcp PCP - General Internal Medicine 05/31/22 documented as of this encounter
--- OUTSIDE RECORDS SUMMARY | 2025-03-20 12:51 | XMS_ITS | Encounter Summary ---
[facility] Address [address] [facility] [place] [address] Care Team Providers Care Director Of Agronomy Name Role Phone Ayse Castillo MD Primary Care Provider Quentin Winn PA-C Primary Care Provider [facility], Pcp Primary Care Provider [facility] Encounter Details Date Type Department Care Team Description 07/23/2019 Manager Maintenance Report Medical Records [address] [facility] [place] [address] Landen Nazario Social History Tobacco Use Types [...] in this encounter Care Teams Director Of Agronomy Relationship Specialty Start Date End Date Ayse Castillo MD PCP - General Internal Medicine 05/18/16 1 Quentin Chatterjee PA-C PCP - General Med/Peds 07/08/21 05/30/22 [facility], Pcp PCP - General Internal Medicine 05/31/22 documented as of this encounter
--- OUTSIDE RECORDS SUMMARY | 2025-03-20 12:51 | XMS_ITS | Encounter Summary ---
[facility] Address [address] [facility] [place] [address] Care Team Providers Care Foil Cutter Name Role Phone Ayse Castillo MD Primary Care Provider Quentin Winn PA-C Primary Care Provider [facility], Pcp Primary Care [facility] Encounter Details Date Type Department Care Team Description 01/05/2021 Truck Driver Report Medical Records 4 [facility] [place] [address] Landen Nazario Social History Tobacco Use Types [...] on filedocumented in this encounter Care Teams Foil Cutter Relationship Specialty Start Date End Date Ayse Castillo MD PCP - General Internal Medicine 05/18/16 1 Quentin Chatterjee PA-C PCP - General Med/Peds 07/08/21 05/30/22 [facility], Pcp PCP - General Internal Medicine 05/31/22 documented as of this encounter
--- OUTSIDE RECORDS SUMMARY | 2025-03-20 12:51 | XMS_ITS | Encounter Summary ---
Author [facility] Address [address] [facility] [place] [address] Care Team Providers Care Basic Combatant Swimmer Name Role Phone Candice Butt MD Primary Care Provider Ronit Frankel MD Primary Care Provider Ayse Jackson MD Primary Care Provider Quentin Winn PA-C Primary Care Provider Unavail [facility] Pcp Primary Care Provider [facility] Encounter Details Date Type Department Care Team Description 08/24/2015 Business Doc Medical Records [address] [place] [address] [place] [address] Abstract, Provider Social History Tobacco Use Types [...] on filedocumented in this encounter Care Teams Basic Combatant Swimmer Relationship Specialty Start Date End Date Candice Butt MD PCP - General Internal Medicine 08/26/14 09/07/15 Ronit La MD PCP - General Internal Medicine 09/08/15 05/17/16 Ayse Castillo MD PCP - General Internal Medicine 05/18/16 1 Quentin Chatterjee PA-C PCP - General Med/Peds 07/08/21 05/30/22 [facility], Pcp PCP - General Internal Medicine 05/31/22 documented as of this encounter
--- OUTSIDE RECORDS SUMMARY | 2025-03-20 12:51 | XMS_ITS | Encounter Summary ---
Author Organization [facility] Address [address] [place] [address] Care Team Providers Care Wildland Firefighter Name Role Phone Ronit La MD Primary Care Provider Ayse Jackson MD Primary Care Provider Quentin Winn PA-C Primary Care Provider Unavail [facility], Pcp Primary [facility] Reason for Visit * Reason Onset Date Comments Provider Call Back 03/22/2016 Encounter Details Date Type Department Care Team Description 03/22/2016 Telephone General Surgery [address] [place], [place] [phone] Bereket Maurice MD [address] [place] [id number] Provider Call Back Social History Tobacco Use [...] she stated why I don't call the mobile home set up person surgeon I explained to her I was sending the message to DR.frank F[place] and also had suggested for the patient to go to the ER , but the patient refused due to it being to expensive she states she was going to talk to her manager msw and the her doctor the patient was [...] back . * Telephone Encounter - Zahira uQiñones - 03/22/2016 11:36 AM EDT Pt calling [...] Primary documented in this encounter Care Teams Wildland Firefighter Relationship Specialty Start Date End Date Ronit La MD PCP - General Internal Medicine 09/08/15 05/17/16 Ayse Castillo MD PCP - General Internal Medicine 05/18/16 1 Quentin Chatterjee PA-C PCP - General Med/Peds 07/08/21 05/30/22 [facility], Pcp PCP - General Internal Medicine 05/31/22 documented as of this encounter
--- OUTSIDE RECORDS SUMMARY | 2025-03-20 12:51 | XMS_ITS | Encounter Summary ---
Author Organization [facility] Address [address] [facility] [place] [address] Care Team Providers Care Clay Miller Name Role Phone Ronit La MD Primary Care Provider Ayse Jackson MD Primary Care Provider Quentin Winn PA-C Primary Care Provider [facility], Pcp Primary Care Provider [facility] Encounter Details Date Type Department Care Team Description 03/24/2016 [facility] Medical Records [address] [place] [address] [place] [address] [facility] Social History Tobacco Use Types Packs/Day Years [...] on filedocumented in this encounter Care Teams Clay Miller Relationship Specialty Start Date End Date Ronit La MD PCP - General Internal Medicine 09/08/15 05/17/16 Ayse Castillo MD PCP - General Internal Medicine 05/18/16 1 Quentin Chatterjee PA-C PCP - General Med/Peds 07/08/21 05/30/22 [facility], Pcp PCP - General Internal Medicine 05/31/22 documented as of this encounter
--- OUTSIDE RECORDS SUMMARY | 2025-03-20 12:51 | XMS_ITS | Encounter Summary ---
Author Organization [facility] Address [address] [facility] [place] [address] Care Team Providers Care Engineering Intern Name Role Phone Ayse Casitllo MD Primary Care Provider Quentin Winn PA-C Primary Care Provider [facility], Pcp Primary Care Provider Unavailabl e Reason for Visit * Reason Onset Date Comments Medication 05/03/2017 Encounter Details Date Type Department Care Team Description 05/03/2017 Telephone Medicine/Pediatrics [address] [address] Ayse Castillo MD Medication Social History Tobacco [...] on filedocumented in this encounter Care Teams Engineering Intern Relationship Specialty Start Date End Date Ayse Castillo MD PCP - General Internal Medicine 05/18/16 1 Quentin Chatterjee PA-C PCP - General Med/Peds 07/08/21 05/30/22 [facility], [facility] PCP - General Internal Medicine 05/31/22 documented as of this encounter
--- OUTSIDE RECORDS SUMMARY | 2025-03-20 12:51 | XMS_ITS | Encounter Summary ---
Author Organization [facility] Address [address] [facility] [place] [address] Care Team Providers Care Smudger Name Role Phone Quentin Chatterjee PA-C Primary Care Provider Unavail able [facility], Pcp Primary Care Provider Unavailabl e Encounter Details Date Type Department Care Team Description 01/05/2022 Teacher Vocational Training Report Medical Records [address] [place] [address] [place] [address] [place] [address] Social History Tobacco Use Types Packs/Day Years [...] on filedocumented in this encounter Care Teams Smudger Relationship Specialty Start Date End Date Quentin Chatterjee PA-C PCP - General Med/Peds 07/08/21 05/30/22 [facility], Pcp PCP - General Internal Medicine 05/31/22 documented as of this encounter
--- OUTSIDE RECORDS SUMMARY | 2025-03-20 12:51 | XMS_ITS | Encounter Summary ---
Author Organization [facility] Address [address] [facility] [place] [address] Care Team Providers Care Child Nutrition Manager Name Role Phone Community, Pcp Primary Care Provider Unavailabl e Reason for Visit * Reason Comments E-prescribe Rx Request Encounter Details Date Type Department Care Team Description 08/29/2022 Refill Walk In [facility] [address] [place] [address] Dilia Gonzalez PA-C E-prescribe Rx Request Social [...] encounter Miscellaneous Notes * Telephone Encounter - Josi Muhammad - 08/29/2022 11:45 AM EDT Pcp community documented in this encounter Plan of Treatment Not on file documented as of this encounter Visit Diagnoses Not on filedocumented in this encounter Care Teams Child Nutrition Manager Relationship Specialty Start Date End Date Community, Pcp PCP - General Internal Medicine 05/31/22 documented as of this encounter
--- OUTSIDE RECORDS SUMMARY | 2025-03-20 12:51 | XMS_ITS | Encounter Summary ---
Author Organization [facility] Address [address] [facility] [place] [address] Care Team Providers Care Sales Associate Name Role Phone Ayse Castillo MD Primary Care Provider Quentin Winn PA-C Primary Care Provider [facility], Pcp [facility] Encounter Details Date Type Department Care Team Description 12/10/2018 Mounter Saxophones Report Medical Records [address] [facility] [place] [address] Landen Nazario Social History Tobacco Use Types [...] on filedocumented in this encounter Care Teams Sales Associate Relationship Specialty Start Date End Date Ayse Castillo MD PCP - General Internal Medicine 05/18/16 1 Quentin Chatterjee PA-C PCP - General Med/Peds 07/08/21 05/30/22 Community, Pcp PCP - General Internal Medicine 05/31/22 documented as of this encounter
--- OUTSIDE RECORDS SUMMARY | 2025-03-20 12:51 | XMS_ITS | Encounter Summary ---
[facility] Organization [facility] Address [address] [facility] [place] [address] Care Team Providers Care Master At Arms Name Role Phone [facility], Pcp Primary Care Provider Unavailabl e Reason for Visit * Reason Comments E-prescribe Rx Request Encounter Details Date Type Department Care Team Description 06/09/2022 Refill Walk In [facility] [address] [place] [address] Dilia Gonzalez PA-C E-prescribe Rx Request Social [...] on filedocumented in this encounter Care Teams Master At Arms Relationship Specialty Start Date End Date Community, Pcp PCP - General Internal Medicine 05/31/22 documented as of this encounter
--- OUTSIDE RECORDS SUMMARY | 2025-03-20 12:51 | XMS_ITS | Encounter Summary ---
Author Organization [facility] Address [address] [facility] [place] [address] Care Team Providers Care Molded Goods Embossing Press Operator Name Role Phone Ayse Castillo MD Primary Care Provider Quentin Winn PA-C Primary Care Provider [facility], Pcp Primary Care Provider [facility] e Encounter Details Date Type Department Care Team Description 04/17/2017 Gamma Facilities Operator Report Medical Records 4 [facility] [place] [address] Landen Nazario Social History Tobacco Use Types [...] on filedocumented in this encounter Care Teams Molded Goods Embossing Press Operator Relationship Specialty Start Date End Date Ayse Castillo MD PCP - General Internal Medicine 05/18/16 1 Quentin Chatterjee PA-C PCP - General Med/Peds 07/08/21 05/30/22 Community, Pcp PCP - General Internal Medicine 05/31/22 documented as of this encounter
--- OUTSIDE RECORDS SUMMARY | 2025-03-20 12:51 | XMS_ITS | Encounter Summary ---
Author Organization [facility] Address [address] [facility] [place] [address] Care Team Providers Care Infection Control Coordinator Name Role Phone Landen Shearer MD Primary Care Provider [phone] Candice Butt MD Primary Care Provider Ronit Frankel MD Primary Care Provider Ayse Jackson MD Primary Care Provider Quentin Winn PA-C Primary Care Provider [facility] Pcp Primary Care Provider Unavailabl e Encounter Details Date Type Department Care Team Description 10/30/2013 Payroll Analyst Report Medical Records [address] [place] [address] Landen Nazario Social History Tobacco Use Types [...] on filedocumented in this encounter Care Teams Infection Control Coordinator Relationship Specialty Start Date End Date Landen Shearer MD [address] [place] [id number] PCP - General Internal Medicine 08/27/12 08/25/14 Candice Butt MD [address] [place] [id number] PCP - General Internal Medicine 08/26/14 09/07/15 Ronit La MD [address] [place] [id number] PCP - General Internal Medicine 09/08/15 05/17/16 Ayse Castillo MD [address] [place] [address] PCP - General Internal Medicine 05/18/16 07/07/21 Quentin Chatterjee PA-C [address] [place] [address] PCP - General Med/Peds 07/08/21 05/30/22 [facility], Pcp [address] [place] [address] PCP - General Internal Medicine 05/31/22 documented as of this encounter
--- OUTSIDE RECORDS SUMMARY | 2025-03-20 12:51 | XMS_ITS | Encounter Summary ---
Author Organization [facility] Address [address] [facility] [place] [address] Care Team Providers Care Flanger Name Role Phone Ronit La MD Primary Care Provider Ayse Jackson MD Primary Care Provider Quentin Winn PA-C Primary Care Provider [facility], Pcp Primary Care Provider [facility] Encounter Details Date Type Department Care Team Description 04/03/2016 Hogshead Salvage Report Medical Records [address] [place] [address] [place] [address] Landen Nazario Social History Tobacco Use Types [...] on filedocumented in this encounter Care Teams Flanger Relationship Specialty Start Date End Date Ronit La MD PCP - General Internal Medicine 09/08/15 05/17/16 Ayse Castillo MD PCP - General Internal Medicine 05/18/16 1 Quentin Chatterjee PA-C PCP - General Med/Peds 07/08/21 05/30/22 [facility], Pcp PCP - General Internal Medicine 05/31/22 documented as of this encounter
[2025-03-20 13:29] VITALS: PULSE 69; O2SAT 95
== END 2025-03-20 12:49 | disposition home or self-care (01) ==
LOC: HO.RESP 12:48
PROVIDERS: PCP Nurse Practitioner Family; Visit Provider Nurse Practitioner Family
DX: J44.9 Chronic obstructive pulmonary disease, unspecified (principal)
CPT/HCPCS: 94010; 94727; 94729

== ENCOUNTER → 2025-03-20 12:51 | Outpatient (BNV) | payer MEDICARE, MEDICAID, SELFPAY | PROVIDERS: PCP Nurse Practitioner Family; Visit Provider Hospitalist | DX: J44.9 Chronic obstructive pulmonary disease, unspecified (principal) | CPT/HCPCS: 94060; 94727; 94729 ==

== ENCOUNTER 2025-03-26 14:42 | Outpatient (AMB) | payer OTHER, MEDICAID, SELFPAY ==
--- NOTE | 2025-03-26 14:56 | MHC.OFFVIS ---
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/ old CT /prev [facility] ins change Instructional Support Services Director Required: No Accompanied by: Self / Same As Patient Allergies No Known Allergies Allergy (Verified 02/09/25 11:48) Medication List - Last Reconciled 03/26/25 by Poncho Priest MD aspirin (Adult Aspirin Regimen) 81 mg PO DAILY atorvastatin 80 mg PO DAILY 90 days blood sugar diagnostic (FreeStyle Lite Strips) As directed blood sugar diagnostic (True Metrix Glucose Test Strip) Test blood sugar once a day blood-glucose meter (FreeStyle Ruby Lite kit) bid diazepam 5 mg PO BID PRN 30 days empagliflozin (Jardiance) 10 mg PO DAILY 90 days fenofibric acid (choline) 45 mg PO BEDTIME folic acid 1 mg PO DAILY 90 days gabapentin 900 mg (3 x 300 mg) PO TID 30 days lancets (FreeStyle Lancets) bid lancets (Lancets,Thin) Test blood sugar twice a day loratadine 10 mg PO DAILY metformin ER 1,000 mg (2 x 500 mg) PO BID 90 days metoprolol tartrate 12.5 mg (1/2 x 25 mg) PO BID 90 days HPI Comments Details: Slick is here for consultation regarding coronary disease. Previously seen at [facility], but trying to switch to [place]. Prior notes reviewed. Many risk factors including diabetes, hypertension, dyslipidemia, smoking, cocaine use. In 2021, it seems that he had VF arrest. Subsequently, detected to have inferior wall myocardial infarction and had occluded circumflex. Underwent drug-eluting stenting. He also had severe disease in the RCA, medically treated. Had atrial fibrillation in that setting and was on Eliquis/amiodarone but then it seems they were all stopped after few months. He states that he feels quite well. He does not have any chest pain or shortness of breath or any other cardiac symptoms. He states he lost smoked few days ago. [facility] Medical History (Updated 03/26/25 @ 15:48 by Poncho Priest MD) CAD (coronary artery disease) History of ST elevation myocardial infarction (STEMI) (~08/2022) History of cardiac arrest (~08/2022) Afib (~08/2022) Hypertension, essential Hyperlipidemia Diabetes COPD (chronic obstructive pulmonary disease) Nicotine dependence, cigarettes, uncomplicated Cocaine use GERD (gastroesophageal reflux disease) BPH (benign prostatic hyperplasia) Hypertensive retinopathy Nephrolithiasis Peripheral neuropathy Cervical radiculopathy Chronic low back pain Osteoarthritis of hips, bilateral Surgical History History of heart artery stent History of neck surgery History of cholecystectomy History of colonoscopy Family History Brother Myocardial infarction Social History Housing: Other Patient Tobacco Use Status: Current everyday Tobacco user Cigarettes Per Day: 5 e-Cigarette/Vaping Use: Never Used Second Hand Smoke Exposure: No service: Yes Current occupational status: disabled Cognitive needs: No Hearing needs: Yes Vision needs: No Review of Systems Const Denies chills, Denies fatigue, Denies fever(s), Denies frequent falls, Denies weakness, Denies weight gain and Denies weight loss ENT Denies dizziness Card Denies chest pain, Denies leg edema, Denies lightheadedness, Denies palpitations, Denies dyspnea, Denies dyspnea on exertion and Denies orthopnea Resp Denies cough, Denies dyspnea and Denies dyspnea on exertion GI Denies bloating and Denies change in bowel habits Musc Denies muscle weakness, Denies numbness and Denies tingling Neuro Denies dizziness, Denies frequent falls, Denies numbness, Denies tingling and Denies weakness Endo Denies fatigue and Denies palpitations Physical Exam Vital Signs: Last Vital Signs Pulse 56 03/26/25 14:58 BP 120/70 03/26/25 14:58 BMI result Body Mass Index 23.8 Const General: comfortable and no acute distress Orientation/consciousness: patient oriented x3 HEENT Other: Unremarkable Head: Yes normal to inspection Neck Neck: Yes normal visual inspection Chest Chest palpation & inspection: normal inspection of the chest Resp Auscultation: clear to auscultation bilaterally Cardio Palpation: normal PMI Heart sounds: S1 normal heart sound present, S2 normal heart sound present, no gallops, no murmurs and no rubs GI Palpation (GI): Soft to palpation Back/Spine/Pelvis Other: unremarkable Skin General skin exam: no rashes or lesions noted Neuro General: patient oriented x3 Extrem General: Yes normal to inspection Psych Mental Status: mental status grossly normal Office Procedures EKG Details: EKG with sinus bradycardia at 56/Min; old inferior infarct; PACs; [place]. [id number], Complete Assessment & Plan Assessment & Plan (1) Atherosclerotic cardiovascular disease: Code(s): I25.10 - Atherosclerotic heart disease of [place] coronary artery without angina pectoris Category: Medical (2) Type 2 diabetes mellitus with unspecified complications: Code(s): E11.8 - Type 2 diabetes mellitus with unspecified complications Category: Medical (3) Hyperlipidemia: Code(s): E78.5 - Hyperlipidemia, unspecified Category: Medical Plan Prior cardiac data reviewed. Cardiac catheterization 2021 with occlusion of left circumflex status post PCI. Severe RCA stenosis medically treated. Echocardiogram with LVEF of 50-60%. No definitive wall motion abnormalities but not exclude either. Grade 2 diastolic dysfunction. Left atrium dilated. Grossly normal right ventricle. Overall, seems to be stable coronary artery disease. Remains on aspirin and beta-blockers. For diabetes, on Jardiance and metformin. Hemoglobin A1c is 5.2%. With regard to dyslipidemia, on statins. History of elevated triglycerides up to 341 but most recently 148. LDL 50 mg/dL. Blood pressure seems stable. Smoking cessation. Avoidance of alcohol/drugs. Discussion Notes I revisited the patient's past cardiac history, attributing previous events to smoking and substance use. Emphasis was placed on sustained smoking cessation and its benefits for cardiovascular health. I reviewed the patient's current medication, and the importance of adherence to prevent future cardiac events. I explained the need for a follow-up echocardiogram in six months to assess heart function. We discussed managing diabetes and maintaining a healthy lifestyle to mitigate cardiovascular risks. Patient was informed and verbally consented to the use of an ambient scribe for clinic note documentation during this visit. Orders: Orders CA echo transthoracic complete 6 Months I25.10 - Atherosclerotic heart disease of [place] coronary artery without angina pectoris, I25.2 - Old myocardial infarction Patient Instructions: - Continue taking your medication. - Stop smoking completely. - Follow a healthy lifestyle to support heart health. - Monitor blood sugar levels regularly. - Expect a follow-up appointment and heart ultrasound in six months. - Contact healthcare provider if chest pain or shortness of breath occurs. Coding Level of Care Code New Pt Level 4 (33166) Complex EM visit Add On G2211 Diagnoses Atherosclerotic cardiovascular disease I25.10 Type 2 diabetes mellitus with unspecified complications E11.8 Hyperlipidemia E78.5 CPT Codes EKG - CPT: 30286-[id number], Complete ([id number])
[2025-03-26 14:58] VITALS: BP 120/70; PULSE 56; BMI 23.8
--- OUTSIDE RECORDS SUMMARY | 2025-03-26 15:29 | XMS_ITS | Clinical Summary ---
Author Organization [facility] Address [address] [place] [address] Phone Care Team Providers Care Divinity Professor Name Role Phone Physician, No Pcp Primary [...] 09/17/2014 DX:Herniated lumbar intervertebral disc; COMMENT: [facility]es [facility] Family History Medical History [...] Status Comments Aunt Brother 1 (Age 55) [place] Brother 2 Father unsure Maternal Grandfather Maternal [...] LAB CHEMISTRY METHOD 11/19/2024 7:36 PM EST [facility] Potassium 4.3 3.5 - 5.5 mmol/L LAB CHEMISTRY METHOD 11/19/2024 7:36 PM EST [facility] Chloride 107 96 - 110 mmol/L LAB CHEMISTRY METHOD 11/19/2024 7:36 PM EST [facility] CO2 24 21 - 32 mmol/L LAB CHEMISTRY METHOD 11/19/2024 7:36 PM EST [facility] Anion Gap 5 3 - 11 [...] LAB BLOOD ORDERABLES Final Res ult [facility] [address] [place] [address], from Last 3 Months or Most Recently Relevant to Health Maintenance Insurance MEDICAID - [place] [employer] MEDICARE Care Teams Divinity Professor Relationship Specialty Start Date End Date Physician, No Pcp PCP - General 11/19/24
== END 2025-03-26 15:17 | disposition home or self-care (01) ==
PROVIDERS: PCP Nurse Practitioner Family; Visit Provider Internal Medicine
DX: I25.10 Atherosclerotic heart disease of native coronary artery without angina pectoris (principal); E11.8 Type 2 diabetes mellitus with unspecified complications; E78.5 Hyperlipidemia, unspecified
CPT/HCPCS: 93010; 99204

== ENCOUNTER → 2025-03-26 14:42 | Outpatient (BNVA) | payer MEDICARE, SELFPAY | PROVIDERS: PCP Nurse Practitioner Family; Visit Provider Internal Medicine | DX: I25.10 Atherosclerotic heart disease of native coronary artery without angina pectoris (principal); I25.2 Old myocardial infarction; E11.8 Type 2 diabetes mellitus with unspecified complications; E78.5 Hyperlipidemia, unspecified; F17.210 Nicotine dependence, cigarettes, uncomplicated | CPT/HCPCS: 93005 ==

== ENCOUNTER 2025-08-11 11:31 | Outpatient (AMB) | payer OTHER, SELFPAY ==
[2025-08-11 11:39] VITALS: BP 116/60; PULSE 56; RESP 16; O2SAT 96; BMI 22.4
--- NOTE | 2025-08-11 11:39 | MHC.PC.OV ---
Vital Signs 08/11/25 11:39 Height 5 ft 7 in Weight 143 lb BMI 22.4 BP 116/60 Blood Pressure Location Lt brachial Position Sitting Respiration 16 Pulse 56 Pulse Source Pulse Oximeter Pulse Oximetry (%) 96 Oxygen Delivery Method Room Air Intake Visit Reasons: 6m follow up a1c - see comments Teacher Advisor Required: No Accompanied by: Self / Same As Patient Allergies No Known Allergies Allergy (Verified 08/12/25 09:08) Medication List - Last Reviewed 08/11/25 by Jennifer Ashraf MA aspirin (Adult Aspirin Regimen) 81 mg PO DAILY atorvastatin 80 mg PO DAILY 90 days blood sugar diagnostic (FreeStyle Lite Strips) As directed blood sugar diagnostic (True Metrix Glucose Test Strip) Test blood sugar once a day blood-glucose meter (FreeStyle [place] Lite kit) bid diazepam 5 mg PO BID PRN 30 days fenofibric acid (choline) 45 mg PO BEDTIME gabapentin 900 mg (3 x 300 mg) PO TID 30 days lancets (FreeStyle Lancets) bid lancets (Lancets,Thin) Test blood sugar twice a day loratadine 10 mg PO DAILY metformin ER 500 mg PO BID 90 days metoprolol tartrate 12.5 mg (1/2 x 25 mg) PO BID [address] 40 mg PO DAILY Tobacco use date assessed: 08/11/25 Fall risk assessment: No Falls in past year Last assessed Fall Risk: 08/11/25 Dental Screening Dental Screen Date: 02/09/25 HPI 6m follow up a1c - see comments HPI Details Chief Complaint The patient presents for a follow-up regarding diabetes management. History of Present Illness The patient is a 65-year-old male presenting with a follow-up for diabetes management. His Hemoglobin A1c is currently 5.4, which is considered well-controlled, leading to a reduction in his metformin dosage from 1000 mg ER twice daily to 500 mg ER twice daily. The patient reports experiencing neuropathy, primarily affecting his left foot, which occurs intermittently. He has positive sensation with the use of a monofilament test bilaterally, indicating preserved sensory function. The patient has a history of onychomycosis and elongated toenails bilaterally. In June, the patient quit smoking tobacco, which is a significant lifestyle change. On the of this month, he underwent coronary artery bypass grafting (CABG) and mitral valve replacement. Post-surgery, he reports feeling much better and denies any shortness of breath or chest pain. Social History - Tobacco use: Quit smoking in June Health Maintenance - Vaccinations: Updated and provided to the patient for administration at the pharmacy Review of Systems - Neurological: Reports intermittent neuropathy in the left foot. Denies other neurological symptoms. - Cardiovascular: Denies chest pain or dyspnea. Physical Exam General: Cooperative, healthy appearing, comfortable, no acute distress and well developed Orientation: Patient oriented x3 Limitations: No limitations Head: Normal to inspection Ears: Hearing grossly normal bilaterally Nose: Normal external nose present Face and sinus: Normal facial exam Eyes: Appearance normal, both eyes and all related structures Neck: Normal visual inspection and Yes full ROM Respiratory: Slightly diminished bilaterally, able to speak in complete sentences Cardiovascular: Systolic murmur, regular rate and rhythm GI: Normal to inspection. Soft to palpation and nontender Skin: large sternal vertical incision, with dermabond, well approximated/no infection. Lower horizontal incision without signs of infection, scabbed, suturing noted Neuro: Patient oriented x3 Extremities: Onychomycosis noted bilaterally, elongated toenails noted bilaterally (partially ingrown big toenails without infection), neuropathy mostly to left foot, positive sensation with use of monofilament bilaterally Results - Labs: Hemoglobin A1c is 5.4 Plan 1. Diabetes Mellitus The patient's diabetes is well-controlled with a current Hemoglobin A1c of 5.4. The plan includes reducing metformin dosage from 1000 mg ER twice daily to 500 mg ER twice daily. 2. Neuropathy The patient reports intermittent neuropathy in the left foot. Positive sensation with monofilament bilaterally suggests preserved sensory function. 3. Onychomycosis The patient has onychomycosis and elongated toenails bilaterally. 4. Coronary Artery Bypass Grafting (Cabg) The patient underwent CABG and mitral valve replacement on the 10th of this month. He reports feeling much better post-surgery and denies any shortness of breath or chest pain. 5. Mitral Valve Replacement The patient underwent mitral valve replacement along with CABG. He reports significant improvement in symptoms post-surgery. 6. Preventative Care Vaccinations were updated and provided to the patient for administration at the pharmacy. Discussion Notes During the visit, I discussed the patient's diabetes management, noting the impressive control of his Hemoglobin A1c at 5.4, and decided to reduce his metformin dosage. We also reviewed his recent coronary artery bypass grafting and mitral valve replacement, with the patient reporting significant improvement in symptoms. I provided him with updated vaccination information for administration at the pharmacy. Patient Instructions - Continue taking metformin at the reduced dosage of 500 mg ER twice daily. - Monitor for any changes in neuropathy symptoms and report if they worsen. - Follow up with the pharmacy to receive updated vaccinations. FORMERLY [facility], [facility] Medical History (Updated 10/15/25 @ 15:25 by Poncho Priest MD) CAD (coronary artery disease) History of ST elevation myocardial infarction (STEMI) (~08/2022) History of cardiac arrest (~08/2022) Afib (~08/2022) Hypertension, essential Hyperlipidemia Diabetes COPD (chronic obstructive pulmonary disease) Nicotine dependence, cigarettes, uncomplicated Cocaine use GERD (gastroesophageal reflux disease) BPH (benign prostatic hyperplasia) Hypertensive retinopathy Nephrolithiasis Peripheral neuropathy Cervical radiculopathy Chronic low back pain Osteoarthritis of hips, bilateral Surgical History (Updated 08/26/25 @ 09:20 by Poncho Priest MD) Status post mitral valve replacement with bioprosthetic valve Status post aorto-coronary artery bypass graft S/P CABG x 1 Mitral valve replaced History of heart artery stent History of neck surgery History of cholecystectomy History of colonoscopy Family History Brother Myocardial infarction Social History Housing: Other Patient Tobacco Use Status: Former Tobacco user Cigarettes Per Day: 5 Years Smoked: Started at 13 years old ,quit 06/29/2025 e-Cigarette/Vaping Use: Never Used Second Hand Smoke Exposure: No service: Yes Current occupational status: disabled Cognitive needs: No Hearing needs: Yes Vision needs: No Questionnaire Thrive Questionnaire Date Thrive assessed: 02/09/25 I am a: Patient What is your living situation today?: I have a steady place to live Within the past 12 months, did the food you bought not last and you didn't have the money to get more?: Never true Within the past 12 months, did you worry whether your food would run out before you got money to buy more?: Sometimes True Do you have trouble paying for medicines?: No Do you have trouble getting transportation to medical appointments?: No Do you have trouble paying your heating and electricity bill?: Yes Do you have trouble taking care of your child, family member or friend?: No Do you have trouble with day-to-day activities such as bathing, preparing meals, shopping, managing finances, etc.?: No Are you currently unemployed and looking for a job?: No Are you interested in more education?: No Currently or been in a relationship where the following occur: No concerns reported THRIVE Score: 2 RUTH ANN-7 AMB Questionnaire RUTH ANN-7 Date RUTH ANN - 7 assessed: 02/09/25 Source: Developed by Drs. Fredo Bah, Gloria Olivas, Ankit Zuniga and colleagues, with an educational sara from [employer]. Physical exam (Primary Care) Vital Signs: Last Vital Signs Pulse 56 08/11/25 11:39 Resp 16 08/11/25 11:39 BP 116/60 08/11/25 11:39 Pulse Ox 96 08/11/25 11:39 Oxygen Delivery Method Room Air 08/11/25 11:39 BMI result Body Mass Index 22.4 Tobacco/Smoking Status: Tobacco use Status Tobacco use date assessed 08/11/25 08/11/25 11:42 Patient Tobacco Use Status Former Tobacco user 08/11/25 11:47 e-Cigarette/Vaping Use Never Used 08/11/25 11:42 Thrive Assessment: Date of Thrive Assessment Date Thrive assessed 02/09/25 08/11/25 11:42 Currently or been in a relationship where the following occur: No concerns reported Results AMB Hemoglobin A1c AMB Hemoglobin A1c 5.4 % Last Edit by Jennifer Ashraf MA on 08/11/25 13:30 Results Reviewed Results Reviewed: Laboratory Last Values Hgb A1c (Clinic) 5.4 % (4.0-6.0) 08/11/25 11:37 Coding Level of Care Code Est Pt Level 3 (31571) Diagnoses Type 2 diabetes mellitus with unspecified complications E11.8 Assessment & Plan Assessment & Plan (1) Type 2 diabetes mellitus with unspecified complications: Code(s): E11.8 - Type 2 diabetes mellitus with unspecified complications Category: Medical Plan . Orders: Referrals Gastroenterology Referral Z12.11 - Encounter for screening for malignant neoplasm of colon Medications: Changed From metformin ER 1,000 mg (2 x 500 mg) PO BID 90 days 360 tabs 1RF To metformin ER 500 mg PO BID 180 tabs 1RF 90 days
--- OUTSIDE RECORDS SUMMARY | 2025-08-11 12:57 | XMS_ITS | Encounter Summary ---
Author Organization [facility] Address [address] [place] [address] Care Team Providers Care Mobile Phone Salesperson Name Role Phone Holger Manuel NP Primary Care Provider + [phone] Encounter Details Date Type Department Care Team (Late st Contact Info) Description 08/11/2025 Telephone [facility] [address] [place] [address] [place] [address] Salma Strong PA [address] [place] [address] [address] [place] [address] Social History Tobacco Use Types Packs/Day Years Used Date Smoking Tobacco: Former Cigarettes 1 52.6 1 973 - 06/29/2025 Smokeless Tobacco: Never Alcohol Use Standard Drinks/Week Comments Not Currently 0 (1 standard drink = 0.6 oz pur e alcohol) Occasional Food Risk Answer Date Recorded Within the past 12 months we worried whether our food would run out before we got money to buy more. Never true 07/29/2025 Within the past 12 months th e food we bought just didn't last and we didn't have money to get more. Never true 07/29/2025 Interpersonal Safety Answer Date Record ed Physical Abuse Unrecognized value 07/13/2025 Verbal Abuse Unrecognized value 07/13/2025 Sex and Gender Information Value Date Recorded Sex Assigned at Male 07/20/2025 3:00 PM EDT Legal Sex Male 5:51 PM EST Gender Identity Male 07/22/2025 5:27 AM EDT Sexual Orientation Choose not to disclose 2024 5:27 AM EDT documented as of this encounter Progress Notes * Shahid Luna RN - 08/11/2025 9:19 AM EDT Called pt back and made aware he would have to follow up with cardiac sx - Dr. Arias's office on concerns for suture removal after valve sx. Is thankful for the call back. * Shasta Wagner - 08/11/2025 8:39 AM EDT Patient recently had mitral valve replacement. He is question if he can come into the office and have stitches removed. Please advise. Best call back number is [phone] documented in this encounter Plan of Treatment Upcoming Encounters Date Type Department Care Team (Late st Contact Info) Description 08/20/2025 10:10 AM EDT Office Visit [facility] - [address] [facility] [address] [place] [id number] Salma Strong PA [address] [place] [address] [place] [id number] documented as of this encounter Visit Diagnoses Not on filedocumented in this encounter Care Teams Mobile Phone Salesperson Relationship Specialty Start Date End Date Holger Manuel NP [address] [place] [phone] PCP - General Family Medicine 07/20/25 documented as of this encounter
--- OUTSIDE RECORDS SUMMARY | 2025-08-11 12:57 | XMS_ITS ---
Author Name [facility] Organization Unknown Results Test Name/Text Value Interpretation Date Range Source Glucose Bld-mCnc 107.0 mg/dL 07/31/2025 70 - 199 [facility] Rpt comment Notified Nurse 07/31/2025 [facility] Magnesium SerPl-mCnc 2.0 mg/dL 07/31/2025 1.7 - 2.8 [facility] Potassium SerPl-sCnc 4.1 mmol/L 07/31/2025 3.5 - 5.1 [facility] PT Bld 15.8 sec Above high normal 07/31/2025 10.5 - 13.3 [facility] INR PPP 1.4 Above high normal 07/31/2025 0.8 - 1.1 C [facility] Ca-I Bld-mCnc 1.22 mg/dL 07/31/2025 1.19 - 1.35 CT [facility] Glucose Bld-mCnc 114.0 mg/dL 07/31/2025 70 - 199 [facility] Glucose Bld-mCnc 151.0 mg/dL 07/31/2025 70 - 199 [facility] Glucose Bld-mCnc 150.0 mg/dL 07/30/2025 70 - 199 [facility] Glucose Bld-mCnc 118.0 mg/dL 07/30/2025 70 - 199 [facility] Glucose Bld-mCnc 105.0 mg/dL 07/30/2025 70 - 199 [facility] BUN/Creat SerPl 25.0 Above high normal 07/30/2025 12 - 20 [facility] eGFRcr SerPlBld CKD-EPI 2020 98.0 mL/min/1.73m2 07/30/2025 - [facility] CO2 SerPl-sCnc 25.0 mmol/L 07/30/2025 24 - 32 [facility] BUN SerPl-mCnc 20.0 mg/dL 07/30/2025 9 - 20 [facility] Potassium SerPl-sCnc 4.4 mmol/L 07/30/2025 3.5 - 5.1 [facility] Chloride SerPl-sCnc 105.0 mmol/L 07/30/2025 98 - 107 [facility] Anion Gap SerPl Calc-sCnc 9.0 07/30/2025 5 - 14 [facility] Calcium SerPl-mCnc 8.4 mg/dL 07/30/2025 8.4 - 10.2 [facility] Sodium SerPl-sCnc 139.0 mmol/L 07/30/2025 135 - 14 5 [facility] Glucose SerPl-mCnc 93.0 mg/dL 07/30/2025 70 - 199 [facility] Creat SerPl-mCnc 0.8 mg/dL 07/30/2025 0.7 - 1.3 CT [facility] Phosphate SerPl-mCnc 3.4 mg/dL 07/30/2025 2.5 - 4.5 [facility] Magnesium SerPl-mCnc 2.0 mg/dL 07/30/2025 1.7 - 2.8 [facility] INR PPP 1.7 Above high normal 07/30/2025 0.8 - 1.1 C [facility] PT Bld 19.3 sec Above high normal 07/30/2025 10.5 - 13.3 [facility] MCHC RBC Auto-EntMCnc 32.7 g/dL 07/30/2025 32 - 36 [facility] Hct VFr Bld Auto 27.3 % Below low normal 07/30/2025 40 - 54 [facility] RDW RBC Auto 15.0 % 07/30/2025 12.1 - 17.7 [facility] Hgb Bld-mCnc 8.9 g/dL Below low normal 07/30/2025 13.5 - 18 [facility] MCH RBC Qn Auto 32.1 pcg 07/30/2025 25 - 33 [facility] WBC # Bld Auto 7.7 K/mcL 07/30/2025 4 - 10.5 [facility] RBC Auto 98.2 FL 07/30/2025 78 - 100 [facility] N RBC # Bld Auto 2.78 M/mcL Below low normal 07/30/2025 4.7 - 6 [facility] PMV Bld Auto 9.0 FL 07/30/2025 7.4 - 11.4 [facility] Platelet # Bld Auto 218.0 K/mcL 07/30/2025 150 - 450 [facility] Ca-I Bld-mCnc 1.06 mg/dL Below low normal 07/30/2025 1.19 - 1.35 [facility] Glucose Bld-mCnc 110.0 mg/dL 07/30/2025 70 - 199 [facility] Glucose Bld-mCnc 84.0 mg/dL 07/29/2025 70 - 199 C [facility] PT Bld 16.6 sec Above high normal 07/29/2025 10.5 - 13.3 [facility] INR PPP 1.4 Above high normal 07/29/2025 0.8 - 1.1 [facility] Phosphate SerPl-mCnc 3.4 mg/dL 07/29/2025 2.5 - 4.5 [facility] BUN/Creat SerPl 22.5 Above high normal 07/29/2025 12 - 20 [facility] Anion Gap SerPl Calc-sCnc 7.0 07/29/2025 5 - 14 [facility] Sodium SerPl-sCnc 139.0 mmol/L 07/29/2025 135 - 14 5 [facility] Glucose SerPl-mCnc 99.0 mg/dL 07/29/2025 70 - 199 [facility] CO2 SerPl-sCnc 28.0 mmol/L 07/29/2025 24 - 32 [facility] BUN SerPl-mCnc 18.0 mg/dL 07/29/2025 9 - 20 [facility] Calcium SerPl-mCnc 7.9 mg/dL Below low normal 07/29/2025 8.4 - 10.2 [facility] eGFRcr SerPlBld CKD-EPI 2020 98.0 mL/min/1.73m2 07/29/2025 - [facility] Potassium SerPl-sCnc 3.9 mmol/L 07/29/2025 3.5 - 5.1 [facility] Chloride SerPl-sCnc 104.0 mmol/L 07/29/2025 98 - 107 [facility] Creat SerPl-mCnc 0.8 mg/dL 07/29/2025 0.7 - 1.3 CT [facility] Magnesium SerPl-mCnc 2.0 mg/dL 07/29/2025 1.7 - 2.8 [facility] Lactate BldV-sCnc 1.2 mmol/L 07/29/2025 0.5 - 2.2 [facility] RBC # Bld Auto 2.47 M/mcL Below low normal 07/29/2025 4.7 - 6 [facility] PMV Bld Auto 8.7 FL 07/29/2025 7.4 - 11.4 [facility] Hgb Bld-mCnc 8.0 g/dL Below low normal 07/29/2025 13.5 - 18 [facility] MCH RBC Qn Auto 32.5 pcg 07/29/2025 25 - 33 [facility] WBC # Bld Auto 7.1 K/mcL 07/29/2025 4 - 10.5 [facility] Hct VFr Bld Auto 24.2 % Below low normal 07/29/2025 40 - 54 [facility] MCHC RBC Auto-EntMCnc 33.1 g/dL 07/29/2025 32 - 36 [facility] Platelet # Bld Auto 162.0 K/mcL 07/29/2025 150 - 450 [facility] RBC Auto 98.2 FL 07/29/2025 78 - 100 [facility] RDW RBC Auto 14.8 % 07/29/2025 12.1 - 17.7 [facility] Ca-I Bld-mCnc 1.15 mg/dL Below low normal 07/29/2025 1.19 - 1.35 [facility] Lactate BldV-sCnc 0.9 mmol/L 07/29/2025 0.5 - 2.2 [facility] Glucose Bld-mCnc 117.0 mg/dL 07/29/2025 70 - 199 [facility] Lactate BldV-sCnc 1.0 mmol/L 07/28/2025 0.5 - 2.2 [facility] Glucose Bld-mCnc 95.0 mg/dL 07/28/2025 70 - 199 C [facility] Hgb Bld-mCnc 8.1 g/dL Below low normal 07/28/2025 13.5 - 18 [facility] Hct VFr Bld Auto 23.7 % Below low normal 07/28/2025 40 - 54 [facility] Glucose Bld-mCnc 133.0 mg/dL 07/28/2025 70 - 199 [facility] Lactate BldV-sCnc 1.1 mmol/L 07/28/2025 0.5 - 2.2 [facility] Glucose Bld-mCnc 128.0 mg/dL 07/28/2025 70 - 199 [facility] Rh Bld Positive 07/28/2025 [facility] N ABO Group Bld O 07/28/2025 [facility] Bld gp Ab Scn SerPl Ql Negative 07/28/2025 [facility] pO2 BldMV 30.0 mmHg 07/28/2025 [facility] N Squamous #/area UrnS HPF 2.2 mmol/L 07/28/2025 [facility] Mucous Threads #/area UrnS HPF 25.6 mmol/L 07/28/2025 [facility] Cystine Cry #/area UrnS HPF 7.41 pH 07/28/2025 7.35 - 7.45 [facility] Mixed Cell Casts #/area UrnS HPF 43.0 mmHg 07/28/2025 [facility] Glucose SerPl-mCnc 106.0 mg/dL Above high normal 07/28/2025 70 - 99 [facility] CO2 SerPl-sCnc 26.0 mmol/L 07/28/2025 24 - 32 [facility] Anion Gap SerPl Calc-sCnc 6.0 07/28/2025 5 - 14 [facility] Creat SerPl-mCnc 0.7 mg/dL 07/28/2025 0.7 - 1.3 CT [facility] BUN SerPl-mCnc 15.0 mg/dL 07/28/2025 9 - 20 [facility] Chloride SerPl-sCnc 107.0 mmol/L 07/28/2025 98 - 107 [facility] Potassium SerPl-sCnc 3.6 mmol/L 07/28/2025 3.5 - 5.1 [facility] Bilirub SerPl-mCnc 1.3 mg/dL Above high normal 07/28/2025 0. 3 - 1 [facility] eGFRcr SerPlBld CKD-EPI 2020 102.0 mL/min/1.73m2 07/28/2025 - [facility] Albumin SerPl-mCnc 3.2 g/dL Below low normal 07/28/2025 3.5 - 5 [facility] Sodium SerPl-sCnc 139.0 mmol/L 07/28/2025 135 - 14 5 [facility] Prot SerPl-mCnc 5.2 g/dL Below low normal 07/28/2025 6.4 - 8.5 [facility] BUN/Creat SerPl 21.4 Above high normal 07/28/2025 12 - 20 [facility] ALT SerPl-cCnc 141.0 unit/L Above high normal 07/28/2025 7 - 52 [facility] Calcium SerPl-mCnc 7.6 mg/dL Below low normal 07/28/2025 8.4 - 10.2 [facility] ALP SerPl-cCnc 75.0 unit/L 07/28/2025 34 - 104 [facility] AST SerPl-cCnc 38.0 unit/L 07/28/2025 5 - 40 [facility] Magnesium SerPl-mCnc 1.8 mg/dL 07/28/2025 1.7 - 2.8 [facility] Phosphate SerPl-mCnc 2.8 mg/dL 07/28/2025 2.5 - 4.5 [facility] RDW RBC Auto 15.1 % 07/28/2025 12.1 - 17.7 [facility] WBC # Bld Auto 8.1 K/mcL 07/28/2025 4 - 10.5 [facility] PMV Bld Auto 9.7 FL 07/28/2025 7.4 - 11.4 [facility] RBC # Bld Auto 2.37 M/mcL Below low normal 07/28/2025 4.7 - 6 [facility] Hct VFr Bld Auto 22.5 % Below low normal 07/28/2025 40 - 54 [facility] MCHC RBC Auto-EntMCnc 34.2 g/dL 07/28/2025 32 - 36 [facility] MCH RBC Qn Auto 32.6 pcg 07/28/2025 25 - 33 [facility] RBC Auto 95.1 FL 07/28/2025 78 - 100 [facility] N Hgb Bld-mCnc 7.7 g/dL Below low normal 07/28/2025 13.5 - 18 [facility] Platelet # Bld Auto 90.0 K/mcL Below low normal 07/28/2025 150 - 450 [facility] PT Bld 21.1 sec Above high normal 07/28/2025 10.5 - 13.3 [facility] INR PPP 1.8 Above high normal 07/28/2025 0.8 - 1.1 C [facility] Ca-I Bld-mCnc 1.1 mg/dL Below low normal 07/28/2025 1.19 - 1 .35 [facility] Glucose Bld-mCnc 149.0 mg/dL 07/28/2025 70 - 199 [facility] Glucose Bld-mCnc 117.0 mg/dL 07/27/2025 70 - 199 [facility] Glucose Bld-mCnc 160.0 mg/dL 07/27/2025 70 - 199 [facility] Glucose Bld-mCnc 193.0 mg/dL 07/27/2025 70 - 199 [facility] Potassium SerPl-sCnc 3.8 mmol/L 07/27/2025 3.5 - 5.1 [facility] eGFRcr SerPlBld CKD-EPI 2020 98.0 mL/min/1.73m2 07/27/2025 - [facility] BUN/Creat SerPl 23.8 Above high normal 07/27/2025 12 - 20 [facility] Creat SerPl-mCnc 0.8 mg/dL 07/27/2025 0.7 - 1.3 CT [facility] Chloride SerPl-sCnc 106.0 mmol/L 07/27/2025 98 - 107 [facility] Sodium SerPl-sCnc 139.0 mmol/L 07/27/2025 135 - 14 5 [facility] Anion Gap SerPl Calc-sCnc 7.0 07/27/2025 5 - 14 [facility] BUN SerPl-mCnc 19.0 mg/dL 07/27/2025 9 - 20 [facility] Glucose SerPl-mCnc 148.0 mg/dL 07/27/2025 70 - 199 [facility] CO2 SerPl-sCnc 26.0 mmol/L 07/27/2025 24 - 32 [facility] Calcium SerPl-mCnc 7.7 mg/dL Below low normal 07/27/2025 8.4 - 10.2 [facility] Albumin SerPl-mCnc 3.2 g/dL Below low normal 07/27/2025 3.5 - 5 [facility] ALT SerPl-cCnc 200.0 unit/L Above high normal 07/27/2025 7 - 52 [facility] Prot SerPl-mCnc 5.3 g/dL Below low normal 07/27/2025 6.4 - 8.5 [facility] Bilirub SerPl-mCnc 1.1 mg/dL Above high normal 07/27/2025 0. 3 - 1 [facility] AST SerPl-cCnc 70.0 unit/L Above high normal 07/27/2025 5 - 40 [facility] Bilirub Direct SerPl-mCnc 0.3 mg/dL Above high normal 07/27/2025 0 - 0.2 [facility] ALP SerPl-cCnc 76.0 unit/L 07/27/2025 34 - 104 [facility] Globulin Ser Calc-mCnc 2.1 g/dL Below low normal 07/27/2025 2.3 - 3.5 [facility] Albumin/Glob SerPl 1.5 07/27/2025 [facility] Phosphate SerPl-mCnc 2.6 mg/dL 07/27/2025 2.5 - 4.5 [facility] Magnesium SerPl-mCnc 2.0 mg/dL 07/27/2025 1.7 - 2.8 [facility] PT Bld 25.0 sec Above high normal 07/27/2025 10.5 - 13.3 [facility] INR PPP 2.2 Above high normal 07/27/2025 0.8 - 1.1 C [facility] Ca-I Bld-mCnc 1.09 mg/dL Below low normal 07/27/2025 1.19 - 1.35 [facility] MCH RBC Qn Auto 32.4 pcg 07/27/2025 25 - 33 [facility] Eosinophil NFr Bld Auto 0.6 % 07/27/2025 0 - 6 [facility] Neutrophils # Bld Auto 5.3 K/mcL 07/27/2025 1.8 - 7.8 [facility] MCHC RBC Auto-EntMCnc 33.7 g/dL 07/27/2025 32 - 36 [facility] Lymphocytes NFr Bld Auto 12.1 % Below low normal 07/27/2025 20 - 48 [facility] Hct VFr Bld Auto 23.4 % Below low normal 07/27/2025 40 - 54 [facility] PMV Bld Auto 9.0 FL 07/27/2025 7.4 - 11.4 [facility] WBC # Bld Auto 7.1 K/mcL 07/27/2025 4 - 10.5 [facility] Hgb Bld-mCnc 7.9 g/dL Below low normal 07/27/2025 13.5 - 18 [facility] Lymphocytes # Bld Auto 0.9 K/mcL Below low normal 07/27/2025 1 - 3.2 [facility] RBC # Bld Auto 2.43 M/mcL Below low normal 07/27/2025 4.7 - 6 [facility] Basophils NFr Bld Auto 0.6 % 07/27/2025 0 - 2 [facility] Eosinophil # Bld Auto 0.0 K/mcL 07/27/2025 0 - 0.5 [facility] Monocytes # Bld Auto 0.8 K/mcL 07/27/2025 0 - 0.8 [facility] RBC Auto 96.1 FL 07/27/2025 78 - 100 [facility] RDW RBC Auto 15.5 % 07/27/2025 12.1 - 17.7 [facility] Platelet # Bld Auto 89.0 K/mcL Below low normal 07/27/2025 150 - 450 [facility] Neutrophils NFr Bld Auto 74.8 % Above high normal 07/27/2025 44 - 74 [facility] Monocytes NFr Bld Auto 11.9 % 07/27/2025 2 - 12 [facility] Basophils # Bld Auto 0.0 K/mcL 07/27/2025 0 - 0.2 [facility] Magnesium SerPl-mCnc 2.0 mg/dL 07/27/2025 1.7 - 2.8 [facility] Potassium SerPl-sCnc 3.7 mmol/L 07/27/2025 3.5 - 5.1 [facility] Glucose Bld-mCnc 188.0 mg/dL 2025 70 - 199 [facility] Glucose Bld-mCnc 174.0 mg/dL 2025 70 - 199 [facility] Mucous Threads #/area UrnS HPF 23.6 mmol/L 2025 [facility] Cystine Cry #/area UrnS HPF 7.38 pH 2025 7.35 - 7.45 [facility] Mixed Cell Casts #/area UrnS HPF 41.0 mmHg 2025 [facility] Squamous #/area UrnS HPF -0.8 mmol/L 2025 [facility] pO2 BldMV 38.0 mmHg 2025 [facility] N pO2 BldMV 30.0 mmHg 2025 [facility] N Mixed Cell Casts #/area UrnS HPF 44.0 mmHg 2025 [facility] Squamous #/area UrnS HPF 0.0 mmol/L 2025 [facility] Cystine Cry #/area UrnS HPF 7.37 pH 2025 7.35 - 7.45 [facility] Mucous Threads #/area UrnS HPF 24.2 mmol/L 2025 [facility] Glucose Bld-mCnc 139.0 mg/dL 2025 70 - 199 [facility] Globulin Ser Calc-mCnc 1.5 g/dL Below low normal 2025 2.3 - 3.5 [facility] Albumin SerPl-mCnc 2.8 g/dL Below low normal 2025 3.5 - 5 [facility] Albumin/Glob SerPl 1.9 2025 [facility] Bilirub Direct SerPl-mCnc 0.3 mg/dL Above high normal 2025 0 - 0.2 [facility] AST SerPl-cCnc 157.0 unit/L Above high normal 2025 5 - 40 [facility] Prot SerPl-mCnc 4.3 g/dL Below low normal 2025 6.4 - 8.5 [facility] ALP SerPl-cCnc 64.0 unit/L 2025 34 - 104 [facility] ALT SerPl-cCnc 248.0 unit/L Above high normal 2025 7 - 52 [facility] Bilirub SerPl-mCnc 1.0 mg/dL 2025 0.3 - 1 [facility] Potassium SerPl-sCnc 3.1 mmol/L Below low normal 2025 3.5 - 5.1 [facility] BUN/Creat SerPl 28.3 Above high normal 2025 12 - 20 [facility] Calcium SerPl-mCnc 5.9 mg/dL Critically low 2025 8.4 - 10.2 [facility] eGFRcr SerPlBld CKD-EPI 2020 107.0 mL/min/1.73m2 2025 - [facility] Sodium SerPl-sCnc 139.0 mmol/L 2025 135 - 14 5 [facility] Chloride SerPl-sCnc 113.0 mmol/L Above high normal 2025 98 - 107 [facility] CO2 SerPl-sCnc 23.0 mmol/L Below low normal 2025 24 - 32 [facility] Glucose SerPl-mCnc 99.0 mg/dL 2025 70 - 199 [facility] Creat SerPl-mCnc 0.6 mg/dL Below low normal 2025 0.7 - 1.3 [facility] BUN SerPl-mCnc 17.0 mg/dL 2025 9 - 20 [facility] Anion Gap SerPl Calc-sCnc 3.0 Below low normal 2025 5 - 14 [facility] PT Bld 27.3 sec Above high normal 2025 10.5 - 13.3 [facility] INR PPP 2.4 Above high normal 2025 0.8 - 1.1 C [facility] Phosphate SerPl-mCnc 1.4 mg/dL Below low normal 2025 2.5 - 4.5 [facility] Magnesium SerPl-mCnc 1.5 mg/dL Below low normal 2025 1.7 - 2.8 [facility] MCH RBC Qn Auto 31.7 pcg 2025 25 - 33 [facility] RDW RBC Auto 15.1 % 2025 12.1 - 17.7 [facility] RBC # Bld Auto 2.42 M/mcL Below low normal 2025 4.7 - 6 [facility] Hgb Bld-mCnc 7.7 g/dL Below low normal 2025 13.5 - 18 [facility] Hct VFr Bld Auto 23.8 % Below low normal 2025 40 - 54 [facility] Platelet # Bld Auto 68.0 K/mcL Below low normal 2025 150 - 450 [facility] PMV Bld Auto 8.8 FL 2025 7.4 - 11.4 [facility] RBC Auto 98.4 FL 2025 78 - 100 [facility] WBC # Bld Auto 6.2 K/mcL 2025 4 - 10.5 [facility] MCHC RBC Auto-EntMCnc 32.2 g/dL 2025 32 - 36 [facility] Ca-I Bld-mCnc 1.05 mg/dL Below low normal 2025 1.19 - 1.35 [facility] Glucose Bld-mCnc 148.0 mg/dL 2025 70 - 199 [facility] Glucose Bld-mCnc 125.0 mg/dL 07/25/2025 70 - 199 [facility] Glucose Bld-mCnc 135.0 mg/dL 07/25/2025 70 - 199 [facility] Glucose Bld-mCnc 123.0 mg/dL 07/25/2025 70 - 199 [facility] RBC # Bld Auto 2.39 M/mcL Below low normal 07/25/2025 4.7 - 6 [facility] WBC # Bld Auto 9.3 K/mcL 07/25/2025 4 - 10.5 [facility] MCH RBC Qn Auto 32.6 pcg 07/25/2025 25 - 33 [facility] RDW RBC Auto 15.4 % 07/25/2025 12.1 - 17.7 [facility] Platelet # Bld Auto 59.0 K/mcL Below low normal 07/25/2025 150 - 450 [facility] PMV Bld Auto 8.9 FL 07/25/2025 7.4 - 11.4 [facility] RBC Auto 96.2 FL 07/25/2025 78 - 100 [facility] MCHC RBC Auto-EntMCnc 33.9 g/dL 07/25/2025 32 - 36 [facility] Hct VFr Bld Auto 23.0 % Below low normal 07/25/2025 40 - 54 [facility] Hgb Bld-mCnc 7.8 g/dL Below low normal 07/25/2025 13.5 - 18 [facility] Sodium SerPl-sCnc 139.0 mmol/L 07/25/2025 135 - 14 5 [facility] Glucose SerPl-mCnc 123.0 mg/dL 07/25/2025 70 - 199 [facility] Creat SerPl-mCnc 0.8 mg/dL 07/25/2025 0.7 - 1.3 CT [facility] eGFRcr SerPlBld CKD-EPI 2020 99.0 mL/min/1.73m2 07/25/2025 - [facility] Anion Gap SerPl Calc-sCnc 5.0 07/25/2025 5 - 14 [facility] Potassium SerPl-sCnc 4.0 mmol/L 07/25/2025 3.5 - 5.1 [facility] Calcium SerPl-mCnc 7.1 mg/dL Below low normal 07/25/2025 8.4 - 10.2 [facility] Chloride SerPl-sCnc 108.0 mmol/L Above high normal 07/25/2025 98 - 107 [facility] CO2 SerPl-sCnc 26.0 mmol/L 07/25/2025 24 - 32 [facility] BUN SerPl-mCnc 16.0 mg/dL 07/25/2025 9 - 20 [facility] BUN/Creat SerPl 20.0 07/25/2025 12 - 20 [facility] Glucose Bld-mCnc 100.0 mg/dL 07/25/2025 70 - 199 [facility] eGFRcr SerPlBld CKD-EPI 2020 114.0 mL/min/1.73m2 07/25/2025 - [facility] Potassium SerPl-sCnc 2.8 mmol/L Below low normal 07/25/2025 3.5 - 5.1 [facility] BUN SerPl-mCnc 12.0 mg/dL 07/25/2025 9 - 20 [facility] BUN/Creat SerPl 24.0 Above high normal 07/25/2025 12 - 20 [facility] Chloride SerPl-sCnc 116.0 mmol/L Above high normal 07/25/2025 98 - 107 [facility] Glucose SerPl-mCnc 89.0 mg/dL 07/25/2025 70 - 199 [facility] CO2 SerPl-sCnc 21.0 mmol/L Below low normal 07/25/2025 24 - 32 [facility] Calcium SerPl-mCnc 5.6 mg/dL Critically low 07/25/2025 8.4 - 10.2 [facility] Creat SerPl-mCnc 0.5 mg/dL Below low normal 07/25/2025 0.7 - 1.3 [facility] Sodium SerPl-sCnc 140.0 mmol/L 07/25/2025 135 - 14 5 [facility] Anion Gap SerPl Calc-sCnc 3.0 Below low normal 07/25/2025 5 - 14 [facility] Magnesium SerPl-mCnc 1.4 mg/dL Below low normal 07/25/2025 1.7 - 2.8 [facility] PT Bld 18.2 sec Above high normal 07/25/2025 10.5 - 13.3 [facility] INR PPP 1.6 Above high normal 07/25/2025 0.8 - 1.1 C [facility] RDW RBC Auto 16.2 % 07/25/2025 12.1 - 17.7 [facility] MCH RBC Qn Auto 32.3 pcg 07/25/2025 25 - 33 [facility] WBC # Bld Auto 8.6 K/mcL 07/25/2025 4 - 10.5 [facility] Platelet # Bld Auto 56.0 K/mcL Below low normal 07/25/2025 150 - 450 [facility] RBC Auto 96.8 FL 07/25/2025 78 - 100 [facility] PMV Bld Auto 8.9 FL 07/25/2025 7.4 - 11.4 [facility] Hgb Bld-mCnc 7.1 g/dL Below low normal 07/25/2025 13.5 - 18 [facility] Hct VFr Bld Auto 21.2 % Below low normal 07/25/2025 40 - 54 [facility] MCHC RBC Auto-EntMCnc 33.3 g/dL 07/25/2025 32 - 36 [facility] RBC # Bld Auto 2.19 M/mcL Below low normal 07/25/2025 4.7 - 6 [facility] Glucose Bld-mCnc 114.0 mg/dL 07/25/2025 70 - 199 [facility] Glucose Bld-mCnc 164.0 mg/dL 07/25/2025 70 - 199 [facility] Glucose Bld-mCnc 157.0 mg/dL 07/25/2025 70 - 199 [facility] INR PPP 1.4 Above high normal 07/24/2025 0.8 - 1.1 C [facility] PT Bld 15.6 sec Above high normal 07/24/2025 10.5 - 13.3 [facility] Glucose Bld-mCnc 144.0 mg/dL 07/24/2025 70 - 199 [facility] Glucose Bld-mCnc 138.0 mg/dL 07/24/2025 70 - 199 [facility] Glucose Bld-mCnc 147.0 mg/dL 07/24/2025 70 - 199 [facility] Glucose Bld-mCnc 104.0 mg/dL 07/24/2025 70 - 199 [facility] Glucose SerPl-mCnc 115.0 mg/dL 07/24/2025 70 - 199 [facility] eGFRcr SerPlBld CKD-EPI 2020 84.0 mL/min/1.73m2 07/24/2025 - [facility] BUN SerPl-mCnc 18.0 mg/dL 07/24/2025 9 - 20 [facility] Anion Gap SerPl Calc-sCnc 5.0 07/24/2025 5 - 14 [facility] BUN/Creat SerPl 18.0 07/24/2025 12 - 20 [facility] Sodium SerPl-sCnc 139.0 mmol/L 07/24/2025 135 - 14 5 [facility] Potassium SerPl-sCnc 4.0 mmol/L 07/24/2025 3.5 - 5.1 [facility] Chloride SerPl-sCnc 109.0 mmol/L Above high normal 07/24/2025 98 - 107 [facility] Calcium SerPl-mCnc 7.8 mg/dL Below low normal 07/24/2025 8.4 - 10.2 [facility] Creat SerPl-mCnc 1.0 mg/dL 07/24/2025 0.7 - 1.3 CT [facility] CO2 SerPl-sCnc 25.0 mmol/L 07/24/2025 24 - 32 CT [facility] Magnesium SerPl-mCnc 2.4 mg/dL 07/24/2025 1.7 - 2.8 [facility] Platelet # Bld Auto 64.0 K/mcL Below low normal 07/24/2025 150 - 450 [facility] Hct VFr Bld Auto 24.6 % Below low normal 07/24/2025 40 - 54 [facility] Hgb Bld-mCnc 8.1 g/dL Below low normal 07/24/2025 13.5 - 18 [facility] RBC Auto 96.1 FL 07/24/2025 78 - 100 [facility] N WBC # Bld Auto 10.5 K/mcL 07/24/2025 4 - 10.5 [facility]_ [facility] PMV Bld Auto 9.4 FL 07/24/2025 7.4 - 11.4 [facility] MCHC RBC Auto-EntMCnc 33.0 g/dL 07/24/2025 32 - 36 [facility] RBC # Bld Auto 2.56 M/mcL Below low normal 07/24/2025 4.7 - 6 [facility] MCH RBC Qn Auto 31.8 pcg 07/24/2025 25 - 33 [facility] RDW RBC Auto 16.1 % 07/24/2025 12.1 - 17.7 [facility] pH BldA 7.43 pH 07/24/2025 7.35 - 7.45 [facility] pCO2 BldA 35.0 mmHg 07/24/2025 35 - 45 [facility] N pO2 BldA 89.0 mmHg 07/24/2025 80 - 105 [facility] N SaO2 % BldA 97.4 % 07/24/2025 95 - 98 [facility] Base excess BldA Calc-sCnc -0.6 mmol/L Below low normal 07/24/2025 0 - 2 [facility] HCO3 BldA-sCnc 24.5 mmol/L 07/24/2025 22 - 26 CT [facility] Glucose Bld-mCnc 128.0 mg/dL 07/24/2025 70 - 199 [facility] pO2 BldMV 34.0 mmHg 07/24/2025 [facility] N Mixed Cell Casts #/area UrnS HPF 42.0 mmHg 07/24/2025 [facility] Mucous Threads #/area UrnS HPF 23.7 mmol/L 07/24/2025 [facility] Cystine Cry #/area UrnS HPF 7.38 pH 07/24/2025 7.35 - 7.45 [facility] Squamous #/area UrnS HPF -0.4 mmol/L 07/24/2025 [facility] Glucose Bld-mCnc 125.0 mg/dL 07/24/2025 70 - 199 [facility] Glucose Bld-mCnc 149.0 mg/dL 07/24/2025 70 - 199 [facility] Glucose Bld-mCnc 183.0 mg/dL 07/24/2025 70 - 199 [facility] Glucose Bld-mCnc 192.0 mg/dL 07/24/2025 70 - 199 [facility] Glucose Bld-mCnc 177.0 mg/dL 07/23/2025 70 - 199 [facility] Glucose Bld-mCnc 149.0 mg/dL 07/23/2025 70 - 199 [facility] HCO3 BldA-sCnc 22.4 mmol/L 07/23/2025 22 - 26 CT [facility] pO2 BldA 104.0 mmHg 07/23/2025 80 - 105 [facility] pH BldA 7.38 pH 07/23/2025 7.35 - 7.45 [facility] pCO2 BldA 36.0 mmHg 07/23/2025 35 - 45 [facility] N Base excess BldA Calc-sCnc -3.3 mmol/L Below low normal 07/23/2025 0 - 2 [facility] SaO2 % BldA 99.1 % Above high normal 07/23/2025 95 - 98 [facility] Potassium SerPl-sCnc 4.4 mmol/L 07/23/2025 3.5 - 5.1 [facility] Glucose Bld-mCnc 150.0 mg/dL 07/23/2025 70 - 199 [facility] Glucose Bld-mCnc 125.0 mg/dL 07/23/2025 70 - 199 [facility] Hgb Bld-mCnc 8.5 g/dL Below low normal 07/23/2025 13.5 - 18 [facility] Hct VFr Bld Auto 24.6 % Below low normal 07/23/2025 40 - 54 [facility] Squamous #/area UrnS HPF -3.0 mmol/L 07/23/2025 [facility] pO2 BldMV 33.0 mmHg 07/23/2025 [facility] N Cystine Cry #/area UrnS HPF 7.34 pH Below low normal 07/23/2025 7.35 - 7.45 [facility] Mucous Threads #/area UrnS HPF 21.5 mmol/L 07/23/2025 [facility] Mixed Cell Casts #/area UrnS HPF 42.0 mmHg 07/23/2025 [facility] Glucose Bld-mCnc 119.0 mg/dL 07/23/2025 70 - 199 [facility] Potassium SerPl-sCnc 4.9 mmol/L 07/23/2025 3.5 - 5.1 [facility] Glucose Bld-mCnc 174.0 mg/dL 07/23/2025 70 - 199 [facility] HCO3 BldA-sCnc 22.6 mmol/L 07/23/2025 22 - 26 CT [facility] SaO2 % BldA 96.8 % 07/23/2025 95 - 98 [facility] pCO2 BldA 35.0 mmHg 07/23/2025 35 - 45 [facility] N pH BldA 7.39 pH 07/23/2025 7.35 - 7.45 [facility] pO2 BldA 152.0 mmHg Above high normal 07/23/2025 80 - 105 [facility] Base excess BldA Calc-sCnc -3.1 mmol/L Below low normal 07/23/2025 0 - 2 [facility] Glucose Bld-mCnc 244.0 mg/dL Above high normal 07/23/2025 70 - 199 [facility] pH BldA 7.37 pH 07/23/2025 7.35 - 7.45 [facility] HCO3 BldA-sCnc 23.0 mmol/L 07/23/2025 22 - 26 CT [facility] pO2 BldA 143.0 mmHg Above high normal 07/23/2025 80 - 105 [facility] SaO2 % BldA 100.0 % Above high normal 07/23/2025 95 - 98 [facility] Base excess BldA Calc-sCnc -2.5 mmol/L Below low normal 07/23/2025 0 - 2 [facility] pCO2 BldA 39.0 mmHg 07/23/2025 35 - 45 [facility] Glucose Bld-mCnc 196.0 mg/dL 07/23/2025 70 - 199 [facility] Glucose Bld-mCnc 187.0 mg/dL 07/23/2025 70 - 199 [facility] Acute kidney injury risk NephroCheck 2.33 Above high normal 07/23/2025 - [facility] Glucose Bld-mCnc 194.0 mg/dL 07/23/2025 70 - 199 [facility] Glucose SerPl-mCnc 189.0 mg/dL Above high normal 07/23/2025 70 - 99 [facility] Sodium SerPl-sCnc 137.0 mmol/L 07/23/2025 135 - 14 5 [facility] Creat SerPl-mCnc 1.3 mg/dL 07/23/2025 0.7 - 1.3 CT [facility] Chloride SerPl-sCnc 109.0 mmol/L Above high normal 07/23/2025 98 - 107 [facility] Potassium SerPl-sCnc 6.0 mmol/L Above high normal 07/23/2025 3.5 - 5.1 [facility] CO2 SerPl-sCnc 24.0 mmol/L 07/23/2025 24 - 32 CT [facility] Anion Gap SerPl Calc-sCnc 4.0 Below low normal 07/23/2025 5 - 14 [facility] Calcium SerPl-mCnc 7.3 mg/dL Below low normal 07/23/2025 8.4 - 10.2 [facility] BUN/Creat SerPl 16.2 07/23/2025 12 - 20 [facility]_ [facility] eGFRcr SerPlBld CKD-EPI 2020 61.0 mL/min/1.73m2 07/23/2025 - [facility] BUN SerPl-mCnc 21.0 mg/dL Above high normal 07/23/2025 9 - 2 0 [facility] Phosphate SerPl-mCnc 4.1 mg/dL 07/23/2025 2.5 - 4.5 [facility] Magnesium SerPl-mCnc 2.5 mg/dL 07/23/2025 1.7 - 2.8 [facility] PMV Bld Auto 9.0 FL 07/23/2025 7.4 - 11.4 [facility] MCH RBC Qn Auto 33.1 pcg Above high normal 07/23/2025 25 - 33 [facility] Platelet # Bld Auto 93.0 K/mcL Below low normal 07/23/2025 150 - 450 [facility] Hgb Bld-mCnc 6.8 g/dL Critically low 07/23/2025 13.5 - 18 C [facility] MCHC RBC Auto-EntMCnc 33.5 g/dL 07/23/2025 32 - 36 [facility] Hct VFr Bld Auto 20.2 % Below low normal 07/23/2025 40 - 54 [facility] WBC # Bld Auto 7.2 K/mcL 07/23/2025 4 - 10.5 [facility] RBC Auto 98.9 FL 07/23/2025 78 - 100 [facility] RDW RBC Auto 14.2 % 07/23/2025 12.1 - 17.7 [facility] RBC # Bld Auto 2.04 M/mcL Below low normal 07/23/2025 4.7 - 6 [facility] Mucous Threads #/area UrnS HPF 20.4 mmol/L 07/23/2025 [facility] Squamous #/area UrnS HPF -4.5 mmol/L 07/23/2025 [facility] Cystine Cry #/area UrnS HPF 7.31 pH Below low normal 07/23/2025 7.35 - 7.45 [facility] pO2 BldMV 35.0 mmHg 07/23/2025 [facility] N Mixed Cell Casts #/area UrnS HPF 43.0 mmHg 07/23/2025 [facility] Ca-I Bld-mCnc 1.06 mg/dL Below low normal 07/23/2025 1.19 - 1.35 [facility] pCO2 BldA 39.0 mmHg 07/23/2025 35 - 45 [facility] N SaO2 % BldA 100.0 % Above high normal 07/23/2025 95 - 98 [facility] HCO3 BldA-sCnc 22.0 mmol/L 07/23/2025 22 - 26 CT _[facility] pH BldA 7.35 pH 07/23/2025 7.35 - 7.45 [facility] Arterial patency Wrist a Pass 07/23/2025 - [facility] Base excess BldA Calc-sCnc -3.8 mmol/L Below low normal 07/23/2025 0 - 2 [facility] pO2 BldA 181.0 mmHg Above high normal 07/23/2025 80 - 105 [facility] Trigl SerPl-mCnc 101.0 mg/dL 07/23/2025 - 150 [facility] pCO2 temp adj BldA 33.8 mmHg Below low normal 07/23/2025 35 - 45 [facility] pH temp adj BldA 7.36 07/23/2025 7.35 - 7.45 [facility] Body temperature 99.8 C 07/23/2025 CT _[facility] Breezy index Bld+IhG-Rto 40.0 % 07/23/2025 - [facility] Base excess BldA Calc-sCnc -7.0 mmol/L Below low normal 07/23/2025 0 - 2 [facility] SaO2 % BldA 97.0 % 07/23/2025 95 - 98 [facility] pCO2 BldA 32.8 mmHg Below low normal 07/23/2025 35 - 45 CT _[facility] pO2 BldA 93.0 mmHg 07/23/2025 80 - 105 [facility] N HCO3 BldA-sCnc 18.8 mmol/L Below low normal 07/23/2025 22 - 26 [facility] Specimen drawn from Patient ART 07/23/2025 [facility] pH BldA 7.37 07/23/2025 7.35 - 7.45 [facility] pO2 temp adj BldA 97.0 mmHg Critically high 07/23/2025 35 - 45 [facility] Glucose Bld-mCnc 168.0 mg/dL 07/23/2025 70 - 199 [facility] pCO2 temp adj BldA 35.7 mmHg 07/23/2025 35 - 45 [facility] SaO2 % BldA 93.0 % Below low normal 07/23/2025 95 - 98 [facility] pH temp adj BldA 7.34 Below low normal 07/23/2025 7.35 - 7.45 [facility] pO2 BldA 69.0 mmHg Below low normal 07/23/2025 80 - 105 CT _[facility] Specimen drawn from Patient ART 07/23/2025 [facility] pH BldA 7.35 07/23/2025 7.35 - 7.45 [facility] HCO3 BldA-sCnc 19.2 mmol/L Below low normal 07/23/2025 22 - 26 [facility] Base excess BldA Calc-sCnc -6.0 mmol/L Below low normal 07/23/2025 0 - 2 [facility] Body temperature 99.9 C 07/23/2025 CT _[facility] Breezy index Bld+IhG-Rto 40.0 % 07/23/2025 - [facility] pCO2 BldA 34.6 mmHg Below low normal 07/23/2025 35 - 45 CT [facility] pO2 temp adj BldA 73.0 mmHg Above high normal 07/23/2025 35 - 45 [facility] Glucose Bld-mCnc 166.0 mg/dL 07/23/2025 70 - 199 [facility] Body temperature 100.0 C 07/23/2025 CT _[facility] pO2 temp adj BldA 95.0 mmHg Critically high 07/23/2025 35 - 45 [facility] Base excess BldA Calc-sCnc -6.0 mmol/L Below low normal 07/23/2025 0 - 2 [facility] Specimen drawn from Patient ART 07/23/2025 [facility] pH BldA 7.34 Below low normal 07/23/2025 7.35 - 7.45 [facility] pO2 BldA 90.0 mmHg 07/23/2025 80 - 105 [facility] HCO3 BldA-sCnc 19.9 mmol/L Below low normal 07/23/2025 22 - 26 [facility] pCO2 temp adj BldA 38.4 mmHg 07/23/2025 35 - 45 [facility] pH temp adj BldA 7.32 Below low normal 07/23/2025 7.35 - 7.45 [facility] Breezy index Bld+IhG-Rto 50.0 % 07/23/2025 - [facility] pCO2 BldA 37.1 mmHg 07/23/2025 35 - 45 [facility] SaO2 % BldA 96.0 % 07/23/2025 95 - 98 [facility] Glucose Bld-mCnc 148.0 mg/dL 07/23/2025 70 - 199 [facility] Potassium SerPl-sCnc 5.3 mmol/L Above high normal 07/23/2025 3.5 - 5.1 [facility] Hct VFr Bld Auto 20.8 % Below low normal 07/23/2025 40 - 54 [facility] Hgb Bld-mCnc 7.1 g/dL Below low normal 07/23/2025 13.5 - 18 [facility] INR PPP 1.5 Above high normal 07/23/2025 0.8 - 1.1 C [facility] PT Bld 16.8 sec Above high normal 07/23/2025 10.5 - 13.3 [facility] aPTT PPP 42.4 sec Above high normal 07/23/2025 25 - 37 C [facility] Base excess BldA Calc-sCnc -6.0 mmol/L Below low normal 07/23/2025 0 - 2 [facility] pO2 temp adj BldA 78.0 mmHg Critically high 07/23/2025 35 - 45 [facility] Body temperature 99.7 C 07/23/2025 CT _[facility] HCO3 BldA-sCnc 19.9 mmol/L Below low normal 07/23/2025 22 - 26 [facility] Breezy index Bld+IhG-Rto 50.0 % 07/23/2025 - [facility] pO2 BldA 75.0 mmHg Below low normal 07/23/2025 80 - 105 CT [facility] pCO2 BldA 36.1 mmHg 07/23/2025 35 - 45 [facility] N pCO2 temp adj BldA 37.1 mmHg 07/23/2025 35 - 45 [facility] Specimen drawn from Patient ART 07/23/2025 [facility] SaO2 % BldA 94.0 % Below low normal 07/23/2025 95 - 98 [facility] pH BldA 7.35 07/23/2025 7.35 - 7.45 [facility] pH temp adj BldA 7.34 Below low normal 07/23/2025 7.35 - 7.45 [facility] Glucose Bld-mCnc 132.0 mg/dL 07/23/2025 70 - 199 [facility] pO2 BldA 129.0 mmHg Above high normal 07/24/2025 80 - 105 [facility] Base excess BldA Calc-sCnc -6.0 mmol/L Below low normal 07/24/2025 0 - 2 [facility] pO2 temp adj BldA 129.0 mmHg Critically high 07/24/2025 35 - 45 [facility] pCO2 BldA 36.1 mmHg 07/24/2025 35 - 45 [facility] Breezy index Bld+IhG-Rto 50.0 % 07/24/2025 - [facility] pCO2 temp adj BldA 36.0 mmHg 07/24/2025 35 - 45 [facility] pH BldA 7.34 Below low normal 07/24/2025 7.35 - 7.45 [facility] Body temperature 98.5 C 07/24/2025 CT _[facility] SaO2 % BldA 99.0 % Above high normal 07/24/2025 95 - 98 [facility] HCO3 BldA-sCnc 19.5 mmol/L Below low normal 07/24/2025 22 - 26 [facility] Specimen drawn from Patient ART 07/24/2025 [facility] pH temp adj BldA 7.34 Below low normal 07/24/2025 7.35 - 7.45 [facility] Glucose Bld-mCnc 136.0 mg/dL 07/22/2025 70 - 199 [facility] Body temperature 98.9 C 07/24/2025 CT _[facility] pH BldA 7.3 Below low normal 07/24/2025 7.35 - 7.45 [facility] pCO2 BldA 42.1 mmHg 07/24/2025 35 - 45 [facility] N Specimen drawn from Patient ART 07/24/2025 [facility] Breezy index Bld+IhG-Rto 50.0 % 07/24/2025 - [facility] pCO2 temp adj BldA 42.4 mmHg 07/24/2025 35 - 45 [facility] pO2 BldA 122.0 mmHg Above high normal 07/24/2025 80 - 105 [facility] Base excess BldA Calc-sCnc -6.0 mmol/L Below low normal 07/24/2025 0 - 2 [facility] pH temp adj BldA 7.3 Below low normal 07/24/2025 7.35 - 7.45 [facility] SaO2 % BldA 98.0 % 07/24/2025 95 - 98 [facility] pO2 temp adj BldA 123.0 mmHg Critically high 07/24/2025 35 - 45 [facility] HCO3 BldA-sCnc 20.7 mmol/L Below low normal 07/24/2025 22 - 26 [facility] pO2 BldA 142.0 mmHg Above high normal 07/22/2025 80 - 105 [facility] pH BldA 7.3 pH Below low normal 07/22/2025 7.35 - 7.45 [facility] Base excess BldA Calc-sCnc -5.5 mmol/L Below low normal 07/22/2025 0 - 2 [facility] HCO3 BldA-sCnc 20.7 mmol/L Below low normal 07/22/2025 22 - 26 [facility] SaO2 % BldA 99.0 % Above high normal 07/22/2025 95 - 98 [facility] pCO2 BldA 42.0 mmHg 07/22/2025 35 - 45 [facility] Glucose Bld-mCnc 116.0 mg/dL 07/22/2025 70 - 199 [facility] Phosphate SerPl-mCnc 3.1 mg/dL 07/22/2025 2.5 - 4.5 [facility] Potassium SerPl-sCnc 4.5 mmol/L 07/22/2025 3.5 - 5.1 [facility] CO2 SerPl-sCnc 23.0 mmol/L Below low normal 07/22/2025 24 - 32 [facility] Anion Gap SerPl Calc-sCnc 4.0 Below low normal 07/22/2025 5 - 14 [facility] BUN SerPl-mCnc 14.0 mg/dL 07/22/2025 9 - 20 [facility]_ [facility] Creat SerPl-mCnc 0.8 mg/dL 07/22/2025 0.7 - 1.3 CT _[facility] BUN/Creat SerPl 17.5 07/22/2025 12 - 20 [facility] Sodium SerPl-sCnc 140.0 mmol/L 07/22/2025 135 - 14 5 [facility] Potassium SerPl-sCnc 4.5 mmol/L 07/22/2025 3.5 - 5.1 [facility] eGFRcr SerPlBld CKD-EPI 2020 99.0 mL/min/1.73m2 07/22/2025 - [facility] Glucose SerPl-mCnc 114.0 mg/dL Above high normal 07/22/2025 70 - 99 [facility] Chloride SerPl-sCnc 113.0 mmol/L Above high normal 07/22/2025 98 - 107 [facility] Calcium SerPl-mCnc 7.7 mg/dL Below low normal 07/22/2025 8.4 - 10.2 [facility] PT Bld 16.1 sec Above high normal 07/22/2025 10.5 - 13.3 [facility] INR PPP 1.4 Above high normal 07/22/2025 0.8 - 1.1 C [facility] aPTT PPP 36.3 sec 07/22/2025 25 - 37 [facility] Ca-I Bld-mCnc 1.18 mg/dL Below low normal 07/22/2025 1.19 - 1.35 [facility] Hct VFr Bld Auto 29.2 % Below low normal 07/22/2025 40 - 54 [facility] Hgb Bld-mCnc 10.0 g/dL Below low normal 07/22/2025 13.5 - 18 [facility] PMV Bld Auto 8.3 FL 07/22/2025 7.4 - 11.4 [facility] Hgb Bld-mCnc 10.0 g/dL Below low normal 07/22/2025 13.5 - 18 [facility] MCH RBC Qn Auto 33.5 pcg Above high normal 07/22/2025 25 - 33 [facility] MCHC RBC Auto-EntMCnc 34.2 g/dL 07/22/2025 32 - 36 [facility] RBC Auto 97.8 FL 07/22/2025 78 - 100 [facility] Platelet # Bld Auto 103.0 K/mcL Below low normal 07/22/2025 150 - 450 [facility] RBC # Bld Auto 2.99 M/mcL Below low normal 07/22/2025 4.7 - 6 [facility] WBC # Bld Auto 10.6 K/mcL Above high normal 07/22/2025 4 - 1 0.5 [facility] Hct VFr Bld Auto 29.2 % Below low normal 07/22/2025 40 - 54 [facility] RDW RBC Auto 14.4 % 07/22/2025 12.1 - 17.7 [facility] Squamous #/area UrnS HPF -5.2 mmol/L 07/22/2025 [facility] pO2 BldMV 41.0 mmHg 07/22/2025 [facility] N Mucous Threads #/area UrnS HPF 20.0 mmol/L 07/22/2025 [facility] Mixed Cell Casts #/area UrnS HPF 51.0 mmHg 07/22/2025 [facility] Cystine Cry #/area UrnS HPF 7.25 pH Below low normal 07/22/2025 7.35 - 7.45 [facility] pO2 temp adj BldA 162.0 mmHg Critically high 07/22/2025 35 - 45 [facility] pH temp adj BldA 7.3 Below low normal 07/22/2025 7.35 - 7.45 [facility] pO2 BldA 162.0 mmHg Above high normal 07/22/2025 80 - 105 [facility] Glucose BldA-mCnc 119.0 mg/dL 07/22/2025 70 - 199 [facility] pH BldA 7.3 Below low normal 07/22/2025 7.35 - 7.45 [facility] Breezy index Bld+IhG-Rto 70.0 % 07/22/2025 - [facility] Hct VFr BldA Calc 26.0 % Below low normal 07/22/2025 40 - 54 [facility] Sodium BldA-sCnc 143.0 mmol/L 07/22/2025 135 - 145 [facility] HCO3 BldA-sCnc 21.5 mmol/L Below low normal 07/22/2025 22 - 26 [facility] pCO2 temp adj BldA 43.6 mmHg 07/22/2025 35 - 45 [facility] Body temperature 37.0 C 07/22/2025 CT [facility] SaO2 % BldA 99.0 % Above high normal 07/22/2025 95 - 98 [facility] Potassium BldA-sCnc 4.1 mmol/L 07/22/2025 3.5 - 5.1 [facility] pCO2 BldA 43.6 mmHg 07/22/2025 35 - 45 [facility] N Hgb BldA-mCnc 8.8 g/dL Below low normal 07/22/2025 13.5 - 1 8 [facility] Base excess BldA Calc-sCnc -5.0 mmol/L Below low normal 07/22/2025 0 - 2 [facility] Ca-I Bld-mCnc 1.16 mmol/L Below low normal 07/22/2025 1.19 - 1.35 [facility] Citrated Rapid TEG- Max Amplitude 51.1 mm Below low normal 07/22/2025 52 - 70 [facility] MCF Bld TEG 277.4 mg/dL Below low normal 07/22/2025 278 - 58 1 [facility] Citrated Kaolin with Heparinase Reaction Time 6.4 min 07/22/2025 4.3 - 8.3 [facility] CFT Bld TEG 1.8 min 07/22/2025 0.8 - 2.1 [facility] Clot init Bld TEG 6.3 min 07/22/2025 4.6 - 9.1 C [facility] Clot angle Bld TEG 70.7 deg 07/22/2025 63 - 78 [facility] pH BldA 7.3 Below low normal 07/22/2025 7.35 - 7.45 [facility] pCO2 temp adj BldA 41.5 mmHg 07/22/2025 35 - 45 [facility] pH temp adj BldA 7.3 Below low normal 07/22/2025 7.35 - 7.45 [facility] Ca-I Bld-mCnc 0.91 mmol/L Below low normal 07/22/2025 1.19 - 1.35 [facility] Breezy index Bld+IhG-Rto 70.0 % 07/22/2025 - [facility] Body temperature 37.0 C 07/22/2025 CT [facility] Glucose BldA-mCnc 104.0 mg/dL 07/22/2025 70 - 199 [facility] pO2 BldA 169.0 mmHg Above high normal 07/22/2025 80 - 105 [facility] pCO2 BldA 41.5 mmHg 07/22/2025 35 - 45 [facility] N Base excess BldA Calc-sCnc -6.0 mmol/L Below low normal 07/22/2025 0 - 2 [facility] Hgb BldA-mCnc 8.8 g/dL Below low normal 07/22/2025 13.5 - 1 8 [facility] HCO3 BldA-sCnc 20.7 mmol/L Below low normal 07/22/2025 22 - 26 [facility] Potassium BldA-sCnc 4.2 mmol/L 07/22/2025 3.5 - 5.1 [facility] Hct VFr BldA Calc 26.0 % Below low normal 07/22/2025 40 - 54 [facility] SaO2 % BldA 99.0 % Above high normal 07/22/2025 95 - 98 [facility] pO2 temp adj BldA 169.0 mmHg Critically high 07/22/2025 35 - 45 [facility] Sodium BldA-sCnc 143.0 mmol/L 07/22/2025 135 - 145 [facility] pO2 BldA 175.0 mmHg Above high normal 07/22/2025 80 - 105 [facility] Body temperature 37.0 C 07/22/2025 CT [facility] Hct VFr BldA Calc 24.0 % Below low normal 07/22/2025 40 - 54 [facility] Breezy index Bld+IhG-Rto 70.0 % 07/22/2025 - [facility] Hgb BldA-mCnc 8.2 g/dL Below low normal 07/22/2025 13.5 - 1 8 [facility] Sodium BldA-sCnc 143.0 mmol/L 07/22/2025 135 - 145 [facility] HCO3 BldA-sCnc 21.3 mmol/L Below low normal 07/22/2025 22 - 26 [facility] SaO2 % BldA 100.0 % Above high normal 07/22/2025 95 - 98 [facility] Potassium BldA-sCnc 4.5 mmol/L 07/22/2025 3.5 - 5.1 [facility] pH BldA 7.39 07/22/2025 7.35 - 7.45 [facility] pCO2 BldA 35.2 mmHg 07/22/2025 35 - 45 [facility] N pO2 temp adj BldA 175.0 mmHg Critically high 07/22/2025 35 - 45 [facility] Ca-I Bld-mCnc 1.11 mmol/L Below low normal 07/22/2025 1.19 - 1.35 [facility] Base excess BldA Calc-sCnc -4.0 mmol/L Below low normal 07/22/2025 0 - 2 [facility] pCO2 temp adj BldA 35.2 mmHg 07/22/2025 35 - 45 [facility] Glucose BldA-mCnc 110.0 mg/dL 07/22/2025 70 - 199 [facility] pH temp adj BldA 7.39 07/22/2025 7.35 - 7.45 [facility] SaO2 % BldA 100.0 % Above high normal 07/22/2025 95 - 98 [facility] pH temp adj BldA 7.44 07/22/2025 7.35 - 7.45 [facility] Body temperature 37.0 C 07/22/2025 CT [facility] Ca-I Bld-mCnc 0.91 mmol/L Below low normal 07/22/2025 1.19 - 1.35 [facility] pH BldA 7.44 07/22/2025 7.35 - 7.45 [facility] Base excess BldA Calc-sCnc -1.0 mmol/L Below low normal 07/22/2025 0 - 2 [facility] pCO2 BldA 33.1 mmHg Below low normal 07/22/2025 35 - 45 CT [facility] Glucose BldA-mCnc 88.0 mg/dL 07/22/2025 70 - 199 [facility] pO2 temp adj BldA 344.0 mmHg Critically high 07/22/2025 35 - 45 [facility] pO2 BldA 344.0 mmHg Above high normal 07/22/2025 80 - 105 [facility] Breezy index Bld+IhG-Rto 70.0 % 07/22/2025 - [facility] Potassium BldA-sCnc 6.0 mmol/L Above high normal 07/22/2025 3.5 - 5.1 [facility] HCO3 BldA-sCnc 22.6 mmol/L 07/22/2025 22 - 26 CT [facility] Hct VFr BldA Calc 23.0 % Below low normal 07/22/2025 40 - 54 [facility] pCO2 temp adj BldA 33.1 mmHg Below low normal 07/22/2025 35 - 45 [facility] Sodium BldA-sCnc 141.0 mmol/L 07/22/2025 135 - 145 [facility] Hgb BldA-mCnc 7.8 g/dL Below low normal 07/22/2025 13.5 - 1 8 [facility] Potassium BldA-sCnc 6.2 mmol/L Critically high 07/22/2025 3.5 - 5.1 [facility] pH temp adj BldA 7.51 Critically high 07/22/2025 7.35 - 7.45 [facility] Hct VFr BldA Calc 25.0 % Below low normal 07/22/2025 40 - 54 [facility] Breezy index Bld+IhG-Rto 70.0 % 07/22/2025 - [facility] Ca-I Bld-mCnc 0.92 mmol/L Below low normal 07/22/2025 1.19 - 1.35 [facility] pO2 BldA 364.0 mmHg Above high normal 07/22/2025 80 - 105 [facility] Hgb BldA-mCnc 8.5 g/dL Below low normal 07/22/2025 13.5 - 1 8 [facility] pO2 temp adj BldA 364.0 mmHg Critically high 07/22/2025 35 - 45 [facility] HCO3 BldA-sCnc 21.7 mmol/L Below low normal 07/22/2025 22 - 26 [facility] pH BldA 7.51 Critically high 07/22/2025 7.35 - 7.45 C [facility] pCO2 BldA 27.3 mmHg Below low normal 07/22/2025 35 - 45 CT [facility] Base excess BldA Calc-sCnc -1.0 mmol/L Below low normal 07/22/2025 0 - 2 [facility] Sodium BldA-sCnc 142.0 mmol/L 07/22/2025 135 - 145 [facility] Glucose BldA-mCnc 91.0 mg/dL 07/22/2025 70 - 199 [facility] Body temperature 37.0 C 07/22/2025 CT [facility] pCO2 temp adj BldA 27.3 mmHg Below low normal 07/22/2025 35 - 45 [facility] SaO2 % BldA 100.0 % Above high normal 07/22/2025 95 - 98 [facility] pH BldA 7.43 07/22/2025 7.35 - 7.45 [facility] Body temperature 37.0 C 07/22/2025 CT [facility] Hgb BldA-mCnc 9.2 g/dL Below low normal 07/22/2025 13.5 - 1 8 [facility] pO2 BldA 359.0 mmHg Above high normal 07/22/2025 80 - 105 [facility] Potassium BldA-sCnc 6.1 mmol/L Critically high 07/22/2025 3.5 - 5.1 [facility] Glucose BldA-mCnc 100.0 mg/dL 07/22/2025 70 - 199 [facility] pO2 temp adj BldA 359.0 mmHg Critically high 07/22/2025 35 - 45 [facility] Breezy index Bld+IhG-Rto 70.0 % 07/22/2025 - [facility] pH temp adj BldA 7.43 07/22/2025 7.35 - 7.45 [facility] pCO2 BldA 32.2 mmHg Below low normal 07/22/2025 35 - 45 CT [facility] Hct VFr BldA Calc 27.0 % Below low normal 07/22/2025 40 - 54 [facility] pCO2 temp adj BldA 32.2 mmHg Below low normal 07/22/2025 35 - 45 [facility] SaO2 % BldA 100.0 % Above high normal 07/22/2025 95 - 98 [facility] Base excess BldA Calc-sCnc -3.0 mmol/L Below low normal 07/22/2025 0 - 2 [facility] Sodium BldA-sCnc 141.0 mmol/L 07/22/2025 135 - 145 [facility] Ca-I Bld-mCnc 0.97 mmol/L Below low normal 07/22/2025 1.19 - 1.35 [facility] HCO3 BldA-sCnc 21.4 mmol/L Below low normal 07/22/2025 22 - 26 [facility] pCO2 temp adj BldA 45.8 mmHg Above high normal 07/22/2025 35 - 45 [facility] pO2 BldA 346.0 mmHg Above high normal 07/22/2025 80 - 105 [facility] Breezy index Bld+IhG-Rto 70.0 % 07/22/2025 - [facility] HCO3 BldA-sCnc 23.9 mmol/L 07/22/2025 22 - 26 CT [facility] pH temp adj BldA 7.32 Below low normal 07/22/2025 7.35 - 7.45 [facility] Glucose BldA-mCnc 107.0 mg/dL 07/22/2025 70 - 199 [facility] pO2 temp adj BldA 346.0 mmHg Critically high 07/22/2025 35 - 45 [facility] Sodium BldA-sCnc 140.0 mmol/L 07/22/2025 135 - 145 [facility] Ca-I Bld-mCnc 1.03 mmol/L Below low normal 07/22/2025 1.19 - 1.35 [facility] Body temperature 37.0 C 07/22/2025 CT [facility] Hct VFr BldA Calc 29.0 % Below low normal 07/22/2025 40 - 54 [facility] pCO2 BldA 45.8 mmHg Above high normal 07/22/2025 35 - 45 C [facility] Hgb BldA-mCnc 9.9 g/dL Below low normal 07/22/2025 13.5 - 1 8 [facility] SaO2 % BldA 100.0 % Above high normal 07/22/2025 95 - 98 [facility] Base excess BldA Calc-sCnc -2.0 mmol/L Below low normal 07/22/2025 0 - 2 [facility] Potassium BldA-sCnc 6.6 mmol/L Critically high 07/22/2025 3.5 - 5.1 [facility] pH BldA 7.32 Below low normal 07/22/2025 7.35 - 7.45 [facility] Fibrinogen PPP-mCnc 171.0 mg/dL 07/22/2025 145 - 415 [facility] Platelet # Bld Auto 106.0 K/mcL Below low normal 07/22/2025 150 - 450 [facility] PMV Bld Auto 07/22/2025 [facility] Sodium BldA-sCnc 140.0 mmol/L 07/22/2025 135 - 145 [facility] pO2 temp adj BldA 338.0 mmHg Critically high 07/22/2025 35 - 45 [facility] pCO2 BldA 43.6 mmHg 07/22/2025 35 - 45 [facility] N Potassium BldA-sCnc 6.2 mmol/L Critically high 07/22/2025 3.5 - 5.1 [facility] Ca-I Bld-mCnc 1.05 mmol/L Below low normal 07/22/2025 1.19 - 1.35 [facility] Body temperature 37.0 C 07/22/2025 CT _[facility] Breezy index Bld+IhG-Rto 70.0 % 07/22/2025 - [facility] Glucose BldA-mCnc 113.0 mg/dL 07/22/2025 70 - 199 [facility] HCO3 BldA-sCnc 24.3 mmol/L 07/22/2025 22 - 26 CT [facility] Hct VFr BldA Calc 28.0 % Below low normal 07/22/2025 40 - 54 [facility] pH BldA 7.36 07/22/2025 7.35 - 7.45 [facility] pCO2 temp adj BldA 43.6 mmHg 07/22/2025 35 - 45 [facility] Base excess BldA Calc-sCnc -1.0 mmol/L Below low normal 07/22/2025 0 - 2 [facility] SaO2 % BldA 100.0 % Above high normal 07/22/2025 95 - 98 [facility] Hgb BldA-mCnc 9.5 g/dL Below low normal 07/22/2025 13.5 - 1 8 [facility] pO2 BldA 338.0 mmHg Above high normal 07/22/2025 80 - 105 [facility] pH temp adj BldA 7.36 07/22/2025 7.35 - 7.45 [facility] Breezy index Bld+IhG-Rto 70.0 % 07/22/2025 - [facility] pO2 BldA 331.0 mmHg Above high normal 07/22/2025 80 - 105 [facility] Ca-I Bld-mCnc 1.08 mmol/L Below low normal 07/22/2025 1.19 - 1.35 [facility] pH BldA 7.34 Below low normal 07/22/2025 7.35 - 7.45 [facility] Body temperature 37.0 C 07/22/2025 CT _[facility] pO2 temp adj BldA 331.0 mmHg Critically high 07/22/2025 35 - 45 [facility] Glucose BldA-mCnc 119.0 mg/dL 07/22/2025 70 - 199 [facility] SaO2 % BldA 100.0 % Above high normal 07/22/2025 95 - 98 [facility] Potassium BldA-sCnc 6.5 mmol/L Critically high 07/22/2025 3.5 - 5.1 [facility] pCO2 BldA 44.7 mmHg 07/22/2025 35 - 45 [facility] N HCO3 BldA-sCnc 23.9 mmol/L 07/22/2025 22 - 26 CT _[facility] Hct VFr BldA Calc 31.0 % Below low normal 07/22/2025 40 - 54 [facility] pH temp adj BldA 7.34 Below low normal 07/22/2025 7.35 - 7.45 [facility] Base excess BldA Calc-sCnc -2.0 mmol/L Below low normal 07/22/2025 0 - 2 [facility] Hgb BldA-mCnc 10.5 g/dL Below low normal 07/22/2025 13.5 - 1 8 [facility] pCO2 temp adj BldA 44.7 mmHg 07/22/2025 35 - 45 [facility] Sodium BldA-sCnc 139.0 mmol/L 07/22/2025 135 - 145 [facility] pO2 temp adj BldA 323.0 mmHg Critically high 07/22/2025 35 - 45 [facility] pO2 BldA 323.0 mmHg Above high normal 07/22/2025 80 - 105 [facility] Glucose BldA-mCnc 125.0 mg/dL 07/22/2025 70 - 199 [facility] SaO2 % BldA 100.0 % Above high normal 07/22/2025 95 - 98 [facility] Hgb BldA-mCnc 11.2 g/dL Below low normal 07/22/2025 13.5 - 1 8 [facility] Ca-I Bld-mCnc 1.09 mmol/L Below low normal 07/22/2025 1.19 - 1.35 [facility] pCO2 temp adj BldA 45.5 mmHg Above high normal 07/22/2025 35 - 45 [facility] Base excess BldA Calc-sCnc -2.0 mmol/L Below low normal 07/22/2025 0 - 2 [facility] Sodium BldA-sCnc 138.0 mmol/L 07/22/2025 135 - 145 [facility] HCO3 BldA-sCnc 23.7 mmol/L 07/22/2025 22 - 26 CT _[facility] Breezy index Bld+IhG-Rto 70.0 % 07/22/2025 - [facility] Body temperature 37.0 C 07/22/2025 CT _[facility] Hct VFr BldA Calc 33.0 % Below low normal 07/22/2025 40 - 54 [facility] pH temp adj BldA 7.32 Below low normal 07/22/2025 7.35 - 7.45 [facility] pCO2 BldA 45.5 mmHg Above high normal 07/22/2025 35 - 45 C [facility] Potassium BldA-sCnc 6.3 mmol/L Critically high 07/22/2025 3.5 - 5.1 [facility] pH BldA 7.32 Below low normal 07/22/2025 7.35 - 7.45 [facility] Ca-I Bld-mCnc 1.11 mmol/L Below low normal 07/22/2025 1.19 - 1.35 [facility] Breezy index Bld+IhG-Rto 70.0 % 07/22/2025 - [facility] Sodium BldA-sCnc 139.0 mmol/L 07/22/2025 135 - 145 [facility] Body temperature 37.0 C 07/22/2025 CT _[facility] pCO2 BldA 53.3 mmHg Above high normal 07/22/2025 35 - 45 C T_[facility] Base excess BldA Calc-sCnc -1.0 mmol/L Below low normal 07/22/2025 0 - 2 [facility] Potassium BldA-sCnc 6.1 mmol/L Critically high 07/22/2025 3.5 - 5.1 [facility] SaO2 % BldA 100.0 % Above high normal 07/22/2025 95 - 98 [facility] HCO3 BldA-sCnc 25.3 mmol/L 07/22/2025 22 - 26 CT [facility] pO2 temp adj BldA 311.0 mmHg Critically high 07/22/2025 35 - 45 [facility] pH BldA 7.28 Below low normal 07/22/2025 7.35 - 7.45 [facility] Hct VFr BldA Calc 35.0 % Below low normal 07/22/2025 40 - 54 [facility] pCO2 temp adj BldA 53.3 mmHg Above high normal 07/22/2025 35 - 45 [facility] Hgb BldA-mCnc 11.9 g/dL Below low normal 07/22/2025 13.5 - 1 8 [facility] pH temp adj BldA 7.28 Below low normal 07/22/2025 7.35 - 7.45 [facility] Glucose BldA-mCnc 133.0 mg/dL 07/22/2025 70 - 199 [facility] pO2 BldA 311.0 mmHg Above high normal 07/22/2025 80 - 105 [facility] Breezy index Bld+IhG-Rto 70.0 % 07/22/2025 - [facility] Ca-I Bld-mCnc 1.14 mmol/L Below low normal 07/22/2025 1.19 - 1.35 [facility] pO2 temp adj BldA 308.0 mmHg Critically high 07/22/2025 35 - 45 [facility] pCO2 BldA 49.6 mmHg Above high normal 07/22/2025 35 - 45 C [facility] pO2 BldA 308.0 mmHg Above high normal 07/22/2025 80 - 105 [facility] pH BldA 7.29 Below low normal 07/22/2025 7.35 - 7.45 [facility] Potassium BldA-sCnc 5.9 mmol/L Above high normal 07/22/2025 3.5 - 5.1 [facility] Base excess BldA Calc-sCnc -3.0 mmol/L Below low normal 07/22/2025 0 - 2 [facility] Hgb BldA-mCnc 11.2 g/dL Below low normal 07/22/2025 13.5 - 1 8 [facility] SaO2 % BldA 100.0 % Above high normal 07/22/2025 95 - 98 [facility] Glucose BldA-mCnc 143.0 mg/dL 07/22/2025 70 - 199 [facility] Body temperature 37.0 C 07/22/2025 CT _[facility] Hct VFr BldA Calc 33.0 % Below low normal 07/22/2025 40 - 54 [facility] pCO2 temp adj BldA 49.6 mmHg Above high normal 07/22/2025 35 - 45 [facility] pH temp adj BldA 7.29 Below low normal 07/22/2025 7.35 - 7.45 [facility] HCO3 BldA-sCnc 23.8 mmol/L 07/22/2025 22 - 26 CT [facility] Sodium BldA-sCnc 138.0 mmol/L 07/22/2025 135 - 145 [facility] Breezy index Bld+IhG-Rto 60.0 % 07/22/2025 - [facility] Base excess BldA Calc-sCnc -4.0 mmol/L Below low normal 07/22/2025 0 - 2 [facility] Hgb BldA-mCnc 14.3 g/dL 07/22/2025 13.5 - 18 [facility] Sodium BldA-sCnc 139.0 mmol/L 07/22/2025 135 - 145 [facility] Hct VFr BldA Calc 42.0 % 07/22/2025 40 - 54 C [facility] pH BldA 7.25 Below low normal 07/22/2025 7.35 - 7.45 [facility] HCO3 BldA-sCnc 23.5 mmol/L 07/22/2025 22 - 26 CT _[facility] pCO2 BldA 53.2 mmHg Above high normal 07/22/2025 35 - 45 C [facility] SaO2 % BldA 99.0 % Above high normal 07/22/2025 95 - 98 [facility] pCO2 temp adj BldA 53.2 mmHg Above high normal 07/22/2025 35 - 45 [facility] pO2 BldA 190.0 mmHg Above high normal 07/22/2025 80 - 105 [facility] pH temp adj BldA 7.25 Below low normal 07/22/2025 7.35 - 7.45 [facility] Ca-I Bld-mCnc 1.24 mmol/L 07/22/2025 1.19 - 1.35 C [facility] Glucose BldA-mCnc 142.0 mg/dL 07/22/2025 70 - 199 [facility] Body temperature 37.0 C 07/22/2025 CT _[facility] pO2 temp adj BldA 190.0 mmHg Critically high 07/22/2025 35 - 45 [facility] Potassium BldA-sCnc 4.6 mmol/L 07/22/2025 3.5 - 5.1 [facility] pH BldA 7.4 07/22/2025 7.35 - 7.45 [facility] Sodium BldA-sCnc 140.0 mmol/L 07/22/2025 135 - 145 [facility] Potassium BldA-sCnc 4.1 mmol/L 07/22/2025 3.5 - 5.1 [facility] HCO3 BldA-sCnc 21.6 mmol/L Below low normal 07/22/2025 22 - 26 [facility] pCO2 BldA 34.9 mmHg Below low normal 07/22/2025 35 - 45 CT _[facility] pO2 BldA 257.0 mmHg Above high normal 07/22/2025 80 - 105 [facility] Hgb BldA-mCnc 14.3 g/dL 07/22/2025 13.5 - 18 [facility] Glucose BldA-mCnc 110.0 mg/dL 07/22/2025 70 - 199 [facility] SaO2 % BldA 100.0 % Above high normal 07/22/2025 95 - 98 [facility] Ca-I Bld-mCnc 1.25 mmol/L 07/22/2025 1.19 - 1.35 C [facility] Hct VFr BldA Calc 42.0 % 07/22/2025 40 - 54 C [facility] pCO2 temp adj BldA 34.9 mmHg Below low normal 07/22/2025 35 - 45 [facility] pO2 temp adj BldA 257.0 mmHg Critically high 07/22/2025 35 - 45 [facility] pH temp adj BldA 7.4 07/22/2025 7.35 - 7.45 [facility] Body temperature 37.0 C 07/22/2025 CT _[facility] Breezy index Bld+IhG-Rto 60.0 % 07/22/2025 - [facility] Base excess BldA Calc-sCnc -3.0 mmol/L Below low normal 07/22/2025 0 - 2 [facility] Glucose Bld-mCnc 92.0 mg/dL 07/22/2025 70 - 199 C T_[facility] Bld gp Ab Scn SerPl Ql Negative 07/22/2025 [facility] ABO Group Bld O 07/22/2025 [facility] Rh Bld Positive 07/22/2025 [facility] N aPTT PPP 38.8 sec Above high normal 07/22/2025 25 - 37 C [facility] INR PPP 1.0 07/22/2025 0.8 - 1.1 [facility] N PT Bld 11.2 sec 07/22/2025 10.5 - 13.3 [facility] Rh Bld Positive 07/20/2025 [facility] N ABO Group Bld O 07/20/2025 [facility] Bld gp Ab Scn SerPl Ql Negative 07/20/2025 [facility] PT Bld 12.2 sec 07/20/2025 10.5 - 13.3 [facility] INR PPP 1.1 07/20/2025 0.8 - 1.1 [facility] N aPTT PPP 42.9 sec Above high normal 07/20/2025 25 - 37 C [facility] BNP SerPl-mCnc 581.0 pcg/mL Above high normal 07/20/2025 0 - 100 [facility] HDLc SerPl-mCnc 44.0 mg/dL 07/20/2025 32 - 70 CT [facility] LDLc SerPl Calc-mCnc 33.0 mg/dL Below low normal 07/20/2025 50 - 130 [facility] VLDLc SerPl Calc-mCnc 20.4 mg/dL 07/20/2025 [facility] Cholest SerPl-mCnc 97.0 mg/dL 07/20/2025 0 - 200 [facility] Trigl SerPl-mCnc 102.0 mg/dL 07/20/2025 - 150 [facility] Bilirub SerPl-mCnc 1.5 mg/dL Above high normal 07/20/2025 0. 3 - 1 [facility] ALT SerPl-cCnc 36.0 unit/L 07/20/2025 7 - 52 CT [facility] Bilirub Direct SerPl-mCnc 0.4 mg/dL Above high normal 07/20/2025 0 - 0.2 [facility] Albumin/Glob SerPl 1.5 07/20/2025 [facility] AST SerPl-cCnc 25.0 unit/L 07/20/2025 5 - 40 CT [facility] Prot SerPl-mCnc 6.8 g/dL 07/20/2025 6.4 - 8.5 [facility] Albumin SerPl-mCnc 4.1 g/dL 07/20/2025 3.5 - 5 [facility] Globulin Ser Calc-mCnc 2.7 g/dL 07/20/2025 2.3 - 3.5 [facility] ALP SerPl-cCnc 106.0 unit/L Above high normal 07/20/2025 34 - 104 [facility] Potassium SerPl-sCnc 4.5 mmol/L 07/20/2025 3.5 - 5.1 [facility] Creat SerPl-mCnc 0.9 mg/dL 07/20/2025 0.7 - 1.3 CT _[facility] BUN SerPl-mCnc 17.0 mg/dL 07/20/2025 9 - 20 [facility] Calcium SerPl-mCnc 9.5 mg/dL 07/20/2025 8.4 - 10.2 [facility] BUN/Creat SerPl 18.9 07/20/2025 12 - 20 [facility] CO2 SerPl-sCnc 23.0 mmol/L Below low normal 07/20/2025 24 - 32 [facility] Anion Gap SerPl Calc-sCnc 9.0 07/20/2025 5 - 14 [facility] eGFRcr SerPlBld CKD-EPI 2020 95.0 mL/min/1.73m2 07/20/2025 - [facility] Chloride SerPl-sCnc 108.0 mmol/L Above high normal 07/20/2025 98 - 107 [facility] Glucose SerPl-mCnc 87.0 mg/dL 07/20/2025 70 - 199 [facility] Sodium SerPl-sCnc 140.0 mmol/L 07/20/2025 135 - 14 5 [facility] Prealb SerPl-mCnc 18.0 mg/dL 07/20/2025 17 - 34 [facility] Hct VFr Bld Auto 42.8 % 07/20/2025 40 - 54 CT [facility] MCHC RBC Auto-EntMCnc 34.9 g/dL 07/20/2025 32 - 36 [facility] Basophils # Bld Auto 0.0 K/mcL 07/20/2025 0 - 0.2 [facility] Monocytes # Bld Auto 0.7 K/mcL 07/20/2025 0 - 0.8 [facility] Monocytes NFr Bld Auto 11.6 % 07/20/2025 2 - 12 [facility] WBC # Bld Auto 6.2 K/mcL 07/20/2025 4 - 10.5 CT_T [facility] Eosinophil NFr Bld Auto 3.1 % 07/20/2025 0 - 6 [facility] Neutrophils # Bld Auto 3.6 K/mcL 07/20/2025 1.8 - 7.8 [facility] PMV Bld Auto 9.4 FL 07/20/2025 7.4 - 11.4 [facility] RDW RBC Auto 14.4 % 07/20/2025 12.1 - 17.7 [facility] RBC Auto 97.0 FL 07/20/2025 78 - 100 [facility] N Basophils NFr Bld Auto 0.8 % 07/20/2025 0 - 2 [facility] Eosinophil # Bld Auto 0.2 K/mcL 07/20/2025 0 - 0.5 [facility] Hgb Bld-mCnc 14.9 g/dL 07/20/2025 13.5 - 18 [facility] Neutrophils NFr Bld Auto 58.4 % 07/20/2025 44 - 74 [facility] Lymphocytes # Bld Auto 1.6 K/mcL 07/20/2025 1 - 3.2 [facility] MCH RBC Qn Auto 33.8 pcg Above high normal 07/20/2025 25 - 33 [facility] RBC # Bld Auto 4.41 M/mcL Below low normal 07/20/2025 4.7 - 6 [facility] Platelet # Bld Auto 176.0 K/mcL 07/20/2025 150 - 450 [facility] Lymphocytes NFr Bld Auto 26.1 % 07/20/2025 20 - 48 [facility] History of Medication Use Medication Directions Dispensed Refills Start Date End Date Stat apixaban (ELIQUIS) tablet 5 mg 5 mg, oral, 2 times daily, First dose on Sun07/31/25 at 0945, Indication: Atrial Fibrillation 07/31/2025 active metoprolol tartrate (LOPRESSOR) 25 mg tablet Take 0.5 tablets (12.5 mg total) by mouth 2 (two) times a day. 07/31/2025 active oxyCODONE (ROXICODONE) 5 mg immediate release tablet Take 1 tablet (5 mg total) by mouth every 4 (four) hours if needed for moderate pain. Max Daily Amount: 30 mg 07/29/2025 active oxyCODONE (ROXICODONE) immediate release tablet 10 mg 10 mg, oral, Every 4 hours PRN, severe pain, Starting on Sun07/29/25 at 1927 07/29/2025 active dextromethorphan-gu aiFENesin (ROBITUSSIN-DM) 10-100 mg/5 mL syrup 10 mL 10 mL, oral, Every 4 hours PRN, cough, Starting on Sun07/27/25 at 2324 07/28/2025 active furosemide (LASIX) injection 40 mg 40 mg, intravenous, BID Diuretic, First dose (after last modification) on Sun07/27/25 at 0907/27/2025 5 aborted metoprolol tartrate (LOPRESSOR) tablet 12.5 mg 12.5 mg, oral, 2 times daily, [place]07[place] [address]/27/2025 5 active potassium chloride (KLOR-CON M20) 20 mEq CR tablet Take 1 tablet (20 mEq total) by mouth 1 (one) time each day. Tablet may be swallowed whole (do not crush/chew/suck on) OR broken in half and each half swallowed separately OR dissolved (whole tablet) in ~4 ounces of water (allow ~2 minutes to dissolve, stir well and administer immediately). Please t 07/27/2025 active melatonin tablet 3 mg 3 mg, oral, Nightly, First dose on Sun07/26/25 at 2100 07/27/2025 active potassium chloride 20 mEq/100 mL IVPB (premix) 20 mEq 20 mEq, intravenous, at 100 mL/hr, Administer over 1 Hours, Every 1 hour, First dose on Sun07/29/25 at 0700, For 2 doses, For central line administration only. 2025 5 completed ipratropium-albuter oL (DUONEB) 0.5-2.5 mg/3 mL nebulizer solution 3 mL 3 mL, nebulization, Every 6 hours PRN, wheezing, Starting on 07/27/25 at 1400 2025 5 active sodium phosphates 60 mmol in sodium chloride 0.9 % 500 mL IVPB 60 mmol, intravenous, at 83.3 mL/hr, Administer over 6 Hours, Once, On 07/26/25 at 0530, For 1 dose 2025 completed warfarin (COUMADIN) tablet 1 mg 1 mg, oral, Once, On [place] 07/26/25 at 1700, For 1 dose, Hazardous Medication Intact: - Single pair of ASTM standard [id number] certified gloves - Eye/face protection if vomit or potential to spit up Manipulated: - Double pair of ASTM standard [id number] certified gloves - Eye/face protection if vomit or poten 2025 5 completed insulin lispro injection 1-6 Units 1-6 Units, subcutaneous, 3 times daily before meals, First dose on 07/26/25 at 0730, Indication: Total Daily Dose (TDD) LESS than 40 units Correction Scale: Low Dose Administer with meal and/or mealtime dose of insulin to correct high blood glucose If mealtime insulin dose not given (e.g. patien 2025 active warfarin (COUMADIN) tablet 2 mg 2 mg, oral, Once, On [place] 07/30/25 at 1700, For 1 dose, Hazardous Medication Intact: - Single pair of ASTM standard [id number] certified gloves - Eye/face protection if vomit or potential to spit up Manipulated: - Double pair of ASTM standard [id number] certified gloves - Eye/face protection if vomit or poten 07/24/2025 5 completed furosemide (LASIX) injection 20 mg 20 mg, intravenous, Daily, First dose (after last modification) on [place] 07/30/25 at 0900 07/24/2025 5 active calcium gluconate 2 gram/100 mL IVPB (premix) 2 g 2 g, intravenous, at 100 mL/hr, Administer over 60 Minutes, Once, On [place] 07/30/25 at 0945, For 1 dose 07/23/2025 5 completed perflutren lipid microsphere (DEFINITY) 1.3 mL in sodium chloride 0.9% 8.7 mL injection 10 mL, intravenous, Administer over 10 Minutes, Once in imaging, Starting on 07/26/25 at 1206, For 1 dose, CV Medication Orders 07/23/2025 5 completed ceFAZolin (ANCEF) 2 g in sterile water 20 mL IV syringe 2 g, intravenous, Administer over 3 Minutes, Every 8 hours, First dose on Sun07/22/25 at 2000, For 5 doses, Indication: Prophylaxis-Surgica l 07/23/2025 5 completed albumin human 5 % infusion 25 g 25 g, intravenous, Once, On Sun07/22/25 at 2045, For 1 dose 07/23/2025 5 completed insulin regular (HumuLIN R) injection 10 Units 10 Units, intravenous, Once, On [place] 07/23/25 at 0700, For 1 dose, IV Push, flush with NS after administration, Give with D50W, First Dose: STAT ONLY use an IV INSULIN SYRINGE with graduations in UNITS to draw up and administer each dose. 07/23/2025 5 completed gabapentin (NEURONTIN) capsule 300 mg 300 mg, oral, Every 8 hours scheduled, First dose on Sun07/23/25 at 1400 07/23/2025 active acetaminophen (TYLENOL) 325 mg tablet Take 2 tablets (650 mg total) by mouth every 6 (six) hours if needed for mild pain, moderate pain, headaches or fever - temperature GREATER than 38 C (100.4 F) for up to 10 days. 07/22/2025 5 active pantoprazole (PROTONIX) injection 40 mg 40 mg, intravenous, Administer over 2 Minutes, Every 24 hours, First dose on Sun07/22/25 at 1615, Patient MUST have BOTH: -Strict NPO (unable to take oral or liquid PPI) -Contraindication to H2RA Pantroprazole - IV push: Reconstitute powder for injection with 10 mL NS; final concentration: 4 mg/mL., 07/22/2025 5 aborted magnesium sulfate 2 gram/50 mL (4 %) IVPB 2 g 2 g, intravenous, at 25 mL/hr, Administer over 2 Hours, Once, On Sun07/28/25 at 0545, For 1 dose 07/22/2025 completed HYDROmorphone (DILAUDID) injection 0.5 mg 0.5 mg, intravenous, Every 2 hours PRN, severe pain, Starting on Sun07/22/25 at 1553, Recovery & On Unit 07/22/2025 5 aborted mupirocin (BACTROBAN) 2 % ointment 1 Application 1 Application, Each Nostril, 2 times daily, First dose on Sun07/22/25 at 2100, For 10 doses, Total of 10 doses, including any pre-operative doses received. Request from pharmacy if additional product needed. 07/22/2025 5 completed insulin regular in NS 100 unit/100 mL (1 unit/mL) IV 0.5-20 Units/hr (0.5-20 mL/hr), intravenous, Continuous, Starting on Sun07/22/25 at 1615, GOAL EFFECT: BG range 120-170 mg/dL (Cardiac Surgery) Titrate per insulin infusion calculator If enteral / parenteral nutrition is stopped abruptly, REDUCE the insulin infusion rate by 50%. 1. Check BG hourly 07/22/2025 5 aborted chlorhexidine (PERIDEX) 0.12 % solution 15 mL 15 mL, Mouth/Throat, 2 times daily, First dose on Sun07/22/25 at 2100 07/22/2025 5 aborted vasopressin (VASOSTRICT) 20 Units in sodium chloride 0.9 % 50 mL (0.4 Units/mL) infusion 0.01-0.06 Units/min (1.5-9 mL/hr), intravenous, Continuous, Starting on Sun07/22/25 at 1830, GOAL EFFECT: SBP greater than 100 mmHg DOSE RANGE: 0.01 to 0.06 units/min TITRATION DOSE: 0.005 units/min TITRATION FREQUENCY: 10 min CONTACT PRESCRIBER: HR less than 60 or greater than 120 BPM; SBP less th 07/22/2025 5 aborted albumin human 5 % infusion - ADS Override Pull Starting on Sun07/22/25 at 1631, For 1 dose, Created by cabinet override 07/22/2025 5 completed aspirin suppository 300 mg 300 mg, rectal, Daily, First dose on Sun07/22/25 at 1615, Recovery & On Unit 07/22/2025 5 aborted dextrose (D50W) 50% injection 25 g 25 g, intravenous, Once, On [place] 07/23/25 at 0700, For 1 dose 07/22/2025 5 completed lactated Ringer's infusion 100 mL/hr, intravenous, Continuous, Starting on Sun07/22/25 at 1615 07/22/2025 5 aborted EPINEPHrine HCl in 0.9 % NaCl 5 mg/250 mL infusion - ADS Override Pull Starting on Sun07/22/25 at 1822, For 1 dose, Created by [employer] override 07/22/2025 5 completed dextrose (D50W) 50% injection 12.5 g 12.5 g, intravenous, Every 15 min PRN, low blood sugar, moderate hypoglycemia *Patient is Unconscious, NPO, unable to swallow: BG 54 - 69 mg/dl*, Starting on Sun07/22/25 at 1553 07/22/2025 active dextrose 15 gram/60 mL oral solution 15 g 15 g, oral, Every 15 min PRN, low blood sugar, hypoglycemia *Patient conscious AND able to drink and swallow safely*, Starting on Sun07/22/25 at 1553 07/22/2025 active dextrose 15 gram/60 mL oral solution 30 g 30 g, oral, Every 15 min PRN, low blood sugar, hypoglycemia *Patient conscious AND able to drink and swallow safely*, Starting on Sun07/22/25 at 1553 07/22/2025 active glucagon HCL injection 1 mg 1 mg, intramuscular, Once as needed, low blood sugar, severe hypoglycemia, Starting on Sun07/22/25 at 1553, For 1 dose 07/22/2025 active ondansetron (PF) (ZOFRAN) injection 4 mg 4 mg, intravenous, Every 6 hours PRN, nausea, vomiting, Starting on Sun07/22/25 at 1553 07/22/2025 active amiodarone (PACERONE) 200 mg tablet Take 1 tablet (200 mg total) by mouth 1 (one) time each day. 07/19/2025 active aspirin 81 mg EC tablet Take 1 tablet (81 mg total) by mouth 1 (one) time each day. 07/19/2025 active enoxaparin (LOVENOX) 60 mg/0.6 mL syringe Inject 0.6 mL (60 mg total) under the skin every 12 (twelve) hours for 6 doses. 07/18/2025 active furosemide (LASIX) 20 mg tablet Take 1 tablet (20 mg total) by mouth 1 (one) time each day. 07/18/2025 active metoprolol tartrate (LOPRESSOR) 25 mg tablet Take 1 tablet (25 mg total) by mouth 2 (two) times a day. 07/18/2025 active atorvastatin (LIPITOR) 80 mg tablet Take 1 tablet (80 mg total) by mouth at bedtime. active diazePAM (VALIUM) 5 mg tablet Take 1 tablet (5 mg total) by mouth every 12 (twelve) hours if needed for muscle spasms. active fenofibric acid (TRILIPIX) 45 mg capsule Take 1 capsule (45 mg total) by mouth 1 (one) time each day. Do not crush, chew, or split. active gabapentin (NEURONTIN) 300 mg capsule Take 3 capsules (900 mg total) by mouth 3 (three) times a day. active meloxicam (MOBIC) 7.5 mg tablet Take 1 tablet (7.5 mg total) by mouth 2 (two) times a day. active metFORMIN (FORTAMET) 500 mg 24 hr tablet Take 1 tablet (500 mg total) by mouth 2 (two) times a day. Do not crush, chew, or split. active pantoprazole (PROTONIX) 40 mg EC tablet Take 1 tablet (40 mg total) by mouth at bedtime. Do not crush, chew, or split. suspended traMADoL (ULTRAM) 50 mg tablet Take 1 tablet (50 mg total) by mouth every 8 (eight) hours if needed. active Problems Problem Status Onset Date Problem Type Date of Resoluti on Source Hypertension active ProblemAct [facility] [place]rial [place] with [place] [place] [facility] [place] active 2025-07-13 ProblemAct [facility] Mitral regurgitation active 2025-07-22 ProblemAct [facility] Cardiomyopathy [place] [place] [facility] [place] active 2025-07-13 ProblemAct [facility] S/P MVR (mitral valve replacement) active 2025-07-25 ProblemAct [facility] S/P CABG x 1 active 2025-07-25 ProblemAct [facility] Acute on chronic diastolic (congestive) heart failure [place] [place] [facility] [place] active 2025-07-27 ProblemAct [facility] COPD (chronic obstructive pulmonary disease) [place] [place] [facility] [place] active ProblemAct [facility] Secondary hypercoagulable state [place] [place] active 2025-07-27 ProblemAct [facility] Type II diabetes mellitus [place] [place] [facility] [place] active ProblemAct [facility] History of left atrial appendage closure active 2025-07-25 ProblemAct [facility] Encounters Encounter Type Encounter Reason Primary Diagnosis Location Date Inpatient Nonrheumatic mitral (valve) insufficiency [place]rhe[place] (valve[place] [facility] [place] [facility] [place] Shortness of breath Shortness of breath [facility] 07/20/2025 Ambulatory Encounter for other preprocedural examination Encounter for other preprocedural [place] [facility] [place] Care Team Organization Name Specialty Phone Email Start Date End Da te [facility] Holger Manuel Primary Care 07/20/2025 [facility] PHYSICIAN Primary Care 07/19/2025 [facility] NO PHYSICIAN Primary Care 07/19/2025
--- OUTSIDE RECORDS SUMMARY | 2025-08-11 12:58 | XMS_ITS | Clinical Summary ---
Author Organization [facility] Address [address] [place] [address] Phone Care Team Providers Care Instrument Specialist Name Role Phone Holger Manuel NP Primary Care Provider + [phone] Allergies No known active allergies Medications metFORMIN (FORTAMET) 500 mg 24 hr tablet Take 1 tablet (500 mg total) by mouth 2 (two) times a day. Do not crush, chew, or split. Active gabapentin (NEURONTIN) 300 mg capsule Take 3 capsules (900 mg total) by mouth 3 (three) times a day. Active fenofibric acid (TRILIPIX) 45 mg capsule Take 1 capsule (45 mg total) by mouth 1 (one) time each day. Do not crush, chew, or split. Active atorvastatin (LIPITOR) 80 mg tablet Take 1 tablet (80 mg total) by mouth at bedtime. Active amiodarone (PACERONE) 200 mg tablet Take 1 tablet (200 mg total) by mouth 1 (one) time each day. 30 each 07/19/20 25 025 Active aspirin 81 mg EC tablet Take 1 tablet (81 mg total) by mouth 1 (one) time each day. 30 each 07/19/20 25 025 Active pantoprazole (PROTONIX) 40 mg EC tablet Take 1 tablet (40 mg total) by mouth at bedtime. Do not crush, chew, or split. Active metoprolol tartrate (LOPRESSOR) 25 mg tablet Take 0.5 tablets (12.5 mg total) by mouth 2 (two) times a day. 30 each 07/31/20 Active oxyCODONE (ROXICODONE) 5 mg immediate release tablet Take 1 tablet (5 mg total) by mouth every 4 (four) hours if needed for moderate pain. Max Daily Amount: 30 mg 42 tablet 5 4:12 PM EDT 07/31/20 25 Active furosemide (Lasix) 20 mg tablet Take 1 tablet (20 mg total) by mouth 1 (one) time each day. 30 each 07/31/20 25 Active potassium chloride (KLOR-CON M20) 20 mEq CR tablet Take 1 tablet (20 mEq total) by mouth 1 (one) time each day. Tablet may be swallowed whole (do not crush/chew/suc k on) OR broken in half and each half swallowed separately OR dissolved (whole tablet) in ~4 ounces of water (allow ~2 minutes to dissolve, stir well and administer immediately). Please take the dose of potassium with the dose of lasix if you stop taking the lasix also stop taking the potassium 30 each 5 4:12 PM EDT 07/31/20 Active apixaban (ELIQUIS) 5 mg tablet Take 1 tablet (5 mg total) by mouth 2 (two) times a day. 60 tablet 2 4:12 PM EDT 07/31/20 25 Active diazePAM (VALIUM) 5 mg tablet Take 1 tablet (5 mg total) by mouth every 12 (twelve) hours if needed for muscle spasms. 025 Discontinued(St op Taking at Discharge) meloxicam (MOBIC) 7.5 mg tablet Take 1 tablet (7.5 mg total) by mouth 2 (two) times a day. 025 Discontinued(St op Taking at Discharge) traMADoL (ULTRAM) 50 mg tablet Take 1 tablet (50 mg total) by mouth every 8 (eight) hours if needed. 025 Discontinued(St op Taking at Discharge) metoprolol tartrate (LOPRESSOR) 25 mg tablet Take 1 tablet (25 mg total) by mouth 2 (two) times a day. 60 each 07/18/20 25 025 Discontinued(St op Taking at Discharge) furosemide (LASIX) 20 mg tablet Take 1 tablet (20 mg total) by mouth 1 (one) time each day. 30 each 07/18/20 25 025 Discontinued(St op Taking at Discharge) enoxaparin (LOVENOX) 60 mg/0.6 mL syringe Inject 0.6 mL (60 mg total) under the skin every 12 (twelve) hours for 6 doses. 6 each 07/18/20 25 025 Discontinued(St op Taking at Discharge) acetaminophen (TYLENOL) 325 mg tablet Take 2 tablets (650 mg total) by mouth every 6 (six) hours if needed for mild pain, moderate pain, headaches or fever - temperature GREATER than 38 C (100.4 F) for up to 10 days. 07/31/20 25 025 apixaban (ELIQUIS) 5 mg tablet Take 1 tablet (5 mg total) by mouth 2 (two) times a day. 60 tablet 5 07/31/20 25 025 Discontinued Active Problems Problem Noted Date Diagnosed Date Acute on chronic diastolic ( congestive) heart failure ([facility] V24, [facility] V28) 07/27/2025 Secondary hypercoagulable state ([facility] V24) S/P MVR (mitral valve replacement) 07/25/2025 S/P CABG x 1 07/25/2025 H/O maze procedure 07/25/2025 History of left atrial appendage closure 025 Mitral regurgitation 07/22/2025 Atrial fibrillation with RVR (CMS/HCC V24, CMS/H CC V28) 07/13/2025 Cardiomyopathy ([facility] V24, [facility] V28) 2024 Nonrheumatic mitral valve regurgitation 07/13/20 25 COPD (chronic obstructive pu lmonary disease) (CMS/HCC V24, CMS/HCC V28) Hypertension Type II diabetes mellitus (CMS/[facility] V24, CMS/HCC V28) Encounters Date Type Department Care Team Description 08/11/2025 Telephone [facility] [address] [facility] [address] [place] [address] Salma Strong PA 08/04/2025 Telephone [facility] CV Pre Admission Testing [address] [place] [address] Gavi Ahumada RN 07/22/2025 7:15 AM EDT - 07/22/2025 1:37 PM EDT Surgery [facility] CV OR [address] [place] [phone] Jayjay Arias MD REPLACE VALVE MITRAL [13784 (CPT ) +1 more] 07/22/2025 7:14 AM EDT Anesthesia Event [facility] [place] [facility] CV OR [address] [place] [phone] Gerber Quinones MD Wilson, Gary S, MD 07/22/2025 5:27 AM EDT - 07/31/2025 4:08 PM EDT Hospital Encounter [facility] CV Surg Card 8-[address] [place] [phone] Jayjay Arias MD Mitral valve insufficiency, unspecified etiology (Primary Dx); Atrial fibrillation with RVR (CMS/HCC V24, CMS/HCC V28); Nonrheumatic mitral valve regurgitation; Atherosclerosis of [place] coronary artery of [place] heart without angina pectoris; S/P CABG x 1; S/P MVR (mitral valve replacement) Discharge Disposition: Home-Health Care [facility] 07/20/2025 2:59 PM EDT - 07/20/2025 11:59 PM EDT Hospital Encounter [facility] Xray [address] [place] [phone] Discharge Disposition: Home or Self Care 07/20/2025 1:30 PM EDT Consult [facility] CV Pre Admission Testing [address] [place] [phone] Vida Restrepo PA SOB (shortness of breath) (Primary Dx); IFG (impaired fasting glucose); Hyperlipidemia, unspecified hyperlipidemia type; Pre-op testing; Nonrheumatic mitral valve regurgitation; Cardiomyopathy, unspecified type (CMS/HCC V24, CMS/HCC V28); Atrial fibrillation with RVR (CMS/HCC V24, CMS/HCC V28); Chronic obstructive pulmonary disease, unspecified COPD type (CMS/HCC V24, CMS/HCC V28); Primary hypertension; Type 2 diabetes mellitus with other specified complication, without long-term current use of insulin ([facility] V24, [facility] V28) 07/20/2025 12:25 PM EDT - 07/20/2025 11:59 PM EDT Hospital Encounter [facility] Pulmonary Lab [address] [place] [phone] Pre-op testing Discharge Disposition: Home or Self Care 07/17/2025 12:29 PM EDT Anesthesia Event [facility] Cardiac Rag [facility] [address] [place] [address] Wolf Azul MD 07/16/2025 1:00 PM EDT - 07/16/2025 4:[address] [facility] [address] [place] [phone] Holger Coates MD Left heart cath / Coronary angiography 07/15/2025 8:06 AM EDT Anesthesia Event [facility] Cardiac [facility] [address] [place] [address] Casey Flanagan MD 07/13/2025 7:26 AM EDT - 07/18/2025 3:15 PM EDT Hospital Encounter [facility] Intermediate Care Unit [address] [place] [address] Holger Vazquez MD Bukalo, Nermina, MD Kokosadze, Estate, MD Atrial fibrillation with RVR ([facility] V24, [facility] V28) (Primary Dx); Cardiomyopathy, unspecified type ([facility] V24, [facility] V28); Nonrheumatic mitral valve regurgitation; A-fib ([facility] V24, [facility] V28) Discharge Disposition: Home-Health Care Svc from Last 3 Months Surgical History Surgery Date Site/Laterality Comments COLONOSCOPY 08/20/2015 PROCEDURE: HISTORICAL COLONOSCOPY; COMMENT: diverticulosis; no polyps CHOLECYSTECTOMY 02/11/2016 PROCEDURE: HISTORICAL CHOLECYSTECTOMY CARDIOVERSION WITH PABLO 07/15/2025 CARDIOVERSION WITH PABLO 07/17/2025 PTCA WITH STENT 11/12/2021 - 11/11/2022 LCx stent with known residual RCA disease Medical History Medical History Date Comments Chest pressure 09/09/2012 DX:Chest pressur e GERD (gastroesophageal reflu x disease) 08/29/2012 DX:GERD (gastroesophageal re flux disease) H. pylori infection 09/02/2012 DX:H. pylori infection Tobacco abuse 08/29/2012 DX:Tobacco abuse Herniated lumbar intervertebral disc 09/17/2014 DX:Herniated lumbar intervertebral disc; COMMENT: Sees [facility] COPD (chronic obstructive pu lmonary disease) ([facility] V24, [facility] V28) Type II diabetes mellitus ([facility]/HCC V24, [facility] V28) CAD (coronary artery disease) s/ p stent in 2020 at [facility] Mitral valve prolapse Heart murmur Myocardial infarction ([facility]/H CC V24, [facility] V28) 08/2022 Inferoposterior STEMI s/p le ft circumflex stent CHF (congestive heart failur e) ([facility] V24, [facility] V28) AF (paroxysmal atrial fibril lation) ([facility] V24, [facility] V28) Heart failure with mid-range ejection fraction (HFmEF) ([facility]/HCC V24, [facility] V28) Severe mitral regurgitation FARHAT (acute kidney injury) ([facility]/HCC V24) 07/2025 Peripheral neuropathy OA (osteoarthritis) Cardiac arrest ([facility] V24, [facility] V28) 08/2022 VF cardiac arrest BPH (benign prostatic hyperplasia) Hypertension Family History Medical History Relation Name Comments No Known Problems Aunt Fainting Brother 1 Heart disease Brother 1 OK COPD Brother 2 Seizures Brother 3 No Known Problems Father No Known Problems Maternal Grandfather No Known Problems Maternal Grandmother Arthritis Mother hands, Glaucoma Cataracts Mother Diabetes type II Mother Glaucoma Mother Heart disease Mother s/p stent No Known Problems Other No Known Problems Paternal Grandfather No Known Problems Paternal Grandmother Arthritis Sister 1 No Known Problems Sister 2 No Known Problems Son No Known Problems Uncle Blindness Neg Hx Macular degeneration Neg Hx Strabismus Neg Hx Relation Name Status Comments Aunt Brother 1 (Age 55) OK Brother 2 Alive Brother 3 Alive Father unsure Maternal Grandfather Maternal Grandmother Mother Alive CAD, stents Other Paternal Grandfather Paternal Grandmother Sister 1 Alive Sister 2 Alive Son Alive Uncle Social History Tobacco Use Types Packs/Day Years Used Date Smoking Tobacco: Former Cigarettes 1 52.6 1 973 - 06/29/2025 Smokeless Tobacco: Never Tobacco Cessation:Counseling Given: Not Answered Alcohol Use Standard Drinks/Week Comments Not Currently [...] not to disclose 2024 5:27 AM EDT Obstetrics History Last Filed Vital Signs Vital Sign Reading Time Taken Comments Blood Pressure 122/68 07/31/2025 9:48 AM EDT Pulse 67 07/31/2025 9:48 AM EDT Temperature 36.8 C (98.2 F) 07/31/2025 9:48 AM EDT Respiratory Rate 26 07/31/2025 9:48 AM EDT Oxygen Saturation 97% 07/31/2025 9:48 AM EDT Inhaled Oxygen Concentration - - Weight 70 kg (154 lb 6.4 oz) 07/30/2025 5:00 AM EDT Height 163 cm (5' 4.17 ) 2025 9:46 AM EDT Body Mass Index 26.36 2025 9:46 AM EDT Plan of Treatment Upcoming Encounters Date Type Department Care Team (Late st Contact Info) Description 08/20/2025 10:10 AM EDT Office Visit [facility] [address] [place] [phone] Salma Strong PA [address] [place] [address] [place] [phone] Health Maintenance Due Date Last Done Comments Colorectal Cancer Screening: Colonoscopy 1960 Diabetes: Annual Foot Exam 1970 Diabetes: Annual Retina Eye Exam 1970 Hepatitis A Vaccines (1 of 2 - Risk 2-dose series) 1979 Zoster Vaccines (1 of 2) 2010 RSV Immunization Adult Patients (1 - Risk 60-74 years 1-dose series) 2020 Abdominal Aortic Aneurysm (AAA) Screen 10/21/2022 Hepatitis C Screening 10/21/2022 Lung Cancer Screening (Low Dose CT) 10/21/2022 Medicare Annual Wellness Visit 10/21/2022 Diabetes: Annual Urine Albumin-Creatinine Ratio (uACR) 10/28/2022 Depression Screening 11/12/2024 Influenza Vaccine (#1) 2025 , 08/19/2021, 10/19/2020, Additional history exists COVID-19 Vaccine ( season) 2025 12/02/2024, 05/12/2021, 04/14/2021 Diabetes: Blood Sugar Control Test (HGBA1C) 01/10/2026 07/13/2025 Social Influencers of Health Screening 07/29/2026 07/29/2025 Diabetes: Annual GFR (Glomerular Filtration Rate) 07/30/2026 07/30/2025, 07/29/2025, 07/28/2025, Additional history exists Hypertension/CHF/CAD Annual BMP Blood Test 07/30/2026 07/30/2025, 07/29/2025, 07/28/2025, Additional history exists Falls Risk Assessment 07/31/2026 07/31/2025 Cholesterol Screening (Lipid Panel) 07/20/2030 07/20/2025 DTaP,Tdap,and Td Vaccines (2 - Td or Tdap) 08/19/2031 08/19/2021 Pneumococcal Vaccine: 50+ Years Completed 01/16/2023, 06/24/2015 HIB Vaccines Aged Out [...] 20 months Aged Out No longer eligible based on patient's age to complete this topic Varicella Vaccines Aged Out No longer eligible based on patient's age to complete this topic Medical Devices Implanted Type Area Soft Drink Powder Mixer Device Identifier Shelf Expiration Date Model / Serial / Lot Valve Mitral Mitris Resilia Sz 29 - [id number] - [id number] Implanted:Q ty: 1 on 07/22/2025 by Jayjay Airas MD at [facility] Heart Valve N/A: Heart [employer]ONG [employer] ELE 03/25/2030 [id number] / [id number] / N/A Hemostat Absorb Surgicel 6x9in Ster Nuknit - Sn/A - [id number] Implanted:Q ty: 2 on 07/22/2025 by Jayjay Arias MD at [facility] Hemostasis N/A: Chest [employer] 12/12/2029 1946 / N/A / [id number] Plate Manubrium - Sn/A - [id number] Implanted:Q ty: 1 on 07/22/2025 by Jayjay Arias MD at [facility] Internal and External Fixation N/A: Sternum CHUCK [employer]ANI[employer]AXILL[employer]IAL [id number] / N/A / N/A Plate X - Sn/A - [id number] Implanted:Q ty: 2 on 07/22/2025 by Jayjay Arias MD at [facility] Internal and External Fixation N/A: Sternum CHUCK [employer]ANIOMAXILLOFACIAL [id number] / N/A / N/A Screw Sd Locking 2.3x14mm - Sn/A - [id number] Implanted:Q ty: 12 on 07/22/2025 by Jayjay Arias MD at [facility] Internal and External Fixation N/A: Sternum [employer] [id number] / N/A / N/A Screw Sd Locking 2.3x16mm - Sn/A - [id number] Implanted:Q ty: 10 on 07/22/2025 by Jayjay Arias MD at [facility] Internal and External Fixation N/A: Sternum [employer]OM[employer]IAL [id number] / N/A / N/A Procedures Procedure Name Priority Date/Time Associated Diagnosis Comments POCT GLUCOSE BLOOD Routine 07/31/2025 1: 15 PM EDT CALCIUM, IONIZED Timed 07/31/2025 8:17 AM EDT MAGNESIUM Timed 07/31/2025 8:17 AM EDT POTASSIUM Timed 07/31/2025 8:17 AM EDT PROTHROMBIN TIME WITH INR Timed 07/31/2025 8:17 AM EDT POCT GLUCOSE BLOOD Routine 07/31/2025 8: 11 AM EDT XR CHEST 1 VIEW Routine 07/31/2025 6:07 AM EDT POCT GLUCOSE BLOOD Routine 07/30/2025 9: 12 PM EDT POCT GLUCOSE BLOOD Routine 07/30/2025 5: 13 PM EDT POCT GLUCOSE BLOOD Routine 07/30/2025 12:19 PM EDT POCT GLUCOSE BLOOD Routine 07/30/2025 8: 27 AM EDT PHOSPHORUS Timed 07/30/2025 6:34 AM EDT MAGNESIUM Timed 07/30/2025 6:34 AM EDT COMPLETE BLOOD COUNT Timed 07/30/2025 6:34 AM EDT CALCIUM, IONIZED Timed 07/30/2025 6:34 AM EDT BASIC METABOLIC PANEL Timed 07/30/2025 6:34 AM EDT PROTHROMBIN TIME WITH INR Timed 07/30/2025 6:34 AM EDT POCT GLUCOSE BLOOD Routine 07/29/2025 9: 22 PM EDT OXYGEN THERAPY, ADULT Routine 07/29/2025 8:00 PM EDT POCT GLUCOSE BLOOD Routine 07/29/2025 5: 27 PM EDT OXYGEN THERAPY, ADULT Routine 07/29/2025 8:01 AM EDT LACTATE Timed 07/29/2025 5:12 AM EDT PROTHROMBIN TIME WITH INR Routine 07/29/2025 5:12 AM EDT BASIC METABOLIC PANEL Routine 07/29/2025 5:12 AM EDT COMPLETE BLOOD COUNT Routine 07/29/2025 5:12 AM EDT PHOSPHORUS Routine 07/29/2025 5:12 AM EDT MAGNESIUM Routine 07/29/2025 5:12 AM EDT CALCIUM, IONIZED Routine 07/29/2025 12:06 AM EDT LACTATE Timed 07/29/2025 12:06 AM EDT POCT GLUCOSE BLOOD Routine 07/28/2025 9: 18 PM EDT OXYGEN THERAPY, ADULT Routine 07/28/2025 8:00 PM EDT LACTATE Timed 07/28/2025 7:19 PM EDT POCT GLUCOSE BLOOD Routine 07/28/2025 5: 44 PM EDT HEMOGLOBIN AND HEMATOCRIT Routine 07/28/2025 2:44 PM EDT POCT GLUCOSE BLOOD Routine 07/28/2025 12:48 PM EDT LACTATE Timed 07/28/2025 12:36 PM EDT POCT GLUCOSE BLOOD Routine 07/28/2025 8: 37 AM EDT OXYGEN THERAPY, ADULT Routine 07/28/2025 8:02 AM EDT PREPARE RBC Routine 07/28/2025 7:45 AM EDT MIXED VENOUS BLOOD GAS Routine 5:24 AM EDT TYPE AND SCREEN Routine 07/28/2025 5:24 AM EDT COMPLETE BLOOD COUNT Routine 07/28/2025 3:34 AM EDT CALCIUM, IONIZED Routine 07/28/2025 3:34 AM EDT PHOSPHORUS Routine 07/28/2025 3:34 AM EDT MAGNESIUM Routine 07/28/2025 3:34 AM EDT COMPREHENSIVE METABOLIC PANEL Routine 07/28/2025 3:34 AM EDT PROTHROMBIN TIME WITH INR Routine 07/28/2025 3:34 AM EDT POCT GLUCOSE BLOOD Routine 07/27/2025 10:11 PM EDT OXYGEN THERAPY, ADULT Routine 07/27/2025 8:00 PM EDT OXYGEN THERAPY, ADULT Routine 07/27/2025 6:25 PM EDT OXYGEN THERAPY, ADULT Routine 07/27/2025 6:25 PM EDT POCT GLUCOSE BLOOD Routine 07/27/2025 6: 03 PM EDT POCT GLUCOSE BLOOD Routine 07/27/2025 11:41 AM EDT POCT GLUCOSE BLOOD Routine 07/27/2025 8: 06 AM EDT XR CHEST 1 VIEW Timed 07/27/2025 6:02 AM EDT PROTHROMBIN TIME WITH INR Routine 07/27/2025 2:57 AM EDT CBC WITH AUTO DIFFERENTIAL Timed 07/27/2025 2:57 AM EDT HEPATIC FUNCTION PANEL Routine 2:57 AM EDT MAGNESIUM Timed 07/27/2025 2:57 AM EDT BASIC METABOLIC PANEL Timed 07/27/2025 2:57 AM EDT CBC AND DIFFERENTIAL Timed 07/27/2025 2:57 AM EDT PHOSPHORUS Routine 07/27/2025 2:57 AM EDT CALCIUM, IONIZED Routine 07/27/2025 2:57 AM EDT MAGNESIUM Routine 2025 8:41 PM EDT POTASSIUM Routine 2025 8:41 PM EDT OXYGEN THERAPY, ADULT Routine 2025 7:09 PM EDT OXYGEN THERAPY, ADULT Routine 2025 7:09 PM EDT POCT GLUCOSE BLOOD Routine 2025 5: 31 PM EDT TRANSTHORACIC ECHOCARDIOGRAM (TTE) LIMITED W/ COLOR FLOW & CONTRAST Today 2025 12:38 PM EDT S/P CABG x 1 S/P MVR (mitral valve replacement) POCT GLUCOSE BLOOD Routine 2025 12:38 PM EDT MIXED VENOUS BLOOD GAS Timed 12:32 PM EDT MIXED VENOUS BLOOD GAS STAT 8:24 AM EDT POCT GLUCOSE BLOOD Routine 2025 8: 15 AM EDT HEPATIC FUNCTION PANEL STAT 5:27 AM EDT PROTHROMBIN TIME WITH INR Routine 2025 4:04 AM EDT PHOSPHORUS Routine 2025 4:04 AM EDT CALCIUM, IONIZED Routine 2025 4:04 AM EDT MAGNESIUM Routine 2025 4:04 AM EDT BASIC METABOLIC PANEL Routine 2025 4:04 AM EDT COMPLETE BLOOD COUNT Routine 2025 4:04 AM EDT POCT GLUCOSE BLOOD Routine 07/25/2025 8: 32 PM EDT POCT GLUCOSE BLOOD Routine 07/25/2025 1: 22 PM EDT POCT GLUCOSE BLOOD Routine 07/25/2025 8: 51 AM EDT OXYGEN THERAPY, ADULT Routine 07/25/2025 8:00 AM EDT POCT GLUCOSE BLOOD Routine 07/25/2025 6: 55 AM EDT BASIC METABOLIC PANEL Routine 07/25/2025 6:52 AM EDT COMPLETE BLOOD COUNT Routine 07/25/2025 6:52 AM EDT POCT GLUCOSE BLOOD Routine 07/25/2025 4: 12 AM EDT PROTHROMBIN TIME WITH INR Routine 07/25/2025 4:04 AM EDT MAGNESIUM Routine 07/25/2025 4:04 AM EDT BASIC METABOLIC PANEL Routine 07/25/2025 4:04 AM EDT COMPLETE BLOOD COUNT Routine 07/25/2025 4:04 AM EDT POCT GLUCOSE BLOOD Routine 07/25/2025 2: 19 AM EDT POCT GLUCOSE BLOOD Routine 07/24/2025 10:22 PM EDT POCT GLUCOSE BLOOD Routine 07/24/2025 8: 20 PM EDT OXYGEN THERAPY, ADULT Routine 07/24/2025 8:00 PM EDT PROTHROMBIN TIME WITH INR Routine 07/24/2025 2:21 PM EDT POCT GLUCOSE BLOOD Routine 07/24/2025 12:07 PM EDT POCT GLUCOSE BLOOD Routine 07/24/2025 8: 38 AM EDT OXYGEN THERAPY, ADULT Routine 07/24/2025 8:02 AM EDT POCT GLUCOSE BLOOD Routine 07/24/2025 6: 25 AM EDT POCT GLUCOSE BLOOD Routine 07/24/2025 4: 32 AM EDT ARTERIAL BLOOD GAS Routine 07/24/2025 3: 19 AM EDT MAGNESIUM Routine 07/24/2025 3:19 AM EDT BASIC METABOLIC PANEL Routine 07/24/2025 3:19 AM EDT COMPLETE BLOOD COUNT Routine 07/24/2025 3:19 AM EDT POCT GLUCOSE BLOOD Routine 07/24/2025 3: 16 AM EDT MIXED VENOUS BLOOD GAS Routine 3:09 AM EDT POCT GLUCOSE BLOOD Routine 07/24/2025 2: 03 AM EDT POCT GLUCOSE BLOOD Routine 07/24/2025 12:59 AM EDT POCT GLUCOSE BLOOD Routine 07/23/2025 11:09 PM EDT POCT GLUCOSE BLOOD Routine 07/23/2025 9: 09 PM EDT OXYGEN THERAPY, ADULT Routine 07/23/2025 8:00 PM EDT POCT GLUCOSE BLOOD Routine 07/23/2025 7: 39 PM EDT POCT GLUCOSE BLOOD Routine 07/23/2025 6: 10 PM EDT ARTERIAL BLOOD GAS Routine 07/23/2025 4: 52 PM EDT POTASSIUM Routine 07/23/2025 4:51 PM EDT POCT GLUCOSE BLOOD Routine 07/23/2025 4: 48 PM EDT POCT GLUCOSE BLOOD Routine 07/23/2025 1: 22 PM EDT HEMOGLOBIN AND HEMATOCRIT Routine 07/23/2025 1:19 PM EDT MIXED VENOUS BLOOD GAS Routine 1:19 PM EDT POCT GLUCOSE BLOOD Routine 07/23/2025 12:43 PM EDT POTASSIUM Routine 07/23/2025 10:58 AM EDT POCT GLUCOSE BLOOD Routine 07/23/2025 9: 59 AM EDT ARTERIAL BLOOD GAS Routine 07/23/2025 9: 51 AM EDT POCT GLUCOSE BLOOD Routine 07/23/2025 8: 15 AM EDT OXYGEN THERAPY, ADULT Routine 07/23/2025 8:15 AM EDT OXYGEN THERAPY, ADULT Routine 07/23/2025 8:15 AM EDT EXTUBATION Routine 07/23/2025 8:15 AM EDT ARTERIAL BLOOD GAS STAT 07/23/2025 7: 27 AM EDT TRANSFUSE RED BLOOD CELLS Routine 07/23/2025 6:50 AM EDT POCT GLUCOSE BLOOD Routine 07/23/2025 6: 27 AM EDT POCT GLUCOSE BLOOD Routine 07/23/2025 5: 39 AM EDT TRANSFUSE RED BLOOD CELLS Routine 07/23/2025 5:23 AM EDT ECG 12-LEAD Routine 07/23/2025 5:10 AM EDT VENTILATOR, ADULT Routine 07/23/2025 5:0 4 AM EDT XR CHEST 1 VIEW Timed 07/23/2025 4:51 AM EDT ACUTE KIDNEY INJURY SCORE Routine 07/23/2025 4:36 AM EDT PREPARE RBC Routine 07/23/2025 4:21 AM EDT POCT GLUCOSE BLOOD Routine 07/23/2025 3: 44 AM EDT COMPLETE BLOOD COUNT Timed 07/23/2025 3:36 AM EDT BASIC METABOLIC PANEL Timed 07/23/2025 3:36 AM EDT MAGNESIUM Timed 07/23/2025 3:36 AM EDT CALCIUM, IONIZED Timed 07/23/2025 3:36 AM EDT PHOSPHORUS Timed 07/23/2025 3:36 AM EDT MIXED VENOUS BLOOD GAS Timed 3:36 AM EDT ARTERIAL BLOOD GAS Timed 07/23/2025 3: 35 AM EDT TRIGLYCERIDES Timed 07/22/2025 11:56 PM EDT POCT BLOOD GAS, ARTERIAL Routine 025 11:45 PM EDT POCT GLUCOSE BLOOD Routine 07/22/2025 11:42 PM EDT POCT BLOOD GAS, ARTERIAL Routine 025 10:29 PM EDT POCT GLUCOSE BLOOD Routine 07/22/2025 10:28 PM EDT POCT BLOOD GAS, ARTERIAL Routine 025 8:58 PM EDT POCT GLUCOSE BLOOD Routine 07/22/2025 8: 55 PM EDT ACTIVATED PARTIAL THROMBOPLASTIN TIME Timed 07/22/2025 8:51 PM EDT PROTHROMBIN TIME WITH INR Timed 07/22/2025 8:51 PM EDT HEMOGLOBIN AND HEMATOCRIT Timed 07/22/2025 8:51 PM EDT POTASSIUM Timed 07/22/2025 8:51 PM EDT POCT BLOOD GAS, ARTERIAL Routine 025 7:20 PM EDT POCT GLUCOSE BLOOD Routine 07/22/2025 7: 18 PM EDT POCT BLOOD GAS, ARTERIAL Routine 025 5:04 PM EDT POCT GLUCOSE BLOOD Routine 07/22/2025 5: 00 PM EDT XR CHEST 1 VIEW STAT 07/22/2025 4:15 PM EDT POCT BLOOD GAS, ARTERIAL Routine 025 4:09 PM EDT POCT GLUCOSE BLOOD Routine 07/22/2025 4: 06 PM EDT ARTERIAL BLOOD GAS STAT 07/22/2025 4: 06 PM EDT COMPLETE BLOOD COUNT STAT 07/22/2025 4:05 PM EDT BASIC METABOLIC PANEL STAT 07/22/2025 4:05 PM EDT CALCIUM, IONIZED STAT 07/22/2025 4:05 PM EDT PHOSPHORUS STAT 07/22/2025 4:05 PM EDT MIXED VENOUS BLOOD GAS STAT 4:05 PM EDT ACTIVATED PARTIAL THROMBOPLASTIN TIME Timed 07/22/2025 4:05 PM EDT PROTHROMBIN TIME WITH INR Timed 07/22/2025 4:05 PM EDT HEMOGLOBIN AND HEMATOCRIT Timed 07/22/2025 4:05 PM EDT POTASSIUM Timed 07/22/2025 4:05 PM EDT ECG 12-LEAD STAT 07/22/2025 4:01 PM EDT VENTILATOR, ADULT Routine 07/22/2025 3:5 3 PM EDT TRANSFUSE CRYOPRECIPITATE Routine 07/22/2025 3:02 PM EDT TRANSFUSE CRYOPRECIPITATE Routine 07/22/2025 3:02 PM EDT POCT ARTERIAL BLOOD GAS CHEM4, HH Routine 07/22/2025 2:56 PM EDT TRANSFUSE CRYOPRECIPITATE Routine 07/22/2025 2:39 PM EDT PREPARE CRYOPRECIPITATE STAT 07/22/20 25 2:26 PM EDT PREPARE CRYOPRECIPITATE STAT 07/22/20 2:21 PM EDT THROMBOELASTOGRAPH 6 GLOBAL HEMOSTASIS PANEL STAT 07/22/2025 2:21 PM EDT Atherosclerosis of [place] coronary artery of [place] heart without angina pectoris Nonrheumatic mitral valve regurgitation PREPARE PLATELETS STAT 07/22/2025 2:2 0 PM EDT TRANSFUSE CRYOPRECIPITATE Routine 07/22/2025 2:09 PM EDT POCT ARTERIAL BLOOD GAS CHEM4, HH Routine 07/22/2025 1:59 PM EDT TRANSFUSE PLATELETS Routine 07/22/2025 1 :51 PM EDT PREPARE CRYOPRECIPITATE STAT 07/22/20 1:30 PM EDT POCT ARTERIAL BLOOD GAS CHEM4, Routine 07/22/2025 1:27 PM EDT POCT ARTERIAL BLOOD GAS CHEM4, Routine 07/22/2025 12:50 PM EDT POCT ARTERIAL BLOOD GAS CHEM4, Routine 07/22/2025 12:31 PM EDT POCT ARTERIAL BLOOD GAS CHEM4, Routine 07/22/2025 12:06 PM EDT POCT ARTERIAL BLOOD GAS CHEM4, Routine 07/22/2025 11:36 AM EDT FIBRINOGEN STAT 07/22/2025 11:27 AM EDT Atherosclerosis of [place] coronary artery of [place] heart without angina pectoris Nonrheumatic mitral valve regurgitation PLATELET COUNT STAT 07/22/2025 11:27 AM EDT Atherosclerosis of [place] coronary artery of [place] heart without angina pectoris Nonrheumatic mitral valve regurgitation POCT ARTERIAL BLOOD GAS CHEM4, Routine 07/22/2025 11:13 AM EDT POCT ARTERIAL BLOOD GAS CHEM4, HH Routine 07/22/2025 10:52 AM EDT TISSUE EXAM Routine 07/22/2025 10:50 AM EDT Nonrheumatic mitral valve regurgitation POCT ARTERIAL BLOOD GAS CHEM4, Routine 07/22/2025 10:29 AM EDT POCT ARTERIAL BLOOD GAS CHEM4, HH Routine 07/22/2025 10:07 AM EDT POCT ARTERIAL BLOOD GAS CHEM4, HH Routine 07/22/2025 9:40 AM EDT POCT ARTERIAL BLOOD GAS CHEM4, HH Routine 07/22/2025 9:02 AM EDT ANESTHESIA PAC LINE PLACEMENT Routine 07/22/2025 8:37 AM EDT TH AN ENDOTRACHEAL(NO CHARGE) Routine 07/22/2025 8:36 AM EDT POCT ARTERIAL BLOOD GAS CHEM4, HH Routine 07/22/2025 8:03 AM EDT MAZE PROCEDURE 07/22/2025 7:14 AM EDT Atherosclerosis of [place] coronary artery of [place] heart without angina pectoris Nonrheumatic mitral valve regurgitation Paroxysmal atrial fibrillation (CMS/HCC V24, CMS/HCC V28) TX ENDO SURG CORONARY ART BYPASS PROC INCL VIDEO-ASSISTED HARVEST VEIN(S) 07/22/2025 7:14 AM EDT Atherosclerosis of [place] coronary artery of [place] heart without angina pectoris Nonrheumatic mitral valve regurgitation Paroxysmal atrial fibrillation (CMS/HCC V24, CMS/HCC V28) TX CORONARY ARTERY BYPASS VEIN ONLY SINGLE CORONARY VENOUS GRAFT 07/22/2025 7:14 AM EDT Atherosclerosis of [place] coronary artery of [place] heart without angina pectoris Nonrheumatic mitral valve regurgitation Paroxysmal atrial fibrillation (CMS/HCC V24, CMS/HCC V28) TX REPLACEMENT MITRAL VALVE WITH CARDIOPULMONARY BYPASS 07/22/2025 7:14 AM EDT Atherosclerosis of [place] coronary artery of [place] heart without angina pectoris Nonrheumatic mitral valve regurgitation Paroxysmal atrial fibrillation (CMS/HCC V24, CMS/HCC V28) TX ECHOCARDIOGRAPHY TRANSESOPHAGEAL REAL-TIME W IMG DOC INCL PROBE PLCMNT 07/22/2025 7:14 AM EDT Atherosclerosis of [place] coronary artery of [place] heart without angina pectoris Nonrheumatic mitral valve regurgitation Paroxysmal atrial fibrillation (CMS/HCC V24, CMS/HCC V28) PABLO INTRA OP ONLY Routine 07/22/2025 7:0 3 AM EDT Mitral valve insufficiency, unspecified etiology Atrial fibrillation with RVR (CMS/HCC V24, CMS/HCC V28) POCT GLUCOSE BLOOD Routine 07/22/2025 6: 21 AM EDT TYPE AND SCREEN STAT 07/22/2025 6:09 AM EDT ACTIVATED PARTIAL THROMBOPLASTIN TIME STAT 07/22/2025 6:09 AM EDT PROTHROMBIN TIME WITH INR STAT 07/22/2025 6:09 AM EDT PREPARE PLATELETS Routine 07/22/2025 5:5 4 AM EDT PREPARE RBC Routine 07/22/2025 5:54 AM EDT OXYGEN THERAPY, ADULT Routine 07/22/2025 5:53 AM EDT ECG OUTSIDE 07/21/2025 XR CHEST 2 VIEWS STAT 07/20/2025 3:16 PM EDT Pre-op testing ECG 12-LEAD Routine 07/20/2025 1:28 PM EDT Pre-op testing CBC WITH AUTO DIFFERENTIAL STAT 07/20/2025 1:14 PM EDT Pre-op testing TYPE AND SCREEN STAT 07/20/2025 1:14 PM EDT Pre-op testing PROTHROMBIN TIME WITH INR STAT 07/20/2025 1:14 PM EDT SOB (shortness of breath) PREALBUMIN STAT 07/20/2025 1:14 PM EDT Pre-op testing LIPID PANEL WITH REFLEX TO DIRECT LDL STAT 07/20/2025 1:14 PM EDT Hyperlipidemia, unspecified hyperlipidemia type HEPATIC FUNCTION PANEL STAT 1:14 PM EDT Pre-op testing CBC AND DIFFERENTIAL STAT 07/20/2025 1:14 PM EDT Pre-op testing B-TYPE NATRIURETIC PEPTIDE STAT 07/20/2025 1:14 PM EDT SOB (shortness of breath) BASIC METABOLIC PANEL STAT 07/20/2025 1:14 PM EDT Pre-op testing ACTIVATED PARTIAL THROMBOPLASTIN TIME STAT 07/20/2025 1:14 PM EDT SOB (shortness of breath) HC SPIROMETRY Routine 07/20/2025 1:09 PM EDT Pre-op testing ECG ANNOTATED 07/20/2025 ECG OUTSIDE 07/20/2025 POCT GLUCOSE BLOOD Routine 07/18/2025 11:23 AM EDT POCT GLUCOSE BLOOD Routine 07/18/2025 7: 20 AM EDT CBC WITH AUTO DIFFERENTIAL Routine 07/18/2025 5:31 AM EDT MAGNESIUM Routine 07/18/2025 5:31 AM EDT BASIC METABOLIC PANEL Routine 07/18/2025 5:31 AM EDT CBC AND DIFFERENTIAL Routine 07/18/2025 5:31 AM EDT ACTIVATED PARTIAL THROMBOPLASTIN TIME Routine 07/18/2025 5:31 AM EDT POCT GLUCOSE BLOOD Routine 07/17/2025 7: 41 PM EDT POCT GLUCOSE BLOOD Routine 07/17/2025 4: 29 PM EDT POCT GLUCOSE BLOOD Routine 07/17/2025 2: 00 PM EDT CARDIOVERSION EXTERNAL Routine 12:45 PM EDT A-fib (CMS/HCC V24, CMS/HCC V28) POCT GLUCOSE BLOOD Routine 07/17/2025 7: 52 AM EDT CBC WITH AUTO DIFFERENTIAL Routine 07/17/2025 6:11 AM EDT ACTIVATED PARTIAL THROMBOPLASTIN TIME Timed 07/17/2025 6:11 AM EDT TYPE AND SCREEN Routine 07/17/2025 6:11 AM EDT CBC AND DIFFERENTIAL Routine 07/17/2025 6:11 AM EDT BASIC METABOLIC PANEL Routine 07/17/2025 6:11 AM EDT ECG 12-LEAD Routine 07/17/2025 12:15 AM EDT ACTIVATED PARTIAL THROMBOPLASTIN TIME Timed 07/17/2025 12:07 AM EDT URINALYSIS WITH REFLEX MICROSCOPIC Routine 07/16/2025 10:15 PM EDT URINALYSIS WITH REFLEX MICROSCOPIC Routine 07/16/2025 10:15 PM EDT MAGNESIUM Routine 07/16/2025 9:16 PM EDT BASIC METABOLIC PANEL Routine 07/16/2025 9:16 PM EDT POCT GLUCOSE BLOOD Routine 07/16/2025 7: 45 PM EDT ACTIVATED PARTIAL THROMBOPLASTIN TIME STAT 07/16/2025 6:08 PM EDT POCT GLUCOSE BLOOD Routine 07/16/2025 5: 41 PM EDT RIGHT HEART CATH Routine 07/16/2025 1:37 PM EDT Cardiomyopathy, unspecified type (CMS/HCC V24, CMS/HCC V28) Nonrheumatic mitral valve regurgitation LEFT HEART CATH / CORONARY ANGIOGRAPHY Routine 07/16/2025 1:37 PM EDT Cardiomyopathy, unspecified type (CMS/HCC V24, CMS/HCC V28) Nonrheumatic mitral valve regurgitation POCT ARTERIAL CARDIAC CATH Routine 07/16/2025 1:29 PM EDT POCT ARTERIAL CARDIAC CATH Routine 07/16/2025 1:05 PM EDT ACTIVATED PARTIAL THROMBOPLASTIN TIME Timed 07/16/2025 11:46 AM EDT POCT GLUCOSE BLOOD Routine 07/16/2025 11:21 AM EDT POCT GLUCOSE BLOOD Routine 07/16/2025 8: 32 AM EDT LAVENDER - EDTA Routine 07/16/2025 4:50 AM EDT EXTRA TUBES Routine 07/16/2025 4:50 AM EDT BASIC METABOLIC PANEL Routine 07/16/2025 4:50 AM EDT ACTIVATED PARTIAL THROMBOPLASTIN TIME Timed 07/16/2025 4:50 AM EDT ACTIVATED PARTIAL THROMBOPLASTIN TIME Timed 07/15/2025 9:41 PM EDT POCT GLUCOSE BLOOD Routine 07/15/2025 8: 04 PM EDT ACTIVATED PARTIAL THROMBOPLASTIN TIME STAT 07/15/2025 7:43 PM EDT POCT GLUCOSE BLOOD Routine 07/15/2025 3: 54 PM EDT ACTIVATED PARTIAL THROMBOPLASTIN TIME Timed 07/15/2025 3:45 PM EDT POCT GLUCOSE BLOOD Routine 07/15/2025 11:50 AM EDT ACTIVATED PARTIAL THROMBOPLASTIN TIME Routine 07/15/2025 9:25 AM EDT PABLO COMPLETE W/ CARDIOVERSION Routine 07/15/2025 8:50 AM EDT Atrial fibrillation with RVR (CMS/HCC V24, CMS/HCC V28) ACTIVATED PARTIAL THROMBOPLASTIN TIME Timed 07/15/2025 6:25 AM EDT ACTIVATED PARTIAL THROMBOPLASTIN TIME STAT 07/15/2025 4:40 AM EDT COMPLETE BLOOD COUNT Timed 07/15/2025 4:40 AM EDT BASIC METABOLIC PANEL Routine 07/15/2025 4:40 AM EDT ACTIVATED PARTIAL THROMBOPLASTIN TIME Timed 07/14/2025 11:58 PM EDT POCT GLUCOSE BLOOD Routine 07/14/2025 8: 17 PM EDT ACTIVATED PARTIAL THROMBOPLASTIN TIME Timed 07/14/2025 6:00 PM EDT POCT GLUCOSE BLOOD Routine 07/14/2025 4: 16 PM EDT HEPARIN AND LOW MOLECULAR WEIGHT ANTI XA LEVEL STAT 07/14/2025 2:34 PM EDT POCT GLUCOSE BLOOD Routine 07/14/2025 10:53 AM EDT TRANSTHORACIC ECHOCARDIOGRAM (TTE) COMPLETE W/ CONTRAST Routine 07/14/2025 9:44 AM EDT Atrial fibrillation with RVR (CMS/HCC V24, CMS/HCC V28) POCT GLUCOSE BLOOD Routine 07/14/2025 7: 35 AM EDT COMPLETE BLOOD COUNT Routine 07/14/2025 5:38 AM EDT BASIC METABOLIC PANEL Routine 07/14/2025 5:38 AM EDT POCT GLUCOSE BLOOD Routine 07/13/2025 7: 34 PM EDT POCT GLUCOSE BLOOD Routine 07/13/2025 3: 57 PM EDT TROPONIN I HIGH SENSITIVITY Timed 07/13/2025 2:23 PM EDT POCT GLUCOSE BLOOD Routine 07/13/2025 11:18 AM EDT FENTANYL AND METABOLITE, QUANTITATIVE, URINE Routine 07/13/2025 11:11 AM EDT DRUG ABUSE SCREEN 8A PANEL, URINE Routine 07/13/2025 11:11 AM EDT ACTIVATED PARTIAL THROMBOPLASTIN TIME STAT 07/13/2025 10:47 AM EDT PROTHROMBIN TIME WITH INR STAT 07/13/2025 10:47 AM EDT TROPONIN I HIGH SENSITIVITY Timed 07/13/2025 10:47 AM EDT RESPIRATORY VIRUS PANEL MOLECULAR STUDY STAT 07/13/2025 10:11 AM EDT HEMOGLOBIN A1C Add-On 07/13/2025 7:59 AM EDT ETHANOL STAT Add-on 07/13/2025 7:59 AM EDT PROCALCITONIN STAT Add-on 07/13/2025 7:59 AM EDT THYROID STIMULATING HORMONE WITH REFLEX TO FREE T4 AND FREE T3 Add-On 07/13/2025 7:59 AM EDT CBC WITH AUTO DIFFERENTIAL STAT 07/13/2025 7:59 AM EDT B-TYPE NATRIURETIC PEPTIDE STAT 07/13/2025 7:59 AM EDT MAGNESIUM STAT 07/13/2025 7:59 AM EDT LIPASE STAT 07/13/2025 7:59 AM EDT COMPREHENSIVE METABOLIC PANEL STAT 07/13/2025 7:59 AM EDT CBC AND DIFFERENTIAL STAT 07/13/2025 7:59 AM EDT TROPONIN I HIGH SENSITIVITY Timed 07/13/2025 7:59 AM EDT XR CHEST 1 VIEW STAT 07/13/2025 7:55 AM EDT ECG 12-LEAD STAT 07/13/2025 7:42 AM EDT ECG 12-LEAD STAT 07/13/2025 7:20 AM EDT TX CRITICAL CARE 30-74 MINUTES Routine 07/13/2025 7:14 AM EDT from Last 3 Months Results * POCT Glucose, blood (07/31/2025 1:15 PM EDT) Only the most recent of73 resultswithin the time period is included. [facility] Glucose POCT 107 70 - 199 mg/dL 07/31/2025 1:15 PM EDT [facility] ([facility] Comment: Fasting Reference Range: 70-99 mg/dL Non-Fasting Reference Range: 70-199 mg/dL POCT Comment Notified Nurse 07/31/2025 1:15 PM EDT [facility] Blood Capillary blood specimen / Unknown 07/31/2025 1:15 PM EDT 07/31/2025 1:16 PM EDT Jayjay Arias MD LAB POINT OF CARE TE ST DOCKED DEVICE UNSOLICITED RESULTS Final Result Performing Organization Address City/[facility]/ZIP Co de Phone Number [facility] [address] [place] [address], * (ABNORMAL) Prothrombin time with INR (07/31/2025 8:17 AM EDT) Only the most recent of13 resultswithin the time period is included. Protime 15.8(H) 10.5 - 13.3 sec LAB COAGULATION METHOD 07/31/2025 8:53 AM EDT [facility] INR 1.4(H) 0.8 - 1.1 LAB COAGULATION METHOD 07/31/2025 8:53 AM EDT [facility] Blood Venous blood specimen / Unknown Venipuncture / Unknown 07/31/2025 8:17 AM EDT 07/31/2025 8:31 AM EDT Narrative [facility] - 07/31/2025 8:53 AM EDT Std. Therapy 2.0-3.0 INR High Dose Therapy 3.0-4.5 INR Ranges may vary depending on clinical indications and protocol. Fabio RUTHERFORD LAB BLOOD ORDERABLES Final Resul t [facility] [address] [place] [phone], * Potassium (07/31/2025 8:17 AM EDT) Only the most recent of6 resultswithin the time period is included. Potassium 4.1 3.5 - 5.1 mmol/L LAB CHEMISTRY METHOD 07/31/2025 9:12 AM EDT [facility] Blood Venous blood specimen / Unknown Venipuncture / Unknown 07/31/2025 8:17 AM EDT 07/31/2025 8:31 AM EDT us Fabio [facility]HER[facility] LAB BLOOD ORDERABLES Final Resul t Performing Organization Address City/[facility]/ZIP Co de Phone Number [facility] [address] [place] [phone], * Magnesium (07/31/2025 8:17 AM EDT) Only the most recent of13 resultswithin the time period is included. Magnesium 2.0 1.7 - 2.8 mg/dL LAB CHEMISTRY METHOD 07/31/2025 9:12 AM EDT [facility] Blood Venous blood specimen / Unknown Venipuncture / Unknown 07/31/2025 8:17 AM EDT 07/31/2025 8:31 AM EDT us Fabio R[facility]HER[facility]ORD LAB BLOOD ORDERABLES Final Resul t Performing Organization Address [facility] de Phone Number [facility] [address] [place] [phone], * Calcium, ionized (07/31/2025 8:17 AM EDT) Only the most recent of8 resultswithin the time period is included. Calcium Ionized 1.22 1.19 - 1.35 mg/dL LAB BLOOD GAS METHOD 07/31/2025 8:39 AM EDT [facility] Blood Venous blood specimen / Unknown Venipuncture / Unknown 07/31/2025 8:17 AM EDT 07/31/2025 8:29 AM EDT us Fabio RUTHERFORD LAB BLOOD ORDERABLES Final Resul t Performing Organization Address City/[facility] de Phone Number [facility] ([facility] [address] [facility] [place] [address], [place] [phone] * XR Chest 1 View (07/31/2025 6:07 AM EDT) Only the most recent of5 resultswithin the time period is included. Anatomical Region Laterality Modality Body Radiographic Jana ging 07/31/2025 7:05 AM EDT Impressions 07/31/2025 7:08 AM EDT Removal of right IJ central line and [place] catheter. Improved visualization of the left lung base with mild atelectasis in small left pleural effusion remaining. -------- FINAL REPORT -------- Dictated By: Julian Mayfield Dictated Date: 07/31/2025 07:05 ET Assigned Physician: Julian Mayfield Reviewed and Electronically Signed By: Julian Mayfield Signed Date: 07/31/2025 07:08 ET Workstation ID: [id number] Transcribed By: Self Edit Transcribed Date: 07/31/2025 07:05 ET Narrative 07/31/2025 7:08 AM EDT EXAM: XR CHEST 1 VIEW HISTORY: s/p MVR CABG COMPARISON:07/27/2025, 07/23/2025, 07/22/2025 FINDINGS: Interval removal of right IJ central line and [place] catheter. Cardiac silhouette remains enlarged. Improved visualization of left lung base with mild atelectasis remaining and small pleural effusion. The right lung is clear. No pneumothorax. Status post sternotomy and mitral valve replacement. Procedure Note Julian Mayfield MD - 07/31/2025 EXAM: XR CHEST 1 VIEW HISTORY: s/p MVR CABG COMPARISON:07/27/2025, 07/23/2025, 07/22/2025 FINDINGS: Interval removal of right IJ central line and [place] catheter. Cardiacsilhouette remains enlarged. Improved visualization of left lung base withmild atelectasis remaining and small pleural effusion. The right lung isclear. No pneumothorax. Status post sternotomy and mitral valvereplacement. IMPRESSION: Removal of right IJ central line and [place] catheter. Improvedvisualization of the left lung base with mild atelectasis in small leftpleural effusion remaining. -------- FINAL REPORT -------- Dictated By: Julian Mayfield Dictated Date: 07/31/2025 07:05 ET Assigned Physician: Julian Mayfield Reviewed and Electronically Signed By: Julian Mayfield Signed Date: 07/31/2025 07:08 ET Workstation ID: [id number] Transcribed By: Self Edit Transcribed Date: 07/31/2025 07:05 ET us Josafat RUTHERFORD IMG XR PROCEDURES Final Result * (ABNORMAL) Complete blood count (07/30/2025 6:34 AM EDT) Only the most recent of11 resultswithin the time period is included. WBC 7.7 4.0 - 10.5 K/mcL LAB HEMETOLOGY METHOD 07/30/2025 7:13 AM EDT [facility] RBC 2.78(L) 4.70 - 6.00 M/mcL LAB HEMETOLOGY METHOD 07/30/2025 7:13 AM EDT [facility] Hemoglobin 8.9(L) 13.5 - 18.0 g/dL LAB HEMETOLOGY METHOD 07/30/2025 7:13 AM EDT [facility] Hematocrit 27.3(L) 40.0 - 54.0 % LAB HEMETOLOGY METHOD 07/30/2025 7:13 AM EDT [facility] MCV 98.2 78.0 - 100.0 FL LAB HEMETOLOGY METHOD 07/30/2025 7:13 AM EDT [facility] MCH 32.1 25.0 - 33.0 pcg LAB HEMETOLOGY METHOD 07/30/2025 7:13 AM EDT [facility] MCHC 32.7 32.0 - 36.0 g/dL LAB HEMETOLOGY METHOD 07/30/2025 7:13 AM EDT [facility] RDW 15.0 12.1 - 17.7 % LAB HEMETOLOGY METHOD 07/30/2025 7:13 AM EDT [facility] Platelets 218 150 - 450 K/mcL LAB HEMETOLOGY METHOD 07/30/2025 7:13 AM EDT [facility] Comment:Verified by repeat a nalysis MPV 9.0 7.4 - 11.4 FL LAB HEMETOLOGY METHOD 07/30/2025 7:13 AM EDT [facility] Blood Venous blood specimen / Unknown Venipuncture / Unknown 07/30/2025 6:34 AM EDT 07/30/2025 6:58 AM EDT Fabio RUTHERFORD LAB BLOOD ORDERABLES Final Resul t Performing Organization Address City/[facility]/ZIP Co de Phone Number [facility] [address] [place] [phone], [place] [phone] * Phosphorus (07/30/2025 6:34 AM EDT) Only the most recent of7 resultswithin the time period is included. Phosphorus 3.4 2.5 - 4.5 mg/dL LAB CHEMISTRY METHOD 07/30/2025 7:39 AM EDT [facility] Blood Venous blood specimen / Unknown Venipuncture / Unknown 07/30/2025 6:34 AM EDT 07/30/2025 6:58 AM EDT Fabio Borjas ME LAB BLOOD ORDERABLES Final Resul t [facility] [address] [place] [phone], [place] [phone] * (ABNORMAL) Basic metabolic panel (07/30/2025 6:34 AM EDT) Only the most recent of16 resultswithin the time period is included. Sodium 139 135 - 145 mmol/L LAB CHEMISTRY METHOD 07/30/2025 7:39 AM EDT [facility] Potassium 4.4 3.5 - 5.1 mmol/L LAB CHEMISTRY METHOD 07/30/2025 7:39 AM EDT [facility] Comment:Slightly Hemolyzed Chloride 105 98 - 107 mmol/L LAB CHEMISTRY METHOD 07/30/2025 7:39 AM EDT [facility] CO2 25 24 - 32 mmol/L LAB CHEMISTRY METHOD 07/30/2025 7:39 AM EDT [facility] Anion Gap 9 5 - 14 LAB CHEMISTRY METHOD 07/30/2025 7:39 AM EDT [facility] Glucose 93 70 - 199 mg/dL LAB CHEMISTRY METHOD 07/30/2025 7:39 AM [facility] BUN 20 9 - 20 mg/dL LAB CHEMISTRY METHOD 07/30/2025 7:39 AM [facility] Creatinine 0.80 0.70 - 1.30 mg/dL LAB CHEMISTRY METHOD 07/30/2025 7:39 AM EDT [facility] eGFR 98 >=60 mL/min/1. 73m2 LAB CHEMISTRY METHOD 07/30/2025 7:39 AM [facility] Comment:Calculation based on the Chronic Kidney Disease Epidemiology Collaboration (CKD-EPI) equation refit without adjustment for race. BUN/Creatinine Ratio 25.0(H) 12.0 - 20.0 LAB CHEMISTRY METHOD 07/30/2025 7:39 AM T [facility] Calcium 8.4 8.4 - 10.2 mg/dL LAB CHEMISTRY METHOD 07/30/2025 7:39 AM [facility] Blood Venous blood specimen / Unknown Venipuncture / Unknown 07/30/2025 6:34 AM EDT 07/30/2025 6:58 AM EDT us Fabio RUTHERFORD LAB BLOOD ORDERABLES Final Resul t Performing Organization Address City/[facility]/ZIP Co de Phone Number [facility] [address] [place] [address], [place] [phone] * Lactate, whole blood (07/29/2025 5:12 AM EDT) Only the most recent of4 resultswithin the time period is included. Lactate, Whole Blood 1.2 0.5 - 2.2 mmol/L LAB BLOOD GAS METHOD 07/29/2025 5:53 AM EDT [facility] Blood Blood sample taken from central line / Unknown Venipuncture / Unknown 07/29/2025 5:12 AM EDT 07/29/2025 5:28 AM EDT us [place] [facility] LAB BLOOD ORDERABLES Final Res ult Performing Organization Address [facility] Co de Phone Number [facility] [address] [place] [phone], [place] [phone] * (ABNORMAL) Hemoglobin and hematocrit (07/28/2025 2:44 PM EDT) Only the most recent of4 resultswithin the time period is included. Pathologist [facility] Hemoglobin 8.1(L) 13.5 - 18.0 g/dL LAB HEMETOLOGY METHOD 07/28/2025 3:02 PM EDT [facility] Hematocrit 23.7(L) 40.0 - 54.0 % LAB HEMETOLOGY METHOD 07/28/2025 3:02 PM EDT [facility] Blood Venous blood specimen / Unknown Venipuncture / Unknown 07/28/2025 2:44 PM EDT 07/28/2025 2:55 PM EDT [place] [facility] LAB BLOOD ORDERABLES Final Res ult Performing Organization Address City/[facility]/ZIP Co de Phone Number [facility] [address] [place] [address], [place] [phone] * Prepare RBC: 1 Units (07/28/2025 7:45 AM EDT) Only the most recent of3 resultswithin the time period is included. Pathologist [facility] Product Code [id number] 07/29/2025 10:07 AM EDT [facility] Unit Number [id number] 07/29/20 10:07 AM EDT [facility] Crossmatch Compatible 07/28/2025 7:49 AM EDT [facility] Dispense Status Released From Crossmatch 07/29/2025 10:07 AM EDT [facility] Unit ABO Rh OPOS 07/29/2025 10:07 AM EDT [facility] Unit Expiration Date Time [id number] 07/29/2025 10:07 AM EDT [facility] Unit Blood Type 5100 07/29/2025 10:07 AM EDT [facility] Blood Venous blood specimen / Unknown 07/28/2025 7:45 AM EDT 07/28/2025 5:43 AM EDT [place] [facility] PRODUCT ORDERABLES Final Result [facility] [address] [place] [address], [place] [phone] * Mixed venous blood gas (07/28/2025 5:24 AM EDT) Only the most recent of7 resultswithin the time period is included. Pathologist [facility] pH, Mixed Venous Blood 7.41 7.35 - 7.45 pH LAB BLOOD GAS METHOD 07/28/2025 5:52 AM EDT [facility] Carbon Dioxide Mixed Venous 43 mmHg LAB BLOOD GAS METHOD 07/28/2025 5:52 AM EDT [facility] Comment:No established refer ence range. PO2 Mixed Venous 30 mmHg LAB BLOOD GAS METHOD 07/28/2025 5:52 AM EDT [facility] Comment:No established refer ence range. Bicarbonate Mixed Venous 25.6 mmol/L LAB BLOOD GAS METHOD 07/28/2025 5:52 AM EDT [facility] Comment:No established refer ence range. Oxygen Saturation Mixed Venous 47.7 % LAB BLOOD GAS METHOD 07/28/2025 5:52 AM EDT [facility] Comment:No established refer ence range. Base Excess Mixed Venous 2.2 mmol/L LAB BLOOD GAS METHOD 07/28/2025 5:52 AM EDT [facility] Comment:No established refer ence range. Blood Mixed venous blood specimen / Unknown Existing Catheter / Unknown 07/28/2025 5:24 AM EDT 07/28/2025 5:42 AM EDT us Mark [facility] LAB BLOOD ORDERABLES Final Result [facility] [address] [place] [address], [place] [phone] * Type and screen (07/28/2025 5:24 AM EDT) Only the most recent of4 resultswithin the time period is included. ABO Group O 07/28/2025 7:21 AM EDT [facility] Rh Type Positive 07/28/2025 7:21 AM EDT [facility] Antibody Screen Negative 07/28/2025 7:21 AM EDT [facility] Blood Venous blood specimen / Unknown Existing Catheter / Unknown 07/28/2025 5:24 AM EDT 07/28/2025 5:43 AM EDT us Mark [facility] LAB BLOOD BANK TEST ORDERA BLES Final Result [facility] [address] [place] [address], * (ABNORMAL) Comprehensive metabolic panel (07/28/2025 3:34 AM EDT) Only the most recent of2 resultswithin the time period is included. Sodium 139 135 - 145 mmol/L LAB CHEMISTRY METHOD 07/28/2025 4:08 AM EDT [facility] Potassium 3.6 3.5 - 5.1 mmol/L LAB CHEMISTRY METHOD 07/28/2025 4:08 AM EDT [facility] Chloride 107 98 - 107 mmol/L LAB CHEMISTRY METHOD 07/28/2025 4:08 AM EDT [facility] CO2 26 24 - 32 mmol/L LAB CHEMISTRY METHOD 07/28/2025 4:08 AM EDT [facility] Anion Gap 6 5 - 14 LAB CHEMISTRY METHOD 07/28/2025 4:08 AM EDT [facility] Glucose 106(H) 70 - 99 mg/dL LAB CHEMISTRY METHOD 07/28/2025 4:08 AM EDT [facility] BUN 15 9 - 20 mg/dL LAB CHEMISTRY METHOD 07/28/2025 4:08 AM EDT [facility] Creatinine 0.70 0.70 - 1.30 mg/dL LAB CHEMISTRY METHOD 07/28/2025 4:08 AM EDT [facility] eGFR 102 >=60 mL/min/1. 73m2 LAB CHEMISTRY METHOD 07/28/2025 4:08 AM EDT [facility] Comment:Calculation based on the Chronic Kidney Disease Epidemiology Collaboration (CKD-EPI) equation refit without adjustment for race. BUN/Creatinine Ratio 21.4(H) 12.0 - 20.0 LAB CHEMISTRY METHOD 07/28/2025 4:08 AM EDT [facility] Calcium 7.6(L) 8.4 - 10.2 mg/dL LAB CHEMISTRY METHOD 07/28/2025 4:08 AM EDT [facility] AST (SGOT) 38 5 - 40 unit/L LAB CHEMISTRY METHOD 07/28/2025 4:08 AM EDT [facility] ALT (SGPT) 141(H) 7 - 52 unit/L LAB CHEMISTRY METHOD 07/28/2025 4:08 AM EDT [facility] Alkaline Phosphatase 75 34 - 104 unit/L LAB CHEMISTRY METHOD 07/28/2025 4:08 AM EDT [facility] Total Protein 5.2(L) 6.4 - 8.5 g/dL LAB CHEMISTRY METHOD 07/28/2025 4:08 AM EDT [facility] Albumin 3.2(L) 3.5 - 5.0 g/dL LAB CHEMISTRY METHOD 07/28/2025 4:08 AM EDT [facility] Total Bilirubin 1.3(H) 0.3 - 1.0 mg/dL LAB CHEMISTRY METHOD 07/28/2025 4:08 AM EDT [facility] Blood Blood sample taken from central line / Unknown Venipuncture / Unknown 07/28/2025 3:34 AM EDT 07/28/2025 3:38 AM EDT us Jayjay Arias MD LAB BLOOD ORDERABLES Final Res ult [facility] [address] [place] [address], [place] [phone] * (ABNORMAL) CBC auto differential (07/27/2025 2:57 AM EDT) Only the most recent of5 resultswithin the time period is included. WBC 7.1 4.0 - 10.5 K/mcL LAB HEMETOLOGY METHOD 07/27/2025 3:23 AM EDT [facility] RBC 2.43(L) 4.70 - 6.00 M/mcL LAB HEMETOLOGY METHOD 07/27/2025 3:23 AM EDT [facility] Hemoglobin 7.9(L) 13.5 - 18.0 g/dL LAB HEMETOLOGY METHOD 07/27/2025 3:23 AM EDT [facility] Hematocrit 23.4(L) 40.0 - 54.0 % LAB HEMETOLOGY METHOD 07/27/2025 3:23 AM EDT [facility] MCV 96.1 78.0 - 100.0 FL LAB HEMETOLOGY METHOD 07/27/2025 3:23 AM EDT [facility] MCH 32.4 25.0 - 33.0 pcg LAB HEMETOLOGY METHOD 07/27/2025 3:23 AM EDT [facility] MCHC 33.7 32.0 - 36.0 g/dL LAB HEMETOLOGY METHOD 07/27/2025 3:23 AM EDT [facility] RDW 15.5 12.1 - 17.7 % LAB HEMETOLOGY METHOD 07/27/2025 3:23 AM EDT [facility] Platelets 89(L) 150 - 450 K/mcL LAB HEMETOLOGY METHOD 07/27/2025 3:23 AM EDT [facility] Comment:Verified by repeat a nalysis MPV 9.0 7.4 - 11.4 FL LAB HEMETOLOGY METHOD 07/27/2025 3:23 AM EDT [facility] Neutrophils Relative 74.8(H) 44.0 - 74.0 % LAB HEMETOLOGY METHOD 07/27/2025 3:23 AM EDT [facility] Lymphocytes Relative 12.1(L) 20.0 - 48.0 % LAB HEMETOLOGY METHOD 07/27/2025 3:23 AM EDT [facility] Monocytes Relative 11.9 2.0 - 12.0 % LAB HEMETOLOGY METHOD 07/27/2025 3:23 AM EDT [facility] Eosinophils Relative 0.6 0.0 - 6.0 % LAB HEMETOLOGY METHOD 07/27/2025 3:23 AM EDT [facility] Basophils Relative 0.6 0.0 - 2.0 % LAB HEMETOLOGY METHOD 07/27/2025 3:23 AM EDT [facility] Neutrophils Absolute 5.30 1.80 - 7.80 K/mcL LAB HEMETOLOGY METHOD 07/27/2025 3:23 AM EDT [facility] Lymphocytes Absolute 0.90(L) 1.00 - 3.20 K/mcL LAB HEMETOLOGY METHOD 07/27/2025 3:23 AM EDT [facility] Monocytes Absolute 0.80 0.00 - 0.80 K/mcL LAB HEMETOLOGY METHOD 07/27/2025 3:23 AM EDT [facility] Eosinophils Absolute 0.00 0.00 - 0.50 K/mcL LAB HEMETOLOGY METHOD 07/27/2025 3:23 AM EDT [facility] Basophils Absolute 0.00 0.00 - 0.20 K/mcL LAB HEMETOLOGY METHOD 07/27/2025 3:23 AM EDT [facility] Blood Venous blood specimen / Unknown Venipuncture / Unknown 07/27/2025 2:57 AM EDT 07/27/2025 3:08 AM EDT us Mark [facility] LAB BLOOD ORDERABLES Final Result [facility] [address] [place] [address], * (ABNORMAL) Hepatic function panel (07/27/2025 2:57 AM EDT) Only the most recent of3 resultswithin the time period is included. ALT (SGPT) 200(H) 7 - 52 unit/L LAB CHEMISTRY METHOD 07/27/2025 3:37 AM EDT [facility] AST (SGOT) 70(H) 5 - 40 unit/L LAB CHEMISTRY METHOD 07/27/2025 3:37 AM EDT [facility] Alkaline Phosphatase 76 34 - 104 unit/L LAB CHEMISTRY METHOD 07/27/2025 3:37 AM EDT [facility] Bilirubin, Direct 0.3(H) 0.0 - 0.2 mg/dL LAB CHEMISTRY METHOD 07/27/2025 3:37 AM EDT [facility] Total Bilirubin 1.1(H) 0.3 - 1.0 mg/dL LAB CHEMISTRY METHOD 07/27/2025 3:37 AM EDT [facility] Total Protein 5.3(L) 6.4 - 8.5 g/dL LAB CHEMISTRY METHOD 07/27/2025 3:37 AM EDT [facility] Albumin 3.2(L) 3.5 - 5.0 g/dL LAB CHEMISTRY METHOD 07/27/2025 3:37 AM EDT [facility] Globulin, Total 2.1(L) 2.3 - 3.5 g/dL LAB CHEMISTRY METHOD 07/27/2025 3:37 AM EDT [facility] A/G Ratio 1.5 LAB CHEMISTRY METHOD 07/27/2025 3:37 AM EDT [facility] Blood Venous blood specimen / Unknown Venipuncture / Unknown 07/27/2025 2:57 AM EDT 07/27/2025 3:08 AM EDT us Bere[place] LAB BLOOD ORDERABLES Final Resul t [facility] [address] [place] [address], [place] [phone] * (ABNORMAL) TRANSTHORACIC ECHOCARDIOGRAM (TTE) LIMITED W/ COLOR FLOW & CONTRAST (2025 12:38 PM EDT) Aortic Root 2.9 cm CV PACS Ascending Aorta 3.5 cm CV PACS IVSD 0.9 0.6 - 1.0 cm CV PACS LVIDD 5.9(A) 4.2 - 5.8 cm CV PACS LVIDS 5.0(A) 2.5 - 4.0 cm CV PACS LVPWD 1.3(A) 0.6 - 1.0 cm CV PACS MV E' Tissue Velocity Septal 7 cm/s CV PACS LA Size 5.2 cm CV PACS MV Deceleration Evans 7.8 m/s2 CV PACS E Wave Deceleration Time 210 119 - 242 ms CV PACS MV PHT 62 ms CV PACS MV Peak A Hilario 0.39 m/s CV PACS MV Peak E Hilario 1.64 m/s CV PACS MV Mean Gradient 3 mmHg CV PACS MV VTI 40.6 cm CV PACS Mitral Valve Max Velocity 1.7 m/s CV PACS MV Peak Gradient 11 mmHg CV PACS MV Area PHT 3.6 cm2 CV PACS RV S' 9 cm/s CV PACS TAPSE 11 mm CV PACS TR Peak Velocity 3.07 m/s CV PACS TR Peak Gradient 38 mmHg CV PACS E/E' Ratio Septal 23 CV PACS LA Dimension Index 2D 3.1 cm/m2 CV PACS Relative Wall Thickness ratio 0.44 CV PACS FS 15 % CV PACS LV Mass 2D 272 g CV PACS Ascending Aorta Index 2.07 cm/m2 CV PACS LVIDD Index 3.49 cm/m2 CV PACS LVIDS Index 2.96 cm/m2 CV PACS Aortic Root Index 1.72 cm/m2 CV PACS E/A Ratio 4.2 CV PACS LV Mass Index 2D 161 g/m2 CV PACS LA/Ao Ratio 1.8 CV PACS BSA 1.7 m2 CV PACS Right Ventricular Peak Systolic Pressure 46 mmHg CV PACS Est. RA Pressure 8 mmHg CV PACS Anatomical Region Laterality Modality Ultrasound Narrative 2025 2:46 PM EDT Left ventricle cavity size is normal. Left ventricular systolic function is mildly decreased with an ejection fraction of 40-50%. Right ventricle is enlarged. Right ventricular systolic function is moderately reduced. A bioprosthetic mitral valve is present. Prosthetic valve appears well-seated. Tricuspid valve demonstrates moderate regurgitation.The RVSP is estimated at 46 mmHg. A pacer wire is present in the right ventricle. Left Ventricle Left ventricle cavity size is normal. Wall thickness is normal. Systolic function is mildly decreased with an ejection fraction of 40-50%. There are no regional LV wall motion abnormalities. Unable to assess diastolic function. Right Ventricle Right ventricle cavity is dilated. Systolic function is moderately reduced. A pacer wire is present in the right ventricle. Left Atrium Left atrium cavity size is normal. Right Atrium Right atrium cavity is moderately dilated. IVC/SVC Inferior vena cava is dilated. Mitral Valve There is a bioprosthetic mitral valve. The prosthetic valve appears to be well-seated. There is no regurgitation. There is no significant stenosis noted. Tricuspid Valve Tricuspid valve structure is normal. There is moderate regurgitation. There is no significant tricuspid valve stenosis. The RVSP is estimated at 46 mmHg. Aortic Valve The aortic valve is trileaflet. The leaflets are mildly thickened and exhibit normal excursion. There is no regurgitation or stenosis. Pulmonic Valve The pulmonic valve was not well visualized. No significant pulmonic valve regurgitation. No significant pulmonary valve stenosis noted. Ascending Aorta The aorta appears normal in size. Pericardium Pericardium appears normal. There is no pericardial effusion. Study Details Overall the study quality was suboptimal. Definity contrast was given to enhance imaging. Limited study due to patient tolerance. Study was difficult due to: chronic lung disease and poor acoustic windows. us [place]re[place] [facility] CV ECHO PROCEDURES Final Result * (ABNORMAL) Arterial blood gas (07/24/2025 3:19 AM EDT) Only the most recent of6 resultswithin the time period is included. pH, Arterial 7.43 7.35 - 7.45 pH LAB BLOOD GAS METHOD 07/24/2025 3:35 AM EDT [facility] pCO2, Arterial 35 35 - 45 mmHg LAB BLOOD GAS METHOD 07/24/2025 3:35 AM EDT [facility] pO2, Arterial 89 80 - 105 mmHg LAB BLOOD GAS METHOD 07/24/2025 3:35 AM EDT [facility] HCO3, Arterial 24.5 22.0 - 26.0 mmol/L LAB BLOOD GAS METHOD 07/24/2025 3:35 AM EDT [facility] O2 Sat, Arterial 97.4 95.0 - 98.0 % LAB BLOOD GAS METHOD 07/24/2025 3:35 AM EDT [facility] Base Excess, Arterial -0.6(L) 0.0 - 2.0 mmol/L LAB BLOOD GAS METHOD 07/24/2025 3:35 AM EDT [facility] Blood Arterial blood specimen / Unknown Arterial Puncture / Unknown 07/24/2025 3:19 AM EDT 07/24/2025 3:24 AM EDT Jayjay Arias MD LAB BLOOD ORDERABLES Final Res ult [facility] [address] [place] [address], * Transfuse RBC (07/23/2025 8:31 AM EDT) Only the most recent of2 resultswithin the time period is included. us [place] BLOOD TRANSFUSION ORDERABLES F inal Result * ECG 12 lead (07/23/2025 5:10 AM EDT) Only the most recent of6 resultswithin the time period is included. Ventricular Rate ECG 80 BPM GEMUSE Atrial Rate 80 BPM GEMUSE P-R Interval 152 ms GEMUSE QRS Duration 110 ms GEMUSE Q-T Interval 428 ms GEMUSE QTc 493 ms GEMUSE P Wave Oxford -113 degrees GEMUSE R [place] 93 degrees GEMUSE T [place] -36 degrees GEMUSE ECG Interpretation Atrial-paced rhythm Rightward axis Pulmonary disease pattern T wave abnormality, consider inferior ischemia Abnormal ECG When compared with ECG of 22-JUL-2025 16:01, (Unconfirmed ) Electronic atrial pacemaker has replaced Sinus rhythm Confirmed by Dinorah Chao ([id number]) on 07/23/2025 12:35:50 PM GEMUSE 07/23/2025 5:10 AM EDT 07/23/2025 12:35 PM EDT us [place] ECG ORDERABLES Final Result GEMUSE * (ABNORMAL) Acute kidney injury score (07/23/2025 4:36 AM EDT) FARHAT Risk Score 2.33(H) <=0.31 LAB MICROBIOLOGY METHOD 07/23/2025 7:44 AM EDT [facility] Urine Urine specimen obtained by clean catch procedure / Unknown Non-blood Collection / Unknown 07/23/2025 4:36 AM EDT 07/23/2025 4:42 AM EDT Narrative [facility] - 07/23/2025 7:44 AM EDT Intended use patients 21 years of age or older with Nephrocheck FARHAT Risk Scores of less than or equal to 0.30 are at a lower risk of developing moderate to severe FARHAT within 12 hours of assessment than those with FARHAT Risk Scores of > 0.30. us [place] LAB URINE ORDERABLES Final Res ult Performing Organization Address [facility] Co de Phone Number [facility] [address] [place] [address], [place] [phone] * Triglyceride Monitoring (07/22/2025 11:56 PM EDT) Triglycerides 101 <150 mg/dL LAB CHEMISTRY METHOD 07/23/2025 12:45 AM EDT [facility] Blood Venous blood specimen / Unknown Venipuncture / Unknown 07/22/2025 11:56 PM EDT 07/23/2025 12:06 AM EDT us [place] LAB BLOOD ORDERABLES Final Res ult [facility] [address] [place] [address], [place] [phone] * (ABNORMAL) POCT Arterial blood gas (07/22/2025 11:45 PM EDT) Only the most recent of6 resultswithin the time period is included. Sample Site POCT ART 07/22/2025 11:55 PM EDT [facility] pH Arterial POCT 7.37 7.35 - 7.45 07/22/2025 11:55 PM EDT [facility] pCO2 Arterial POCT 32.8(L) 35 - 45 mmHg 07/22/2025 11:55 PM EDT [facility] pO2 Arterial POCT 93 80 - 105 mmHg 07/22/2025 11:55 PM EDT [facility] pH Temp Corrected Arterial, POCT 7.36 7.35 - 7.45 07/22/2025 11:55 PM EDT [facility] pCO2 Temp Control Arterial, POCT 33.8(L) 35 - 45 mmHg 07/22/2025 11:55 PM EDT [facility] pO2 Temp Corrected Arterial, POCT 97(HH) 35 - 45 mmHg 07/22/2025 11:55 PM EDT [facility] HCO3 Arterial POCT 18.8(L) 22.0 - 26.0 mmol/L 07/22/2025 11:55 PM EDT [facility] Base Excess Arterial POCT -7(L) 0 - 2 mmol/L 07/22/2025 11:55 PM EDT [facility] SO2 Arterial POCT 97 95 - 98 % 07/22/2025 11:55 PM EDT [facility] FIO2 POCT 40.0 No Established Reference Range % 07/22/2025 11:55 PM EDT [facility] Patient Temperature POCT 99.8 C 07/22/2025 11:55 PM EDT [facility] Blood Arterial blood specimen / Unknown 07/22/2025 11:45 PM EDT 07/22/2025 11:57 PM EDT Jayjay Arias MD LAB POINT OF CARE TE ST DOCKED DEVICE UNSOLICITED RESULTS Final Result Performing Organization Address [facility] Co de Phone Number [facility] [address] [place] [phone], * (ABNORMAL) Activated partial thromboplastin time (07/22/2025 8:51 PM EDT) Only the most recent of19 resultswithin the time period is included. aPTT 42.4(H) 25.0 - 37.0 sec LAB COAGULATION METHOD 07/22/2025 9:17 PM EDT [facility] Blood Venous blood specimen / Unknown Venipuncture / Unknown 07/22/2025 8:51 PM EDT 07/22/2025 9:02 PM EDT [place] LAB BLOOD ORDERABLES Final Res ult Performing Organization Address [facility]/ZIP Co de Phone Number [facility] [address] [place] [address], [place] [phone] * Transfuse cryoprecipitate (07/22/2025 3:09 PM EDT) Only the most recent of4 resultswithin the time period is included. Mike Dias MD BLOOD TRANSFUSION ORDERABLES Fi nal Result * (ABNORMAL) POCT Arterial blood gas, NA, K, ICAL, GLU, HH (07/22/2025 2:56 PM EDT) Only the most recent of14 resultswithin the time period is included. pH Arterial POCT 7.30(L) 7.35 - 7.45 07/22/2025 3:00 PM EDT [facility] pH Temp Corrected Arterial, POCT 7.30(L) 7.35 - 7.45 07/22/2025 3:00 PM T [facility] pCO2 Arterial POCT 43.6 35 - 45 mmHg 07/22/2025 3:00 PM [facility] pCO2 Temp Control Arterial, POCT 43.6 35 - 45 mmHg 07/22/2025 3:00 PM [facility] pO2 Arterial POCT 162(H) 80 - 105 mmHg 07/22/2025 3:00 PM [facility] pO2 Temp Corrected Arterial, POCT 162(HH) 35 - 45 mmHg 07/22/2025 3:00 PM [facility] HCO3 Arterial POCT 21.5(L) 22.0 - 26.0 mmol/L 07/22/2025 3:00 PM [facility] Base Excess Arterial POCT -5(L) 0 - 2 mmol/L 07/22/2025 3:00 PM [facility] SO2 Arterial POCT 99(H) 95 - 98 % 07/22/2025 3:00 PM [facility] FIO2 POCT 70.0 No Established Reference Range % 07/22/2025 3:00 PM [facility] Sodium Arterial POCT 143 135 - 145 mmol/L 07/22/2025 3:00 PM [facility] Potassium Arterial POCT 4.1 3.5 - 5.1 mmol/L 07/22/2025 3:00 PM [facility] Ionized Calcium, Arterial POCT 1.16(L) 1.19 - 1.35 mmol/L 07/22/2025 3:00 PM [facility] Glucose Arterial POCT 119 70 - 199 mg/dL 07/22/2025 3:00 PM [facility] Comment: Fasting Reference Range: 70-99 mg/dL Non-Fasting Reference Range: 70-199 mg/dL Hemoglobin Arterial POCT 8.8(L) 13.5 - 18.0 g/dL 07/22/2025 3:00 PM EDT [facility] Hematocrit Arterial POCT 26(L) 40 - 54 % 07/22/2025 3:00 PM EDT [facility] Patient Temperature POCT 37.0 C 07/22/2025 3:00 PM EDT [facility] Blood Arterial blood specimen / Unknown 07/22/2025 2:56 PM EDT 07/22/2025 3:01 PM EDT Jayjay Arias MD LAB POINT OF CARE TE ST DOCKED DEVICE UNSOLICITED RESULTS Final Result [facility] [address] [place] [address], [place] [phone] * Prepare cryoprecipitate: 1 Product (07/22/2025 2:26 PM EDT) Only the most recent of3 resultswithin the time period is included. Product Code [id number] 07/22/2025 3:09 PM EDT [facility] Unit Number [id number] 07/22/20 25 3:09 PM EDT [facility] Dispense Status Transfused 07/22/2025 3:09 PM EDT [facility] Unit ABO Rh OPOS 07/22/2025 3:09 PM EDT [facility] Unit Expiration Date Time [id number] 07/22/2025 3:09 PM EDT [facility] Unit Blood Type 5100 07/22/2025 3:09 PM EDT [facility] Blood Venous blood specimen / Unknown 07/22/2025 2:26 PM EDT us Jayjay Arias MD BLOOD BANK PRODUCT ORDERABLES Final Result [facility] [address] [place] [address], [place] [phone] * (ABNORMAL) Thromboelastograph 6 global hemostasis panel (07/22/2025 2:21 PM EDT) TEG Citrated Kaolin Reaction Time 6.3 4.6 - 9.1 min LAB COAGULATION METHOD 07/22/2025 3:13 PM EDT [facility] TEG Citrated Kaolin Kinetic Time 1.8 0.8 - 2.1 min LAB COAGULATION METHOD 07/22/2025 3:13 PM EDT [facility] TEG Citrated Kaolin Angle 70.7 63.0 - 78.0 deg LAB COAGULATION METHOD 07/22/2025 3:13 PM EDT [facility] Citrated Kaolin - Max Amplitude 54.4 52.0 - 69.0 mm LAB COAGULATION METHOD 07/22/2025 3:13 PM EDT [facility] Citrated Kaolin with Heparinase Reaction Time 6.4 4.3 - 8.3 min LAB COAGULATION METHOD 07/22/2025 3:13 PM EDT [facility] Citrated Rapid TEG- Max Amplitude 51.1(L) 52.0 - 70.0 mm LAB COAGULATION METHOD 07/22/2025 3:13 PM EDT [facility] TEG Citrated Functional Fibrinogen - Max Amplitude 15.2 15.0 - 32.0 mm LAB COAGULATION METHOD 07/22/2025 3:13 PM EDT [facility] Citrated Functional Fibrinogen Level 277.4(L) 278.0 - 581.0 mg/dL LAB COAGULATION METHOD 07/22/2025 3:13 PM EDT [facility] Blood Arterial blood specimen / Unknown 07/22/2025 2:21 PM EDT 07/22/2025 2:25 PM EDT us Jayjay Arias MD LAB BLOOD ORDERABLES Final Res ult Performing Organization Address City/[facility]/ZIP Co de Phone Number [facility] [address] [place] [address], [place] [phone] * Prepare platelets: 1 Product (07/22/2025 2:20 PM EDT) Only the most recent of2 resultswithin the time period is included. Product Code [id number] 07/24/2025 4:24 AM EDT [facility] Unit Number [id number] 07/24/20 4:24 AM EDT [facility] Dispense Status Presumed Transfused 07/24/2025 4:24 AM EDT [facility] Unit ABO Rh OPOS 07/24/2025 4:24 AM EDT [facility] Unit Expiration Date Time [id number] 07/24/2025 4:24 AM EDT [facility] Unit Blood Type 5100 07/24/2025 4:24 AM EDT [facility] Blood Venous blood specimen / Unknown 07/22/2025 2:20 PM EDT us Jayjay Arias MD BLOOD BANK PRODUCT ORDERABLES Final Result Performing Organization Address City/[facility]/ZIP Co de Phone Number [facility] [address] [place] [address], [place] [phone] * Transfuse platelets (07/22/2025 1:59 PM EDT) us Mike Dias MD BLOOD TRANSFUSION ORDERABLES Fi nal Result * Fibrinogen (07/22/2025 11:27 AM EDT) Fibrinogen 171 145 - 415 mg/dL LAB COAGULATION METHOD 07/22/2025 11:54 AM EDT [facility] Blood Arterial blood specimen / Unknown 07/22/2025 11:27 AM EDT 07/22/2025 11:38 AM EDT us Jayjay Arias MD LAB BLOOD ORDERABLES Final Res ult Performing Organization Address [facility]/ZIP Co de Phone Number [facility] [address] [place] [address], [place] [phone] * (ABNORMAL) Platelet count (07/22/2025 11:27 AM EDT) Platelets 106(L) 150 - 450 K/mcL LAB HEMETOLOGY METHOD 07/22/2025 11:46 AM EDT [facility] MPV 07/22/2025 11:46 AM EDT [facility] Blood Arterial blood specimen / Unknown 07/22/2025 11:27 AM EDT 07/22/2025 11:38 AM EDT us Jayjay Arias MD LAB BLOOD ORDERABLES Final Res ult Performing Organization Address [facility]/ZIP Co de Phone Number [facility] [address] [place] [address], [place] [phone] * Tissue exam (07/22/2025 10:50 AM EDT) Final Diagnosis A. 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 Negative for acute inflammation and vegetations. 07/23/2025 12:28 PM EDT [facility] Gross Description A. Heart, Mitral valve leaflets: Received in formalin labeled mitral valve leaflets is an irregular, rubbery, off-white to pale yellow, valve leaflet with minimal calcification and vegetations measuring 2.5 x 2.5 x 0.3 cm. There is an undesignated suture looped through the leaflet. The chordae tendinae are fused and thickened. Cell Operation Supervisor sections are submitted in 1 cassette labeled A1, 2 pieces. HP 07/22/25 07/23/2025 12:28 PM EDT [facility] Disclaimer The technical components of [place] [address] CLIA # [id number] 07/23/2025 12:28 PM EDT [facility] Tissue Heart structure / Unknown 07/22/2025 10:50 AM EDT 07/22/2025 11:09 AM EDT us Jayjay Arias MD LAB PATHOLOGY ORDERABLES Final Result [facility] [address] [place] [address], [place] [phone] * ANESTHESIA PAC LINE PLACEMENT (07/22/2025 8:37 AM EDT) Narrative Mike Dias MD - 07/22/2025 8:37 AM EDT Mike Dias MD 07/22/2025 12:20 PM PA Catheter Placement: A PA catheter was placed in the OR for the following indication(s): CVP monitoring. Staffing Performed: Anesthesiologist Anesthesiologist: Mike Dias MD Performed by: Mike Dias MD Authorized by: Mike Dias MD Completed: patient identified, IV checked, site marked, risks and benefits discussed, surgical consent, monitors and equipment checked, pre-op evaluation and timeout performed Procedure Information Sterility preparation included the following: provider hand hygiene performed prior to central venous catheter insertion, all 5 sterile barriers used (gloves, gown, cap, mask, large sterile drape) during central venous catheter insertion and skin prep agent completely dried prior to procedure. The site was prepped with ChloraPrep. Skin prep agent completely dried prior to procedure. The patient was placed in Trendelenburg position. PA catheter laterality: Right Site: internal jugular vein PA catheter placement: distal introducer port Introducer size: 9 Fr Catheter size: 7.5 Catheter type: oximetric Successful placement with 1 attempt(s) The PAC placement was confirmed by pressure tracing changes, PABLO and transduced waveform. Post insertion care included: dressing applied and line secured. Procedure was uneventful. Additional notes: Wire removal confirmed with OR nurse Magali Cordis placed with ultrasound and position confirmed as noted above PA catheter placed in above cordis w/o diff Mike Dias MD ANESTHESIA ORDERABLES Edited Re sult - Final * TH AN ENDOTRACHEAL(NO CHARGE) (07/22/2025 8:36 AM EDT) Narrative Mike Dias MD - 07/22/2025 8:36 AM EDT Mike Dias MD 07/22/2025 8:41 AM General Information and Staff Patient location during procedure: OR Performed by: Mike Dias MD Authorized by: Mike Dias MD Intubation Airway not difficult Urgency: elective Final Airway Details Successful airway: ETT Cuffed: yes Successful intubation technique: direct laryngoscopy Facilitating devices/methods: intubating stylet Endotracheal tube insertion site: oral Blade: Ordonez Blade size: #2 ETT size (mm): 8.0 Cormack-Lehane Classification: grade I - full view of glottis Placement verified by: chest auscultation and capnometry Measured from: gums ETT to gums (cm): 21 Number of attempts at approach: 1 Number of other approaches attempted: 0Final airway type: endotracheal airway Indications and Patient Condition Indications for airway management: anesthesia Spontaneous Ventilation: absent Preoxygenated: yes Soft Tissue Damage: No Dentition Unchanged: Yes Patient position: neutral MILS maintained throughout Mask difficulty assessment: 1 - vent by mask Start Time: 07/22/2025 7:23 AMStop Time: 07/22/2025 7:29 AM Mike Dias MD ANESTHESIA ORDERABLES Edited Re sult - Final * Intraoperative PABLO (07/22/2025 7:03 AM EDT) TV Annulus 3.9 cm CV PACS Anatomical Region Laterality Modality Ultrasound Narrative 07/22/2025 2:58 PM EDT Left ventricular systolic function is mildly decreased with an ejection fraction of 40-50%. Right ventricular systolic function is mildly reduced. Mitral Valve: The leaflets exhibit mildly reduced excursion. The leaflets are mildy tethered. There is severe regurgitation with a centrally directed jet. Left Atrium: There is no thrombus in the left atrial appendage. Aortic Valve: There is trace regurgitation. There is no evidence of aortic valve stenosis. The NCC of the aortic valve is thickeded. No clot seen in any part of the heart. S/P MVR (#29 Mitris) No paravalvular leak, trace regurgitation, mean gradient 2 Left Ventricle Systolic function is mildly decreased with an ejection fraction of 40-50%. Right Ventricle Systolic function is mildly reduced. Left Atrium The pulmonary veins demonstrate systolic flow reversal. There is no thrombus in the left atrial appendage. No patent foramen ovale visualized. Mitral Valve The leaflets exhibit mildly reduced excursion. The leaflets are tethered. There is severe regurgitation with a centrally directed jet. Systolic flow reversal is present. Tricuspid Valve There is mild regurgitation. Aortic Valve The aortic valve is trileaflet. There is trace regurgitation. There is no evidence of aortic valve stenosis. Pulmonic Valve Visualized portions of the pulmonic valve appear normal. There is trace pulmonic valve regurgitation. Study Details Overall the study quality was excellent. A transesophageal echo was performed using 3-D imaging and postprocessing performed during the procedure. The underlying ECG rhythm was atrial fibrillation. The probe was inserted by the anesthesiologist. There was no probe insertion difficulty. General anesthesia was administered. The patient had no complications. us Mike Dias MD CV ECHO PROCEDURES Final Result * ECG-Outside (07/21/2025) Only the most recent of2 resultswithin the time period is included. us Provider Onbase ECG ORDERABLES Final Result * XR Chest 2 Views (07/20/2025 3:16 PM EDT) Anatomical Region Laterality Modality Body Radiographic Jana ging 07/20/2025 3:19 PM EDT Impressions 07/20/2025 3:23 PM EDT 1. No acute process in the chest. -------- FINAL REPORT -------- Dictated By: Nba Rehman Dictated Date: 07/20/2025 15:19 ET Assigned Physician: Nba Rehman Reviewed and Electronically Signed By: Nba Rehman Signed Date: 07/20/2025 15:23 ET Workstation ID: [id number] Transcribed By: Self Edit Transcribed Date: 07/20/2025 15:19 ET Narrative 07/20/2025 3:23 PM EDT EXAM: XR CHEST 2 VIEWS 07/20/2025 3:02 PM HISTORY: 64 years Male Dyspnea on exertion ([place]AN[place]) TECHNIQUE: XR CHEST 2 VIEWS COMPARISON: None. FINDINGS: Normal sized heart. No consolidation. No effusion. Negative for pneumothorax. Negative for acute osseous abnormality, lytic or blastic lesion. Procedure Note Nba Rehman MD - 07/20/2025 EXAM: XR CHEST 2 VIEWS 07/20/2025 3:02 PM HISTORY: 64 years Male Dyspnea on exertion ([place]) TECHNIQUE: XR CHEST 2 VIEWS COMPARISON: None. FINDINGS: Normal sized heart. No consolidation. No effusion. Negative for pneumothorax. Negative for acute osseous abnormality, lytic or blastic lesion. IMPRESSION: 1. No acute process in the chest. -------- FINAL REPORT -------- Dictated By: Nba Rehman Dictated Date: 07/20/2025 15:19 ET Assigned Physician: Nba Rehman Reviewed and Electronically Signed By: Nba Rehman Signed Date: 07/20/2025 15:23 ET Workstation ID: [id number] Transcribed By: Self Edit Transcribed Date: 07/20/2025 15:19 ET Jayjay Arias MD IMG XR PROCEDURES Final Result * (ABNORMAL) Lipid panel with reflex to direct LDL (07/20/2025 1:14 PM EDT) Cholesterol 97 0 - 200 mg/dL LAB CHEMISTRY METHOD 07/20/2025 2:49 PM EDT [facility] Triglycerides 102 <150 mg/dL LAB CHEMISTRY METHOD 07/20/2025 2:49 PM EDT [facility] HDL 44 32 - 70 mg/dL LAB CHEMISTRY METHOD 07/20/2025 2:49 PM EDT [facility] LDL Calculated 33(L) 50 - 130 mg/dL LAB CHEMISTRY METHOD 07/20/2025 2:49 PM EDT [facility] VLDL Cholesterol Don 20.4 mg/dL LAB CHEMISTRY METHOD 07/20/2025 2:49 PM EDT [facility] Comment:No established refer ence range. Blood Venous blood specimen / Unknown Venipuncture / Unknown 07/20/2025 1:14 PM EDT 07/20/2025 1:52 PM EDT us Jayjay Arias MD LAB BLOOD ORDERABLES Final Res ult [facility] [address] [place] [address], [place] [phone] * Prealbumin (07/20/2025 1:14 PM EDT) Prealbumin 18 17 - 34 mg/dL LAB CHEMISTRY METHOD 07/20/2025 2:43 PM EDT [facility] Blood Venous blood specimen / Unknown Venipuncture / Unknown 07/20/2025 1:14 PM EDT 07/20/2025 1:52 PM EDT us Jayjay Arias MD LAB BLOOD ORDERABLES Final Res ult [facility] [address] [place] [id number], [place] [phone] * (ABNORMAL) B-type natriuretic peptide (07/20/2025 1:14 PM EDT) Only the most recent of2 resultswithin the time period is included. BNP 581(H) 0 - 100 pcg/mL LAB CHEMISTRY METHOD 07/20/2025 2:51 PM EDT [facility] Blood Venous blood specimen / Unknown Venipuncture / Unknown 07/20/2025 1:14 PM EDT 07/20/2025 1:52 PM EDT us Jayjay Arias MD LAB BLOOD ORDERABLES Final Res ult [facility] ([facility] [address] [place] [address], [place] [phone] * Pulmonary function testing: Carbon Monoxide Diffusing Capacity, Nitrogen Wash Out, Spirometry (07/20/2025 1:09 PM EDT) Narrative Paige Arroyo MD - 07/20/2025 6:06 PM EDT Mild obstruction on spirometry. A concomitant restrictive defect is seen on spirometry. Mild restriction on lung volumes with moderately impaired diffusion capacity. No prior studies are available for comparison. Clinical correlation is recommended. us Jayjay Arias MD PFT ORDERABLES Final Result * ECG-Annotated (07/20/2025) us Provider Onbase ECG ORDERABLES Final Result * Cardioversion external (07/17/2025 12:45 PM EDT) Anatomical Region Laterality Modality X-Ray Angiograph y Narrative 07/20/2025 5:32 PM EDT Cardioversion An external cardioversion was performed. Risks and benefits: risks, benefits and alternatives were discussed Consent given by: patient Patient understanding: patient states understanding of the procedure being performed Patient identity confirmed: verbally with patient Time out: Immediately prior to procedure a time out was called to verify the correct patient, procedure, equipment, sales support rep and site/side marked as required. Sedation: Patient sedated: yes Sedatives: propofol Cardioversion basis: elective Pre-procedure rhythm: atrial fibrillation Chest area: chest area exposed Electrodes: pads Electrodes placed: anterior-lateral Number of attempts: 2 Post-procedure rhythm: normal sinus rhythm Patient tolerance: Patient tolerated the procedure well with no immediate complications Additional initiation methods attempt 1 : DC current pulse us Gerber Good MD CV [facility] Final Result * (ABNORMAL) Urinalysis with reflex microscopic (07/16/2025 10:15 PM EDT) Specific [place] Urine 1.022 1.003 - 1.030 LAB URINALYSIS - AUTOMATED METHOD 07/16/2025 10:26 PM [facility] pH, Urine 7.0 5.0 - 8.0 pH LAB URINALYSIS - AUTOMATED METHOD 07/16/2025 10:26 PM [facility] Leukocytes, Urine Negative Negative LAB URINALYSIS - AUTOMATED METHOD 07/16/2025 10:26 PM [facility] Nitrite, Urine Negative Negative LAB URINALYSIS - AUTOMATED METHOD 07/16/2025 10:26 PM [facility] Protein, Urine Negative <=Trace mg/dL LAB URINALYSIS - AUTOMATED METHOD 07/16/2025 10:26 PM [facility] Glucose, Urine 500(A) Negative mg/dL LAB URINALYSIS - AUTOMATED METHOD 07/16/2025 10:26 PM [facility] Ketones, Urine Negative Negative mg/dL LAB URINALYSIS - AUTOMATED METHOD 07/16/2025 10:26 PM [facility] Urobilinogen, Urine 1.0 0.2 - 1.0 mg/dL LAB URINALYSIS - AUTOMATED METHOD 07/16/2025 10:26 PM [facility] Bilirubin, Urine Negative Negative LAB URINALYSIS - AUTOMATED METHOD 07/16/2025 10:26 PM [facility] Blood, Urine Negative Negative LAB URINALYSIS - AUTOMATED METHOD 07/16/2025 10:26 PM [facility] Urine Urine specimen obtained by clean catch procedure / Unknown 07/16/2025 10:15 PM EDT 07/16/2025 10:23 PM EDT us Jayjay Arias MD LAB URINE ORDERABLES Final Res ult [facility] [address] [place] [address], * LEFT HEART CATH / CORONARY ANGIOGRAPHY, RIGHT HEART CATH (07/16/2025 1:37 PM EDT) Anatomical Region Laterality Modality X-Ray Angiograph y Narrative 07/17/2025 2:42 PM EDT Elevated wedge pressure with large v wave c/w severe MR. Critical mid-RCA disease, bypassable vessel. Coronary Findings Diagnostic Dominance: Right Left Main: The vessel is large. The vessel exhibits minimal luminal irregularities. The ostium is normal. Left Anterior Descending: The vessel is large. There is mild diffuse disease throughout the vessel. No obstructive lesions are seen. Left Circumflex: There is mild diffuse disease throughout the vessel. Large vessel supplies large OM and a large posterolateral branch. No obstructive disease. Right Coronary Artery: Dominant vessel supplies large PDA and a diminutive posterolateral system. There is diffuse moderate disease in the proximal vessel with 30-40% narrowing.There is a discrete eccentric 80-90% lesion in the distal portion of the mid-RCA. Flow to the distal vessel is normal. The proximal PDA contains 30% narrowing. Intervention No interventions have been documented. Study Details This 64-year-old man presents with chest pain and breathlessness. He had new onset atrial fibrillation with a rapid ventricular response and clinical evidence of congestive heart failure. He had a favorable response to medical therapy. Echocardiography demonstrated global hypokinesis with akinesis of the midportion of the lateral wall consistent with circumflex distribution infarction. He also had evidence of severe mitral regurgitation with only mild left atrial enlargement. He was cardioverted yesterday. In view of his presentation and unexplained cardiomyopathy and possibly ischemic MR, cardiac catheterization is recommended. Cardiac Cath Measurements Pressure measurements: RA pressure = 7 mmHg. PA pressure = 56/27 mmHg. PCW pressure = 28 w V wave to 50 mmHg. LV pressure = 100 mmHg. LVED pressure = 20 mmHg. AO pressure = 104/76 mmHg. Calculated measurements: Penelope Cardiac output = 3.9 L/min. Penelope Cardiac index = 2.3 L/min/m2. Right Heart Cath See values in chart. Significant for elevated wedge pressure and large v wave consistent with relatively recent onset severe MR. Cath Recommendations Recommendations: Consider referral for mitral repair and single vessel CABG.. Consult: CV surgery. Clinical Background 64 yo man with remote PCI presents with acute pulm edema in setting Afib with RVR. Found to have severe MR and mild LV dysfunction. Cardioverted to NSR. Referred for cath to assess etiology and guide management options. Procedure Details Right heart cath performed from right brachial approach with 5Fr [place] advanced to PA wedge under fluoro guidance. PA sat obtained and right heart pullback performed. Right radial access achieved and 6Fr Slender sheath placed. LHC performed with 5Fr [place] catheter. LV pullback performed and bilateral coronary angiography performed with same catheter. Hemostasis achieved with TR band. Hemodynamics stable. No complications. us Gerber Good MD CV CARDIAC CATH PROCEDURE S Final Result * POCT Cardiac cath blood gas (07/16/2025 1:29 PM EDT) Only the most recent of2 resultswithin the time period is included. pCO2 Cath POCT 39.0 mmHg 07/16/2025 1:36 PM EDT [facility] pO2 Cath POCT 63 mmHg 07/16/2025 1:36 PM EDT [facility] SO2 Cath POCT 92 % 07/16/2025 1:36 PM EDT [facility] Sample Site POCT Aorta 07/16/2025 1:36 PM EDT [facility] Device POCT [id number] 07/16/2025 1:36 PM EDT [facility] POCT Comment ROOM AIR 07/16/2025 1:36 PM EDT [facility] Blood Aortic structure / Unknown 07/16/2025 1:29 PM EDT 07/16/2025 1:38 PM EDT us Mohinder Yo MD LAB POINT OF CARE TE ST DOCKED DEVICE UNSOLICITED RESULTS Final Result [facility] [address] [place] [address], [place] [phone] * Lavender tube (07/16/2025 4:50 AM EDT) Pathologist [facility] Extra Tube Hold for add-ons. 07/16/2025 7:01 AM EDT [facility] Comment:Auto resulted. Blood Venous blood specimen / Unknown Venipuncture / Unknown 07/16/2025 4:50 AM EDT 07/16/2025 5:10 AM EDT us [facility] LAB BLOOD ORDERABLES Final R esult [facility] [address] [place] [address], [place] [phone] * PABLO COMPLETE W/ CARDIOVERSION (07/15/2025 8:50 AM EDT) [facility] BSA 1.8 m2 CV PACS Aortic Sinus Valsalva 3.0 cm CV PACS Ascending Aorta 3.1 cm CV PACS Ascending Aorta Index 1.78 cm/m2 CV PACS Anatomical Region Laterality Modality X-Ray Angiograph y Narrative 07/15/2025 10:03 AM EDT Systolic function is mildly decreased with an ejection fraction of 40-45%. Mild global LV hypokinesis is present. Right ventricular systolic function is mildly reduced. Mitral valve demonstrates severe regurgitation with a centrally directed jet. Moderately decreased posterior leaflet mobility. No thrombus in LA, NAHID, RA or LV seen. Left Ventricle Systolic function is mildly decreased with an ejection fraction of 40-45%. Mild global LV hypokinesis is present. Right Ventricle Systolic function is mildly reduced. Left Atrium No mass or thrombus The atrial appendage velocity is normal (greater than 40 cm/sec). There is no thrombus in the left atrial appendage. There is no mass in the left atrial appendage. No patent foramen ovale visualized. Right Atrium There is no thrombus in the right atrial cavity. There is no mass in the right atrial cavity. Mitral Valve The leaflets are mildly thickened. There is mild annular calcification. There is no prolapse. Moderately decreased posterior leaflet mobility. There is severe regurgitation with a centrally directed jet. Systolic flow reversal is present. There is no evidence of mitral valve stenosis. Tricuspid Valve Tricuspid valve structure is normal. There is trace regurgitation. There is no evidence of tricuspid valve stenosis. Aortic Valve The aortic valve is trileaflet. The leaflets are mildly thickened. The leaflets are mildly calcified. There is abnormal non-coronary aortic leaflet mobility. Moderately reduced non-coronary leaflet mobility. There is trace regurgitation. There is no significant stenosis. Pulmonic Valve Visualized portions of the pulmonic valve appear normal. There is trace pulmonic valve regurgitation. There is no evidence of pulmonic valve stenosis. Ascending Aorta The aorta appears normal in size. Mild calcified plaque in descending thoracic aorta Pericardium Pericardium appears normal. There is no pericardial effusion. Study Details Overall the study quality was adequate. A transesophageal echo was performed using 3D imaging and postprocessing performed without an independent workstation. The underlying ECG rhythm was atrial fibrillation. There was no probe insertion difficulty. Moderate sedation was administered by anesthesia. The patient had no complications. Estimated blood loss: no blood loss. No specimens were collected. Cardioversion An external cardioversion was performed. Consent: Written consent obtained. Risks and benefits: risks, benefits and alternatives were discussed Consent given by: patient Time out: Immediately prior to procedure a time out was called to verify the correct patient, procedure, equipment, sales support rep and site/side marked as required. Sedation: Patient sedated: yes Sedatives: propofol Cardioversion basis: elective Pre-procedure rhythm: atrial fibrillation Patient position: patient was placed in a supine position Chest area: chest area exposed Electrodes: pads Electrodes placed: anterior-posterior Number of attempts: 1 Post-procedure rhythm: normal sinus rhythm Patient tolerance: Patient tolerated the procedure well with no immediate complications Additional initiation methods attempt 1 : DC current pulse us Gerber Good MD CV ECHO PROCEDURES Final Result * (ABNORMAL) Anti-Xa - STAT (07/14/2025 2:34 PM EDT) Heparin Anti-Xa 1.77(HH) 0.30 - 0.70 I Unit/mL LAB COAGULATION METHOD 07/14/2025 2:52 PM EDT [facility] Blood Venous blood specimen / Unknown Venipuncture / Unknown 07/14/2025 2:34 PM EDT 07/14/2025 2:38 PM EDT Narrative [facility] - 07/14/2025 2:52 PM EDT Therapeutic range listed is for Unfractionated Heparin. LMW Heparin therapeutic range: 0.50-1.20 IU/mL us Tiffany RUTHERFORD LAB BLOOD ORDERABLES Final Result [facility] ([facility]) [facility] [address] [place] [address], [place] [phone] * (ABNORMAL) TRANSTHORACIC ECHOCARDIOGRAM (TTE) COMPLETE W/ CONTRAST (07/14/2025 9:44 AM EDT) Left Atrium Minor [place] 5.3 cm CV PACS Left Atrium Major [place] 6.1 cm CV PACS LA Area Sys (A2C) 22 cm2 CV PACS LA Area Sys (A4C) 22 cm2 CV PACS LA Volume (BP) 73 mL CV PACS RA Area 21.0 cm2 CV PACS RA 2D Volume 68 mL CV PACS AV Mean Gradient 5 mmHg CV PACS Ao VTI 29.2 cm CV PACS AV Peak Hilario 1.5 m/s CV PACS AV Peak Gradient 9 mmHg CV PACS AV Area Continuity Equation 1.8 cm2 CV PACS AV Area Peak Velocity 2.2 cm2 CV PACS Aortic Sinus Valsalva 3.3 cm CV PACS Ascending Aorta 3.4 cm CV PACS IVSD 0.8 0.6 - 1.0 cm CV PACS LVIDD 5.6 4.2 - 5.8 cm CV PACS LVIDS 4.6(A) 2.5 - 4.0 cm CV PACS LVOT Diameter 2.1 cm CV PACS LVOT Mean Grad 2 mmHg CV PACS LVOT Peak VTI 14.9 cm CV PACS LVOT Mean Hilario 0.6 m/s CV PACS LVOT Peak Hilario 1.1 m/s CV PACS LVOT Peak Gradient 4 mmHg CV PACS LVPWD 1.0 0.6 - 1.0 cm CV PACS MV E' Tissue Velocity Lateral 12 cm/s CV PACS MV E' Tissue Velocity Septal 10 cm/s CV PACS LVOT Area 3.5 cm2 CV PACS LVOT Stroke Volume 56 mL CV PACS MR PISA Nyquist Hilario 19 cm/s CV PACS PISA MR Radius 0.60 cm CV PACS MV Mean Gradient 2 mmHg CV PACS MV VTI 27.6 cm CV PACS Mitral Valve Max Velocity 1.2 m/s CV PACS MV Peak Gradient 6 mmHg CV PACS MV Area Continuity Equation 1.9 cm2 CV PACS PV Acceleration Time 155 ms CV PACS PV Acceleration Time 137 ms CV PACS PV Acceleration Time 146 ms CV PACS RV Diastolic Basal Dimension 4.1 2.5 - 4.1 cm CV PACS RV S' 14 cm/s CV PACS TAPSE 18 mm CV PACS TR Peak Velocity 2.50 m/s CV PACS TR Peak Gradient 21 mmHg CV PACS TV Peak Gradient 20 mmHg CV PACS LVOT Stroke Index 31 mL/m2 CV PACS Relative Wall Thickness ratio 0.36 0.24 - 0.42 CV PACS LVOT:AV VTI Index 0.51 CV PACS FS 18 % CV PACS LV Mass 2D 192 96 - 200 g CV PACS Ascending Aorta Index 1.91 cm/m2 CV PACS MV VTI:LVOT VTI ratio 1.9 CV PACS LVOT flow 208 mL/s CV PACS RA 2D Volume Index 38 18 - 32 mL/m2 CV PACS GERARDO Index (VTI) 0.99 cm2/m2 CV PACS GERARDO Index (Pk Hilario) 1.24 cm2/m2 CV PACS LVIDD Index 3.15 cm/m2 CV PACS LVIDS Index 2.58 cm/m2 CV PACS AV Velocity Ratio 0.73 CV PACS LA Volume Index (BP) 41 mL/m2 CV PACS LV Mass Index 2D 108(A) 50 - 102 g/m2 CV PACS BSA 1.8 m2 CV PACS Ejection Fraction (BP) 44 % CV PACS Ejection Fraction (A4C) 42 % CV PACS Ejection Fraction (A2C) 45 % CV PACS LV Diastolic Volume (BP) 123 62 - 150 mL CV PACS LV Diastolic Volume Index (BP) 69(A) 34 - 74 mL/m2 CV PACS LV Systolic Volume (BP) 69(A) 21 - 61 mL CV PACS LV Systolic Volume Index (BP) 39(A) 11 - 31 mL/m2 CV PACS LV EDV (A4C) 121 mL CV PACS LV EDV Index (A4C) 68 mL/m2 CV PACS LV ESV (A4C) 69 mL CV PACS LV ESV Index (A4C) 39 mL/m2 CV PACS LV EDV (A2C) 125 mL CV PACS LV EDV Index (A2C) 70 mL/m2 CV PACS LV ESV (A2C) 68 mL CV PACS LV ESV Index (A2C) 38 mL/m2 CV PACS LA Volume (A-L) 70 mL CV PACS LA Volume Index (A-L) 39 mL/m2 CV PACS RV Free Wall Peak S' 14 cm/s CV PACS RA Major [place] 5.1 cm CV PACS RA Major [place] Index 2.9(A) 2.1 - 2.7 cm/m2 CV PACS AV Area 2D 2.2 cm2 CV PACS GERARDO Index (2D) 1.24 cm2/m2 CV PACS TV Max Velocity 2.3 m/s CV PACS LV EF MOD 2C 45 % CV PACS LV EF 4C A-L 44 % CV PACS LV EDV 4C A-L 126 mL CV PACS LV Length Sys (A4C) 7.2 cm CV PACS LV Length Alba (A4C) 8.0 cm CV PACS Mitral Reguritant Flow 3 CV PACS AV Area Index 1.2 CV PACS Left Ventricular Stroke Volume by 2-D Biplane-MOD 54 mL CV PACS Right Ventricular Peak Systolic Pressure 28 mmHg CV PACS Est. RA Pressure 3 mmHg CV PACS Anatomical Region Laterality Modality Ultrasound Narrative 07/14/2025 10:56 AM EDT Left ventricle cavity size is normal. Left ventricular systolic function is mildly decreased. EF by 2D Ramires biplane is 44%. Regional LV wall motion abnormalities noted. See wall scoring diagram. Right ventricle cavity is normal. Right ventricular systolic function is normal. Mitral Valve: There is evidence of a possible ruptured mitral chordae associated to the posteromedial papillary muscle. There is severe regurgitation with an eccentrically directed jet. Tricuspid Valve: There is mild-moderate regurgitation. The right ventricular systolic pressure is normal. The RVSP is estimated at 28 mmHg. Left Ventricle Left ventricle cavity size is normal. False tendon noted in the LV apex. Wall thickness is normal. Systolic function is mildly decreased. The quantitative EF by 2D Ramires biplane is 44%. Unable to assess diastolic function due to atrial fibrillation. Right Ventricle Right ventricle cavity appears normal. Systolic function is normal. Left Atrium Left atrium cavity is moderately dilated. Right Atrium Right atrium cavity is moderately dilated. IVC/SVC Inferior vena cava structure is normal. RA pressures is estimated to be 3 mmHg (IVC diameter <21 mm and decreases >50% during inspiration). Mitral Valve The leaflets are moderately thickened. There is moderate annular calcification. There is evidence of a possible ruptured mitral chordae associated to the posteromedial papillary muscle. There is calcification of the anterior leaflet subvalvular apparatus. There is calcification of the posterior leaflet subvalvular apparatus. There is severe regurgitation with an eccentrically directed jet. There is no evidence of mitral valve stenosis. Tricuspid Valve Tricuspid valve structure is normal. There is mild-moderate regurgitation. There is no evidence of tricuspid valve stenosis. The right ventricular systolic pressure is normal. The RVSP is estimated at 28 mmHg. Aortic Valve The aortic valve is trileaflet. The leaflets are mildly thickened. There is no significant regurgitation. There is no evidence of aortic valve stenosis. Pulmonic Valve Visualized portions of the pulmonic valve appear normal. No significant pulmonic valve regurgitation. There is no evidence of pulmonic valve stenosis. Ascending Aorta The aorta appears normal in size. Pericardium Pericardium appears normal. There is no pericardial effusion. There is a left pleural effusion. Study Details Overall the study quality was technically difficult. Definity contrast was given to enhance imaging. Study was difficult due to: poor endocardial visualization. Wall Scoring Baseline Score Index: 1.29 The following segments are akinetic: basal anterolateral and mid anterolateral. The following segments are hypokinetic: basal anteroseptal. The following segments are hyperkinetic: apical lateral. All other segments are normal. us Valdemar Alvarenga MD CV ECHO PROCEDURES Final R esult * Troponin I high sensitivity (07/13/2025 2:23 PM EDT) Only the most recent of3 resultswithin the time period is included. High Sensitivity Troponin I 18 <=79 ng/L LAB CHEMISTRY METHOD 07/13/2025 2:53 PM EDT [facility] Blood Venous blood specimen / Unknown Venipuncture / Unknown 07/13/2025 2:23 PM EDT 07/13/2025 2:30 PM EDT Narrative [facility] - 07/13/2025 2:53 PM EDT High levels of biotin in samples may falsely decrease hsTroponin values. Use caution when interpreting hsTroponin results in patients taking biotin who exhibit renal impairment (eGFR <60) or in patients taking more than 20 mg/day of biotin. us [facility] BLOOD ORDERABLES Final Resul t [facility] [address] [place] [address], [place] [phone] * Fentanyl and metabolite, quantitative, urine (07/13/2025 11:11 AM EDT) Fentanyl Confirm, Urine Negative Negative ng/mL 07/16/2025 10:14 PM EDT [facility] Norfentanyl Confirm, Urine Negative Negative ng/mL 07/16/2025 10:14 PM EDT [facility] Creatinine 130 20 - 250 mg/dL 07/16/2025 10:14 PM EDT [facility] Adulterants Negative 07/16/2025 10:14 PM EDT [facility] Comment: Confirmation Decision Limits Fentanyl 1 ng/mL Norfentanyl 1 ng/mL Fentanyl and Norfentanyl confirmed by LC/MS/MS. Adulterant Decision Limit: General Oxidants 200 ug/mL The adulterant assay tests for General Oxidants, including Chromates and Nitrites. Adulterants are substances either ingested or added directly to a urine specimen to prevent the detection of drug use. If applicable, any drug confirmation testing reported here was developed and the performance characteristics determined by [facility]. This confirmation testing has not been cleared or approved by the FDA. The laboratory is regulated under CLIA as qualified to perform high-complexity testing. This test is used for patient testing purposes. It should not be regarded as investigational or for research. Test performed at [facility], [address], [place] [address] Ena Krishnamurthy MD, PhD - Seed Laboratory Assistant Urine Urine specimen from urethra / Unknown Non-blood Collection / Unknown 07/13/2025 11:11 AM EDT 07/13/2025 11:29 AM EDT us [facility] URINE ORDERABLES Edited Resu lt - Final [facility] [address] [place] [address] * (ABNORMAL) Drug abuse screen 8a panel, urine (07/13/2025 11:11 AM EDT) Amphetamine Screen, Ur Negative Negative LAB CHEMISTRY METHOD 11:51 AM EDT [facility] Comment:Certain OTC medicati ons containing ephedrine, phenylephrine, pseudoephedrine and phenylpropanolamine can cause false positive results. Barbiturate Screen, Ur Negative Negative LAB CHEMISTRY METHOD 5 11:51 AM EDT [facility] Benzodiazepine Screen, Ur Positive(A ) Negative [facility] Cocaine Screen, Ur Negative Negative LAB CHEMISTRY METHOD 5 11:51 AM EDT [facility] Opiate Screen, Ur Negative Negative LAB CHEMISTRY METHOD 5 11:51 AM [facility] Cannabinoid (THC) Screen, Ur Positive(A ) Negative LAB CHEMISTRY METHOD 5 11:51 AM T [facility] Comment:Specimens from patie nts taking pantoprazole sodium (Protonix) have been shown to produce false positive results. Oxycodone Screen, Ur Negative Negative LAB [facility]STRY METHOD 5 11:[facility] Fentanyl, Ur Negative Negative LAB CHEMISTRY METHOD 5 11:51 AM EDT [facility] Urine Urine specimen obtained by clean catch procedure / Unknown Non-blood Collection / Unknown 07/13/2025 11:11 AM EDT 07/13/2025 11:29 AM EDT [facility] - 07/13/2025 11:51 AM EDT Assay cutoffs: Amphetamines 1000 ng/mL Barbiturates 200 ng/mL Benzodiazepines 200 ng/mL Cocaine 300 ng/mL Fentanyl 1 ng/mL Opiates 300 ng/mL Oxycodone 100 ng/mL THC 50 ng/mL Semi-quantitative assay for screening purposes only. Unconfirmed screening result should not be used for non-medical purposes. *ALTERNATE METHOD CONFIRMATION DONE UPON REQUEST ONLY* [facility] URINE ORDERABLES Final Resul t [facility] [address] [place] [address], [place] [phone] * Respiratory virus panel molecular study (07/13/2025 10:11 AM EDT) Adenovirus Detection by PCR Not Detected Not Detected LAB MICROBIOLOGY METHOD 07/13/2025 12:01 PM EDT [facility] Influenza A PCR Not Detected Not Detected LAB MICROBIOLOGY METHOD 07/13/2025 12:01 PM EDT [facility] Influenza B PCR Not Detected Not Detected LAB MICROBIOLOGY METHOD 07/13/2025 12:01 PM EDT [facility] Coronavirus 229E Not Detected Not Detected LAB MICROBIOLOGY METHOD 07/13/2025 12:01 PM EDT [facility] Coronavirus HKU1 Not Detected Not Detected LAB MICROBIOLOGY METHOD 07/13/2025 12:01 PM EDT [facility] Coronavirus OC43 Not Detected Not Detected LAB MICROBIOLOGY METHOD 07/13/2025 12:01 PM EDT [facility] Coronavirus NL63 Not Detected Not Detected LAB MICROBIOLOGY METHOD 07/13/2025 12:01 PM EDT [facility] Parainfluenza Virus 1 Not Detected Not Detected LAB MICROBIOLOGY METHOD 07/13/2025 12:01 PM EDT [facility] Parainfluenza Virus 2 Not Detected Not Detected LAB MICROBIOLOGY METHOD 07/13/2025 12:01 PM EDT [facility] Parainfluenza Virus 3 Not Detected Not Detected LAB MICROBIOLOGY METHOD 07/13/2025 12:01 PM EDT [facility] Parainfluenza Virus 4 Not Detected Not Detected LAB MICROBIOLOGY METHOD 07/13/2025 12:01 PM EDT [facility] RSV PCR Not Detected Not Detected LAB MICROBIOLOGY METHOD 07/13/2025 12:01 PM [facility] Human Metapneumovirus A and B Not Detected Not Detected LAB MICROBIOLOGY METHOD 07/13/2025 12:01 PM EDT [facility] Rhinovirus/Entero virus Not Detected Not Detected LAB MICROBIOLOGY METHOD 07/13/2025 12:01 PM EDT [facility] Bordetella pertussis Not Detected Not Detected LAB MICROBIOLOGY METHOD 07/13/2025 12:01 [facility] Bordetella parapertussis Not Detected Not Detected LAB MICROBIOLOGY METHOD 07/13/2025 12:01 PM [facility] Mycoplasma pneumo by PCR Not Detected Not Detected LAB MICROBIOLOGY METHOD 07/13/2025 12:01 PM [facility] Chlamydia pneumoniae Not Detected Not Detected LAB MICROBIOLOGY METHOD 07/13/2025 12:01 PM [facility] SARS COV-2 Not Detected Not Detected LAB MICROBIOLOGY METHOD 07/13/2025 12:01 PM [facility] Swab Both anterior nares / Unknown Non-blood Collection / Unknown 07/13/2025 10:11 AM EDT 07/13/2025 10:47 AM EDT Narrative [facility] - 07/13/2025 12:01 PM EDT Testing was performed using the [employer] Respiratory Pathogen PCR Assay. All results must be correlated with the clinical findings. Results should not be used as the sole basis for diagnosis. False Negative results may occur from the presence of sequence variants in the region targeted by the assay or the presence of inhibitors. Results may be affected by concurrent antiviral/antimicrobial therapy or levels of organisms that are below the limit of detection. Holger Vazquez MD LAB MICROBIOLOGY - GENERAL ORDER LOBITO Final Result Performing Organization Address [facility] Co de Phone Number [facility] [address] [place] [address], * Thyroid stimulating hormone with reflex to free t4 and free t3 (07/13/2025 7:59 AM EDT) TSH 2.90 0.40 - 4.00 mcIU/mL LAB CHEMISTRY METHOD 07/13/2025 9:36 AM EDT [facility] Blood Venous blood specimen / Unknown Venipuncture / Unknown 07/13/2025 7:59 AM EDT 07/13/2025 8:10 AM EDT Deyanira Nguyen MD LAB BLOOD ORDERABLES Final Res ult Performing Organization Address [facility] Co de Phone Number [facility] [address] [place] [address], * Procalcitonin (07/13/2025 7:59 AM EDT) Procalcitonin 0.02 <=0.16 ng/mL LAB CHEMISTRY METHOD 07/13/2025 10:32 AM EDT [facility] Blood Venous blood specimen / Unknown Venipuncture / Unknown 07/13/2025 7:59 AM EDT 07/13/2025 8:10 AM EDT Narrative [facility] - 07/13/2025 10:32 AM EDT Procalcitonin > 2.00 ng/ml: Procalcitonin Levels above 2.00 ng/ml, on the first day of ICU admission represent a high risk for progression to severe sepsis and/or septic shock. Procalcitonin < 0.50 ng/ml: Procalcitonin levels below 0.50 ng/ml on the first day of ICU admission represent a low risk for progression to severe sepsis and/or septic shock. Concentrations <0.5 ng/mL do not exclude an infection, on account of local ized infections (without systemic signs) which can be associated with such low concentrations, or a systemic infection in its initial stages (<6 hours). Furthermore, increased procalcitonin can occur without infection. PCT concentrations between 0.5 and 2.0 ng/mL should be interpreted taking into account the patient's history. It is recommended to retest PCT within 6-24 hours if any concentrations <2.0 ng/mL are obtained. Deyanira Nguyen MD LAB BLOOD ORDERABLES Final Res ult Performing Organization Address City/[facility]/ZIP Co de Phone Number [facility] [address] [place] [address], [place] [phone] * Lipase (07/13/2025 7:59 AM EDT) Pathologist [facility] Lipase 18 13 - 75 unit/L LAB CHEMISTRY METHOD 07/13/2025 8:35 AM EDT [facility] Blood Venous blood specimen / Unknown Venipuncture / Unknown 07/13/2025 7:59 AM EDT 07/13/2025 8:10 AM EDT Holger Vazquez MD LAB BLOOD ORDERABLES Final Resul t Performing Organization Address [facility]/ZIP Co de Phone Number [facility] [address] [place] [address], [place] [phone] * Hemoglobin A1c (07/13/2025 7:59 AM EDT) Pathologist [facility] Hemoglobin A1C 5.9 <6.5 % LAB CHEMISTRY METHOD 07/13/2025 1:13 PM EDT [facility] Mean Bld Glu Estim. 123 mg/dL LAB CHEMISTRY METHOD 07/13/2025 1:13 PM EDT [facility] Blood Venous blood specimen / Unknown Venipuncture / Unknown 07/13/2025 7:59 AM EDT 07/13/2025 8:10 AM EDT [facility] BLOOD ORDERABLES Final Resul t Performing Organization Address [facility] de Phone Number [facility] [address] [place] [address], [place] [phone] * Ethanol (07/13/2025 7:59 AM EDT) Ethanol Level <3 0 - 10 mg/dL LAB CHEMISTRY METHOD 07/13/2025 10:59 AM EDT [facility] Blood Venous blood specimen / Unknown Venipuncture / Unknown 07/13/2025 7:59 AM EDT 07/13/2025 8:10 AM EDT [facility] BLOOD ORDERABLES Final Resul t Performing Organization Address [facility] de Phone Number [facility] [address] [place] [address], [place] [phone] * [place] CRITICAL CARE 30-74 MINUTES (07/13/2025 7:14 AM EDT) Holger Mcdaniel MD - 07/13/2025 7:14 AM EDT Holger Vazquez MD 07/13/2025 12:43 PM Critical Care Performed by: Holger Vazquez MD Authorized by: Holger Vazquez MD Critical care provider statement: Critical care time (minutes): 31 Total face to face critical care time (minutes): 31 Critical care time was exclusive of: Separately billable procedures and treating other patients and teaching time Critical care was necessary to treat or prevent imminent or life-threatening deterioration of the following conditions: Cardiac failure Critical care was time spent personally by me on the following activities: Development of treatment plan with patient or surrogate, discussions with consultants, discussions with primary provider, evaluation of patient's response to treatment, examination of patient, obtaining history from patient or surrogate, ordering and performing treatments and interventions, ordering and review of laboratory studies, ordering and review of radiographic studies, re-evaluation of patient's condition, pulse oximetry and review of old charts Face to face critical care was time spent personally by me on the following activities: Blood draw for specimens, development of treatment plan with patient or surrogate, discussions with primary provider, evaluation of patient's response to treatment, examination of patient, obtaining history from patient or surrogate, ordering and performing treatments and interventions, ordering and review of laboratory studies, ordering and review of radiographic studies, pulse oximetry, re-evaluation of patient's condition and review of old charts I assumed direction of critical care for this patient from another provider in my specialty: no Care discussed with: admitting provider us Holger Vazquez MD IN CLINIC/BEDSIDE ORDERABLES Fin al Result from Last 3 Months Insurance MEDICAID - [place] [employer] MEDICARE Advance Directives * Full Code - Confirmed (Latest Code Status on File) Date Activated Date Inactivated Comments 07/22/2025 3:53 PM 07/31/2025 6:[address] atus was ascertained in the following way: Code status discussion: discussion with patient To update the patient's code status, place a code status order. Do not modify or discontinue any currently active code status orders. * Full Code - Default Date Activated Date Inactivated Comments 07/22/2025 5:53 AM 07/22/2025 3:53 PM This is orde r is used when code status has not been discussed with the patient, or code status is otherwise unknown/unconfirmed To update the patient's code status, place a code status order. Do not modify or discontinue any currently active code status orders. * Full Code - Default Date Activated Date Inactivated Comments 07/13/2025 8:56 AM 07/18/2025 5:15 PM This is order is used when code status has not been discussed with the patient, or code status is otherwise unknown/unconfirmed To update the patient's code status, place a code status order. Do not modify or discontinue any currently active code status orders. Care Teams Instrument Specialist Relationship Specialty Start Date End Date Holger Manuel NP [address] [place] [address] PCP - General Family Medicine 07/20/25
== END 2025-08-11 12:19 | disposition home or self-care (01) ==
LOC: HO.HMCC 11:31
PROVIDERS: PCP Nurse Practitioner Family; Visit Provider Nurse Practitioner Family
DX: E11.8 Type 2 diabetes mellitus with unspecified complications (principal)

== ENCOUNTER → 2025-08-11 23:59 | Outpatient (BNV) | payer MEDICARE, SELFPAY | PROVIDERS: PCP Nurse Practitioner Family; Visit Provider Nurse Practitioner Family | DX: I11.0 Hypertensive heart disease with heart failure (principal); I50.43 Acute on chronic combined systolic (congestive) and diastolic (congestive) heart failure; I48.0 Paroxysmal atrial fibrillation | CPT/HCPCS: G0180 ==

== ENCOUNTER 2025-08-12 09:03 | Outpatient (AMB) | payer OTHER, SELFPAY ==
--- NOTE | 2025-08-12 09:07 | AM.OFFWIN_ITS ---
Intake Vital Signs 08/12/25 09:08 Height 5 ft 7 in Weight 143 lb BMI 22.4 BP 110/50 L Blood Pressure Location Rt brachial Position Sitting Pulse 57 Pulse Source Pulse Oximeter Temp 97.8 F Temp Source Oral Pulse Oximetry (%) 98 Oxygen Delivery Method Room Air Intake Visit Reasons: ep black spot on left bottom of foot Patient Tobacco Use Status: Former Tobacco user Allergies No Known Allergies Allergy (Verified 08/12/25 09:08) Do you need a note to return to daycare/school/sports/work: No HPI HPI Comments History of Present Illness Details History of Present Illness - The patient is a 65-year-old male pres enting with concerns about a black spot on the foot on the left. - The patient recently underwent cardiac surgery on the and was concerned about the tightness of the boots used post-operatively, which led to the development of a blister on the foot. - The blister is healing, with the skin sloughing off, and there is no sign of infection. - The patient was worried about the pote ntial for a blood clot but was reassured that the blister is healing normally. - He denies fever, chills, redness, warm th, discharge, or bleeding. Physical Exam General: Cooperative, healthy appearing, comfortable, no acute distress and well developed Orientation: Patient oriented x3 Limitations: No limitations Respiratory: Normal respiratory effort and able to speak in complete sentences. Clear to auscultation bilaterally Cardiovascular: Regular rate and rhythm. Normal S1 and S2 Skin: Healing blister on left foot on the plantar aspect with dark black skin. Dry, hardened, non-tender, non-fluctuant, non-bloody. Patient was informed and verbally consented to the use of an ambient scribe for clinic note documentation during this visit. 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 History of heart artery stent History of neck surgery History of cholecystectomy History of colonoscopy Family History Brother Myocardial infarction Social History Housing: Other Patient Tobacco Use Status: Former Tobacco user Cigarettes Per Day: 5 Years Smoked: Started at 13 years old ,quit 06/29/2025 e-Cigarette/Vaping Use: Never Used Second Hand Smoke Exposure: No service: Yes Current occupational status: disabled Cognitive needs: No Hearing needs: Yes Vision needs: No Review of Systems Const All systems reviewed & are unremarkable except as noted in HPI and below Physical Exam Vital Signs: Last Vital Signs Temp 97.8 F 08/12/25 09:08 Pulse 57 08/12/25 09:08 BP 110/50 L 08/12/25 09:08 Pulse Ox 98 08/12/25 09:08 Oxygen Delivery Method Room Air 08/12/25 09:08 BMI result Body Mass Index 22.4 Assessment & Plan Assessment & Plan (1) Blister of left foot without infection: Code(s): S90.822A - Blister (nonthermal), left foot, initial encounter Qualifiers: Encounter type: initial encounter Qualified Code(s): S90.822A - Blister (nonthermal), left foot, initial encounter Plan Most likely healing blister on the plantar aspect of the foot plan - The blister is healing, and no treatment is necessary other than keeping it dry and allowing the skin to slough off naturally. - keep area clean and dry - follow up as needed Coding Level of Care Code Est Pt Level 3 (89819) Diagnoses Blister of left foot without infection, initial encounter S90.822A Encounter type: initial encounter
[2025-08-12 09:08] VITALS: BP 110/50; PULSE 57; TEMP 36.6; O2SAT 98; BMI 22.4
--- OUTSIDE RECORDS SUMMARY | 2025-08-12 09:44 | XMS_ITS | Encounter Summary ---
Author Organization [facility] Address [address] [place] [address] Care Team Providers Care Brand Strategist Name Role Phone Holger Manuel NP Primary Care Provider + [phone] Encounter Details Date Type Department Care Team (Late st Contact Info) Description 08/11/2025 Telephone [facility] [address] [place] [address] [place] [address] Salma Strong PA [address] [place] [address] Dr [address] [place] [address] Social History Tobacco Use Types Packs/Day [...] Please advise. Best call back number is [phone] documented in this encounter Plan of Treatment Upcoming Encounters Date Type Department Care Team (Late st Contact Info) Description 08/20/2025 10:10 AM EDT Office Visit [facility] [address] [facility] [address] [place] [phone] Salma Strong PA [address] [place] [address] [place] [id number] documented as of this encounter Visit Diagnoses Not on filedocumented in this encounter Care Teams Brand Strategist Relationship Specialty Start Date End Date Holger Manuel NP [address] [place] [address] PCP - General Family Medicine 07/20/25 documented as of this encounter
--- OUTSIDE RECORDS SUMMARY | 2025-08-12 09:44 | XMS_ITS | Clinical Summary ---
Author Organization [facility] Address [address] [place] [address] Phone Care Team Providers Care Social Media Community Manager Name Role Phone Holger Manuel NP Primary Care Provider + [phone] Allergies No known active allergies Medications metFORMIN [...] on chronic diastolic ( congestive) heart failure ([facility] V24, [facility] V28) 07/27/2025 Secondary hypercoagulable state ([facility] V24) S/P MVR (mitral valve replacement) 07/25/2025 S/P CABG x 1 07/25/2025 H/O maze procedure 07/25/2025 History of left atrial appendage closure 025 Mitral regurgitation 07/22/2025 Atrial fibrillation with RVR (CMS/HCC V24, CMS/H CC V28) 07/13/2025 Cardiomyopathy ([facility] V24, [facility] V28) 2024 Nonrheumatic mitral valve regurgitation 07/13/20 25 COPD (chronic obstructive pu lmonary disease) (CMS/HCC V24, CMS/HCC V28) Hypertension Type II diabetes mellitus (CMS/[facility] V24, CMS/HCC V28) Encounters Date Type Department Care Team Description 08/11/[address] [facility] Dr Pab[facility] [address] [place] [address] Salma Strong PA 08/04/2025 Telephone [facility] CV Pre Admission Testing [address] [place] [phone] Gavi Ahumada RN 07/22/2025 7:15 AM EDT - 07/22/2025 1:37 PM EDT Surgery [facility] CV OR [address] [place] [phone] Jayjay Arias MD REPLACE VALVE MITRAL [14445 (CPT ) +1 more] 07/22/2025 7:14 AM EDT Anesthesia Event [facility] CV OR [address] [place] [phone] Gerber Quinones MD Wilson, Gary S, MD 07/22/2025 5:27 AM EDT - 07/31/2025 4:08 PM EDT Hospital Encounter [facility] CV Surg Card 8-[address] [place] [phone] Jayjay Arias MD Mitral valve insufficiency, unspecified etiology (Primary Dx); Atrial fibrillation with RVR (CMS/HCC V24, CMS/HCC V28); Nonrheumatic mitral valve regurgitation; Atherosclerosis of makah coronary artery of makah heart without angina pectoris; S/P CABG x 1; S/P MVR (mitral valve replacement) Discharge Disposition: Home-Health Care [facility] 07/20/2025 2:59 PM EDT - 07/20/2025 11:59 PM EDT Hospital Encounter [facility] Xray [address] [place] [phone] Discharge Disposition: Home or Self Care 07/20/2025 1:30 PM EDT Consult [facility] CV Pre Admission Testing [address] [place] [phone] Vida Restrepo PA SOB (shortness of [...] complication, without long-term current use of insulin ([facility] V24, [facility] V28) 07/20/2025 12:25 PM EDT - 07/20/2025 11:59 PM EDT Hospital Encounter [facility] Pulmonary Lab [address] [place] [phone] Pre-op testing Discharge Disposition: Home or Self Care 07/17/2025 12:29 PM EDT Anesthesia Event [facility] [address] [place] [address] Wolf Azul MD 07/16/2025 1:00 PM EDT - 07/16/2025 4:[address] [facility] [address] [place] [phone] Holger Coates MD Left heart cath / Coronary angiography 07/15/2025 8:06 AM EDT Anesthesia Event [facility] [address] [place] [address] Casey Flanagan MD 07/13/2025 7:26 AM EDT - 07/18/2025 3:15 PM EDT Hospital Encounter [facility] Intermediate Care Unit [address] [place] [address] Holger Vazquez MD Bukalo, Nermina, MD Kokosadze, Estate, MD Atrial fibrillation with RVR ([facility] V24, [facility] V28) (Primary Dx); Cardiomyopathy, unspecified type ([facility] V24, [facility] V28); Nonrheumatic mitral valve regurgitation; A-fib ([facility] V24, [facility] V28) Discharge Disposition: Home-Health Care Svc from [...] 09/17/2014 DX:Herniated lumbar intervertebral disc; COMMENT: Sees [facility] COPD (chronic obstructive pu lmonary disease) ([facility] V24, [facility] V28) Type II diabetes mellitus ([facility] MS/HCC V24, [facility] V28) CAD (coronary artery disease) s/ p stent in 2020 at [facility] Mitral valve prolapse Heart murmur Myocardial infarction ([facility]/H CC V24, [facility] V28) 08/2022 Inferoposterior STEMI s/p le ft circumflex stent CHF (congestive heart failur e) ([facility] V24, [facility] V28) AF (paroxysmal atrial fibril lation) ([facility] V24, [facility] V28) Heart failure with mid-range ejection fraction (HFmEF) ([facility]/HCC V24, [facility] V28) Severe mitral regurgitation FARHAT (acute kidney injury) (C MS/HCC V24) 07/2025 Peripheral neuropathy OA (osteoarthritis) Cardiac arrest ([facility] V24, [facility] V28) 08/2022 VF cardiac arrest BPH (benign prostatic hyperplasia) Hypertension Family History Medical History Relation Name Comments No Known Problems Aunt Fainting Brother 1 Heart disease Brother 1 VT COPD Brother 2 Seizures Brother 3 No [...] Status Comments Aunt Brother 1 (Age 55) VT Brother 2 Alive Brother 3 Alive Father [...] Description 08/20/2025 10:10 AM EDT Office Visit [facility] [address] [place] [phone] Salma Strong PA [address] [place] [address] [place] [phone] Health Maintenance Due Date Last Done Comments [...] this topic Medical Devices Implanted Type Area Corporate Strategy Analyst Device Identifier Shelf Expiration Date Model / Serial / Lot Valve Mitral Mitris Resilia Sz 29 - [id number] - [id number] Implanted:Q ty: 1 on 07/22/2025 by Jayjay Arias MD at [facility] Heart Valve N/A: Heart [employer] ELE 03/25/2030 [id number] / [id number] / N/A Hemostat Absorb Surgicel 6x9in Ster Nuknit - Sn/A - [id number] Implanted:Q ty: 2 on 07/22/2025 by Jayjay Arias MD at [facility] Hemostasis N/A: Chest [employer] 12/12/2029 1946 / N/A / [id number] Plate Manubrium - Sn/A - [id number] Implanted:Q ty: 1 on 07/22/2025 by Jayjay Arias MD at [facility] Internal and External Fixation N/A: Sternum CHUCK CRANIOMAXILLOFACIAL [id number] / N/A / N/A Plate X - Sn/A - [id number] Implanted:Q ty: 2 on 07/22/2025 by Jayjay Arias MD at [facility] Internal and External Fixation N/A: Sternum CHUCK [employer]ANIOMAXILLOFACIAL [id number] / N/A / N/A Screw Sd Locking 2.3x14mm - Sn/A - [id number] Implanted:Q ty: 12 on 07/22/2025 by Jayjay Arias MD at [facility] Internal and External Fixation N/A: Sternum [employer]UCK [employer] [id number] / N/A / N/A Screw Sd Locking 2.3x16mm - Sn/A - [id number] Implanted:Q ty: 10 on 07/22/2025 by Jayjay Arias MD at [facility] Internal and External Fixation N/A: Sternum [employer]UCK [employer] [id number] / N/A / N/A Procedures Procedure Name [...] STAT 07/22/2025 2:21 PM EDT Atherosclerosis of makah coronary artery of makah heart without angina pectoris Nonrheumatic mitral valve [...] STAT 07/22/2025 11:27 AM EDT Atherosclerosis of makah coronary artery of makah heart without angina pectoris Nonrheumatic mitral valve regurgitation PLATELET COUNT STAT 07/22/2025 11:27 AM EDT Atherosclerosis of makah coronary artery of makah heart without angina pectoris Nonrheumatic mitral valve [...] PROCEDURE 07/22/2025 7:14 AM EDT Atherosclerosis of makah coronary artery of makah heart without angina pectoris Nonrheumatic mitral valve regurgitation Paroxysmal atrial fibrillation (CMS/HCC V24, CMS/HCC V28) LA ENDO SURG CORONARY ART BYPASS PROC INCL VIDEO-ASSISTED HARVEST VEIN(S) 07/22/2025 7:14 AM EDT Atherosclerosis of makah coronary artery of makah heart without angina pectoris Nonrheumatic mitral valve regurgitation Paroxysmal atrial fibrillation (CMS/HCC V24, CMS/HCC V28) LA CORONARY ARTERY BYPASS VEIN ONLY SINGLE CORONARY VENOUS GRAFT 07/22/2025 7:14 AM EDT Atherosclerosis of makah coronary artery of makah heart without angina pectoris Nonrheumatic mitral valve regurgitation Paroxysmal atrial fibrillation (CMS/HCC V24, CMS/HCC V28) LA REPLACEMENT MITRAL VALVE WITH CARDIOPULMONARY BYPASS 07/22/2025 7:14 AM EDT Atherosclerosis of makah coronary artery of makah heart without angina pectoris Nonrheumatic mitral valve regurgitation Paroxysmal atrial fibrillation (CMS/HCC V24, CMS/HCC V28) LA ECHOCARDIOGRAPHY TRANSESOPHAGEAL REAL-TIME W IMG DOC INCL PROBE PLCMNT 07/22/2025 7:14 AM EDT Atherosclerosis of makah coronary artery of makah heart without angina pectoris Nonrheumatic mitral valve [...] ECG 12-LEAD STAT 07/13/2025 7:20 AM EDT LA CRITICAL CARE 30-74 MINUTES Routine 07/13/2025 7:14 AM EDT from Last 3 Months Results * POCT Glucose, blood (07/31/2025 1:15 PM EDT) Only the most recent of73 resultswithin the time period is included. [facility] Glucose POCT 107 70 - 199 mg/dL 07/31/2025 1:15 PM EDT [facility] Comment: Fasting Reference Range: 70-99 mg/dL Non-Fasting Reference Range: 70-199 mg/dL POCT Comment Notified Nurse 07/31/2025 1:15 PM EDT [facility] Blood Capillary blood specimen / Unknown 07/31/2025 1:15 PM EDT 07/31/2025 1:16 PM EDT Jayjay Arias MD LAB POINT OF CARE TE ST DOCKED DEVICE UNSOLICITED RESULTS Final Result Performing Organization Address City/[facility]/ZIP Co de Phone Number [facility] [address] [place] [address], * (ABNORMAL) Prothrombin time with INR (07/31/2025 8:17 AM EDT) Only the most recent of13 resultswithin the time period is included. Protime 15.8(H) 10.5 - 13.3 sec LAB COAGULATION METHOD 07/31/2025 8:53 AM EDT [facility] INR 1.4(H) 0.8 - 1.1 LAB COAGULATION METHOD 07/31/2025 8:53 AM EDT [facility] Blood Venous blood specimen / Unknown Venipuncture / Unknown 07/31/2025 8:17 AM EDT 07/31/2025 8:31 AM EDT Narrative [facility] - 07/31/2025 8:53 AM EDT Std. Therapy 2.0-3.0 INR High Dose Therapy 3.0-4.5 INR Ranges may vary depending on clinical indications and protocol. Fabio R[facility]HERFORD LAB BLOOD ORDERABLES Final Resul t [facility] [address] [place] [address], * Potassium (07/31/2025 8:17 AM EDT) Only the most recent of6 resultswithin the time period is included. Potassium 4.1 3.5 - 5.1 mmol/L LAB CHEMISTRY METHOD 07/31/2025 9:12 AM EDT [facility] Blood Venous blood specimen / Unknown Venipuncture / Unknown 07/31/2025 8:17 AM EDT 07/31/2025 8:31 AM EDT us Fabio R[facility]HER[facility]ORD LAB BLOOD ORDERABLES Final Resul t Performing Organization Address City/[facility]/ZIP Co de Phone Number [facility] [address] [place] [address], * Magnesium (07/31/2025 8:17 AM EDT) Only the most recent of13 resultswithin the time period is included. Magnesium 2.0 1.7 - 2.8 mg/dL LAB CHEMISTRY METHOD 07/31/2025 9:12 AM EDT [facility] Blood Venous blood specimen / Unknown Venipuncture / Unknown 07/31/2025 8:17 AM EDT 07/31/2025 8:31 AM EDT us Fabio R[facility] LAB BLOOD ORDERABLES Final Resul t Performing Organization Address [facility] de Phone Number [facility] [address] [place] [address], * Calcium, ionized (07/31/2025 8:17 AM EDT) Only the most recent of8 resultswithin the time period is included. Calcium Ionized 1.22 1.19 - 1.35 mg/dL LAB BLOOD GAS METHOD 07/31/2025 8:39 AM EDT [facility] Blood Venous blood specimen / Unknown Venipuncture / Unknown 07/31/2025 8:17 AM EDT 07/31/2025 8:29 AM EDT us Fabio R[facility]HERFORD LAB BLOOD ORDERABLES Final Resul t Performing Organization Address City/[facility] de Phone Number [facility] [address] [place] [address], [place] [phone] * XR Chest 1 View (07/31/2025 6:07 AM EDT) Only the most recent of5 resultswithin the time period is included. Anatomical Region Laterality Modality Body Radiographic Jana ging 07/31/2025 7:05 AM EDT Impressions 07/31/2025 7:08 AM EDT Removal of right IJ central line and Chapman-Zaina catheter. Improved visualization of the left lung base with mild atelectasis in small left pleural effusion remaining. -------- FINAL REPORT -------- Dictated By: Julian Mayfield Dictated Date: 07/31/2025 07:05 ET Assigned Physician: Julian Mayfield Reviewed and Electronically Signed By: Julian Mayfield Signed Date: 07/31/2025 07:08 ET Workstation ID: [id number] Transcribed By: Self Edit Transcribed Date: 07/31/2025 07:05 ET Narrative 07/31/2025 7:08 AM EDT EXAM: XR CHEST 1 VIEW HISTORY: s/p MVR CABG COMPARISON:07/27/2025, 07/23/2025, 07/22/2025 FINDINGS: Interval removal of right IJ central line and Chapman-Zaina catheter. Cardiac silhouette remains enlarged. Improved visualization of left lung base with mild atelectasis remaining and small pleural effusion. The right lung is clear. No pneumothorax. Status post sternotomy and mitral valve replacement. Procedure Note Julian Mayfield MD - 07/31/2025 EXAM: XR CHEST 1 VIEW HISTORY: s/p MVR CABG COMPARISON:07/27/2025, 07/23/2025, 07/22/2025 FINDINGS: Interval removal of right IJ central line and Chapman-Zaina catheter. Cardiacsilhouette remains enlarged. Improved visualization of left lung base withmild atelectasis remaining and small pleural effusion. The right lung isclear. No pneumothorax. Status post sternotomy and mitral valvereplacement. IMPRESSION: Removal of right IJ central line and Chapman-Zaina catheter. Improvedvisualization of the left lung base with mild atelectasis in small leftpleural effusion remaining. -------- FINAL REPORT -------- Dictated By: Julian Mayfield Dictated Date: 07/31/2025 07:05 ET Assigned Physician: Julian Mayfield Reviewed and Electronically Signed By: Julian Mayfield Signed Date: 07/31/2025 07:08 ET Workstation ID: [id number] Transcribed By: Self Edit Transcribed Date: 07/31/2025 07:05 ET us Josafat RUTHERFORD IMG XR PROCEDURES Final Result * (ABNORMAL) Complete blood count (07/30/2025 6:34 AM EDT) Only the most recent of11 resultswithin the time period is included. WBC 7.7 4.0 - 10.5 K/mcL LAB HEMETOLOGY METHOD 07/30/2025 7:13 AM EDT [facility] RBC 2.78(L) 4.70 - 6.00 M/mcL LAB HEMETOLOGY METHOD 07/30/2025 7:13 AM EDT [facility] Hemoglobin 8.9(L) 13.5 - 18.0 g/dL LAB HEMETOLOGY METHOD 07/30/2025 7:13 AM EDT [facility] Hematocrit 27.3(L) 40.0 - 54.0 % LAB HEMETOLOGY METHOD 07/30/2025 7:13 AM EDT [facility] MCV 98.2 78.0 - 100.0 FL LAB HEMETOLOGY METHOD 07/30/2025 7:13 AM EDT [facility] MCH 32.1 25.0 - 33.0 pcg LAB HEMETOLOGY METHOD 07/30/2025 7:13 AM EDT [facility] MCHC 32.7 32.0 - 36.0 g/dL LAB HEMETOLOGY METHOD 07/30/2025 7:13 AM EDT [facility] RDW 15.0 12.1 - 17.7 % LAB HEMETOLOGY METHOD 07/30/2025 7:13 AM EDT [facility] Platelets 218 150 - 450 K/mcL LAB HEMETOLOGY METHOD 07/30/2025 7:13 AM EDT [facility] Comment:Verified by repeat a nalysis MPV 9.0 7.4 - 11.4 FL LAB HEMETOLOGY METHOD 07/30/2025 7:13 AM EDT [facility] Blood Venous blood specimen / Unknown Venipuncture / Unknown 07/30/2025 6:34 AM EDT 07/30/2025 6:58 AM EDT Fabio RUTHERFORD LAB BLOOD ORDERABLES Final Resul t Performing Organization Address City/[facility]/ZIP Co de Phone Number [facility] [address] [place] [address], [place] [phone] * Phosphorus (07/30/2025 6:34 AM EDT) Only the most recent of7 resultswithin the time period is included. Phosphorus 3.4 2.5 - 4.5 mg/dL LAB CHEMISTRY METHOD 07/30/2025 7:39 AM EDT [facility] Blood Venous blood specimen / Unknown Venipuncture / Unknown 07/30/2025 6:34 AM EDT 07/30/2025 6:58 AM EDT Fabio Borjas [place] LAB BLOOD ORDERABLES Final Resul t [facility] [address] [place] [address], [place] [phone] * (ABNORMAL) Basic metabolic panel (07/30/2025 6:34 AM EDT) Only the most recent of16 resultswithin the time period is included. Sodium 139 135 - 145 mmol/L LAB CHEMISTRY METHOD 07/30/2025 7:39 AM EDT [facility] Potassium 4.4 3.5 - 5.1 mmol/L LAB CHEMISTRY METHOD 07/30/2025 7:39 AM EDT [facility] Comment:Slightly Hemolyzed Chloride 105 98 - 107 mmol/L LAB CHEMISTRY METHOD 07/30/2025 7:39 AM EDT [facility] CO2 25 24 - 32 mmol/L LAB CHEMISTRY METHOD 07/30/2025 7:39 AM EDT [facility] Anion Gap 9 5 - 14 LAB CHEMISTRY METHOD 07/30/2025 7:39 AM EDT [facility] Glucose 93 70 - 199 mg/dL LAB CHEMISTRY METHOD 07/30/2025 7:39 AM [facility] BUN 20 9 - 20 mg/dL LAB CHEMISTRY METHOD 07/30/2025 7:39 AM [facility] Creatinine 0.80 0.70 - 1.30 mg/dL LAB CHEMISTRY METHOD 07/30/2025 7:39 AM EDT [facility] eGFR 98 >=60 mL/min/1. 73m2 LAB CHEMISTRY METHOD 07/30/2025 7:39 AM [facility] Comment:Calculation based on the Chronic Kidney Disease Epidemiology Collaboration (CKD-EPI) equation refit without adjustment for race. BUN/Creatinine Ratio 25.0(H) 12.0 - 20.0 LAB CHEMISTRY METHOD 07/30/2025 7:39 AM T [facility] Calcium 8.4 8.4 - 10.2 mg/dL LAB CHEMISTRY METHOD 07/30/2025 7:39 AM [facility] Blood Venous blood specimen / Unknown Venipuncture / Unknown 07/30/2025 6:34 AM EDT 07/30/2025 6:58 AM EDT us Fabio RUTHERFORD LAB BLOOD ORDERABLES Final Resul t Performing Organization Address City/[facility]/ZIP Co de Phone Number [facility] [address] [place] [address], [place] [phone] * Lactate, whole blood (07/29/2025 5:12 AM EDT) Only the most recent of4 resultswithin the time period is included. Lactate, Whole Blood 1.2 0.5 - 2.2 mmol/L LAB BLOOD GAS METHOD 07/29/2025 5:53 AM EDT [facility] Blood Blood sample taken from central line / Unknown Venipuncture / Unknown 07/29/2025 5:12 AM EDT 07/29/2025 5:28 AM EDT us [place] [facility] LAB BLOOD ORDERABLES Final Res ult Performing Organization Address [facility] Co de Phone Number [facility] [address] [place] [address], [place] [phone] * (ABNORMAL) Hemoglobin and hematocrit (07/28/2025 2:44 PM EDT) Only the most recent of4 resultswithin the time period is included. Pathologist [facility] Hemoglobin 8.1(L) 13.5 - 18.0 g/dL LAB HEMETOLOGY METHOD 07/28/2025 3:02 PM EDT [facility] Hematocrit 23.7(L) 40.0 - 54.0 % LAB HEMETOLOGY METHOD 07/28/2025 3:02 PM EDT [facility] Blood Venous blood specimen / Unknown Venipuncture / Unknown 07/28/2025 2:44 PM EDT 07/28/2025 2:55 PM EDT us [place] [facility] LAB BLOOD ORDERABLES Final Res ult Performing Organization Address City/[facility]/ZIP Co de Phone Number [facility] [address] [place] [address], [place] [phone] * Prepare RBC: 1 Units (07/28/2025 7:45 AM EDT) Only the most recent of3 resultswithin the time period is included. Pathologist [facility] Product Code [id number] 07/29/2025 10:07 AM EDT [facility] Unit Number [id number] 07/29/20 10:07 AM EDT [facility] Crossmatch Compatible 07/28/2025 7:49 AM EDT [facility] Dispense Status Released From Crossmatch 07/29/2025 10:07 AM EDT [facility] Unit ABO Rh OPOS 07/29/2025 10:07 AM EDT [facility] Unit Expiration Date Time [id number] 07/29/2025 10:07 AM EDT [facility] Unit Blood Type 5100 07/29/2025 10:07 AM EDT [facility] Blood Venous blood specimen / Unknown 07/28/2025 7:45 AM EDT 07/28/2025 5:43 AM EDT [place] [facility] PRODUCT ORDERABLES Final Result [facility] [address] [place] [address], [place] [phone] * Mixed venous blood gas (07/28/2025 5:24 AM EDT) Only the most recent of7 resultswithin the time period is included. Pathologist [facility] pH, Mixed Venous Blood 7.41 7.35 - 7.45 pH LAB BLOOD GAS METHOD 07/28/2025 5:52 AM EDT [facility] Carbon Dioxide Mixed Venous 43 mmHg LAB BLOOD GAS METHOD 07/28/2025 5:52 AM EDT [facility] Comment:No established refer ence range. PO2 Mixed Venous 30 mmHg LAB BLOOD GAS METHOD 07/28/2025 5:52 AM EDT [facility] Comment:No established refer ence range. Bicarbonate Mixed Venous 25.6 mmol/L LAB BLOOD GAS METHOD 07/28/2025 5:52 AM EDT [facility] Comment:No established refer ence range. Oxygen Saturation Mixed Venous 47.7 % LAB BLOOD GAS METHOD 07/28/2025 5:52 AM EDT [facility] Comment:No established refer ence range. Base Excess Mixed Venous 2.2 mmol/L LAB BLOOD GAS METHOD 07/28/2025 5:52 AM EDT [facility] Comment:No established refer ence range. Blood Mixed venous blood specimen / Unknown Existing Catheter / Unknown 07/28/2025 5:24 AM EDT 07/28/2025 5:42 AM EDT us Mark R[facility] LAB BLOOD ORDERABLES Final Result [facility] [address] [place] [address], [place] [phone] * Type and screen (07/28/2025 5:24 AM EDT) Only the most recent of4 resultswithin the time period is included. ABO Group O 07/28/2025 7:21 AM EDT [facility] Rh Type Positive 07/28/2025 7:21 AM EDT [facility] Antibody Screen Negative 07/28/2025 7:21 AM EDT [facility] Blood Venous blood specimen / Unknown Existing Catheter / Unknown 07/28/2025 5:24 AM EDT 07/28/2025 5:43 AM EDT us Mark [facility] LAB BLOOD BANK TEST ORDERA BLES Final Result [facility] [address] [place] [address], * (ABNORMAL) Comprehensive metabolic panel (07/28/2025 3:34 AM EDT) Only the most recent of2 resultswithin the time period is included. Sodium 139 135 - 145 mmol/L LAB CHEMISTRY METHOD 07/28/2025 4:08 AM EDT [facility] [facility] Potassium 3.6 3.5 - 5.1 mmol/L LAB CHEMISTRY METHOD 07/28/2025 4:08 AM EDT [facility] Chloride 107 98 - 107 mmol/L LAB CHEMISTRY METHOD 07/28/2025 4:08 AM EDT [facility] CO2 26 24 - 32 mmol/L LAB CHEMISTRY METHOD 07/28/2025 4:08 AM EDT [facility] Anion Gap 6 5 - 14 LAB CHEMISTRY METHOD 07/28/2025 4:08 AM EDT [facility] Glucose 106(H) 70 - 99 mg/dL LAB CHEMISTRY METHOD 07/28/2025 4:08 AM EDT [facility] BUN 15 9 - 20 mg/dL LAB CHEMISTRY METHOD 07/28/2025 4:08 AM EDT [facility] Creatinine 0.70 0.70 - 1.30 mg/dL LAB CHEMISTRY METHOD 07/28/2025 4:08 AM EDT [facility] eGFR 102 >=60 mL/min/1. 73m2 LAB CHEMISTRY METHOD 07/28/2025 4:08 AM EDT [facility] Comment:Calculation based on the Chronic Kidney Disease Epidemiology Collaboration (CKD-EPI) equation refit without adjustment for race. BUN/Creatinine Ratio 21.4(H) 12.0 - 20.0 LAB CHEMISTRY METHOD 07/28/2025 4:08 AM EDT [facility] Calcium 7.6(L) 8.4 - 10.2 mg/dL LAB CHEMISTRY METHOD 07/28/2025 4:08 AM EDT [facility] AST (SGOT) 38 5 - 40 unit/L LAB CHEMISTRY METHOD 07/28/2025 4:08 AM EDT [facility] ALT (SGPT) 141(H) 7 - 52 unit/L LAB CHEMISTRY METHOD 07/28/2025 4:08 AM EDT [facility] Alkaline Phosphatase 75 34 - 104 unit/L LAB CHEMISTRY METHOD 07/28/2025 4:08 AM EDT [facility] Total Protein 5.2(L) 6.4 - 8.5 g/dL LAB CHEMISTRY METHOD 07/28/2025 4:08 AM EDT [facility] Albumin 3.2(L) 3.5 - 5.0 g/dL LAB CHEMISTRY METHOD 07/28/2025 4:08 AM EDT [facility] Total Bilirubin 1.3(H) 0.3 - 1.0 mg/dL LAB CHEMISTRY METHOD 07/28/2025 4:08 AM EDT [facility] Blood Blood sample taken from central line / Unknown Venipuncture / Unknown 07/28/2025 3:34 AM EDT 07/28/2025 3:38 AM EDT us Jayjay Arias MD LAB BLOOD ORDERABLES Final Res ult [facility] [address] [place] [address], [place] [phone] * (ABNORMAL) CBC auto differential (07/27/2025 2:57 AM EDT) Only the most recent of5 resultswithin the time period is included. WBC 7.1 4.0 - 10.5 K/mcL LAB HEMETOLOGY METHOD 07/27/2025 3:23 AM EDT [facility] RBC 2.43(L) 4.70 - 6.00 M/mcL LAB HEMETOLOGY METHOD 07/27/2025 3:23 AM EDT [facility] Hemoglobin 7.9(L) 13.5 - 18.0 g/dL LAB HEMETOLOGY METHOD 07/27/2025 3:23 AM EDT [facility] Hematocrit 23.4(L) 40.0 - 54.0 % LAB HEMETOLOGY METHOD 07/27/2025 3:23 AM EDT [facility] MCV 96.1 78.0 - 100.0 FL LAB HEMETOLOGY METHOD 07/27/2025 3:23 AM EDT [facility] MCH 32.4 25.0 - 33.0 pcg LAB HEMETOLOGY METHOD 07/27/2025 3:23 AM EDT [facility] MCHC 33.7 32.0 - 36.0 g/dL LAB HEMETOLOGY METHOD 07/27/2025 3:23 AM EDT [facility] RDW 15.5 12.1 - 17.7 % LAB HEMETOLOGY METHOD 07/27/2025 3:23 AM EDT [facility] Platelets 89(L) 150 - 450 K/mcL LAB HEMETOLOGY METHOD 07/27/2025 3:23 AM EDT [facility] Comment:Verified by repeat a nalysis MPV 9.0 7.4 - 11.4 FL LAB HEMETOLOGY METHOD 07/27/2025 3:23 AM EDT [facility] Neutrophils Relative 74.8(H) 44.0 - 74.0 % LAB HEMETOLOGY METHOD 07/27/2025 3:23 AM EDT [facility] Lymphocytes Relative 12.1(L) 20.0 - 48.0 % LAB HEMETOLOGY METHOD 07/27/2025 3:23 AM EDT [facility] Monocytes Relative 11.9 2.0 - 12.0 % LAB HEMETOLOGY METHOD 07/27/2025 3:23 AM EDT [facility] Eosinophils Relative 0.6 0.0 - 6.0 % LAB HEMETOLOGY METHOD 07/27/2025 3:23 AM EDT [facility] Basophils Relative 0.6 0.0 - 2.0 % LAB HEMETOLOGY METHOD 07/27/2025 3:23 AM EDT [facility] Neutrophils Absolute 5.30 1.80 - 7.80 K/mcL LAB HEMETOLOGY METHOD 07/27/2025 3:23 AM EDT [facility] Lymphocytes Absolute 0.90(L) 1.00 - 3.20 K/mcL LAB HEMETOLOGY METHOD 07/27/2025 3:23 AM EDT [facility] Monocytes Absolute 0.80 0.00 - 0.80 K/mcL LAB HEMETOLOGY METHOD 07/27/2025 3:23 AM EDT [facility] Eosinophils Absolute 0.00 0.00 - 0.50 K/mcL LAB HEMETOLOGY METHOD 07/27/2025 3:23 AM EDT [facility] Basophils Absolute 0.00 0.00 - 0.20 K/mcL LAB HEMETOLOGY METHOD 07/27/2025 3:23 AM EDT [facility] Blood Venous blood specimen / Unknown Venipuncture / Unknown 07/27/2025 2:57 AM EDT 07/27/2025 3:08 AM EDT us Mark [place] [facility] BLOOD ORDERABLES Final Result [facility] [address] [place] [address], * (ABNORMAL) Hepatic function panel (07/27/2025 2:57 AM EDT) Only the most recent of3 resultswithin the time period is included. ALT (SGPT) 200(H) 7 - 52 unit/L LAB CHEMISTRY METHOD 07/27/2025 3:37 AM EDT [facility] AST (SGOT) 70(H) 5 - 40 unit/L LAB CHEMISTRY METHOD 07/27/2025 3:37 AM EDT [facility] Alkaline Phosphatase 76 34 - 104 unit/L LAB CHEMISTRY METHOD 07/27/2025 3:37 AM EDT [facility] Bilirubin, Direct 0.3(H) 0.0 - 0.2 mg/dL LAB CHEMISTRY METHOD 07/27/2025 3:37 AM EDT [facility] Total Bilirubin 1.1(H) 0.3 - 1.0 mg/dL LAB CHEMISTRY METHOD 07/27/2025 3:37 AM EDT [facility] Total Protein 5.3(L) 6.4 - 8.5 g/dL LAB CHEMISTRY METHOD 07/27/2025 3:37 AM EDT [facility] Albumin 3.2(L) 3.5 - 5.0 g/dL LAB CHEMISTRY METHOD 07/27/2025 3:37 AM EDT [facility] Globulin, Total 2.1(L) 2.3 - 3.5 g/dL LAB CHEMISTRY METHOD 07/27/2025 3:37 AM EDT [facility] A/G Ratio 1.5 LAB CHEMISTRY METHOD 07/27/2025 3:37 AM EDT [facility] Blood Venous blood specimen / Unknown Venipuncture / Unknown 07/27/2025 2:57 AM EDT 07/27/2025 3:08 AM EDT us Bereket [place] LAB BLOOD ORDERABLES Final Resul t [facility] [address] [place] [address], [place] [phone] * (ABNORMAL) TRANSTHORACIC ECHOCARDIOGRAM (TTE) LIMITED W/ [...] Size 5.2 cm CV PACS MV Deceleration [place] 7.8 m/s2 CV PACS E Wave Deceleration [...] BLOOD GAS METHOD 07/24/2025 3:35 AM EDT [facility] pCO2, Arterial 35 35 - 45 mmHg LAB BLOOD GAS METHOD 07/24/2025 3:35 AM EDT [facility] pO2, Arterial 89 80 - 105 mmHg LAB BLOOD GAS METHOD 07/24/2025 3:35 AM EDT [facility] HCO3, Arterial 24.5 22.0 - 26.0 mmol/L LAB BLOOD GAS METHOD 07/24/2025 3:35 AM EDT [facility] O2 Sat, Arterial 97.4 95.0 - 98.0 % LAB BLOOD GAS METHOD 07/24/2025 3:35 AM EDT [facility] Base Excess, Arterial -0.6(L) 0.0 - 2.0 mmol/L LAB BLOOD GAS METHOD 07/24/2025 3:35 AM EDT [facility] Blood Arterial blood specimen / Unknown Arterial Puncture / Unknown 07/24/2025 3:19 AM EDT 07/24/2025 3:24 AM EDT Jayjay Arias MD LAB BLOOD ORDERABLES Final Res ult [facility] [address] [place] [address], * Transfuse RBC (07/23/2025 8:31 AM EDT) [...] GEMUSE QTc 493 ms GEMUSE P Wave [place] -113 degrees GEMUSE R [place] 93 degrees GEMUSE T [place] -36 degrees GEMUSE ECG Interpretation Atrial-paced rhythm [...] LAB MICROBIOLOGY METHOD 07/23/2025 7:44 AM EDT [facility] Urine Urine specimen obtained by clean catch procedure / Unknown Non-blood Collection / Unknown 07/23/2025 4:36 AM EDT 07/23/2025 4:42 AM EDT Narrative [facility] - 07/23/2025 7:44 AM EDT Intended [...] ORDERABLES Final Res ult Performing Organization Address [facility] Co de Phone Number [facility] [address] [place] [address], [place] [phone] * Triglyceride Monitoring (07/22/2025 11:56 PM EDT) Triglycerides 101 <150 mg/dL LAB CHEMISTRY METHOD 07/23/2025 12:45 AM EDT [facility] Blood Venous blood specimen / Unknown Venipuncture / Unknown 07/22/2025 11:56 PM EDT 07/23/2025 12:06 AM EDT us [place] [facility] BLOOD ORDERABLES Final Res ult [facility] [address] [place] [address], [place] [phone] * (ABNORMAL) POCT Arterial blood gas (07/22/2025 11:45 PM EDT) Only the most recent of6 resultswithin the time period is included. Sample Site POCT ART 07/22/2025 11:55 PM EDT [facility] pH Arterial POCT 7.37 7.35 - 7.45 07/22/2025 11:55 PM EDT [facility] pCO2 Arterial POCT 32.8(L) 35 - 45 mmHg 07/22/2025 11:55 PM EDT [facility] pO2 Arterial POCT 93 80 - 105 mmHg 07/22/2025 11:55 PM EDT [facility] pH Temp Corrected Arterial, POCT 7.36 7.35 - 7.45 07/22/2025 11:55 PM EDT [facility] pCO2 Temp Control Arterial, POCT 33.8(L) 35 - 45 mmHg 07/22/2025 11:55 PM EDT [facility] pO2 Temp Corrected Arterial, POCT 97(HH) 35 - 45 mmHg 07/22/2025 11:55 PM EDT [facility] HCO3 Arterial POCT 18.8(L) 22.0 - 26.0 mmol/L 07/22/2025 11:55 PM EDT [facility] Base Excess Arterial POCT -7(L) 0 - 2 mmol/L 07/22/2025 11:55 PM EDT [facility] SO2 Arterial POCT 97 95 - 98 % 07/22/2025 11:55 PM EDT [facility] FIO2 POCT 40.0 No Established Reference Range % 07/22/2025 11:55 PM EDT [facility] Patient Temperature POCT 99.8 C 07/22/2025 11:55 PM EDT [facility] Blood Arterial blood specimen / Unknown 07/22/2025 11:45 PM EDT 07/22/2025 11:57 PM EDT Jayjay Arias MD LAB POINT OF CARE TE ST DOCKED DEVICE UNSOLICITED RESULTS Final Result Performing Organization Address [facility] Co de Phone Number [facility] [address] [place] [address], * (ABNORMAL) Activated partial thromboplastin time (07/22/2025 8:51 PM EDT) Only the most recent of19 resultswithin the time period is included. aPTT 42.4(H) 25.0 - 37.0 sec LAB COAGULATION METHOD 07/22/2025 9:17 PM EDT [facility] Blood Venous blood specimen / Unknown Venipuncture / Unknown 07/22/2025 8:51 PM EDT 07/22/2025 9:02 PM EDT [place] [facility] BLOOD ORDERABLES Final Res ult Performing Organization Address [facility]/ZIP Co de Phone Number [facility] [address] [place] [address], [place] [phone] * Transfuse cryoprecipitate (07/22/2025 3:09 PM EDT) [...] 7.35 - 7.45 07/22/2025 3:00 PM EDT [facility] pH Temp Corrected Arterial, POCT 7.30(L) 7.35 - 7.45 07/22/2025 3:00 PM T [facility] pCO2 Arterial POCT 43.6 35 - 45 mmHg 07/22/2025 3:00 PM [facility] pCO2 Temp Control Arterial, POCT 43.6 35 - 45 mmHg 07/22/2025 3:00 PM [facility] pO2 Arterial POCT 162(H) 80 - 105 mmHg 07/22/2025 3:00 PM [facility] pO2 Temp Corrected Arterial, POCT 162(HH) 35 - 45 mmHg 07/22/2025 3:00 PM [facility] HCO3 Arterial POCT 21.5(L) 22.0 - 26.0 mmol/L 07/22/2025 3:00 PM [facility] Base Excess Arterial POCT -5(L) 0 - 2 mmol/L 07/22/2025 3:00 PM [facility] SO2 Arterial POCT 99(H) 95 - 98 % 07/22/2025 3:00 PM [facility] FIO2 POCT 70.0 No Established Reference Range % 07/22/2025 3:00 PM [facility] Sodium Arterial POCT 143 135 - 145 mmol/L 07/22/2025 3:00 PM [facility] Potassium Arterial POCT 4.1 3.5 - 5.1 mmol/L 07/22/2025 3:00 PM [facility] Ionized Calcium, Arterial POCT 1.16(L) 1.19 - 1.35 mmol/L 07/22/2025 3:00 PM [facility] Glucose Arterial POCT 119 70 - 199 mg/dL 07/22/2025 3:00 PM [facility] Comment: Fasting Reference Range: 70-99 mg/dL Non-Fasting Reference Range: 70-199 mg/dL Hemoglobin Arterial POCT 8.8(L) 13.5 - 18.0 g/dL 07/22/2025 3:00 PM EDT [facility] Hematocrit Arterial POCT 26(L) 40 - 54 % 07/22/2025 3:00 PM EDT [facility] Patient Temperature POCT 37.0 C 07/22/2025 3:00 PM EDT [facility] Blood Arterial blood specimen / Unknown 07/22/2025 2:56 PM EDT 07/22/2025 3:01 PM EDT Jayjay Arias MD LAB POINT OF CARE TE ST DOCKED DEVICE UNSOLICITED RESULTS Final Result [facility] [address] [place] [address], [place] [phone] * Prepare cryoprecipitate: 1 Product (07/22/2025 2:26 PM EDT) Only the most recent of3 resultswithin the time period is included. Product Code [id number] 07/22/2025 3:09 PM EDT [facility] Unit Number [id number] 07/22/20 25 3:09 PM EDT [facility] Dispense Status Transfused 07/22/2025 3:09 PM EDT [facility] Unit ABO Rh OPOS 07/22/2025 3:09 PM EDT [facility] Unit Expiration Date Time [id number] 07/22/2025 3:09 PM EDT [facility] Unit Blood Type 5100 07/22/2025 3:09 PM EDT [facility] Blood Venous blood specimen / Unknown 07/22/2025 2:26 PM EDT us Jayjay Arias MD BLOOD BANK PRODUCT ORDERABLES Final Result [facility] [address] [place] [address], [place] [phone] * (ABNORMAL) Thromboelastograph 6 global hemostasis panel (07/22/2025 2:21 PM EDT) TEG Citrated Kaolin Reaction Time 6.3 4.6 - 9.1 min LAB COAGULATION METHOD 07/22/2025 3:13 PM EDT [facility] TEG Citrated Kaolin Kinetic Time 1.8 0.8 - 2.1 min LAB COAGULATION METHOD 07/22/2025 3:13 PM EDT [facility] TEG Citrated Kaolin Angle 70.7 63.0 - 78.0 deg LAB COAGULATION METHOD 07/22/2025 3:13 PM EDT [facility] Citrated Kaolin - Max Amplitude 54.4 52.0 - 69.0 mm LAB COAGULATION METHOD 07/22/2025 3:13 PM EDT [facility] Citrated Kaolin with Heparinase Reaction Time 6.4 4.3 - 8.3 min LAB COAGULATION METHOD 07/22/2025 3:13 PM EDT [facility] Citrated Rapid TEG- Max Amplitude 51.1(L) 52.0 - 70.0 mm LAB COAGULATION METHOD 07/22/2025 3:13 PM EDT [facility] TEG Citrated Functional Fibrinogen - Max Amplitude 15.2 15.0 - 32.0 mm LAB COAGULATION METHOD 07/22/2025 3:13 PM EDT [facility] Citrated Functional Fibrinogen Level 277.4(L) 278.0 - 581.0 mg/dL LAB COAGULATION METHOD 07/22/2025 3:13 PM EDT [facility] Blood Arterial blood specimen / Unknown 07/22/2025 2:21 PM EDT 07/22/2025 2:25 PM EDT us Jayjay Arias MD LAB BLOOD ORDERABLES Final Res ult Performing Organization Address City/[facility]/ZIP Co de Phone Number [facility] [address] [place] [address], [place] [phone] * Prepare platelets: 1 Product (07/22/2025 2:20 PM EDT) Only the most recent of2 resultswithin the time period is included. Product Code [id number] 07/24/2025 4:24 AM EDT [facility] Unit Number [id number] 07/24/20 4:24 AM EDT [facility] Dispense Status Presumed Transfused 07/24/2025 4:24 AM EDT [facility] Unit ABO Rh OPOS 07/24/2025 4:24 AM EDT [facility] Unit Expiration Date Time [id number] 07/24/2025 4:24 AM EDT [facility] Unit Blood Type 5100 07/24/2025 4:24 AM EDT [facility] Blood Venous blood specimen / Unknown 07/22/2025 2:20 PM EDT us Jayjay Arias MD BLOOD BANK PRODUCT ORDERABLES Final Result Performing Organization Address City/[facility]/ZIP Co de Phone Number [facility] [address] [place] [address], [place] [phone] * Transfuse platelets (07/22/2025 1:59 PM EDT) us Mike Dias MD BLOOD TRANSFUSION ORDERABLES Fi nal Result * Fibrinogen (07/22/2025 11:27 AM EDT) Fibrinogen 171 145 - 415 mg/dL LAB COAGULATION METHOD 07/22/2025 11:54 AM EDT [facility] Blood Arterial blood specimen / Unknown 07/22/2025 11:27 AM EDT 07/22/2025 11:38 AM EDT us Jayjay Arias MD LAB BLOOD ORDERABLES Final Res ult Performing Organization Address [facility]/ZIP Co de Phone Number [facility] [address] [place] [address], [place] [phone] * (ABNORMAL) Platelet count (07/22/2025 11:27 AM EDT) Platelets 106(L) 150 - 450 K/mcL LAB HEMETOLOGY METHOD 07/22/2025 11:46 AM EDT [facility] MPV 07/22/2025 11:46 AM EDT [facility] Blood Arterial blood specimen / Unknown 07/22/2025 11:27 AM EDT 07/22/2025 11:38 AM EDT us Jayjay Arias MD LAB BLOOD ORDERABLES Final Res ult Performing Organization Address [facility]/ZIP Co de Phone Number [facility] [address] [place] [address], [place] [phone] * Tissue exam (07/22/2025 10:50 AM EDT) Final Diagnosis A. 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 Negative for acute inflammation and vegetations. 07/23/2025 12:28 PM EDT [facility] Gross Description A. Heart, Mitral valve leaflets: Received in formalin labeled mitral valve leaflets is an irregular, rubbery, off-white to pale yellow, valve leaflet with minimal calcification and vegetations measuring 2.5 x 2.5 x 0.3 cm. There is an undesignated suture looped through the leaflet. The chordae tendinae are fused and thickened. Director Of [employer] Applications sections are submitted in 1 cassette labeled A1, 2 pieces. HP 07/22/25 07/23/2025 12:28 PM EDT [facility] Disclaimer The technical components of [place] [address] CLIA # [id number] 07/23/2025 12:28 PM EDT [facility] Tissue Heart structure / Unknown 07/22/2025 10:50 AM EDT 07/22/2025 11:09 AM EDT us Jayjay Arias MD LAB PATHOLOGY ORDERABLES Final Result [facility] [address] [place] [address], [place] [phone] * ANESTHESIA PAC LINE PLACEMENT (07/22/2025 8:37 AM EDT) Narrative Mike Dias MD - 07/22/2025 8:37 AM EDT Mike Dias MD 07/22/2025 12:20 PM PA Catheter Placement: A PA catheter was placed in the OR for the following indication(s): CVP monitoring. Staffing Performed: Anesthesiologist Anesthesiologist: Mike Dias MD Performed by: Mike Dias MD Authorized by: Mike iDas MD Completed: patient identified, IV checked, site [...] Signed Date: 07/20/2025 15:23 ET Workstation ID: [id number] Transcribed By: Self Edit Transcribed Date: 07/20/2025 [...] Signed Date: 07/20/2025 15:23 ET Workstation ID: [id number] Transcribed By: Self Edit Transcribed Date: 07/20/2025 15:19 ET Jayjay Arias MD IMG XR PROCEDURES Final Result * (ABNORMAL) Lipid panel with reflex to direct LDL (07/20/2025 1:14 PM EDT) Cholesterol 97 0 - 200 mg/dL LAB CHEMISTRY METHOD 07/20/2025 2:49 PM EDT [facility] Triglycerides 102 <150 mg/dL LAB CHEMISTRY METHOD 07/20/2025 2:49 PM EDT [facility] HDL 44 32 - 70 mg/dL LAB CHEMISTRY METHOD 07/20/2025 2:49 PM EDT [facility] LDL Calculated 33(L) 50 - 130 mg/dL LAB CHEMISTRY METHOD 07/20/2025 2:49 PM EDT [facility] VLDL Cholesterol Don 20.4 mg/dL LAB CHEMISTRY METHOD 07/20/2025 2:49 PM EDT [facility] Comment:No established refer ence range. Blood Venous blood specimen / Unknown Venipuncture / Unknown 07/20/2025 1:14 PM EDT 07/20/2025 1:52 PM EDT us Jayajy Arias MD LAB BLOOD ORDERABLES Final Res ult [facility] [address] [place] [address], [place] [phone] * Prealbumin (07/20/2025 1:14 PM EDT) Prealbumin 18 17 - 34 mg/dL LAB CHEMISTRY METHOD 07/20/2025 2:43 PM EDT [facility] Blood Venous blood specimen / Unknown Venipuncture / Unknown 07/20/2025 1:14 PM EDT 07/20/2025 1:52 PM EDT us Jayjay Arias MD LAB BLOOD ORDERABLES Final Res ult [facility] [address] [place] [address], [place] [phone] * (ABNORMAL) B-type natriuretic peptide (07/20/2025 1:14 PM EDT) Only the most recent of2 resultswithin the time period is included. BNP 581(H) 0 - 100 pcg/mL LAB CHEMISTRY METHOD 07/20/2025 2:51 PM EDT [facility] Blood Venous blood specimen / Unknown Venipuncture / Unknown 07/20/2025 1:14 PM EDT 07/20/2025 1:52 PM EDT us Jayjay Arias MD LAB BLOOD ORDERABLES Final Res ult [facility] [address] [place] [address], [place] [phone] * Pulmonary function testing: Carbon Monoxide Diffusing [...] to verify the correct patient, procedure, equipment, technical support specialist and site/side marked as required. Sedation: Patient [...] us Gerber Good MD [facility] Final Result * (ABNORMAL) Urinalysis with reflex microscopic (07/16/2025 10:15 PM EDT) Specific [place] Urine 1.022 1.003 - 1.030 LAB URINALYSIS - AUTOMATED METHOD 07/16/2025 10:26 PM [facility] pH, Urine 7.0 5.0 - 8.0 pH LAB URINALYSIS - AUTOMATED METHOD 07/16/2025 10:26 PM [facility] Leukocytes, Urine Negative Negative LAB URINALYSIS - AUTOMATED METHOD 07/16/2025 10:26 PM [facility] Nitrite, Urine Negative Negative LAB URINALYSIS - AUTOMATED METHOD 07/16/2025 10:26 PM [facility] Protein, Urine Negative <=Trace mg/dL LAB URINALYSIS - AUTOMATED METHOD 07/16/2025 10:26 PM [facility] Glucose, Urine 500(A) Negative mg/dL LAB URINALYSIS - AUTOMATED METHOD 07/16/2025 10:26 PM [facility] Ketones, Urine Negative Negative mg/dL LAB URINALYSIS - AUTOMATED METHOD 07/16/2025 10:26 PM [facility] Urobilinogen, Urine 1.0 0.2 - 1.0 mg/dL LAB URINALYSIS - AUTOMATED METHOD 07/16/2025 10:26 PM [facility] Bilirubin, Urine Negative Negative LAB URINALYSIS - AUTOMATED METHOD 07/16/2025 10:26 PM [facility] Blood, Urine Negative Negative LAB URINALYSIS - AUTOMATED METHOD 07/16/2025 10:26 PM [facility] Urine Urine specimen obtained by clean catch procedure / Unknown 07/16/2025 10:15 PM EDT 07/16/2025 10:23 PM EDT us Jayjay Arias MD LAB URINE ORDERABLES Final Res ult [facility] [address] [place] [address], * LEFT HEART CATH / CORONARY ANGIOGRAPHY, [...] performed from right brachial approach with 5Fr Chapman advanced to PA wedge under fluoro guidance. PA sat obtained and right heart pullback performed. Right radial access achieved and 6Fr Slender sheath placed. LHC performed with 5Fr [place] catheter. LV pullback performed and bilateral coronary angiography performed with same catheter. Hemostasis achieved with TR band. Hemodynamics stable. No complications. us Gerber Good MD CV CARDIAC CATH PROCEDURE S Final Result * POCT Cardiac cath blood gas (07/16/2025 1:29 PM EDT) Only the most recent of2 resultswithin the time period is included. pCO2 Cath POCT 39.0 mmHg 07/16/2025 1:36 PM EDT [facility] pO2 Cath POCT 63 mmHg 07/16/2025 1:36 PM EDT [facility] [facility] SO2 Cath POCT 92 % 07/16/2025 1:36 PM EDT [facility] Sample Site POCT Aorta 07/16/2025 1:36 PM EDT [facility] Device POCT [id number] 07/16/2025 1:36 PM EDT [facility] POCT Comment ROOM AIR 07/16/2025 1:36 PM EDT [facility] Blood Aortic structure / Unknown 07/16/2025 1:29 PM EDT 07/16/2025 1:38 PM EDT us Mohinder Yo MD LAB POINT OF CARE TE ST DOCKED DEVICE UNSOLICITED RESULTS Final Result [facility]) [facility] [address] [place] [address], [place] [phone] * Lavender tube (07/16/2025 4:50 AM EDT) Pathologist [facility] Extra Tube Hold for add-ons. 07/16/2025 7:01 AM EDT [facility] Comment:Auto resulted. Blood Venous blood specimen / Unknown Venipuncture / Unknown 07/16/2025 4:50 AM EDT 07/16/2025 5:10 AM EDT us Estate [facility] BLOOD ORDERABLES Final R esult [facility] [address] [place] [address], [place] [phone] * PABLO COMPLETE W/ CARDIOVERSION (07/15/2025 8:50 AM EDT) [facility] BSA 1.8 m2 CV PACS Aortic Sinus [...] to verify the correct patient, procedure, equipment, technical support specialist and site/side marked as required. Sedation: Patient [...] LAB COAGULATION METHOD 07/14/2025 2:52 PM EDT [facility] Blood Venous blood specimen / Unknown Venipuncture / Unknown 07/14/2025 2:34 PM EDT 07/14/2025 2:38 PM EDT Narrative [facility] - 07/14/2025 2:52 PM EDT Therapeutic range listed is for Unfractionated Heparin. LMW Heparin therapeutic range: 0.50-1.20 IU/mL us Tiffany RUTHERFORD LAB BLOOD ORDERABLES Final Result [facility] ([facility]) [facility] [address] [place] [address], [place] [phone] * (ABNORMAL) TRANSTHORACIC ECHOCARDIOGRAM (TTE) COMPLETE W/ CONTRAST (07/14/2025 9:44 AM EDT) Left Atrium Minor [place] 5.3 cm CV PACS Left Atrium Major [place] 6.1 cm CV PACS LA Area Sys [...] S' 14 cm/s CV PACS RA Major [place] 5.1 cm CV PACS RA Major [place] Index 2.9(A) 2.1 - 2.7 cm/m2 CV [...] LAB CHEMISTRY METHOD 07/13/2025 2:53 PM EDT [facility] Blood Venous blood specimen / Unknown Venipuncture / Unknown 07/13/2025 2:23 PM EDT 07/13/2025 2:30 PM EDT Narrative [facility] - 07/13/2025 2:53 PM EDT High levels of biotin in samples may falsely decrease hsTroponin values. Use caution when interpreting hsTroponin results in patients taking biotin who exhibit renal impairment (eGFR <60) or in patients taking more than 20 mg/day of biotin. us Qi RUTHERFORD LAB BLOOD ORDERABLES Final Resul t [facility] [address] [place] [address], [place] [phone] * Fentanyl and metabolite, quantitative, urine (07/13/2025 11:11 AM EDT) Fentanyl Confirm, Urine Negative Negative ng/mL 07/16/2025 10:14 PM EDT [facility] Norfentanyl Confirm, Urine Negative Negative ng/mL 07/16/2025 10:14 PM EDT [facility] Creatinine 130 20 - 250 mg/dL 07/16/2025 10:14 PM EDT [facility] Adulterants Negative 07/16/2025 10:14 PM EDT [...] developed and the performance characteristics determined by [facility]. This confirmation testing has not been cleared or approved by the FDA. The laboratory is regulated under CLIA as qualified to perform high-complexity testing. This test is used for patient testing purposes. It should not be regarded as investigational or for research. Test performed at [facility], [address], [place] [address] Ena Krishnamurthy MD, PhD - Health Information Provider Urine Urine specimen from urethra / Unknown Non-blood Collection / Unknown 07/13/2025 11:11 AM EDT 07/13/2025 11:29 AM EDT us Qi RUTHERFORD LAB URINE ORDERABLES Edited Resu lt - Final [facility] [address] [place] [address] * (ABNORMAL) Drug abuse screen 8a panel, urine (07/13/2025 11:11 AM EDT) Amphetamine Screen, Ur Negative Negative LAB CHEMISTRY METHOD 11:51 AM EDT [facility] Comment:Certain OTC medicati ons containing ephedrine, phenylephrine, pseudoephedrine and phenylpropanolamine can cause false positive results. Barbiturate Screen, Ur Negative Negative LAB CHEMISTRY METHOD 5 11:51 AM EDT [facility] Benzodiazepine Screen, Ur Positive(A ) Negative LAB CHEMISTRY METHOD 5 11:[facility] Cocaine Screen, Ur Negative Negative LAB CHEMISTRY METHOD 5 11:51 AM EDT [facility] Opiate Screen, Ur Negative Negative LAB CHEMISTRY METHOD 5 11:51 AM [facility] Cannabinoid (THC) Screen, Ur Positive(A ) Negative LAB CHEMISTRY METHOD 5 11:51 AM T [facility] Comment:Specimens from patie nts taking pantoprazole sodium (Protonix) have been shown to produce false positive results. Oxycodone Screen, Ur Negative Negative LAB CHEMISTRY METHOD 5 11:51 AM [facility] Fentanyl, Ur Negative Negative LAB CHEMISTRY METHOD 5 11:51 AM EDT [facility] Urine Urine specimen obtained by clean catch procedure / Unknown Non-blood Collection / Unknown 07/13/2025 11:11 AM EDT 07/13/2025 11:29 AM EDT [facility] - 07/13/2025 11:51 AM EDT [...] RUTHERFORD LAB URINE ORDERABLES Final Resul t [facility] [address] [place] [address], [place] [phone] * Respiratory virus panel molecular study (07/13/2025 10:11 AM EDT) Adenovirus Detection by PCR Not Detected Not Detected LAB MICROBIOLOGY METHOD 07/13/2025 12:01 PM EDT [facility] Influenza A PCR Not Detected Not Detected LAB MICROBIOLOGY METHOD 07/13/2025 12:01 PM EDT [facility] Influenza B PCR Not Detected Not Detected LAB MICROBIOLOGY METHOD 07/13/2025 12:01 PM EDT [facility] Coronavirus 229E Not Detected Not Detected LAB MICROBIOLOGY METHOD 07/13/2025 12:01 PM EDT [facility] Coronavirus HKU1 Not Detected Not Detected LAB MICROBIOLOGY METHOD 07/13/2025 12:01 PM EDT [facility] Coronavirus OC43 Not Detected Not Detected LAB MICROBIOLOGY METHOD 07/13/2025 12:01 PM EDT [facility] Coronavirus NL63 Not Detected Not Detected LAB MICROBIOLOGY METHOD 07/13/2025 12:01 PM EDT [facility] Parainfluenza Virus 1 Not Detected Not Detected LAB MICROBIOLOGY METHOD 07/13/2025 12:01 PM EDT [facility] Parainfluenza Virus 2 Not Detected Not Detected LAB MICROBIOLOGY METHOD 07/13/2025 12:01 PM EDT [facility] Parainfluenza Virus 3 Not Detected Not Detected LAB MICROBIOLOGY METHOD 07/13/2025 12:01 PM EDT [facility] Parainfluenza Virus 4 Not Detected Not Detected LAB MICROBIOLOGY METHOD 07/13/2025 12:01 PM EDT [facility] RSV PCR Not Detected Not Detected LAB MICROBIOLOGY METHOD 07/13/2025 12:01 PM [facility] Human Metapneumovirus A and B Not Detected Not Detected LAB MICROBIOLOGY METHOD 07/13/2025 12:01 PM EDT [facility] Rhinovirus/Entero virus Not Detected Not Detected LAB MICROBIOLOGY METHOD 07/13/2025 12:01 PM EDT [facility] Bordetella pertussis Not Detected Not Detected LAB MICROBIOLOGY METHOD 07/13/2025 12:01 PM [facility] Bordetella parapertussis Not Detected Not Detected LAB MICROBIOLOGY METHOD 07/13/2025 12:01 PM [facility] Mycoplasma pneumo by PCR Not Detected Not Detected LAB MICROBIOLOGY METHOD 07/13/2025 12:01 PM [facility] Chlamydia pneumoniae Not Detected Not Detected LAB MICROBIOLOGY METHOD 07/13/2025 12:01 PM [facility] SARS COV-2 Not Detected Not Detected LAB MICROBIOLOGY METHOD 07/13/2025 12:01 PM [facility] Swab Both anterior nares / Unknown Non-blood Collection / Unknown 07/13/2025 10:11 AM EDT 07/13/2025 10:47 AM EDT Narrative [facility] - 07/13/2025 12:01 PM EDT Testing was performed using the Ipracome Respiratory Pathogen PCR Assay. All results must [...] ORDER LOBITO Final Result Performing Organization Address [facility] Co de Phone Number [facility] [address] [place] [address], * Thyroid stimulating hormone with reflex to free t4 and free t3 (07/13/2025 7:59 AM EDT) TSH 2.90 0.40 - 4.00 mcIU/mL LAB CHEMISTRY METHOD 07/13/2025 9:36 AM EDT [facility] Blood Venous blood specimen / Unknown Venipuncture / Unknown 07/13/2025 7:59 AM EDT 07/13/2025 8:10 AM EDT Deyanira Nguyen MD LAB BLOOD ORDERABLES Final Res ult Performing Organization Address [facility] Co de Phone Number [facility] [address] [place] [address], * Procalcitonin (07/13/2025 7:59 AM EDT) Procalcitonin 0.02 <=0.16 ng/mL LAB CHEMISTRY METHOD 07/13/2025 10:32 AM EDT [facility] Blood Venous blood specimen / Unknown Venipuncture / Unknown 07/13/2025 7:59 AM EDT 07/13/2025 8:10 AM EDT Narrative [facility] - 07/13/2025 10:32 AM EDT [...] ORDERABLES Final Res ult Performing Organization Address City/[facility]/ZIP Co de Phone Number [facility] [address] [place] [address], [place] [phone] * Lipase (07/13/2025 7:59 AM EDT) Pathologist [facility] Lipase 18 13 - 75 unit/L LAB CHEMISTRY METHOD 07/13/2025 8:35 AM EDT [facility] Blood Venous blood specimen / Unknown Venipuncture / Unknown 07/13/2025 7:59 AM EDT 07/13/2025 8:10 AM EDT Holger Vazquez MD LAB BLOOD ORDERABLES Final Resul t Performing Organization Address [facility]/ZIP Co de Phone Number [facility] [address] [place] [address], [place] [phone] * Hemoglobin A1c (07/13/2025 7:59 AM EDT) Pathologist [facility] Hemoglobin A1C 5.9 <6.5 % LAB CHEMISTRY METHOD 07/13/2025 1:13 PM EDT [facility] Mean Bld Glu Estim. 123 mg/dL LAB CHEMISTRY METHOD 07/13/2025 1:13 PM EDT [facility] Blood Venous blood specimen / Unknown Venipuncture / Unknown 07/13/2025 7:59 AM EDT 07/13/2025 8:10 AM EDT Qi RUTHERFORD LAB BLOOD ORDERABLES Final Resul t Performing Organization Address [facility] de Phone Number [facility] [address] [place] [address], [place] [phone] * Ethanol (07/13/2025 7:59 AM EDT) Ethanol Level <3 0 - 10 mg/dL LAB CHEMISTRY METHOD 07/13/2025 10:59 AM EDT [facility] Blood Venous blood specimen / Unknown Venipuncture / Unknown 07/13/2025 7:59 AM EDT 07/13/2025 8:10 AM EDT Qi RUTHERFORD LAB BLOOD ORDERABLES Final Resul t Performing Organization Address [facility] de Phone Number [facility] [address] [place] [address], [place] [phone] * [facility] 30-74 MINUTES (07/13/2025 7:14 AM [...] currently active code status orders. Care Teams Social Media Community Manager Relationship Specialty Start Date End Date Holger Manuel NP [address] [place] [address] PCP - General Family Medicine 07/20/25
== END 2025-08-12 09:21 | disposition home or self-care (01) ==
PROVIDERS: PCP Nurse Practitioner Family; Visit Provider Physician Assistant Medical
DX: S90.822A Blister (nonthermal), left foot, initial encounter (principal)

== ENCOUNTER 2025-08-25 07:59 | Outpatient (REF) | payer OTHER, SELFPAY ==
--- OUTSIDE RECORDS SUMMARY | 2025-08-20 10:10 | XMS_ITS | Encounter Summary ---
Author Organization [facility] Address [address] [place] [address] Care Team Providers Care Manager Support Name Role Phone Holger Manuel NP Primary Care Provider + [phone] Reason for Visit * Reason Comments Hospital Follow-up Multiple hospital vi sitsS/p CABG @ [facility] Encounter Details Date Type Department Care Team (Late st Contact Info) Description 08/20/2025 10:10 AM EDT Office Visit [facility] - [address] [place] [address] Salma Strong PA [address] [place] [address] Atrial fibrillation with RVR (CMS/HCC V24, CMS/HCC V28) (Primary Dx) Social History Tobacco Use Types Packs/Day Years [...] AM EDT documented as of this encounter Last Filed Vital Signs Vital Sign Reading Time Taken Comments Blood Pressure 100/60 08/20/2025 10:01 AM EDT Pulse 61 08/20/2025 10:01 AM EDT Temperature - - Respiratory Rate - - Oxygen Saturation 99% 08/20/2025 10: 01 AM EDT Inhaled Oxygen Concentration - - Weight 65.7 kg (144 lb 12.8 oz) 025 10:01 AM EDT Height 170.2 cm (5' 7 ) 08/20/2025 10:0 1 AM EDT Body Mass Index 22.68 08/20/2025 10:01 AM EDT documented in this encounter Progress Notes * KRISH Kingston - 08/20/2025 10:10 AM EDT Please call with any questions or concerns Salma RUTHERFORD-C [phone] [facility] [address] [place] [id number] Update labs with pcp Cardiology at [facility] Dr Priest 08/26 at 9 am Bring medication list Cardiac rehab Follow up echo When to stop amiodarone documented in this encounter Plan of Treatment Not on file documented as of this encounter Procedures Procedure Name Priority Date/Time Associated Diagnosis Comments ECG 12-LEAD Routine 08/20/2025 12:24 PM EDT Atrial fibrillation with RVR (CMS/HCC V24, CMS/HCC V28) documented in this encounter Results * ECG 12 lead (08/20/2025 12:24 PM EDT) Ventricular Rate ECG 61 BPM GEMUSE Atrial Rate 61 BPM GEMUSE P-R Interval 138 ms GEMUSE QRS Duration 116 ms GEMUSE Q-T Interval 468 ms GEMUSE QTc 471 ms GEMUSE P Wave [place] 60 degrees GEMUSE R [place] 92 degrees GEMUSE T [place] -78 degrees GEMUSE ECG Interpretation Normal sinus rhythm Rightward axis T wave abnormality, consider inferior ischemia Abnormal ECG When compared with ECG of 17-JUL-2025 00:15, Sinus rhythm has replaced Atrial fibrillation Vent. rate has decreased BY 56 BPM Questionable change in QRS duration GEMUSE 08/20/2025 10:0 5 AM EDT us Salma RUTHERFORD ECG ORDERABLES Final Result GEMUSE documented in this encounter Visit Diagnoses Diagnosis Atrial fibrillation with RVR (CMS/HCC V24, CMS/HCC V28)- Primary documented in this encounter Care Teams Manager Support Relationship Specialty Start Date End Date Holger Manuel NP [address] [place] [address] PCP - General Family Medicine 07/20/25 documented as of this encounter
--- OUTSIDE RECORDS SUMMARY | 2025-08-25 08:03 | XMS_ITS | Clinical Summary ---
Author Organization [facility] Address [address] [place] [address] Phone Care Team Providers Care Stepdown Nurse Name Role Phone Holger Manuel NP Primary Care Provider + [phone] Allergies No known active allergies Medications metFORMIN [...] mg total) by mouth at bedtime. Active pantoprazole (PROTONIX) 40 mg EC tablet Take 1 tablet (40 mg total) by mouth at bedtime. Do not crush, chew, or split. Active metoprolol tartrate (LOPRESSOR) 25 mg tablet Take 0.5 tablets (12.5 mg total) by mouth 2 (two) times a day. 30 each 07/31/20 25 026 Active furosemide (Lasix) 20 mg tablet Take 1 tablet (20 mg total) by mouth 1 (one) time each day. 30 each 07/31/20 25 026 Active potassium chloride (KLOR-CON M20) 20 mEq [...] also stop taking the potassium 30 each 11 5 4:12 PM EDT 07/31/20 25 026 Active apixaban (ELIQUIS) 5 mg tablet Take 1 tablet (5 mg total) by mouth 2 (two) times a day. 60 tablet 2 5 4:12 PM EDT 07/31/20 25 Active amiodarone (PACERONE) 200 mg tablet Take 1 tablet (200 mg total) by mouth 1 (one) time each day. 1 08/19/20 25 Active diazePAM (VALIUM) 5 mg tablet Take 1 tablet (5 mg total) by mouth every 12 (twelve) hours if needed for muscle spasms. 025 Discontinued(St op Taking at Discharge) meloxicam (MOBIC) 7.5 mg tablet Take 1 tablet (7.5 mg total) by mouth 2 (two) times a day. Discontinued(St op Taking at Discharge) traMADoL (ULTRAM) 50 mg tablet Take 1 tablet (50 mg total) by mouth every 8 (eight) hours if needed. 025 Discontinued(St op Taking at Discharge) amiodarone (PACERONE) 200 mg tablet Take 1 tablet (200 mg total) by mouth 1 (one) time each day. 30 each 07/19/20 25 025 Discontinued aspirin 81 mg EC tablet Take 1 tablet (81 mg total) by mouth 1 (one) time each day. 30 each 07/19/20 25 025 metoprolol tartrate (LOPRESSOR) 25 mg tablet Take 1 tablet (25 mg total) by mouth 2 (two) times a day. 60 each 07/18/20 25 025 Discontinued(St op Taking at Discharge) furosemide (LASIX) 20 mg tablet Take 1 tablet (20 mg total) by mouth 1 (one) time each day. 30 each 07/18/20 025 Discontinued(St op Taking at Discharge) enoxaparin (LOVENOX) 60 mg/0.6 mL syringe Inject 0.6 mL (60 mg total) under the skin every 12 (twelve) hours for 6 doses. 6 each 07/18/20 025 Discontinued(St op Taking at Discharge) acetaminophen (TYLENOL) 325 mg tablet Take 2 tablets (650 mg total) by mouth every 6 (six) hours if needed for mild pain, moderate pain, headaches or fever - temperature GREATER than 38 C (100.4 F) for up to 10 days. 07/31/20 apixaban (ELIQUIS) 5 mg tablet Take 1 tablet (5 mg total) by mouth 2 (two) times a day. 60 tablet 5 07/31/20 Discontinued oxyCODONE (ROXICODONE) 5 mg immediate release tablet Take 1 tablet (5 mg total) by mouth every 4 (four) hours if needed for moderate pain. Max Daily Amount: 30 mg 42 tablet 4:12 PM EDT 07/31/20 Discontinued(Th erapy completed) amiodarone (PACERONE) 200 mg tablet Take 1 tablet (200 mg total) by mouth 1 (one) time each day. 14 tablet 08/19/20 Discontinued Active Problems Problem Noted Date Diagnosed Date Acute on chronic diastolic ( congestive) heart failure (CMS/HCC V24, CMS/HCC V28) 07/27/2025 Secondary hypercoagulable state (CMS/HCC V24) S/P MVR (mitral valve replacement) 07/25/2025 S/P CABG x 1 07/25/2025 H/O maze procedure 07/25/2025 History of left atrial appendage closure Mitral regurgitation 07/22/2025 Atrial fibrillation with RVR (CMS/HCC V24, CMS/H CC V28) 07/13/2025 Cardiomyopathy (CMS/HCC V24, CMS/HCC V28) 2024 Nonrheumatic mitral valve regurgitation 07/13/20 COPD (chronic obstructive pu lmonary disease) (CMS/HCC V24, CMS/HCC V28) Hypertension Type II diabetes mellitus ([facility] [place]24, [facility] V28) Encounters Date Type Department Care Team Description 08/20/2025 10:10 AM EDT Office Visit [facility] - [address] [place] [address] Salma Strong PA Atrial fibrillation with RVR ([facility] V24, [facility] V28) (Primary Dx) 08/19/2025 9:30 AM EDT Office Visit Cardiothoracic Surgery - [facility] [address] [place] [address] Jayjay Powell PA S/P MVR (mitral valve replacement) (Primary Dx); S/P CABG x 1 08/11/2025 Telephone [facility] - [address] [place] [phone] Salma Strong PA 08/04/2025 Telephone [facility] CV Pre Admission Testing [address] [place] [phone] Gavi Ahumada RN 07/22/2025 7:15 AM EDT - 07/22/2025 1:37 PM EDT Surgery [facility] OR [address] [place] [phone] Jayjay Arias MD REPLACE VALVE MITRAL [86689 (CPT ) +1 more] 07/22/2025 7:14 AM EDT Anesthesia Event [facility] CV OR [address] [place] [phone] Gerber Quinones MD Wilson, Gary S, MD 07/22/2025 5:27 AM EDT - 07/31/2025 4:08 PM EDT Hospital Encounter [facility] CV Surg Card 8-[address] [place] [phone] Jayjay Arias MD Mitral valve insufficiency, unspecified etiology (Primary Dx); Atrial fibrillation with RVR ([facility] V24, [facility] V28); Nonrheumatic mitral valve regurgitation; Atherosclerosis of [place] coronary artery of [place] heart without angina pectoris; S/P CABG x 1; S/P MVR (mitral valve replacement) Discharge Disposition: Home-Health Care [facility] 07/20/2025 2:59 PM EDT - 07/20/2025 11:59 PM EDT Hospital Encounter [facility] Xray [address] [place] [address] Discharge Disposition: Home or Self Care 07/20/2025 1:30 PM EDT Consult [facility] CV Pre Admission Testing [address] [place] [address] Vida Restrepo PA SOB (shortness of breath) (Primary Dx); IFG (impaired fasting glucose); Hyperlipidemia, unspecified hyperlipidemia type; Pre-op testing; Nonrheumatic mitral valve regurgitation; Cardiomyopathy, unspecified type ([facility] V24, [facility] V28); Atrial fibrillation with RVR ([facility] V24, [facility] V28); Chronic obstructive pulmonary disease, unspecified COPD type ([facility] V24, [facility] V28); Primary hypertension; Type 2 diabetes mellitus with other specified complication, without long-term current use of insulin ([facility] V24, [facility] V28) 07/20/2025 12:25 PM EDT - 07/20/2025 11:59 PM EDT Hospital Encounter [facility] Pulmonary Lab [address] [place] [address] Pre-op testing Discharge Disposition: Home or Self Care 07/17/2025 12:29 PM EDT Anesthesia Event [facility] [address] [place] [phone] Wolf Azul MD 07/16/2025 1:00 PM EDT - 07/16/2025 4:00 PM EDT Surgery [facility] [address] [place] [address] Holger Coates MD Left heart cath / Coronary angiography 07/15/2025 8:06 AM EDT Anesthesia Event [facility] [address] [place] [phone] Casey Flanagan MD 07/13/2025 7:26 AM EDT - 07/18/2025 3:15 PM EDT Hospital Encounter [facility] Intermediate Care Unit [address] [place] [address] Holger Vazquez MD Bukalo, Nermina, MD Kokosadze, Estate, MD Atrial fibrillation with RVR ([facility] V24, [facility] V28) (Primary Dx); Cardiomyopathy, unspecified type ([facility] V24, [facility] V28); Nonrheumatic mitral valve regurgitation; A-fib ([facility] V24, [facility] V28) Discharge Disposition: Home-Health Care [facility] from Last 3 Months Surgical History Surgery Date Site/Laterality Comments COLONOSCOPY 08/20/2015 PROCEDURE: HISTORICAL COLONOSCOPY; COMMENT: diverticulosis; no polyps CHOLECYSTECTOMY 02/11/2016 PROCEDURE: HISTORICAL CHOLECYSTECTOMY CARDIOVERSION WITH PABLO 07/15/2025 CARDIOVERSION WITH PABLO 07/17/2025 PTCA WITH STENT 11/12/2021 - 11/11/2022 LCx stent with known residual RCA disease CORONARY ARTERY BYPASS GRAFT MITRAL VALVE REPLACEMENT Medical History Medical History Date Comments Chest pressure 09/09/2012 DX:Chest pressur e GERD (gastroesophageal reflu x disease) 08/29/2012 DX:GERD (gastroesophageal re flux disease) H. pylori infection 09/02/2012 DX:H. pylori infection Tobacco abuse 08/29/2012 DX:Tobacco abuse Herniated lumbar intervertebral disc 09/17/2014 DX:Herniated lumbar intervertebral disc; COMMENT: Sees [facility] COPD (chronic obstructive pu lmonary disease) ([facility] V24, [facility] V28) Type II diabetes mellitus ([facility] [place] V24, [facility] V28) CAD (coronary artery disease) s/ p stent in 2020 at [facility] Mitral valve prolapse Heart murmur Myocardial infarction ([facility] V24, [facility] V28) 08/2022 Inferoposterior STEMI s/p le ft circumflex stent CHF (congestive heart failur e) ([facility] V24, [facility] V28) AF (paroxysmal atrial fibril lation) ([facility] V24, [facility] V28) Heart failure with mid-range ejection fraction (HFmEF) ([facility] V24, [facility] V28) Severe mitral regurgitation FARHAT (acute kidney injury) ([facility] [place] V24) 07/2025 Peripheral neuropathy OA (osteoarthritis) Cardiac arrest ([facility] V24, [facility] V28) 08/2022 VF cardiac arrest BPH (benign [...] Pulse 61 08/20/2025 10:01 AM EDT Temperature 36.8 C (98.2 F) 07/31/2025 9:48 AM EDT Respiratory Rate 26 07/31/2025 9:48 AM EDT Oxygen Saturation 99% 08/20/2025 10: 01 AM EDT Inhaled Oxygen Concentration - - Weight 65.7 kg (144 lb 12.8 oz) 025 10:01 AM EDT Height 170.2 cm (5' 7 ) 08/20/2025 10:0 1 AM EDT Body Mass Index 22.68 08/20/2025 10:01 AM EDT Plan of Treatment Health Maintenance Due Date Last Done Comments Colorectal Cancer Screening: Colonoscopy 1960 Diabetes: Annual Foot Exam 1970 Diabetes: Annual Retina Eye Exam 1970 Hepatitis A Vaccines (1 of 2 - Risk 2-dose series) 1979 RSV Immunization Adult Patients (1 - Risk 50-74 years 1-dose series) 2010 Zoster Vaccines (1 of 2) 2010 Abdominal Aortic Aneurysm (AAA) Screen 10/21/2022 Hepatitis [...] this topic Medical Devices Implanted Type Area Highway Maintenance Supervisor Device Identifier Shelf Expiration Date Model / Serial / Lot Valve Mitral Mitris Resilia Sz 29 - [id number] - [id number] Implanted:Q ty: 1 on 07/22/2025 by Jayjay Arias MD at [facility] Heart Valve N/A: Heart [employer]ONG [employer] ELE 03/25/2030 [id number] / [id number] / N/A Hemostat Absorb Surgicel 6x9in Ster Nuknit - Sn/A - [id number] Implanted:Q ty: 2 on 07/22/2025 by Jayjay Arias MD at [facility] Hemostasis N/A: Chest [employer] 12/12/2029 1946 / N/A / [id number] Plate Manubrium - Sn/A - [id number] Implanted:Q ty: 1 on 07/22/2025 by Jayjay Arias MD at [facility] Internal and External Fixation N/A: Sternum CHUCK CRANIOMAXILLOFACIAL [id number] / N/A / N/A Plate X - Sn/A - [id number] Implanted:Q ty: 2 on 07/22/2025 by Jayjay Arias MD at [facility] Internal and External Fixation N/A: Sternum [employer]UCK [employer] [id number] / N/A / N/A Screw Sd Locking 2.3x14mm - Sn/A - [id number] Implanted:Q ty: 12 on 07/22/2025 by Jayjay Arias MD at [facility] Internal and External Fixation N/A: Sternum [employer]UCK [employer] [id number] / N/A / N/A Screw Sd Locking 2.3x16mm - Sn/A - [id number] Implanted:Q ty: 10 on 07/22/2025 by Jayjay Arias MD at [facility] Internal and External Fixation N/A: Sternum [employer]UCK [employer] [id number] / N/A / N/A Procedures Procedure Name Priority Date/Time Associated Diagnosis Comments ECG 12-LEAD Routine 08/20/2025 12:24 PM EDT Atrial fibrillation with RVR (CMS/HCC V24, CMS/HCC V28) POCT GLUCOSE BLOOD Routine 07/31/2025 1: 15 [...] PM EDT POCT GLUCOSE BLOOD Routine 07/27/2025 6:03 PM EDT POCT GLUCOSE BLOOD Routine 07/27/2025 [...] POCT ARTERIAL BLOOD GAS CHEM4, Routine 07/22/2025 2:56 PM EDT TRANSFUSE CRYOPRECIPITATE Routine 07/22/2025 2:39 PM EDT PREPARE CRYOPRECIPITATE STAT 07/22/20 2:26 PM EDT PREPARE CRYOPRECIPITATE STAT 07/22/20 2:21 PM EDT THROMBOELASTOGRAPH 6 GLOBAL HEMOSTASIS PANEL STAT 07/22/2025 2:21 PM EDT Atherosclerosis of [place] coronary artery of [place] heart without angina pectoris Nonrheumatic mitral valve regurgitation PREPARE PLATELETS STAT 07/22/2025 2:2 0 PM EDT TRANSFUSE CRYOPRECIPITATE Routine 07/22/2025 2:09 PM EDT POCT ARTERIAL BLOOD GAS CHEM4, HH Routine 07/22/2025 1:59 PM EDT TRANSFUSE PLATELETS Routine 07/22/2025 1 :51 PM EDT PREPARE CRYOPRECIPITATE STAT 07/22/20 1:30 PM EDT POCT ARTERIAL BLOOD GAS CHEM4, HH Routine 07/22/2025 1:27 PM EDT POCT ARTERIAL BLOOD GAS CHEM4, Routine 07/22/2025 12:50 PM EDT POCT ARTERIAL BLOOD GAS CHEM4, Routine 07/22/2025 12:31 PM EDT POCT ARTERIAL BLOOD GAS CHEM4, Routine 07/22/2025 12:06 PM EDT POCT ARTERIAL BLOOD GAS CHEM4, Routine 07/22/2025 11:36 AM EDT FIBRINOGEN STAT 07/22/2025 11:27 AM EDT Atherosclerosis of [place] coronary artery of [place] heart without angina pectoris Nonrheumatic mitral valve regurgitation PLATELET COUNT STAT 07/22/2025 11:27 AM EDT Atherosclerosis of [place] coronary artery of [place] heart without angina pectoris Nonrheumatic mitral valve regurgitation POCT ARTERIAL BLOOD GAS CHEM4, Routine 07/22/2025 11:13 AM EDT POCT ARTERIAL BLOOD GAS CHEM4, Routine 07/22/2025 10:52 AM EDT TISSUE EXAM Routine 07/22/2025 10:50 AM EDT Nonrheumatic mitral valve regurgitation POCT ARTERIAL BLOOD GAS CHEM4, Routine 07/22/2025 10:29 AM EDT POCT ARTERIAL BLOOD GAS CHEM4, Routine 07/22/2025 10:07 AM EDT POCT ARTERIAL BLOOD GAS CHEM4, Routine 07/22/2025 9:40 AM EDT POCT ARTERIAL BLOOD GAS CHEM4, Routine 07/22/2025 9:02 AM EDT ANESTHESIA PAC LINE PLACEMENT Routine 07/22/2025 8:37 AM EDT TH AN ENDOTRACHEAL(NO CHARGE) Routine 07/22/2025 8:36 AM EDT POCT ARTERIAL BLOOD GAS CHEM4, Routine 07/22/2025 8:03 AM EDT MAZE PROCEDURE 07/22/2025 7:14 AM EDT Atherosclerosis of [place] coronary artery of [place] heart without angina pectoris Nonrheumatic mitral valve regurgitation Paroxysmal atrial fibrillation (CMS/HCC V24, CMS/HCC V28) [place] ENDO SURG CORONARY ART BYPASS PROC INCL VIDEO-ASSISTED HARVEST VEIN(S) 07/22/2025 7:14 AM EDT Atherosclerosis of [place] coronary artery of [place] heart without angina pectoris Nonrheumatic mitral valve regurgitation Paroxysmal atrial fibrillation (CMS/HCC V24, CMS/HCC V28) [place] CORONARY ARTERY BYPASS VEIN ONLY SINGLE CORONARY VENOUS GRAFT 07/22/2025 7:14 AM EDT Atherosclerosis of [place] coronary artery of [place] heart without angina pectoris Nonrheumatic mitral valve regurgitation Paroxysmal atrial fibrillation (CMS/HCC V24, CMS/HCC V28) [place] REPLACEMENT MITRAL VALVE WITH CARDIOPULMONARY BYPASS 07/22/2025 7:14 AM EDT Atherosclerosis of [place] coronary artery of [place] heart without angina pectoris Nonrheumatic mitral valve regurgitation Paroxysmal atrial fibrillation (CMS/HCC V24, CMS/HCC V28) IA ECHOCARDIOGRAPHY TRANSESOPHAGEAL REAL-TIME W IMG DOC INCL PROBE PLCMNT 07/22/2025 7:14 AM EDT Atherosclerosis of [place] coronary artery of [place] heart without angina pectoris Nonrheumatic mitral valve [...] ECG 12-LEAD STAT 07/13/2025 7:20 AM EDT IA CRITICAL CARE 30-74 MINUTES Routine 07/13/2025 7:14 AM EDT from Last 3 Months Results * ECG 12 lead (08/20/2025 12:24 PM EDT) Only the most recent of7 resultswithin the time period is included. Ventricular Rate ECG 61 BPM GEMUSE Atrial Rate 61 BPM GEMUSE P-R Interval 138 ms GEMUSE QRS Duration 116 ms GEMUSE Q-T Interval 468 ms GEMUSE QTc 471 ms GEMUSE P Wave [place] 60 degrees GEMUSE R [place] 92 degrees GEMUSE T [place] -78 degrees GEMUSE ECG Interpretation Normal sinus rhythm Rightward axis T wave abnormality, consider inferior ischemia Abnormal ECG When compared with ECG of 17-JUL-2025 00:15, Sinus rhythm has replaced Atrial fibrillation Vent. rate has decreased BY 56 BPM Questionable change in QRS duration GEMUSE 08/20/2025 10:0 5 AM EDT us Salma RUTHERFORD ECG ORDERABLES Final Result GEMUSE * POCT Glucose, blood (07/31/2025 1:15 PM EDT) Only the most recent of73 resultswithin the time period is included. Glucose POCT 107 70 - 199 mg/dL 07/31/2025 1:15 PM EDT [facility] Comment: Fasting Reference Range: 70-99 mg/dL Non-Fasting Reference Range: 70-199 mg/dL POCT Comment Notified Nurse 07/31/2025 1:15 PM EDT [facility] Blood Capillary blood specimen / Unknown 07/31/2025 1:15 PM EDT 07/31/2025 1:16 PM EDT us Jayjay Arias MD LAB POINT OF CARE TE ST DOCKED DEVICE UNSOLICITED RESULTS Final Result [facility] [address] [place] [address], [place] [phone] * (ABNORMAL) Prothrombin time with INR (07/31/2025 8:17 AM EDT) Only the most recent of13 resultswithin the time period is included. Protime 15.8(H) 10.5 - 13.3 sec LAB COAGULATION METHOD 07/31/2025 8:53 AM EDT [facility] INR 1.4(H) 0.8 - 1.1 LAB COAGULATION METHOD 07/31/2025 8:53 AM EDT [facility] Blood Venous blood specimen / Unknown Venipuncture / Unknown 07/31/2025 8:17 AM EDT 07/31/2025 8:31 AM EDT Narrative [facility] - 07/31/2025 8:53 AM EDT Std. Therapy 2.0-3.0 INR High Dose Therapy 3.0-4.5 INR Ranges may vary depending on clinical indications and protocol. Fabio RUTHERFORD LAB BLOOD ORDERABLES Final Resul t [facility] [address] [place] [address], [place] [phone] * Potassium (07/31/2025 8:17 AM EDT) Only the most recent of6 resultswithin the time period is included. Potassium 4.1 3.5 - 5.1 mmol/L LAB CHEMISTRY METHOD 07/31/2025 9:12 AM EDT [facility] Blood Venous blood specimen / Unknown Venipuncture / Unknown 07/31/2025 8:17 AM EDT 07/31/2025 8:31 AM EDT Fabioroxana Borjas [place] LAB BLOOD ORDERABLES Final Resul t Performing Organization Address City/[facility]/ZIP Co de Phone Number [facility] [address] [place] [address], [place] [phone] * Magnesium (07/31/2025 8:17 AM EDT) Only the most recent of13 resultswithin the time period is included. Magnesium 2.0 1.7 - 2.8 mg/dL LAB CHEMISTRY METHOD 07/31/2025 9:12 AM EDT [facility] Blood Venous blood specimen / Unknown Venipuncture / Unknown 07/31/2025 8:17 AM EDT 07/31/2025 8:31 AM EDT Fabio Borjas [place] LAB BLOOD ORDERABLES Final Resul t Performing Organization Address [facility] de Phone Number [facility] [address] [place] [address], [place] [phone] * Calcium, ionized (07/31/2025 8:17 AM EDT) Only the most recent of8 resultswithin the time period is included. Calcium Ionized 1.22 1.19 - 1.35 mg/dL LAB BLOOD GAS METHOD 07/31/2025 8:39 AM EDT [facility] Blood Venous blood specimen / Unknown Venipuncture / Unknown 07/31/2025 8:17 AM EDT 07/31/2025 8:29 AM EDT Fabioroxana Borjas [place] LAB BLOOD ORDERABLES Final Resul t Performing Organization Address [facility] Co de Phone Number [facility] [address] [place] [address], [place] [phone] * XR Chest 1 View (07/31/2025 6:07 AM EDT) Only the most recent of5 resultswithin the time period is included. Anatomical Region Laterality Modality Body Radiographic Jana ging 07/31/2025 7:05 AM EDT Impressions 07/31/2025 7:08 AM EDT Removal of right IJ central line and Highwood-Zaina catheter. Improved visualization of the left lung base with mild atelectasis in small left pleural effusion remaining. -------- FINAL REPORT -------- Dictated By: Julian Mayfield Dictated Date: 07/31/2025 07:05 ET Assigned Physician: Julian Mayfield Reviewed and Electronically Signed By: Julian Mayfield Signed Date: 07/31/2025 07:08 ET Workstation ID: [id number] Transcribed By: Self Edit Transcribed Date: 07/31/2025 07:05 ET Narrative 07/31/2025 7:08 AM EDT EXAM: XR CHEST 1 VIEW HISTORY: s/p MVR CABG COMPARISON:07/27/2025, 07/23/2025, 07/22/2025 FINDINGS: Interval removal of right IJ central line and Highwood-Zaina catheter. Cardiac silhouette remains enlarged. Improved visualization of left lung base with mild atelectasis remaining and small pleural effusion. The right lung is clear. No pneumothorax. Status post sternotomy and mitral valve replacement. Procedure Note Julian Mayfield MD - 07/31/2025 EXAM: XR CHEST 1 VIEW HISTORY: s/p MVR CABG COMPARISON:07/27/2025, 07/23/2025, 07/22/2025 FINDINGS: Interval removal of right IJ central line and Highwood-Zaina catheter. Cardiacsilhouette remains enlarged. Improved visualization of left lung base withmild atelectasis remaining and small pleural effusion. The right lung isclear. No pneumothorax. Status post sternotomy and mitral valvereplacement. IMPRESSION: Removal of right IJ central line and Highwood-Zaina catheter. Improvedvisualization of the left lung base with mild atelectasis in small leftpleural effusion remaining. -------- FINAL REPORT -------- Dictated By: Julian Mayfield Dictated Date: 07/31/2025 07:05 ET Assigned Physician: Julian Mayfield Reviewed and Electronically Signed By: Julian Mayfield Signed Date: 07/31/2025 07:08 ET Workstation ID: [id number] Transcribed By: Self Edit Transcribed Date: 07/31/2025 07:05 ET Josafat RUTHERFORD IMG XR PROCEDURES Final Result * (ABNORMAL) Complete blood count (07/30/2025 6:34 AM EDT) Only the most recent of11 resultswithin the time period is included. [facility] WBC 7.7 4.0 - 10.5 K/mcL LAB HEMETOLOGY METHOD 07/30/2025 7:13 AM EDT [facility] RBC 2.78(L) 4.70 - 6.00 M/mcL LAB HEMETOLOGY METHOD 07/30/2025 7:13 AM EDT [facility] Hemoglobin 8.9(L) 13.5 - 18.0 g/dL LAB HEMETOLOGY METHOD 07/30/2025 7:13 AM EDT [facility] Hematocrit 27.3(L) 40.0 - 54.0 % LAB HEMETOLOGY METHOD 07/30/2025 7:13 AM EDT [facility] MCV 98.2 78.0 - 100.0 FL LAB HEMETOLOGY METHOD 07/30/2025 7:13 AM EDT [facility] MCH 32.1 25.0 - 33.0 pcg LAB HEMETOLOGY METHOD 07/30/2025 7:13 AM EDT [facility] MCHC 32.7 32.0 - 36.0 g/dL LAB HEMETOLOGY METHOD 07/30/2025 7:13 AM EDT [facility] RDW 15.0 12.1 - 17.7 % LAB HEMETOLOGY METHOD 07/30/2025 7:13 AM EDT [facility] Platelets 218 150 - 450 K/mcL LAB HEMETOLOGY METHOD 07/30/2025 7:13 AM EDT [facility] Comment:Verified by repeat a nalysis MPV 9.0 7.4 - 11.4 FL LAB HEMETOLOGY METHOD 07/30/2025 7:13 AM EDT [facility] [facility] Blood Venous blood specimen / Unknown Venipuncture / Unknown 07/30/2025 6:34 AM EDT 07/30/2025 6:58 AM EDT Fabio [facility] LAB BLOOD ORDERABLES Final Resul t Performing Organization Address City/[facility]/ZIP Co de Phone Number [facility] [address] [place] [id number], [place] [phone] * Phosphorus (07/30/2025 6:34 AM EDT) Only the most recent of7 resultswithin the time period is included. Phosphorus 3.4 2.5 - 4.5 mg/dL LAB CHEMISTRY METHOD 07/30/2025 7:39 AM EDT [facility] Blood Venous blood specimen / Unknown Venipuncture / Unknown 07/30/2025 6:34 AM EDT 07/30/2025 6:58 AM EDT Fabio [facility] LAB BLOOD ORDERABLES Final Resul t Performing Organization Address City/[facility]/ZIP Co de Phone Number [facility] [address] [place] [address], [place] [phone] * (ABNORMAL) Basic metabolic panel (07/30/2025 6:34 AM EDT) Only the most recent of16 resultswithin the time period is included. Sodium 139 135 - 145 mmol/L LAB CHEMISTRY METHOD 07/30/2025 7:39 AM EDT [facility] Potassium 4.4 3.5 - 5.1 mmol/L LAB CHEMISTRY METHOD 07/30/2025 7:39 AM EDT [facility] Comment:Slightly Hemolyzed Chloride 105 98 - 107 mmol/L LAB CHEMISTRY METHOD 07/30/2025 7:39 AM EDT [facility] CO2 25 24 - 32 mmol/L LAB CHEMISTRY METHOD 07/30/2025 7:39 AM EDT [facility] Anion Gap 9 5 - 14 LAB CHEMISTRY METHOD 07/30/2025 7:39 AM EDT [facility] Glucose 93 70 - 199 mg/dL LAB CHEMISTRY METHOD 07/30/2025 7:39 AM EDT [facility] BUN 20 9 - 20 mg/dL LAB CHEMISTRY METHOD 07/30/2025 7:39 AM EDT [facility] Creatinine 0.80 0.70 - 1.30 mg/dL LAB CHEMISTRY METHOD 07/30/2025 7:39 AM EDT [facility] eGFR 98 >=60 mL/min/1. 73m2 LAB CHEMISTRY METHOD 07/30/2025 7:39 AM EDT [facility] Comment:Calculation based on the Chronic Kidney Disease Epidemiology Collaboration (CKD-EPI) equation refit without adjustment for race. BUN/Creatinine Ratio 25.0(H) 12.0 - 20.0 LAB CHEMISTRY METHOD 07/30/2025 7:39 AM EDT [facility] Calcium 8.4 8.4 - 10.2 mg/dL LAB CHEMISTRY METHOD 07/30/2025 7:39 AM EDT [facility] Blood Venous blood specimen / Unknown Venipuncture / Unknown 07/30/2025 6:34 AM EDT 07/30/2025 6:58 AM EDT us Fabio [facility] BLOOD ORDERABLES Final Resul t [facility] [address] [place] [address], [place] [phone] * Lactate, whole blood (07/29/2025 5:12 AM EDT) Only the most recent of4 resultswithin the time period is included. Pathologist [facility] Lactate, Whole Blood 1.2 0.5 - 2.2 mmol/L LAB BLOOD GAS METHOD 07/29/2025 5:53 AM EDT [facility] Blood Blood sample taken from central line / Unknown Venipuncture / Unknown 07/29/2025 5:12 AM EDT 07/29/2025 5:28 AM EDT [place] [facility] BLOOD ORDERABLES Final Res ult [facility] [address] [place] [phone], [place] [phone] * (ABNORMAL) Hemoglobin and hematocrit (07/28/2025 2:44 PM EDT) Only the most recent of4 resultswithin the time period is included. Pathologist [facility] Hemoglobin 8.1(L) 13.5 - 18.0 g/dL LAB HEMETOLOGY METHOD 07/28/2025 3:02 PM EDT [facility] Hematocrit 23.7(L) 40.0 - 54.0 % LAB HEMETOLOGY METHOD 07/28/2025 3:02 PM EDT [facility] Blood Venous blood specimen / Unknown Venipuncture / Unknown 07/28/2025 2:44 PM EDT 07/28/2025 2:55 PM EDT us [place] [facility] BLOOD ORDERABLES Final Res ult [facility] [address] [place] [phone], [place] [phone] * Prepare RBC: 1 Units (07/28/2025 7:45 AM EDT) Only the most recent of3 resultswithin the time period is included. Pathologist [facility] Product Code [id number] 07/29/2025 10:07 AM EDT [facility] Unit Number [id number] 07/29/20 10:07 AM EDT [facility] Crossmatch Compatible 07/28/2025 7:49 AM EDT [facility] Dispense Status Released From Crossmatch 07/29/2025 10:07 AM EDT [facility] Unit ABO Rh OPOS 07/29/2025 10:07 AM EDT [facility] Unit Expiration Date Time [id number] 07/29/2025 10:07 AM EDT [facility] Unit Blood Type 5100 07/29/2025 10:07 AM EDT [facility] Blood Venous blood specimen / Unknown 07/28/2025 7:45 AM EDT 07/28/2025 5:43 AM EDT us [place] [facility] BLOOD BANK PRODUCT ORDERABLES Final Result [facility] [address] [place] [id number], * Mixed venous blood gas (07/28/2025 5:24 AM EDT) Only the most recent of7 resultswithin the time period is included. pH, Mixed Venous Blood 7.41 7.35 - 7.45 pH LAB BLOOD GAS METHOD 07/28/2025 5:52 AM EDT [facility] Carbon Dioxide Mixed Venous 43 mmHg LAB BLOOD GAS METHOD 07/28/2025 5:52 AM EDT [facility] Comment:No established refer ence range. PO2 Mixed Venous 30 mmHg LAB BLOOD GAS METHOD 07/28/2025 5:52 AM EDT [facility] Comment:No established refer ence range. Bicarbonate Mixed Venous 25.6 mmol/L LAB BLOOD GAS METHOD 07/28/2025 5:52 AM EDT [facility] Comment:No established refer ence range. Oxygen Saturation Mixed Venous 47.7 % LAB BLOOD GAS METHOD 07/28/2025 5:52 AM EDT [facility] Comment:No established refer ence range. Base Excess Mixed Venous 2.2 mmol/L LAB BLOOD GAS METHOD 07/28/2025 5:52 AM EDT [facility] Comment:No established refer ence range. Blood Mixed venous blood specimen / Unknown Existing Catheter / Unknown 07/28/2025 5:24 AM EDT 07/28/2025 5:42 AM EDT us Mark [facility] BLOOD ORDERABLES Final Result Performing Organization Address City/[facility]/ZIP Co de Phone Number [facility] [address] [place] [address], [place] [phone] * Type and screen (07/28/2025 5:24 AM EDT) Only the most recent of4 resultswithin the time period is included. ABO Group O 07/28/2025 7:21 AM EDT [facility] Rh Type Positive 07/28/2025 7:21 AM EDT [facility] Antibody Screen Negative 07/28/2025 7:21 AM EDT [facility] Blood Venous blood specimen / Unknown Existing Catheter / Unknown 07/28/2025 5:24 AM EDT 07/28/2025 5:43 AM EDT us Mark [facility] BLOOD BANK TEST ORDERA BLES Final Result [facility] [address] [place] [address], [place] [phone] * (ABNORMAL) Comprehensive metabolic panel (07/28/2025 3:34 AM EDT) Only the most recent of2 resultswithin the time period is included. Sodium 139 135 - 145 mmol/L LAB CHEMISTRY METHOD 07/28/2025 4:08 AM [facility] Potassium 3.6 3.5 - 5.1 mmol/L LAB CHEMISTRY METHOD 07/28/2025 4:08 AM EDT [facility] Chloride 107 98 - 107 mmol/L LAB CHEMISTRY METHOD 07/28/2025 4:08 AM [facility] CO2 26 24 - 32 mmol/L LAB CHEMISTRY METHOD 07/28/2025 4:[facility] Anion Gap 6 5 - 14 LAB CHEMISTRY METHOD 07/28/2025 4:08 AM [facility] Glucose 106(H) 70 - 99 mg/dL LAB CHEMISTRY METHOD 07/28/2025 4:08 AM [facility] BUN 15 9 - 20 mg/dL LAB CHEMISTRY METHOD 07/28/2025 4:08 AM [facility] Creatinine 0.70 0.70 - 1.30 mg/dL LAB CHEMISTRY METHOD 07/28/2025 4:08 AM [facility] eGFR 102 >=60 mL/min/1. 73m2 LAB CHEMISTRY METHOD 07/28/2025 4:08 AM [facility] Comment:Calculation based on the Chronic Kidney Disease Epidemiology Collaboration (CKD-EPI) equation refit without adjustment for race. BUN/Creatinine Ratio 21.4(H) 12.0 - 20.0 LAB CHEMISTRY METHOD 07/28/2025 4:08 AM [facility] Calcium 7.6(L) 8.4 - 10.2 mg/dL LAB CHEMISTRY METHOD 07/28/2025 4:08 AM [facility] AST (SGOT) 38 5 - 40 unit/L LAB CHEMISTRY METHOD 07/28/2025 4:08 AM [facility] ALT (SGPT) 141(H) 7 - 52 unit/L LAB CHEMISTRY METHOD 07/28/2025 4:08 AM EDT [facility] Alkaline Phosphatase 75 34 - 104 unit/L LAB CHEMISTRY METHOD 07/28/2025 4:08 AM EDT [facility] Total Protein 5.2(L) 6.4 - 8.5 g/dL LAB CHEMISTRY METHOD 07/28/2025 4:08 AM EDT [facility] Albumin 3.2(L) 3.5 - 5.0 g/dL LAB CHEMISTRY METHOD 07/28/2025 4:08 AM EDT [facility] Total Bilirubin 1.3(H) 0.3 - 1.0 mg/dL LAB CHEMISTRY METHOD 07/28/2025 4:08 AM EDT [facility] Blood Blood sample taken from central line / Unknown Venipuncture / Unknown 07/28/2025 3:34 AM EDT 07/28/2025 3:38 AM EDT us Jayjay Arias MD LAB BLOOD ORDERABLES Final Res ult [facility] [address] [place] [address], [place] [phone] * (ABNORMAL) CBC auto differential (07/27/2025 2:57 AM EDT) Only the most recent of5 resultswithin the time period is included. WBC 7.1 4.0 - 10.5 K/mcL LAB HEMETOLOGY METHOD 07/27/2025 3:23 AM EDT [facility] RBC 2.43(L) 4.70 - 6.00 M/mcL LAB HEMETOLOGY METHOD 07/27/2025 3:23 AM EDT [facility] Hemoglobin 7.9(L) 13.5 - 18.0 g/dL LAB HEMETOLOGY METHOD 07/27/2025 3:23 AM EDT [facility] Hematocrit 23.4(L) 40.0 - 54.0 % LAB HEMETOLOGY METHOD 07/27/2025 3:23 AM EDT [facility] MCV 96.1 78.0 - 100.0 FL LAB HEMETOLOGY METHOD 07/27/2025 3:23 AM EDT [facility] MCH 32.4 25.0 - 33.0 pcg LAB HEMETOLOGY METHOD 07/27/2025 3:23 AM EDT [facility] MCHC 33.7 32.0 - 36.0 g/dL LAB HEMETOLOGY METHOD 07/27/2025 3:23 AM EDT [facility] RDW 15.5 12.1 - 17.7 % LAB HEMETOLOGY METHOD 07/27/2025 3:23 AM EDT [facility] Platelets 89(L) 150 - 450 K/mcL LAB HEMETOLOGY METHOD 07/27/2025 3:23 AM EDT [facility] Comment:Verified by repeat a nalysis MPV 9.0 7.4 - 11.4 FL LAB HEMETOLOGY METHOD 07/27/2025 3:23 AM EDT [facility] Neutrophils Relative 74.8(H) 44.0 - 74.0 % LAB HEMETOLOGY METHOD 07/27/2025 3:23 AM EDT [facility] Lymphocytes Relative 12.1(L) 20.0 - 48.0 % LAB HEMETOLOGY METHOD 07/27/2025 3:23 AM EDT [facility] Monocytes Relative 11.9 2.0 - 12.0 % LAB HEMETOLOGY METHOD 07/27/2025 3:23 AM EDT [facility] Eosinophils Relative 0.6 0.0 - 6.0 % LAB HEMETOLOGY METHOD 07/27/2025 3:23 AM EDT [facility] Basophils Relative 0.6 0.0 - 2.0 % LAB HEMETOLOGY METHOD 07/27/2025 3:23 AM EDT [facility] Neutrophils Absolute 5.30 1.80 - 7.80 K/mcL LAB HEMETOLOGY METHOD 07/27/2025 3:23 AM EDT [facility] Lymphocytes Absolute 0.90(L) 1.00 - 3.20 K/mcL LAB HEMETOLOGY METHOD 07/27/2025 3:23 AM EDT [facility] Monocytes Absolute 0.80 0.00 - 0.80 K/mcL LAB HEMETOLOGY METHOD 07/27/2025 3:23 AM EDT [facility] Eosinophils Absolute 0.00 0.00 - 0.50 K/mcL LAB HEMETOLOGY METHOD 07/27/2025 3:23 AM EDT [facility] Basophils Absolute 0.00 0.00 - 0.20 K/mcL LAB HEMETOLOGY METHOD 07/27/2025 3:23 AM EDT [facility] Blood Venous blood specimen / Unknown Venipuncture / Unknown 07/27/2025 2:57 AM EDT 07/27/2025 3:08 AM EDT us Mark [facility] LAB BLOOD ORDERABLES Final Result [facility] [address] [place] [id number], * (ABNORMAL) Hepatic function panel (07/27/2025 2:57 AM EDT) Only the most recent of3 resultswithin the time period is included. ALT (SGPT) 200(H) 7 - 52 unit/L LAB CHEMISTRY METHOD 07/27/2025 3:37 AM EDT [facility] AST (SGOT) 70(H) 5 - 40 unit/L LAB CHEMISTRY METHOD 07/27/2025 3:37 AM EDT [facility] Alkaline Phosphatase 76 34 - 104 unit/L LAB CHEMISTRY METHOD 07/27/2025 3:37 AM EDT [facility] Bilirubin, Direct 0.3(H) 0.0 - 0.2 mg/dL LAB CHEMISTRY METHOD 07/27/2025 3:37 AM EDT [facility] Total Bilirubin 1.1(H) 0.3 - 1.0 mg/dL LAB CHEMISTRY METHOD 07/27/2025 3:37 AM EDT [facility] Total Protein 5.3(L) 6.4 - 8.5 g/dL LAB CHEMISTRY METHOD 07/27/2025 3:37 AM EDT [facility] Albumin 3.2(L) 3.5 - 5.0 g/dL LAB CHEMISTRY METHOD 07/27/2025 3:37 AM EDT [facility] Globulin, Total 2.1(L) 2.3 - 3.5 g/dL LAB CHEMISTRY METHOD 07/27/2025 3:37 AM EDT [facility] A/G Ratio 1.5 LAB CHEMISTRY METHOD 07/27/2025 3:37 AM EDT [facility] Blood Venous blood specimen / Unknown Venipuncture / Unknown 07/27/2025 2:57 AM EDT 07/27/2025 3:08 AM EDT us Bereket [facility] LAB BLOOD ORDERABLES Final Resul t [facility] [address] [place] [address], [place] [phone] * (ABNORMAL) TRANSTHORACIC ECHOCARDIOGRAM (TTE) LIMITED W/ [...] Size 5.2 cm CV PACS MV Deceleration [place] 7.8 m/s2 CV PACS E Wave Deceleration [...] BLOOD GAS METHOD 07/24/2025 3:35 AM EDT [facility] pCO2, Arterial 35 35 - 45 mmHg LAB BLOOD GAS METHOD 07/24/2025 3:35 AM EDT [facility] pO2, Arterial 89 80 - 105 mmHg LAB BLOOD GAS METHOD 07/24/2025 3:35 AM EDT [facility] HCO3, Arterial 24.5 22.0 - 26.0 mmol/L LAB BLOOD GAS METHOD 07/24/2025 3:35 AM EDT [facility] O2 Sat, Arterial 97.4 95.0 - 98.0 % LAB BLOOD GAS METHOD 07/24/2025 3:35 AM EDT [facility] Base Excess, Arterial -0.6(L) 0.0 - 2.0 mmol/L LAB BLOOD GAS METHOD 07/24/2025 3:35 AM EDT [facility] Blood Arterial blood specimen / Unknown Arterial Puncture / Unknown 07/24/2025 3:19 AM EDT 07/24/2025 3:24 AM EDT Jayjay Arias MD LAB BLOOD ORDERABLES Final Res ult [facility] [address] [place] [address], [place] [phone] * Transfuse RBC (07/23/2025 8:31 AM EDT) Only the most recent of2 resultswithin the time period is included. us [place] [facility] BLOOD TRANSFUSION ORDERABLES F inal Result * (ABNORMAL) Acute kidney injury score (07/23/2025 4:36 AM EDT) FARHAT Risk Score 2.33(H) <=0.31 LAB MICROBIOLOGY METHOD 07/23/2025 7:44 AM EDT [facility] Urine Urine specimen obtained by clean catch procedure / Unknown Non-blood Collection / Unknown 07/23/2025 4:36 AM EDT 07/23/2025 4:42 AM EDT Narrative [facility] - 07/23/2025 7:44 AM EDT Intended use patients 21 years of age or older with Nephrocheck FARHAT Risk Scores of less than or equal to 0.30 are at a lower risk of developing moderate to severe FARHAT within 12 hours of assessment than those with FARHAT Risk Scores of > 0.30. us [place] [facility] URINE ORDERABLES Final Res ult [facility] [address] [place] [phone], [place] [phone] * Triglyceride Monitoring (07/22/2025 11:56 PM EDT) [facility] Triglycerides 101 <150 mg/dL LAB CHEMISTRY METHOD 07/23/2025 12:45 AM EDT [facility] Blood Venous blood specimen / Unknown Venipuncture / Unknown 07/22/2025 11:56 PM EDT 07/23/2025 12:06 AM EDT [place] [facility] BLOOD ORDERABLES Final Res ult [facility] [address] [place] [address], * (ABNORMAL) POCT Arterial blood gas (07/22/2025 11:45 PM EDT) Only the most recent of6 resultswithin the time period is included. [facility] Sample Site POCT ART 07/22/2025 11:55 PM EDT [facility] pH Arterial POCT 7.37 7.35 - 7.45 07/22/2025 11:55 PM EDT [facility] pCO2 Arterial POCT 32.8(L) 35 - 45 mmHg 07/22/2025 11:55 PM EDT [facility] pO2 Arterial POCT 93 80 - 105 mmHg 07/22/2025 11:55 PM EDT [facility] pH Temp Corrected Arterial, POCT 7.36 7.35 - 7.45 07/22/2025 11:55 PM EDT [facility] pCO2 Temp Control Arterial, POCT 33.8(L) 35 - 45 mmHg 07/22/2025 11:55 PM EDT [facility] pO2 Temp Corrected Arterial, POCT 97(HH) 35 - 45 mmHg 07/22/2025 11:55 PM EDT [facility] HCO3 Arterial POCT 18.8(L) 22.0 - 26.0 mmol/L 07/22/2025 11:55 PM EDT [facility] Base Excess Arterial POCT -7(L) 0 - 2 mmol/L 07/22/2025 11:55 PM EDT [facility] SO2 Arterial POCT 97 95 - 98 % 07/22/2025 11:55 PM EDT [facility] FIO2 POCT 40.0 No Established Reference Range % 07/22/2025 11:55 PM EDT [facility] Patient Temperature POCT 99.8 C 07/22/2025 11:55 PM EDT [facility] Blood Arterial blood specimen / Unknown 07/22/2025 11:45 PM EDT 07/22/2025 11:57 PM EDT Jayjay Arias MD LAB POINT OF CARE TE ST DOCKED DEVICE UNSOLICITED RESULTS Final Result Performing Organization Address City/[facility]/ZIP Co de Phone Number [facility] [address] [place] [address], [place] [phone] * (ABNORMAL) Activated partial thromboplastin time (07/22/2025 8:51 PM EDT) Only the most recent of19 resultswithin the time period is included. aPTT 42.4(H) 25.0 - 37.0 sec LAB COAGULATION METHOD 07/22/2025 9:17 PM EDT [facility] Blood Venous blood specimen / Unknown Venipuncture / Unknown 07/22/2025 8:51 PM EDT 07/22/2025 9:02 PM EDT [place] [facility] BLOOD ORDERABLES Final Res ult [facility] [address] [place] [id number], [place] [phone] * Transfuse cryoprecipitate (07/22/2025 3:09 PM EDT) [...] 7.35 - 7.45 07/22/2025 3:00 PM EDT [facility] pH Temp Corrected Arterial, POCT 7.30(L) 7.35 - 7.45 07/22/2025 3:00 PM EDT [facility] pCO2 Arterial POCT 43.6 35 - 45 mmHg 07/22/2025 3:00 PM EDT [facility] pCO2 Temp Control Arterial, POCT 43.6 35 - 45 mmHg 07/22/2025 3:00 PM EDT [facility] pO2 Arterial POCT 162(H) 80 - 105 mmHg 07/22/2025 3:00 PM T [facility] pO2 Temp Corrected Arterial, POCT 162(HH) 35 - 45 mmHg 07/22/2025 3:00 PM EDT [facility] HCO3 Arterial POCT 21.5(L) 22.0 - 26.0 mmol/L 07/22/2025 3:00 PM EDT [facility] Base Excess Arterial POCT -5(L) 0 - 2 mmol/L 07/22/2025 3:00 PM T [facility] SO2 Arterial POCT 99(H) 95 - 98 % 07/22/2025 3:00 PM EDT [facility] FIO2 POCT 70.0 No Established Reference Range % 07/22/2025 3:00 PM EDT [facility] Sodium Arterial POCT 143 135 - 145 mmol/L 07/22/2025 3:00 PM EDT [facility] Potassium Arterial POCT 4.1 3.5 - 5.1 mmol/L 07/22/2025 3:00 PM EDT [facility] Ionized Calcium, Arterial POCT 1.16(L) 1.19 - 1.35 mmol/L 07/22/2025 3:00 PM EDT [facility] Glucose Arterial POCT 119 70 - 199 mg/dL 07/22/2025 3:00 PM EDT [facility] Comment: Fasting Reference Range: 70-99 mg/dL Non-Fasting Reference Range: 70-199 mg/dL Hemoglobin Arterial POCT 8.8(L) 13.5 - 18.0 g/dL 07/22/2025 3:00 PM EDT [facility] Hematocrit Arterial POCT 26(L) 40 - 54 % 07/22/2025 3:00 PM EDT [facility] Patient Temperature POCT 37.0 C 07/22/2025 3:00 PM EDT [facility] Blood Arterial blood specimen / Unknown 07/22/2025 2:56 PM EDT 07/22/2025 3:01 PM EDT Jayjay Arias MD LAB POINT OF CARE TE ST DOCKED DEVICE UNSOLICITED RESULTS Final Result [facility] [address] [place] [address], [place] [phone] * Prepare cryoprecipitate: 1 Product (07/22/2025 2:26 PM EDT) Only the most recent of3 resultswithin the time period is included. Product Code [id number] 07/22/2025 3:09 PM EDT [facility] Unit Number [id number] 07/22/20 3:09 PM EDT [facility] Dispense Status Transfused 07/22/2025 3:09 PM EDT [facility] Unit ABO Rh OPOS 07/22/2025 3:09 PM EDT [facility] Unit Expiration Date Time [id number] 07/22/2025 3:09 PM EDT [facility] Unit Blood Type 5100 07/22/2025 3:09 PM EDT [facility] Blood Venous blood specimen / Unknown 07/22/2025 2:26 PM EDT Jayjay Arias MD BLOOD BANK PRODUCT ORDERABLES Final Result [facility] [address] [place] [id number], [place] [phone] * (ABNORMAL) Thromboelastograph 6 global hemostasis panel (07/22/2025 2:21 PM EDT) TEG Citrated Kaolin Reaction Time 6.3 4.6 - 9.1 min LAB COAGULATION METHOD 07/22/2025 3:13 PM EDT [facility] TEG Citrated Kaolin Kinetic Time 1.8 0.8 - 2.1 min LAB COAGULATION METHOD 07/22/2025 3:13 PM EDT [facility] TEG Citrated Kaolin Angle 70.7 63.0 - 78.0 deg LAB COAGULATION METHOD 07/22/2025 3:13 PM EDT [facility] Citrated Kaolin - Max Amplitude 54.4 52.0 - 69.0 mm LAB COAGULATION METHOD 07/22/2025 3:13 PM EDT [facility] Citrated Kaolin with Heparinase Reaction Time 6.4 4.3 - 8.3 min LAB COAGULATION METHOD 07/22/2025 3:13 PM EDT [facility] Citrated Rapid TEG- Max Amplitude 51.1(L) 52.0 - 70.0 mm LAB COAGULATION METHOD 07/22/2025 3:13 PM EDT [facility] TEG Citrated Functional Fibrinogen - Max Amplitude 15.2 15.0 - 32.0 mm LAB COAGULATION METHOD 07/22/2025 3:13 PM EDT [facility] Citrated Functional Fibrinogen Level 277.4(L) 278.0 - 581.0 mg/dL LAB COAGULATION METHOD 07/22/2025 3:13 PM EDT [facility] Blood Arterial blood specimen / Unknown 07/22/2025 2:21 PM EDT 07/22/2025 2:25 PM EDT us Jayjay Arias MD LAB BLOOD ORDERABLES Final Res ult [facility] [address] [place] [id number], [place] [phone] * Prepare platelets: 1 Product (07/22/2025 2:20 PM EDT) Only the most recent of2 resultswithin the time period is included. Product Code [id number] 07/24/2025 4:24 AM EDT [facility] Unit Number [id number] 07/24/20 4:24 AM EDT [facility] Dispense Status Presumed Transfused 07/24/2025 4:24 AM EDT [facility] Unit ABO Rh OPOS 07/24/2025 4:24 AM EDT [facility] Unit Expiration Date Time [id number] 07/24/2025 4:24 AM EDT [facility] Unit Blood Type 5100 07/24/2025 4:24 AM EDT [facility] Blood Venous blood specimen / Unknown 07/22/2025 2:20 PM EDT us Jayjay Arias MD BLOOD BANK PRODUCT ORDERABLES Final Result [facility] [address] [place] [address], [place] [phone] * Transfuse platelets (07/22/2025 1:59 PM EDT) us Mike Dias MD BLOOD TRANSFUSION ORDERABLES Fi nal Result * Fibrinogen (07/22/2025 11:27 AM EDT) Fibrinogen 171 145 - 415 mg/dL LAB COAGULATION METHOD 07/22/2025 11:54 AM EDT [facility] Blood Arterial blood specimen / Unknown 07/22/2025 11:27 AM EDT 07/22/2025 11:38 AM EDT us Jayjay Arias MD LAB BLOOD ORDERABLES Final Res ult Performing Organization Address [facility]/ZIP Co de Phone Number [facility] [address] [place] [address], [place] [phone] * (ABNORMAL) Platelet count (07/22/2025 11:27 AM EDT) Platelets 106(L) 150 - 450 K/mcL LAB HEMETOLOGY METHOD 07/22/2025 11:46 AM EDT [facility] MPV 07/22/2025 11:46 AM EDT [facility] Blood Arterial blood specimen / Unknown 07/22/2025 11:27 AM EDT 07/22/2025 11:38 AM EDT us Jayjay Arias MD LAB BLOOD ORDERABLES Final Res ult [facility] [address] [place] [address], [place] [phone] * Tissue exam (07/22/2025 10:50 AM EDT) Final Diagnosis A. 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 Negative for acute inflammation and vegetations. 07/23/2025 12:28 PM EDT [facility] Gross Description A. Heart, Mitral valve leaflets: Received in formalin labeled mitral valve leaflets is an irregular, rubbery, off-white to pale yellow, valve leaflet with minimal calcification and vegetations measuring 2.5 x 2.5 x 0.3 cm. There is an undesignated suture looped through the leaflet. The chordae tendinae are fused and thickened. Vulcanizing Machine Operator sections are submitted in 1 cassette labeled A1, 2 pieces. 07/22/25 07/23/2025 12:28 PM EDT [facility] Disclaimer The technical components of this case were performed at [address] # [id number] 07/23/2025 12:28 PM EDT [facility] Tissue Heart structure / Unknown 07/22/2025 10:50 AM EDT 07/22/2025 11:09 AM EDT Jayjay Arias MD LAB PATHOLOGY ORDERABLES Final Result [facility] [address] [place] [address], * ANESTHESIA PAC LINE PLACEMENT (07/22/2025 8:37 [...] catheter placed in above cordis w/o diff us Mike Dias MD ANESTHESIA ORDERABLES Edited Re [...] 07/22/2025 7:23 AMStop Time: 07/22/2025 7:29 AM us Mike Dias MD ANESTHESIA ORDERABLES Edited Re [...] time period is included. us Provider Onbase MD ECG ORDERABLES Final Result * XR Chest [...] Signed Date: 07/20/2025 15:23 ET Workstation ID: [id number] Transcribed By: Self Edit Transcribed Date: 07/20/2025 [...] Signed Date: 07/20/2025 15:23 ET Workstation ID: [id number] Transcribed By: Self Edit Transcribed Date: 07/20/2025 15:19 ET us Jayjay Arias MD IMG XR PROCEDURES Final Result * (ABNORMAL) Lipid panel with reflex to direct LDL (07/20/2025 1:14 PM EDT) Cholesterol 97 0 - 200 mg/dL LAB CHEMISTRY METHOD 07/20/2025 2:49 PM EDT [facility] Triglycerides 102 <150 mg/dL LAB CHEMISTRY METHOD 07/20/2025 2:49 PM EDT [facility] HDL 44 32 - 70 mg/dL LAB CHEMISTRY METHOD 07/20/2025 2:49 PM EDT [facility] LDL Calculated 33(L) 50 - 130 mg/dL LAB CHEMISTRY METHOD 07/20/2025 2:49 PM EDT [facility] VLDL Cholesterol Don 20.4 mg/dL LAB CHEMISTRY METHOD 07/20/2025 2:49 PM EDT [facility] Comment:No established refer ence range. Blood Venous blood specimen / Unknown Venipuncture / Unknown 07/20/2025 1:14 PM EDT 07/20/2025 1:52 PM EDT us Jayjay Arias MD LAB BLOOD ORDERABLES Final Res ult Performing Organization Address [facility]/ZIP Co de Phone Number [facility] [address] [place] [address], [place] [phone] * Prealbumin (07/20/2025 1:14 PM EDT) Prealbumin 18 17 - 34 mg/dL LAB CHEMISTRY METHOD 07/20/2025 2:43 PM EDT [facility] Blood Venous blood specimen / Unknown Venipuncture / Unknown 07/20/2025 1:14 PM EDT 07/20/2025 1:52 PM EDT us Jyajay Arias MD LAB BLOOD ORDERABLES Final Res ult [facility] [address] [place] [address], [place] [phone] * (ABNORMAL) B-type natriuretic peptide (07/20/2025 1:14 PM EDT) Only the most recent of2 resultswithin the time period is included. BNP 581(H) 0 - 100 pcg/mL LAB CHEMISTRY METHOD 07/20/2025 2:51 PM EDT [facility] Blood Venous blood specimen / Unknown Venipuncture / Unknown 07/20/2025 1:14 PM EDT 07/20/2025 1:52 PM EDT us Jayjay Arias MD LAB BLOOD ORDERABLES Final Res ult [facility] [address] [place] [address], [place] [phone] * Pulmonary function testing: Carbon Monoxide Diffusing [...] to verify the correct patient, procedure, equipment, legal support assistant and site/side marked as required. Sedation: Patient [...] us Gerber Good MD CV [facility]ARDI[facility] Final Result * (ABNORMAL) Urinalysis with reflex microscopic (07/16/2025 10:15 PM EDT) Specific [place] Urine 1.022 1.003 - 1.030 LAB URINALYSIS - AUTOMATED METHOD 07/16/2025 10:26 PM [facility] pH, Urine 7.0 5.0 - 8.0 pH LAB URINALYSIS - AUTOMATED METHOD 07/16/2025 10:26 PM [facility] Leukocytes, Urine Negative Negative LAB URINALYSIS - AUTOMATED METHOD 07/16/2025 10:26 PM [facility] Nitrite, Urine Negative Negative LAB URINALYSIS - AUTOMATED METHOD 07/16/2025 10:26 PM [facility] Protein, Urine Negative <=Trace mg/dL LAB URINALYSIS - AUTOMATED METHOD 07/16/2025 10:26 PM [facility] Glucose, Urine 500(A) Negative mg/dL LAB URINALYSIS - AUTOMATED METHOD 07/16/2025 10:26 PM [facility] Ketones, Urine Negative Negative mg/dL LAB URINALYSIS - AUTOMATED METHOD 07/16/2025 10:26 PM [facility] Urobilinogen, Urine 1.0 0.2 - 1.0 mg/dL LAB URINALYSIS - AUTOMATED METHOD 07/16/2025 10:26 PM EDT [facility] Bilirubin, Urine Negative Negative LAB URINALYSIS - AUTOMATED METHOD 07/16/2025 10:26 PM EDT [facility] Blood, Urine Negative Negative LAB URINALYSIS - AUTOMATED METHOD 07/16/2025 10:26 PM EDT [facility] Urine Urine specimen obtained by clean catch procedure / Unknown 07/16/2025 10:15 PM EDT 07/16/2025 10:23 PM EDT us Jayjay Arias MD LAB URINE ORDERABLES Final Res ult [facility] [address] [place] [address], [place] [phone] * LEFT HEART CATH / CORONARY ANGIOGRAPHY, [...] performed from right brachial approach with 5Fr [place] advanced to PA wedge under fluoro guidance. PA sat obtained and right heart pullback performed. Right radial access achieved and 6Fr Slender sheath placed. LHC performed with 5Fr Henrietta catheter. LV pullback performed and bilateral coronary angiography performed with same catheter. Hemostasis achieved with TR band. Hemodynamics stable. No complications. us Gerber Good MD CV CARDIAC CATH PROCEDURE S Final Result * POCT Cardiac cath blood gas (07/16/2025 1:29 PM EDT) Only the most recent of2 resultswithin the time period is included. pCO2 Cath POCT 39.0 mmHg 07/16/2025 1:36 PM EDT [facility] pO2 Cath POCT 63 mmHg 07/16/2025 1:36 PM EDT [facility] SO2 Cath POCT 92 % 07/16/2025 1:36 PM EDT [facility] Sample Site POCT Aorta 07/16/2025 1:36 PM EDT [facility] Device POCT [id number] 07/16/2025 1:36 PM EDT [facility] POCT Comment ROOM AIR 07/16/2025 1:36 PM EDT [facility] Blood Aortic structure / Unknown 07/16/2025 1:29 PM EDT 07/16/2025 1:38 PM EDT us Mohinder Yo MD LAB POINT OF CARE TE ST DOCKED DEVICE UNSOLICITED RESULTS Final Result [facility] [address] [place] [address], [place] [phone] * Lavender tube (07/16/2025 4:50 AM EDT) Extra Tube Hold for add-ons. 07/16/2025 7:01 AM EDT [facility] Comment:Auto resulted. Blood Venous blood specimen / Unknown Venipuncture / Unknown 07/16/2025 4:50 AM EDT 07/16/2025 5:10 AM EDT us Mohinder Yo MD LAB BLOOD ORDERABLES Final R esult [facility] [address] [place] [address], [place] [phone] * PABLO COMPLETE W/ CARDIOVERSION (07/15/2025 8:50 AM EDT) BSA 1.8 m2 CV PACS Aortic Sinus [...] to verify the correct patient, procedure, equipment, legal support assistant and site/side marked as required. Sedation: Patient [...] Anti-Xa - STAT (07/14/2025 2:34 PM EDT) [facility] Heparin Anti-Xa 1.77() 0.30 - 0.70 I Unit/mL LAB COAGULATION METHOD 07/14/2025 2:52 PM EDT [facility] Blood Venous blood specimen / Unknown Venipuncture / Unknown 07/14/2025 2:34 PM EDT 07/14/2025 2:38 PM EDT Narrative [facility] - 07/14/2025 2:52 PM EDT Therapeutic range listed is for Unfractionated Heparin. LMW Heparin therapeutic range: 0.50-1.20 IU/mL us Tiffany [facility] LAB BLOOD ORDERABLES Final Result [facility] [address] [place] [address], [place] [phone] * (ABNORMAL) TRANSTHORACIC ECHOCARDIOGRAM (TTE) COMPLETE W/ CONTRAST (07/14/2025 9:44 AM EDT) [facility] Left Atrium Minor [place] 5.3 cm CV PACS Left Atrium Major [place] 6.1 cm CV PACS LA Area Sys [...] S' 14 cm/s CV PACS RA Major [place] 5.1 cm CV PACS RA Major [place] Index 2.9(A) 2.1 - 2.7 cm/m2 CV [...] apical lateral. All other segments are normal. Valdemar Alvarenga MD CV ECHO PROCEDURES Final R esult * Troponin I high sensitivity (07/13/2025 2:23 PM EDT) Only the most recent of3 resultswithin the time period is included. Pathologist [facility] High Sensitivity Troponin I 18 <=79 ng/L LAB CHEMISTRY METHOD 07/13/2025 2:53 PM EDT [facility] Blood Venous blood specimen / Unknown Venipuncture / Unknown 07/13/2025 2:23 PM EDT 07/13/2025 2:30 PM EDT Narrative [facility] - 07/13/2025 2:53 PM EDT High levels of biotin in samples may falsely decrease hsTroponin values. Use caution when interpreting hsTroponin results in patients taking biotin who exhibit renal impairment (eGFR <60) or in patients taking more than 20 mg/day of biotin. Qi [facility] BLOOD ORDERABLES Final Resul t [facility] [address] [place] [address], * Fentanyl and metabolite, quantitative, urine (07/13/2025 11:11 AM EDT) [facility] Fentanyl Confirm, Urine Negative Negative ng/mL 07/16/2025 10:14 PM EDT [facility] Norfentanyl Confirm, Urine Negative Negative ng/mL 07/16/2025 10:14 PM EDT [facility] Creatinine 130 20 - 250 mg/dL 07/16/2025 10:14 PM EDT [facility] Adulterants Negative 07/16/2025 10:14 PM EDT [facility] Comment: Confirmation Decision Limits Fentanyl 1 [...] developed and the performance characteristics determined by [facility]. This confirmation testing has not been cleared or approved by the FDA. The laboratory is regulated under CLIA as qualified to perform high-complexity testing. This test is used for patient testing purposes. It should not be regarded as investigational or for research. Test performed at [facility], [address] , [place] [address] Ena Krishnamurthy MD, PhD - [employer] Urine Urine specimen from urethra / Unknown Non-blood Collection / Unknown 07/13/2025 11:11 AM EDT 07/13/2025 11:29 AM EDT us Qi [facility] URINE ORDERABLES Edited Resu lt - Final [facility] [address] [place] [address] * (ABNORMAL) Drug abuse screen 8a panel, urine (07/13/2025 11:11 AM EDT) [facility] Signature Amphetamine Screen, Ur Negative Negative LAB CHEMISTRY METHOD 11:51 AM EDT [facility] Comment:Certain OTC medicati ons containing ephedrine, phenylephrine, pseudoephedrine and phenylpropanolamine can cause false positive results. Barbiturate Screen, Ur Negative Negative LAB CHEMISTRY METHOD 11:51 AM EDT [facility] Benzodiazepine Screen, Ur Positive(A ) Negative LAB CHEMISTRY METHOD 11:51 AM EDT [facility] Cocaine Screen, Ur Negative Negative LAB CHEMISTRY METHOD 11:51 AM EDT [facility] Opiate Screen, Ur Negative Negative LAB CHEMISTRY METHOD 11:51 AM EDT [facility] Cannabinoid (THC) Screen, Ur Positive(A ) Negative LAB CHEMISTRY METHOD 11:51 AM EDT [facility] Comment:Specimens from patie nts taking pantoprazole sodium (Protonix) have been shown to produce false positive results. Oxycodone Screen, Ur Negative Negative LAB CHEMISTRY METHOD 11:51 AM [facility] Fentanyl, Ur Negative Negative LAB CHEMISTRY METHOD 11:51 AM [facility] Urine Urine specimen obtained by clean catch procedure / Unknown Non-blood Collection / Unknown 07/13/2025 11:11 AM EDT 07/13/2025 11:29 AM EDT Narrative [facility] - 07/13/2025 11:51 AM EDT Assay cutoffs: Amphetamines 1000 ng/mL Barbiturates 200 ng/mL Benzodiazepines 200 ng/mL Cocaine 300 ng/mL Fentanyl 1 ng/mL Opiates 300 ng/mL Oxycodone 100 ng/mL THC 50 ng/mL Semi-quantitative assay for screening purposes only. Unconfirmed screening result should not be used for non-medical purposes. *ALTERNATE METHOD CONFIRMATION DONE UPON REQUEST ONLY* [facility] URINE ORDERABLES Final Resul t [facility] [address] [place] [address], * Respiratory virus panel molecular study (07/13/2025 10:11 AM EDT) Adenovirus Detection by PCR Not Detected Not Detected LAB MICROBIOLOGY METHOD 07/13/2025 12:01 PM EDT [facility] Influenza A PCR Not Detected Not Detected LAB MICROBIOLOGY METHOD 07/13/2025 12:01 PM EDT [facility] Influenza B PCR Not Detected Not Detected LAB MICROBIOLOGY METHOD 07/13/2025 12:01 PM EDT [facility] Coronavirus 229E Not Detected Not Detected LAB MICROBIOLOGY METHOD 07/13/2025 12:01 PM EDT [facility] Coronavirus HKU1 Not Detected Not Detected LAB MICROBIOLOGY METHOD 07/13/2025 12:01 PM EDT [facility] Coronavirus OC43 Not Detected Not Detected LAB MICROBIOLOGY METHOD 07/13/2025 12:01 PM EDT [facility] Coronavirus NL63 Not Detected Not Detected LAB MICROBIOLOGY METHOD 07/13/2025 12:01 PM EDT [facility] Parainfluenza Virus 1 Not Detected Not Detected LAB MICROBIOLOGY METHOD 07/13/2025 12:01 PM EDT [facility] Parainfluenza Virus 2 Not Detected Not Detected LAB MICROBIOLOGY METHOD 07/13/2025 12:01 PM EDT [facility] Parainfluenza Virus 3 Not Detected Not Detected LAB MICROBIOLOGY METHOD 07/13/2025 12:01 PM EDT [facility] Parainfluenza Virus 4 Not Detected Not Detected LAB MICROBIOLOGY METHOD 07/13/2025 12:[facility] RSV PCR Not Detected Not Detected LAB MICROBIOLOGY METHOD 07/13/2025 12:01 PM EDT [facility] Human Metapneumovirus A and B Not Detected Not Detected LAB MICROBIOLOGY METHOD 07/13/2025 12:01 PM EDT [facility] Rhinovirus/Entero virus Not Detected Not Detected LAB MICROBIOLOGY METHOD 07/13/2025 12:01 PM EDT [facility] Bordetella pertussis Not Detected Not Detected LAB MICROBIOLOGY METHOD 07/13/2025 12:01 PM EDT [facility] Bordetella parapertussis Not Detected Not Detected LAB MICROBIOLOGY METHOD 07/13/2025 12:01 PM EDT [facility] Mycoplasma pneumo by PCR Not Detected Not Detected LAB MICROBIOLOGY METHOD 07/13/2025 12:01 PM EDT [facility] Chlamydia pneumoniae Not Detected Not Detected LAB MICROBIOLOGY METHOD 07/13/2025 12:01 PM EDT [facility] SARS COV-2 Not Detected Not Detected LAB MICROBIOLOGY METHOD 07/13/2025 12:01 PM EDT [facility] Swab Both anterior nares / Unknown Non-blood Collection / Unknown 07/13/2025 10:11 AM EDT 07/13/2025 10:47 AM EDT Narrative [facility] - 07/13/2025 12:01 PM EDT Testing was performed using the [employer] Respiratory Pathogen PCR Assay. All results must [...] ORDER LOBITO Final Result Performing Organization Address City/[facility]/ZIP Co de Phone Number [facility] [address] [place] [address], [place] [phone] * Thyroid stimulating hormone with reflex to free t4 and free t3 (07/13/2025 7:59 AM EDT) TSH 2.90 0.40 - 4.00 mcIU/mL LAB CHEMISTRY METHOD 07/13/2025 9:36 AM EDT [facility] Blood Venous blood specimen / Unknown Venipuncture / Unknown 07/13/2025 7:59 AM EDT 07/13/2025 8:10 AM EDT Deyanira Nguyen MD LAB BLOOD ORDERABLES Final Res ult [facility] [address] [place] [address], [place] [phone] * Procalcitonin (07/13/2025 7:59 AM EDT) Procalcitonin 0.02 <=0.16 ng/mL LAB CHEMISTRY METHOD 07/13/2025 10:32 AM EDT [facility] Blood Venous blood specimen / Unknown Venipuncture / Unknown 07/13/2025 7:59 AM EDT 07/13/2025 8:10 AM EDT Narrative [facility] - 07/13/2025 10:32 AM EDT [...] if any concentrations <2.0 ng/mL are obtained. us Deyanira Nguyen MD LAB BLOOD ORDERABLES Final Res ult [facility] [address] [place] [address], [place] [phone] * Lipase (07/13/2025 7:59 AM EDT) Lipase 18 13 - 75 unit/L LAB CHEMISTRY METHOD 07/13/2025 8:35 AM EDT [facility] Blood Venous blood specimen / Unknown Venipuncture / Unknown 07/13/2025 7:59 AM EDT 07/13/2025 8:10 AM EDT Holger Vazquez MD LAB BLOOD ORDERABLES Final Resul t Performing Organization Address City/[facility]/ZIP Co de Phone Number [facility] [address] [place] [address], [place] [phone] * Hemoglobin A1c (07/13/2025 7:59 AM EDT) Hemoglobin A1C 5.9 <6.5 % LAB CHEMISTRY METHOD 07/13/2025 1:13 PM EDT [facility] Mean Bld Glu Estim. 123 mg/dL LAB CHEMISTRY METHOD 07/13/2025 1:13 PM EDT [facility] Blood Venous blood specimen / Unknown Venipuncture / Unknown 07/13/2025 7:59 AM EDT 07/13/2025 8:10 AM EDT us Qi [facility] LAB BLOOD ORDERABLES Final Resul t Performing Organization Address [facility] Co de Phone Number [facility] [address] [place] [address], [place] [phone] * Ethanol (07/13/2025 7:59 AM EDT) Ethanol Level <3 0 - 10 mg/dL LAB CHEMISTRY METHOD 07/13/2025 10:59 AM EDT [facility] Blood Venous blood specimen / Unknown Venipuncture / Unknown 07/13/2025 7:59 AM EDT 07/13/2025 8:10 AM EDT us Qi [facility] BLOOD ORDERABLES Final Resul t [facility] [address] [place] [address], * [place] CRITICAL CARE 30-74 MINUTES (07/13/2025 7:14 AM [...] currently active code status orders. Care Teams Stepdown Nurse Relationship Specialty Start Date End Date Holger Manuel NP [address] [place] [phone] PCP - General Family Medicine 07/20/25
[2025-08-25 10:14] LABS: MANUAL DIFF FLAG NO
[2025-08-25 10:27] LABS: Hematocrit 40.4 % (42.0-52.0); Hemoglobin 12.7 g/dl (14.0-18.0); Imm Gran Abs Auto 0.05 X10*3/uL (0.00-0.03); Imm Gran Pct Auto 0.7 % (0.0-0.4); Lymphocytes Absolute Auto 1.4 X10*3/uL (1.2-4.9); Mean Corpuscular HGB Conc 31.4 g/dl (31.0-36.0); Mean Corpuscular Hemoglobin 29.4 pg (27.0-33.0); Mean Corpuscular Volume 93.5 fL (80.0-98.0); NRBC Abs Auto 0.000 X10*3/uL (0.0-0.012); NRBC Pct Auto 0.0 /100WBC (0.0-0.2); Platelet Count 249 X10*3/uL (160-400); Red Blood Count 4.32 X10*6/uL (4.60-5.80); White Blood Count 7.1 X10*3/uL (4.8-10.8)
[2025-08-25 11:20] LABS: Albumin Level 4.6 g/dL (3.5-5.0); Alkaline Phosphatase 191 U/L (39-117); Anion Gap 13 (12-20); Aspartate Amino Transferase 34 U/L (5-37); Blood Urea Nitrogen 14 mg/dL (9-16); Calcium 9.2 mg/dL (8.4-10.2); Carbon Dioxide 23 mmol/L (22-29); Chloride 105 mmol/L (96-108); Cholesterol 108 mg/dL (<200); Estimated Glomerular Filt Rate > 60; HDL Cholesterol 41 mg/dL (>40); Potassium 4.2 mmol/L (3.3-5.1); Sodium 137 mmol/L (135-145); Total Protein 8.0 g/dL (6.5-8.0); Triglycerides 78 mg/dL (<150)
[2025-08-25 11:42] LABS: Alanine Aminotransferase 36 U/L (0-40)
[2025-08-25 12:19] LABS: Free T4 (Free Thyroxine) 0.85 ng/dL (0.71-1.85)
== END 2025-08-25 08:00 | disposition home or self-care (01) ==
LOC: HO.HMGCLDS 07:59
PROVIDERS: PCP Nurse Practitioner Family; Visit Provider Nurse Practitioner Family
DX: Z12.5 Encounter for screening for malignant neoplasm of prostate (principal); E11.9 Type 2 diabetes mellitus without complications
CPT/HCPCS: 36415; 80053; 80061; 84153; 84439; 84443; 85025

== ENCOUNTER 2025-08-26 06:45 | Outpatient (REF) | payer MEDICARE, SELFPAY ==
[2025-08-26 13:14] LABS: Appearance Urine Clear; Glucose Urine UA Negative (Negative); PH 5.5 (5.0-9.0); Specific Gravity - Urine 1.010 (1.005-1.025)
== END 2025-08-26 06:46 | disposition home or self-care (01) ==
LOC: HO.HMGCLNP 06:45
PROVIDERS: PCP Nurse Practitioner Family; Visit Provider Nurse Practitioner Family
DX: I25.10 Atherosclerotic heart disease of native coronary artery without angina pectoris (principal); I48.0 Paroxysmal atrial fibrillation; I42.9 Cardiomyopathy, unspecified; E11.9 Type 2 diabetes mellitus without complications; Z95.1 Presence of aortocoronary bypass graft; Z95.3 Presence of xenogenic heart valve; Z79.4 Long term (current) use of insulin; Z79.82 Long term (current) use of aspirin; Z79.01 Long term (current) use of anticoagulants; Z79.84 Long term (current) use of oral hypoglycemic drugs
CPT/HCPCS: 81003; 82043; 82570; 93005; 99212

== ENCOUNTER 2025-08-26 08:43 | Outpatient (AMB) | payer MEDICARE, SELFPAY ==
--- NOTE | 2025-08-26 09:07 | A.OFFVIS_ITS ---
Vital Signs 08/26/25 09:10 Height 5 ft 7 in Weight 143 lb 4.807 oz BMI 22.4 BP 100/62 Blood Pressure Location Lt brachial Position Sitting Pulse 71 Pulse Source Monitor Intake Visit Reasons: Post CABG f/u Lathe Operator Required: No Accompanied by: Self / Same As Patient Allergies No Known Allergies Allergy (Verified 08/12/25 09:08) Medication List - Last Reconciled 08/26/25 by Poncho Priest MD amiodarone 200 mg PO DAILY apixaban (Eliquis) 5 mg PO BID aspirin (Adult Aspirin Regimen) 81 mg PO DAILY atorvastatin 80 mg PO DAILY 90 days blood sugar diagnostic (FreeStyle Lite Strips) As directed blood sugar diagnostic (True Metrix Glucose Test Strip) Test blood sugar once a day blood-glucose meter (FreeStyle [place] Lite kit) bid diazepam 5 mg PO BID PRN 30 days fenofibric acid (choline) 45 mg PO BEDTIME furosemide (Lasix) 20 mg PO DAILY gabapentin 900 mg (3 x 300 mg) PO TID 30 days lancets (FreeStyle Lancets) bid lancets (Lancets,Thin) Test blood sugar twice a day loratadine 10 mg PO DAILY metformin ER 500 mg PO BID 90 days metoprolol tartrate 12.5 mg (1/2 x 25 mg) PO BID [address] 40 mg PO DAILY potassium chloride ER 20 mEq PO DAILY HPI Comments Details: Slick returns for follow-up. He was seen once in clinic few months back. He was at [facility] but then switched to us. Multiple risk factors including diabetes, hypertension, dyslipidemia, smoking, history of cocaine use. In 2021, he had VF arrest. Then diagnosed to have inferior wall myocardial infarction and occluded circumflex. Underwent drug-eluting stent. He also had severe disease in the RCA, medically treated. He had atrial fibrillation that setting and was on amiodarone/Eliquis but then they were all stopped after few months. When I saw him in March, he was doing fine. Last month, it appears that he was admitted to [facility] with atrial fibrillation and rapid rate. He underwent PABLO/cardioversion. The same time, it seems that he was diagnosed with severe mitral regurgitation. Then admitted to [facility] in [place] and he underwent CABG x1 to RCA and bioprosthetic mitral valve replacement. After that, he states he is generally doing okay. No new concerns. He is denying any active cardiac symptoms. [facility] Medical History (Updated 08/26/25 @ 10:24 by Poncho Priest MD) CAD (coronary artery disease) History of ST elevation myocardial infarction (STEMI) (~08/2022) History of cardiac arrest (~08/2022) Afib (~08/2022) Hypertension, essential Hyperlipidemia Diabetes COPD (chronic obstructive pulmonary disease) Nicotine dependence, cigarettes, uncomplicated Cocaine use GERD (gastroesophageal reflux disease) BPH (benign prostatic hyperplasia) Hypertensive retinopathy Nephrolithiasis Peripheral neuropathy Cervical radiculopathy Chronic low back pain Osteoarthritis of hips, bilateral Surgical History (Updated 08/26/25 @ 09:20 by Poncho Priest MD) Status post mitral valve replacement with bioprosthetic valve Status post aorto-coronary artery bypass graft S/P CABG x 1 Mitral valve replaced History of heart artery stent History of neck surgery History of cholecystectomy History of colonoscopy Family History Brother Myocardial infarction Social History Housing: Other Patient Tobacco Use Status: Former Tobacco user Cigarettes Per Day: 5 Years Smoked: Started at 13 years old ,quit 06/29/2025 e-Cigarette/Vaping Use: Never Used Second Hand Smoke Exposure: No service: Yes Current occupational status: disabled Cognitive needs: No Hearing needs: Yes Vision needs: No Review of Systems Const Denies chills, Denies fatigue, Denies fever(s), Denies frequent falls, Denies weakness, Denies weight gain and Denies weight loss ENT Denies dizziness Card Denies chest pain, Denies leg edema, Denies lightheadedness, Denies palpitations, Denies dyspnea and Denies dyspnea on exertion Resp Denies cough, Denies dyspnea and Denies dyspnea on exertion GI Denies hematochezia Musc Denies abnormal gait, Denies muscle weakness, Denies numbness, Denies radiating pain into limb and Denies tingling Neuro Denies abnormal gait, Denies dizziness, Denies frequent falls, Denies numbness, Denies tingling and Denies weakness Endo Denies fatigue and Denies palpitations Physical Exam Vital Signs: Last Vital Signs Pulse 71 10/15/25 09:10 BP 100/62 08/26/25 09:10 BMI result Body Mass Index 22.4 Const General: comfortable and no acute distress Orientation/consciousness: patient oriented x3 HEENT Other: Unremarkable Head: Yes normal to inspection Neck Neck: Yes normal visual inspection Chest Chest palpation & inspection: normal inspection of the chest Resp Auscultation: clear to auscultation bilaterally Cardio Palpation: normal PMI Heart sounds: S1 normal heart sound present, S2 normal heart sound present, no gallops, no murmurs and no rubs GI Palpation (GI): Soft to palpation Back/Spine/Pelvis Other: unremarkable Skin General skin exam: no rashes or lesions noted Neuro General: patient oriented x3 Extrem General: Yes normal to inspection Psych Mental Status: mental status grossly normal Office Procedures EKG Details: EKG with sinus rhythm at 71/Min; rightward axis, left posterior fascicular block; inferior [place]versions[place] [id number], Complete Assessment & Plan Assessment & Plan (1) Atherosclerotic cardiovascular disease: Code(s): I25.10 - Atherosclerotic heart disease of [place] coronary artery without angina pectoris Category: Medical Plan: Cardiac catheterization-07/2025-possibly at [facility]-normal left main; LAD with mild diffuse disease; circumflex with mild diffuse disease; RCA with 80-90% lesion in the distal part. Status post CABG x1 to RCA. Clinically, no angina. Continue statins. (2) Status post aorto-coronary artery bypass graft: Code(s): Z95.1 - Presence of aortocoronary bypass graft Category: Surgical Plan: He is recovering well. Recommend cardiac rehabilitation. (3) Status post mitral valve replacement with bioprosthetic valve: Code(s): Z95.3 - Presence of xenogenic heart valve Category: Surgical Plan: Per [facility] notes, he had severe mitral regurgitation and underwent #29 pericardial mitral valve replacement. We will check an echocardiogram. In fact endocarditis prophylaxis per protocol. (4) Cardiomyopathy: Code(s): I42.9 - Cardiomyopathy, unspecified Category: Medical Plan: Per available notes, LVEF was apparently 40-45% per PABLO in July. Global hypokinesis with severe mitral regurgitation. Suspect more so nonischemic and could be related to atrial fibrillation. We will recheck LVEF on the echocardiogram. His home blood pressures only in the 90s and he may not be able tolerate guideline based medical therapy. As he is euvolemic looking on losing weight as well, he can cut back on Lasix and see how he feels. We discussed about this today. (5) PAF (paroxysmal atrial fibrillation): Code(s): I48.0 - Paroxysmal atrial fibrillation Category: Medical Plan: Status post Maze procedure during CABG and also had atrial appendage clip. Continue amiodarone/Eliquis. Check Holter. Suspect we can stop the amiodarone few weeks and just keep him on Eliquis. (6) Diabetes: Code(s): E11.9 - Type 2 diabetes mellitus without complications Category: Medical Plan: In the past, has taken metformin/Jardiance but currently listed to be only on metformin. Last available hemoglobin A1c is 5.4%. Plan Discussion Notes During the visit, we discussed the importance of cardiac rehabilitation and the need for ongoing monitoring of cardiac function through scheduled ultrasounds and heart monitoring. The patient was informed about the use of furosemide for fluid retention and the potential need to adjust medication based on symptoms. Patient was informed and verbally consented to the use of an ambient scribe for clinic note documentation during this visit. Total time spent including review of outside records, counseling, documentation, coordination of care-60 minutes. Orders: Orders Cardiac Rehab Today Z95.1 - Presence of aortocoronary bypass graft ECG 7 day holter monitor Today I48.0 - Paroxysmal atrial fibrillation Patient Instructions: - Continue with home exercises and cardiac rehabilitation as advised. - Monitor weight and adjust furosemide use as needed for fluid retention. - Attend scheduled ultrasound and heart monitoring appointments. Coding Level of Care Code Est Pt Level 5 (56701) Complex EM visit Add On G2211 Diagnoses Atherosclerotic cardiovascular disease I25.10 Status post aorto-coronary artery bypass graft Z95.1 Status post mitral valve replacement with bioprosthetic valve Z95.3 Cardiomyopathy I42.9 PAF (paroxysmal atrial fibrillation) I48.0 Diabetes E11.9 CPT Codes EKG - CPT: [id number], Complete ([id number])
[2025-08-26 09:10] VITALS: BP 100/62; PULSE 71; BMI 22.4
--- OUTSIDE RECORDS SUMMARY | 2025-08-26 09:18 | XMS_ITS | Clinical Summary ---
Author Organization [facility] Address [address] [place] [address] Phone Care Team Providers Care Cardiology Clinical Consultant Name Role Phone Holger Manuel NP Primary Care Provider + [phone] Allergies No known active allergies Medications metFORMIN [...] CMS/HCC V28) Hypertension Type II diabetes mellitus [place] [place] [facility] [place] Encounters Date Type Department Care Team Description 08/20/2025 10:10 AM EDT Office Visit [facility] - [address] [place] [address] Salma Strong PA Atrial fibrillation with RVR ([facility] [place], [facility] V28) (Primary Dx) 08/19/2025 9:30 AM EDT Office Visit Cardiothoracic Surgery - [place] [address] [place] [address] Jayjay Powell PA S/P MVR (mitral valve replacement) (Primary Dx); S/P CABG x 1 08/11/2025 Telephone [facility] - [address] [place] [phone] Salma Strong PA 08/04/2025 Telephone [facility] CV Pre Admission Testing [address] [place] [phone] Gavi Ahumada RN 07/22/2025 7:15 AM EDT - 07/22/2025 1:37 PM EDT Surgery [facility] OR [address] [place] [phone] Jayjay Arias MD REPLACE VALVE MITRAL [[id number] (CPT ) +1 more] 07/22/2025 7:14 AM EDT Anesthesia Event [facility] CV OR [address] [place] [phone] Gerber Quinones MD Wilson, Gary S, MD 07/22/2025 5:27 AM EDT - 07/31/2025 4:08 PM EDT Hospital Encounter [facility] CV Surg Card 8-[address] [place] [phone] Jayjay Arias MD Mitral valve insufficiency, unspecified etiology (Primary Dx); Atrial fibrillation with RVR ([facility] [place], [facility] [place]28); Nonrheumatic mitral valve regurgitation; Atherosclerosis of [place] coronary artery of [place] heart without angina pectoris; S/P CABG x 1; S/P MVR (mitral valve replacement) Discharge Disposition: Home-Health Care [facility] 07/20/2025 2:59 PM EDT - 07/20/2025 11:59 PM EDT Hospital Encounter [facility] Xray [address] [place] [address] Discharge Disposition: Home or Self Care 07/20/2025 1:30 PM EDT Consult [facility] CV Pre Admission Testing [address] [place] [address] Vida Restrepo PA SOB (shortness of breath) (Primary Dx); IFG (impaired fasting glucose); Hyperlipidemia, unspecified hyperlipidemia type; Pre-op testing; Nonrheumatic mitral valve regurgitation; Cardiomyopathy, unspecified type ([facility] V24, [facility] [place]); Atrial fibrillation with RVR ([facility] V24, [facility] [place]28); Chronic obstructive pulmonary disease, unspecified COPD type ([facility] V24, [facility] V28); Primary hypertension; Type 2 diabetes mellitus with other specified complication, without long-term current use of insulin ([facility] [place], [facility] V28) 07/20/2025 12:25 PM EDT - 07/20/2025 11:59 PM EDT Hospital Encounter [facility] Pulmonary Lab [address] [place] [address] Pre-op testing Discharge Disposition: Home or Self Care 07/17/2025 12:29 PM EDT Anesthesia Event [facility] [employer] [address] [place] [phone] Wolf Azul MD 07/16/2025 1:00 PM EDT - 07/16/2025 4:00 PM EDT Surgery [facility] [employer] [address] [place] [phone] Holger Coates MD Left heart cath / Coronary angiography 07/15/2025 8:06 AM EDT Anesthesia Event [facility] [employer] [address] [place] [phone] Casey lFanagan MD 07/13/2025 7:26 AM EDT - 07/18/2025 3:15 PM EDT Hospital Encounter [facility]mediate [facility] [address] [place] [address] Holger Vazquez MD Bukalo, Nermina, MD Kokosadze, Estate, MD Atrial fibrillation with RVR ([facility] V24, [facility] V28) (Primary Dx); Cardiomyopathy, unspecified type ([facility] V24, [facility] V28); Nonrheumatic mitral valve regurgitation; A-fib ([facility] V24, [facility] V28) Discharge Disposition: [place]-Health [facility] [place] Last 3 Months Surgical History Surgery [...] 09/17/2014 DX:Herniated lumbar intervertebral disc; COMMENT: Sees [facility] COPD (chronic obstructive pu lmonary disease) ([facility] V24, [facility] V28) Type II diabetes mellitus ([facility] V24, [facility] V28) CAD (coronary artery disease) s/ p stent in 2020 at [facility] Mitral valve prolapse Heart murmur Myocardial infarction ([facility] V24, [facility] V28) 08/2022 Inferoposterior STEMI s/p le ft circumflex stent CHF (congestive heart failur e) ([facility] V24, [facility] V28) AF (paroxysmal atrial fibril lation) ([facility] [place], [facility] V28) Heart failure with mid-range ejection fraction (HFmEF) ([facility] [place], [facility] V28) Severe mitral regurgitation FARHAT (acute kidney injury) ([facility] V24) 07/2025 Peripheral neuropathy OA (osteoarthritis) Cardiac arrest ([facility] V24, [facility] V28) 08/2022 VF cardiac arrest BPH (benign prostatic hyperplasia) Hypertension Family History Medical History Relation Name Comments No Known Problems Aunt Fainting Brother 1 Heart disease Brother 1 DE COPD Brother 2 Seizures Brother 3 No [...] Status Comments Aunt Brother 1 (Age 55) DE Brother 2 Alive Brother 3 Alive Father [...] this topic Medical Devices Implanted Type Area Service Sprinkler Helper Device Identifier Shelf Expiration Date Model / Serial / Lot Valve Mitral Mitris Resilia Sz 29 - [id number] - [id number] Implanted:Q ty: 1 on 07/22/2025 by Jayjay Arias MD at [facility] Heart Valve N/A: Heart [employer] ELE 03/25/2030 [id number] / [id number] / N/A Hemostat Absorb Surgicel 6x9in Ster Nuknit - Sn/A - [id number] Implanted:Q ty: 2 on 07/22/2025 by Jayjay Arias MD at [facility] Hemostasis N/A: Chest [employer] 12/12/2029 1946 / N/A / [id number] Plate Manubrium - Sn/A - [id number] Implanted:Q ty: 1 on 07/22/2025 by Jayjay Arias MD at [facility] Internal and External Fixation N/A: Sternum CHUCK [employer]ANI[employer]IAL [id number] / N/A / N/A Plate X - Sn/A - [id number] Implanted:Q ty: 2 on 07/22/2025 by Jayjay Arias MD at [facility] Internal and External Fixation N/A: Sternum [employer] [id number] / N/A / N/A Screw Sd Locking 2.3x14mm - Sn/A - [id number] Implanted:Q ty: 12 on 07/22/2025 by Jayjay Arias MD at [facility] Internal and External Fixation N/A: Sternum [employer] [id number] / N/A / N/A Screw Sd Locking 2.3x16mm - Sn/A - [id number] Implanted:Q ty: 10 on 07/22/2025 by Jayjay Arias MD at [facility] Internal and External Fixation N/A: Sternum [employer] [id number] / N/A / N/A Procedures Procedure Name [...] STAT 07/22/2025 2:21 PM EDT Atherosclerosis of [place] coronary artery of [place] heart without angina pectoris Nonrheumatic mitral valve [...] STAT 07/22/2025 11:27 AM EDT Atherosclerosis of [place] coronary artery of [place] heart without angina pectoris Nonrheumatic mitral valve regurgitation PLATELET COUNT STAT 07/22/2025 11:27 AM EDT Atherosclerosis of [place] coronary artery of [place] heart without angina pectoris Nonrheumatic mitral valve [...] PROCEDURE 07/22/2025 7:14 AM EDT Atherosclerosis of [place] coronary artery of [place] heart without angina pectoris Nonrheumatic mitral valve regurgitation Paroxysmal atrial fibrillation (CMS/HCC V24, CMS/HCC V28) VA ENDO SURG CORONARY ART BYPASS PROC INCL VIDEO-ASSISTED HARVEST VEIN(S) 07/22/2025 7:14 AM EDT Atherosclerosis of [place] coronary artery of [place] heart without angina pectoris Nonrheumatic mitral valve regurgitation Paroxysmal atrial fibrillation (CMS/HCC V24, CMS/HCC V28) VA CORONARY ARTERY BYPASS VEIN ONLY SINGLE CORONARY VENOUS GRAFT 07/22/2025 7:14 AM EDT Atherosclerosis of [place] coronary artery of [place] heart without angina pectoris Nonrheumatic mitral valve regurgitation Paroxysmal atrial fibrillation (CMS/HCC V24, CMS/HCC V28) VA REPLACEMENT MITRAL VALVE WITH CARDIOPULMONARY BYPASS 07/22/2025 7:14 AM EDT Atherosclerosis of [place] coronary artery of [place] heart without angina pectoris Nonrheumatic mitral valve regurgitation Paroxysmal atrial fibrillation (CMS/HCC V24, CMS/HCC V28) VA ECHOCARDIOGRAPHY TRANSESOPHAGEAL REAL-TIME W IMG DOC INCL PROBE PLCMNT 07/22/2025 7:14 AM EDT Atherosclerosis of [place] coronary artery of [place] heart without angina pectoris Nonrheumatic mitral valve [...] ECG 12-LEAD STAT 07/13/2025 7:20 AM EDT [facility] CRITICAL [facility]ARE 30-74 MINUTES Routine 07/13/2025 7:14 [...] GEMUSE QTc 471 ms GEMUSE P Wave Ashley 60 degrees GEMUSE R Ashley 92 degrees GEMUSE T Ashley -78 degrees GEMUSE ECG Interpretation Normal sinus [...] - 199 mg/dL 07/31/2025 1:15 PM EDT [facility] Comment: Fasting Reference Range: 70-99 mg/dL Non-Fasting Reference Range: 70-199 mg/dL POCT Comment Notified Nurse 07/31/2025 1:15 PM EDT [facility] Blood Capillary blood specimen / Unknown 07/31/2025 1:15 PM EDT 07/31/2025 1:16 PM EDT us Jayjay Arias MD LAB POINT OF CARE TE ST DOCKED DEVICE UNSOLICITED RESULTS Final Result [facility] [address] [place] [address], [place] [phone] * (ABNORMAL) Prothrombin time with INR (07/31/2025 8:17 AM EDT) Only the most recent of13 resultswithin the time period is included. Protime 15.8(H) 10.5 - 13.3 sec LAB COAGULATION METHOD 07/31/2025 8:53 AM EDT [facility] INR 1.4(H) 0.8 - 1.1 LAB COAGULATION METHOD 07/31/2025 8:53 AM EDT [facility] Blood Venous blood specimen / Unknown Venipuncture / Unknown 07/31/2025 8:17 AM EDT 07/31/2025 8:31 AM EDT Narrative [facility] - 07/31/2025 8:53 AM EDT Std. Therapy 2.0-3.0 INR High Dose Therapy 3.0-4.5 INR Ranges may vary depending on clinical indications and protocol. Fabio [facility] LAB BLOOD ORDERABLES Final Resul t [facility] [address] [place] [address], [place] [phone] * Potassium (07/31/2025 8:17 AM EDT) Only the most recent of6 resultswithin the time period is included. Potassium 4.1 3.5 - 5.1 mmol/L LAB CHEMISTRY METHOD 07/31/2025 9:12 AM EDT [facility] Blood Venous blood specimen / Unknown Venipuncture / Unknown 07/31/2025 8:17 AM EDT 07/31/2025 8:31 AM EDT Fabioroxana Borjas ID LAB BLOOD ORDERABLES Final Resul t Performing Organization Address City/[facility]/ZIP Co de Phone Number [facility] [address] [place] [address], [place] [phone] * Magnesium (07/31/2025 8:17 AM EDT) Only the most recent of13 resultswithin the time period is included. Magnesium 2.0 1.7 - 2.8 mg/dL LAB CHEMISTRY METHOD 07/31/2025 9:12 AM EDT [facility] Blood Venous blood specimen / Unknown Venipuncture / Unknown 07/31/2025 8:17 AM EDT 07/31/2025 8:31 AM EDT Fabio Borajs ID LAB BLOOD ORDERABLES Final Resul t Performing Organization Address [facility] de Phone Number [facility] [address] [place] [address], [place] [phone] * Calcium, ionized (07/31/2025 8:17 AM EDT) Only the most recent of8 resultswithin the time period is included. Calcium Ionized 1.22 1.19 - 1.35 mg/dL LAB BLOOD GAS METHOD 07/31/2025 8:39 AM EDT [facility] Blood Venous blood specimen / Unknown Venipuncture / Unknown 07/31/2025 8:17 AM EDT 07/31/2025 8:29 AM EDT Fabioroxana Borjas ID LAB BLOOD ORDERABLES Final Resul t Performing Organization Address [facility] Co de Phone Number [facility] [address] [place] [address], [place] [phone] * XR Chest 1 View (07/31/2025 6:07 AM EDT) Only the most recent of5 resultswithin the time period is included. Anatomical Region Laterality Modality Body Radiographic Jana ging 07/31/2025 7:05 AM EDT Impressions 07/31/2025 7:08 AM EDT Removal of right IJ central line and Linville-Zaina catheter. Improved visualization of the left lung base with mild atelectasis in small left pleural effusion remaining. -------- FINAL REPORT -------- Dictated By: Julian Mayfield Dictated Date: 07/31/2025 07:05 ET Assigned Physician: Julian Mayfield Reviewed and Electronically Signed By: Julian Mayfield Signed Date: 07/31/2025 07:08 ET Workstation ID: [id number] Transcribed By: Self Edit Transcribed Date: 07/31/2025 07:05 ET Narrative 07/31/2025 7:08 AM EDT EXAM: XR CHEST 1 VIEW HISTORY: s/p MVR CABG COMPARISON:07/27/2025, 07/23/2025, 07/22/2025 FINDINGS: Interval removal of right IJ central line and Lin[place]-Zaina catheter. Cardiac silhouette remains enlarged. Improved visualization of left lung base with mild atelectasis remaining and small pleural effusion. The right lung is clear. No pneumothorax. Status post sternotomy and mitral valve replacement. Procedure Note Julian Mayfield MD - 07/31/2025 EXAM: XR CHEST 1 VIEW HISTORY: s/p MVR CABG COMPARISON:07/27/2025, 07/23/2025, 07/22/2025 FINDINGS: Interval removal of right IJ central line and Linville-Zaina catheter. Cardiacsilhouette remains enlarged. Improved visualization of left lung base withmild atelectasis remaining and small pleural effusion. The right lung isclear. No pneumothorax. Status post sternotomy and mitral valvereplacement. IMPRESSION: Removal of right IJ central line and Linville-Zaina catheter. Improvedvisualization of the left lung base with mild atelectasis in small leftpleural effusion remaining. -------- FINAL REPORT -------- Dictated By: Julian Mayfield Dictated Date: 07/31/2025 07:05 ET Assigned Physician: Julian Mayfield Reviewed and Electronically Signed By: Julian Mayfield Signed Date: 07/31/2025 07:08 ET Workstation ID: [id number] Transcribed By: Self Edit Transcribed Date: 07/31/2025 07:05 ET Josafat R[facility] IMG XR PROCEDURES Final Result * (ABNORMAL) Complete blood count (07/30/2025 6:34 AM EDT) Only the most recent of11 resultswithin the time period is included. [facility] WBC 7.7 4.0 - 10.5 K/mcL LAB HEMETOLOGY METHOD 07/30/2025 7:13 AM EDT [facility] RBC 2.78(L) 4.70 - 6.00 M/mcL LAB HEMETOLOGY METHOD 07/30/2025 7:13 AM EDT [facility] Hemoglobin 8.9(L) 13.5 - 18.0 g/dL LAB HEMETOLOGY METHOD 07/30/2025 7:13 AM EDT [facility] Hematocrit 27.3(L) 40.0 - 54.0 % LAB HEMETOLOGY METHOD 07/30/2025 7:13 AM EDT [facility] MCV 98.2 78.0 - 100.0 FL LAB HEMETOLOGY METHOD 07/30/2025 7:13 AM EDT [facility] MCH 32.1 25.0 - 33.0 pcg LAB HEMETOLOGY METHOD 07/30/2025 7:13 AM EDT [facility] MCHC 32.7 32.0 - 36.0 g/dL LAB HEMETOLOGY METHOD 07/30/2025 7:13 AM EDT [facility] RDW 15.0 12.1 - 17.7 % LAB HEMETOLOGY METHOD 07/30/2025 7:13 AM EDT [facility] Platelets 218 150 - 450 K/mcL LAB HEMETOLOGY METHOD 07/30/2025 7:13 AM EDT [facility] Comment:Verified by repeat a nalysis MPV 9.0 7.4 - 11.4 FL LAB HEMETOLOGY METHOD 07/30/2025 7:13 AM EDT [facility] Blood Venous blood specimen / Unknown Venipuncture / Unknown 07/30/2025 6:34 AM EDT 07/30/2025 6:58 AM EDT Fabio R[facility] LAB BLOOD ORDERABLES Final Resul t Performing Organization Address City/[facility]/ZIP Co de Phone Number [facility] [address] [place] [address], [place] [phone] * Phosphorus (07/30/2025 6:34 AM EDT) Only the most recent of7 resultswithin the time period is included. Phosphorus 3.4 2.5 - 4.5 mg/dL LAB CHEMISTRY METHOD 07/30/2025 7:39 AM EDT [facility] Blood Venous blood specimen / Unknown Venipuncture / Unknown 07/30/2025 6:34 AM EDT 07/30/2025 6:58 AM EDT Fabio R[facility]HER[facility] LAB BLOOD ORDERABLES Final Resul t Performing Organization Address City/[facility]/ZIP Co de Phone Number [facility] [address] [place] [address], [place] [phone] * (ABNORMAL) Basic metabolic panel (07/30/2025 6:34 AM EDT) Only the most recent of16 resultswithin the time period is included. Sodium 139 135 - 145 mmol/L LAB CHEMISTRY METHOD 07/30/2025 7:39 AM EDT [facility] Potassium 4.4 3.5 - 5.1 mmol/L LAB CHEMISTRY METHOD 07/30/2025 7:39 AM EDT [facility] Comment:Slightly Hemolyzed Chloride 105 98 - 107 mmol/L LAB CHEMISTRY METHOD 07/30/2025 7:39 AM EDT [facility] CO2 25 24 - 32 mmol/L LAB CHEMISTRY METHOD 07/30/2025 7:39 AM EDT [facility] Anion Gap 9 5 - 14 LAB CHEMISTRY METHOD 07/30/2025 7:39 AM EDT [facility] Glucose 93 70 - 199 mg/dL LAB CHEMISTRY METHOD 07/30/2025 7:39 AM EDT [facility] BUN 20 9 - 20 mg/dL LAB CHEMISTRY METHOD 07/30/2025 7:39 AM EDT [facility] Creatinine 0.80 0.70 - 1.30 mg/dL LAB CHEMISTRY METHOD 07/30/2025 7:39 AM EDT [facility] eGFR 98 >=60 mL/min/1. 73m2 LAB CHEMISTRY METHOD 07/30/2025 7:39 AM EDT [facility] Comment:Calculation based on the Chronic Kidney Disease Epidemiology Collaboration (CKD-EPI) equation refit without adjustment for race. BUN/Creatinine Ratio 25.0(H) 12.0 - 20.0 LAB CHEMISTRY METHOD 07/30/2025 7:39 AM EDT [facility] Calcium 8.4 8.4 - 10.2 mg/dL LAB CHEMISTRY METHOD 07/30/2025 7:39 AM EDT [facility] Blood Venous blood specimen / Unknown Venipuncture / Unknown 07/30/2025 6:34 AM EDT 07/30/2025 6:58 AM EDT us Fabio [facility] LAB BLOOD ORDERABLES Final Resul t [facility] [address] [place] [address], [place] [phone] * Lactate, whole blood (07/29/2025 5:12 AM EDT) Only the most recent of4 resultswithin the time period is included. Pathologist [facility] Lactate, Whole Blood 1.2 0.5 - 2.2 mmol/L LAB BLOOD GAS METHOD 07/29/2025 5:53 AM EDT [facility] Blood Blood sample taken from central line / Unknown Venipuncture / Unknown 07/29/2025 5:12 AM EDT 07/29/2025 5:28 AM EDT [place] [facility] LAB BLOOD ORDERABLES Final Res ult [facility] [address] [place] [address], [place] [phone] * (ABNORMAL) Hemoglobin and hematocrit (07/28/2025 2:44 PM EDT) Only the most recent of4 resultswithin the time period is included. Pathologist [facility] Hemoglobin 8.1(L) 13.5 - 18.0 g/dL LAB HEMETOLOGY METHOD 07/28/2025 3:02 PM EDT [facility] Hematocrit 23.7(L) 40.0 - 54.0 % LAB HEMETOLOGY METHOD 07/28/2025 3:02 PM EDT [facility] Blood Venous blood specimen / Unknown Venipuncture / Unknown 07/28/2025 2:44 PM EDT 07/28/2025 2:55 PM EDT us [place] [facility] LAB BLOOD ORDERABLES Final Res ult [facility] [address] [place] [address], [place] [phone] * Prepare RBC: 1 Units (07/28/2025 7:45 AM EDT) Only the most recent of3 resultswithin the time period is included. Pathologist [facility] Product Code [id number] 07/29/2025 10:07 AM EDT [facility] Unit Number [id number] 07/29/20 10:07 AM EDT [facility] Crossmatch Compatible 07/28/2025 7:49 AM EDT [facility] Dispense Status Released From Crossmatch 07/29/2025 10:07 AM EDT [facility] Unit ABO Rh OPOS 07/29/2025 10:07 AM EDT [facility] Unit Expiration Date Time [id number] 07/29/2025 10:07 AM EDT [facility] Unit Blood Type 5100 07/29/2025 10:07 AM EDT [facility] Blood Venous blood specimen / Unknown 07/28/2025 7:45 AM EDT 07/28/2025 5:43 AM EDT us [place] [facility] BLOOD BANK PRODUCT ORDERABLES Final Result [facility] [address] [place] [address], * Mixed venous blood gas (07/28/2025 5:24 AM EDT) Only the most recent of7 resultswithin the time period is included. pH, Mixed Venous Blood 7.41 7.35 - 7.45 pH LAB BLOOD GAS METHOD 07/28/2025 5:52 AM EDT [facility] Carbon Dioxide Mixed Venous 43 mmHg LAB BLOOD GAS METHOD 07/28/2025 5:52 AM EDT [facility] Comment:No established refer ence range. PO2 Mixed Venous 30 mmHg LAB BLOOD GAS METHOD 07/28/2025 5:52 AM EDT [facility] Comment:No established refer ence range. Bicarbonate Mixed Venous 25.6 mmol/L LAB BLOOD GAS METHOD 07/28/2025 5:52 AM EDT [facility] Comment:No established refer ence range. Oxygen Saturation Mixed Venous 47.7 % LAB BLOOD GAS METHOD 07/28/2025 5:52 AM EDT [facility] Comment:No established refer ence range. Base Excess Mixed Venous 2.2 mmol/L LAB BLOOD GAS METHOD 07/28/2025 5:52 AM EDT [facility] Comment:No established refer ence range. Blood Mixed venous blood specimen / Unknown Existing Catheter / Unknown 07/28/2025 5:24 AM EDT 07/28/2025 5:42 AM EDT us [place] [facility] LAB BLOOD ORDERABLES Final Result Performing Organization Address City/[facility]/ZIP Co de Phone Number [facility] [address] [place] [address], [place] [phone] * Type and screen (07/28/2025 5:24 AM EDT) Only the most recent of4 resultswithin the time period is included. ABO Group O 07/28/2025 7:21 AM EDT [facility] Rh Type Positive 07/28/2025 7:21 AM EDT [facility] Antibody Screen Negative 07/28/2025 7:21 AM EDT [facility] Blood Venous blood specimen / Unknown Existing Catheter / Unknown 07/28/2025 5:24 AM EDT 07/28/2025 5:43 AM EDT us Mark [facility] LAB BLOOD BANK TEST ORDERA BLES Final Result [facility] [address] [place] [address], [place] [phone] * (ABNORMAL) Comprehensive metabolic panel (07/28/2025 3:34 AM EDT) Only the most recent of2 resultswithin the time period is included. Sodium 139 135 - 145 mmol/L LAB CHEMISTRY METHOD 07/28/2025 4:08 AM [facility] Potassium 3.6 3.5 - 5.1 mmol/L LAB CHEMISTRY METHOD 07/28/2025 4:08 AM EDT [facility] Chloride 107 98 - 107 mmol/L LAB CHEMISTRY METHOD 07/28/2025 4:08 AM [facility] CO2 26 24 - 32 mmol/L LAB [facility]STR[facility] Anion Gap 6 5 - 14 LAB CHE[facility]STR[facility]/28[facility]2025 4:[facility] Glucose 106(H) 70 - 99 mg/dL LAB CHEMISTRY METHOD 07/28/2025 4:08 AM [facility] BUN 15 9 - 20 mg/dL LAB CHEMISTRY METHOD 07/28/2025 4:08 AM [facility] Creatinine 0.70 0.70 - 1.30 mg/dL LAB CHEMISTRY METHOD 07/28/2025 4:08 AM [facility] eGFR 102 >=60 mL/min/1. 73m2 LAB CHEMISTRY METHOD 07/28/2025 4:08 AM [facility] Comment:Calculation based on the Chronic Kidney Disease Epidemiology Collaboration (CKD-EPI) equation refit without adjustment for race. BUN/Creatinine Ratio 21.4(H) 12.0 - 20.0 LAB CHEMISTRY METHOD 07/28/2025 4:08 AM [facility] Calcium 7.6(L) 8.4 - 10.2 mg/dL LAB CHEMISTRY METHOD 07/28/2025 4:08 AM [facility] AST (SGOT) 38 5 - 40 unit/L LAB CHEMISTRY METHOD 07/28/2025 4:08 AM [facility] ALT (SGPT) 141(H) 7 - 52 unit/L LAB CHEMISTRY METHOD 07/28/2025 4:08 AM EDT [facility] Alkaline Phosphatase 75 34 - 104 unit/L LAB CHEMISTRY METHOD 07/28/2025 4:08 AM EDT [facility] Total Protein 5.2(L) 6.4 - 8.5 g/dL LAB CHEMISTRY METHOD 07/28/2025 4:08 AM EDT [facility] Albumin 3.2(L) 3.5 - 5.0 g/dL LAB CHEMISTRY METHOD 07/28/2025 4:08 AM EDT [facility] Total Bilirubin 1.3(H) 0.3 - 1.0 mg/dL LAB CHEMISTRY METHOD 07/28/2025 4:08 AM EDT [facility] Blood Blood sample taken from central line / Unknown Venipuncture / Unknown 07/28/2025 3:34 AM EDT 07/28/2025 3:38 AM EDT us Jayjay Arias MD LAB BLOOD ORDERABLES Final Res ult [facility] [address] [place] [address], [place] [phone] * (ABNORMAL) CBC auto differential (07/27/2025 2:57 AM EDT) Only the most recent of5 resultswithin the time period is included. WBC 7.1 4.0 - 10.5 K/mcL LAB HEMETOLOGY METHOD 07/27/2025 3:23 AM EDT [facility] RBC 2.43(L) 4.70 - 6.00 M/mcL LAB HEMETOLOGY METHOD 07/27/2025 3:23 AM EDT [facility] Hemoglobin 7.9(L) 13.5 - 18.0 g/dL LAB HEMETOLOGY METHOD 07/27/2025 3:23 AM EDT [facility] Hematocrit 23.4(L) 40.0 - 54.0 % LAB HEMETOLOGY METHOD 07/27/2025 3:23 AM EDT [facility] MCV 96.1 78.0 - 100.0 FL LAB HEMETOLOGY METHOD 07/27/2025 3:23 AM EDT [facility] MCH 32.4 25.0 - 33.0 pcg LAB HEMETOLOGY METHOD 07/27/2025 3:23 AM EDT [facility] MCHC 33.7 32.0 - 36.0 g/dL LAB HEMETOLOGY METHOD 07/27/2025 3:23 AM EDT [facility] RDW 15.5 12.1 - 17.7 % LAB HEMETOLOGY METHOD 07/27/2025 3:23 AM EDT [facility] Platelets 89(L) 150 - 450 K/mcL LAB HEMETOLOGY METHOD 07/27/2025 3:23 AM EDT [facility] Comment:Verified by repeat a nalysis MPV 9.0 7.4 - 11.4 FL LAB HEMETOLOGY METHOD 07/27/2025 3:23 AM EDT [facility] Neutrophils Relative 74.8(H) 44.0 - 74.0 % LAB HEMETOLOGY METHOD 07/27/2025 3:23 AM EDT [facility] Lymphocytes Relative 12.1(L) 20.0 - 48.0 % LAB HEMETOLOGY METHOD 07/27/2025 3:23 AM EDT [facility] Monocytes Relative 11.9 2.0 - 12.0 % LAB HEMETOLOGY METHOD 07/27/2025 3:23 AM EDT [facility] Eosinophils Relative 0.6 0.0 - 6.0 % LAB HEMETOLOGY METHOD 07/27/2025 3:23 AM EDT [facility] Basophils Relative 0.6 0.0 - 2.0 % LAB HEMETOLOGY METHOD 07/27/2025 3:23 AM EDT [facility] Neutrophils Absolute 5.30 1.80 - 7.80 K/mcL LAB HEMETOLOGY METHOD 07/27/2025 3:23 AM EDT [facility] Lymphocytes Absolute 0.90(L) 1.00 - 3.20 K/mcL LAB HEMETOLOGY METHOD 07/27/2025 3:23 AM EDT [facility] Monocytes Absolute 0.80 0.00 - 0.80 K/mcL LAB HEMETOLOGY METHOD 07/27/2025 3:23 AM EDT [facility] Eosinophils Absolute 0.00 0.00 - 0.50 K/mcL LAB HEMETOLOGY METHOD 07/27/2025 3:23 AM EDT [facility] Basophils Absolute 0.00 0.00 - 0.20 K/mcL LAB HEMETOLOGY METHOD 07/27/2025 3:23 AM EDT [facility] Blood Venous blood specimen / Unknown Venipuncture / Unknown 07/27/2025 2:57 AM EDT 07/27/2025 3:08 AM EDT us [place] LAB BLOOD ORDERABLES Final Result [facility] [address] [place] [address], * (ABNORMAL) Hepatic function panel (07/27/2025 2:57 AM EDT) Only the most recent of3 resultswithin the time period is included. ALT (SGPT) 200(H) 7 - 52 unit/L LAB CHEMISTRY METHOD 07/27/2025 3:37 AM EDT [facility] AST (SGOT) 70(H) 5 - 40 unit/L LAB CHEMISTRY METHOD 07/27/2025 3:37 AM EDT [facility] Alkaline Phosphatase 76 34 - 104 unit/L LAB CHEMISTRY METHOD 07/27/2025 3:37 AM EDT [facility] Bilirubin, Direct 0.3(H) 0.0 - 0.2 mg/dL LAB CHEMISTRY METHOD 07/27/2025 3:37 AM EDT [facility] Total Bilirubin 1.1(H) 0.3 - 1.0 mg/dL LAB CHEMISTRY METHOD 07/27/2025 3:37 AM EDT [facility] Total Protein 5.3(L) 6.4 - 8.5 g/dL LAB CHEMISTRY METHOD 07/27/2025 3:37 AM EDT [facility] Albumin 3.2(L) 3.5 - 5.0 g/dL LAB CHEMISTRY METHOD 07/27/2025 3:37 AM EDT [facility] Globulin, Total 2.1(L) 2.3 - 3.5 g/dL LAB CHEMISTRY METHOD 07/27/2025 3:37 AM EDT [facility] A/G Ratio 1.5 LAB CHEMISTRY METHOD 07/27/2025 3:37 AM EDT [facility] Blood Venous blood specimen / Unknown Venipuncture / Unknown 07/27/2025 2:57 AM EDT 07/27/2025 3:08 AM EDT us Bere[place] [facility] BLOOD ORDERABLES Final Resul t [facility] [address] [place] [address], [place] [phone] * (ABNORMAL) TRANSTHORACIC ECHOCARDIOGRAM (TTE) LIMITED W/ [...] Size 5.2 cm CV PACS MV Deceleration [place] 7.8 m/s2 CV PACS E Wave Deceleration [...] BLOOD GAS METHOD 07/24/2025 3:35 AM EDT [facility] pCO2, Arterial 35 35 - 45 mmHg LAB BLOOD GAS METHOD 07/24/2025 3:35 AM EDT [facility] pO2, Arterial 89 80 - 105 mmHg LAB BLOOD GAS METHOD 07/24/2025 3:35 AM EDT [facility] HCO3, Arterial 24.5 22.0 - 26.0 mmol/L LAB BLOOD GAS METHOD 07/24/2025 3:35 AM EDT [facility] O2 Sat, Arterial 97.4 95.0 - 98.0 % LAB BLOOD GAS METHOD 07/24/2025 3:35 AM EDT [facility] Base Excess, Arterial -0.6(L) 0.0 - 2.0 mmol/L LAB BLOOD GAS METHOD 07/24/2025 3:35 AM EDT [facility] Blood Arterial blood specimen / Unknown Arterial Puncture / Unknown 07/24/2025 3:19 AM EDT 07/24/2025 3:24 AM EDT Jayjay Arias MD LAB BLOOD ORDERABLES Final Res ult [facility] [address] [place] [id number], [place] [phone] * Transfuse RBC (07/23/2025 8:31 AM EDT) Only the most recent of2 resultswithin the time period is included. us [place] BLOOD TRANSFUSION ORDERABLES F inal Result * (ABNORMAL) Acute kidney injury score (07/23/2025 4:36 AM EDT) FARHAT Risk Score 2.33(H) <=0.31 LAB MICROBIOLOGY METHOD 07/23/2025 7:44 AM EDT [facility] Urine Urine specimen obtained by clean catch procedure / Unknown Non-blood Collection / Unknown 07/23/2025 4:36 AM EDT 07/23/2025 4:42 AM EDT Narrative [facility] - 07/23/2025 7:44 AM EDT Intended use patients 21 years of age or older with Nephrocheck FARHAT Risk Scores of less than or equal to 0.30 are at a lower risk of developing moderate to severe FARHAT within 12 hours of assessment than those with FARHAT Risk Scores of > 0.30. us [place] [facility] URINE ORDERABLES Final Res ult [facility] [address] [place] [address], [place] [phone] * Triglyceride Monitoring (07/22/2025 11:56 PM EDT) [facility] Triglycerides 101 <150 mg/dL LAB CHEMISTRY METHOD 07/23/2025 12:45 AM EDT [facility] Blood Venous blood specimen / Unknown Venipuncture / Unknown 07/22/2025 11:56 PM EDT 07/23/2025 12:06 AM EDT [place] LAB BLOOD ORDERABLES Final Res ult [facility] [address] [place] [address], * (ABNORMAL) POCT Arterial blood gas (07/22/2025 11:45 PM EDT) Only the most recent of6 resultswithin the time period is included. [facility] Sample Site POCT ART 07/22/2025 11:55 PM EDT [facility] pH Arterial POCT 7.37 7.35 - 7.45 07/22/2025 11:55 PM EDT [facility] pCO2 Arterial POCT 32.8(L) 35 - 45 mmHg 07/22/2025 11:55 PM EDT [facility] pO2 Arterial POCT 93 80 - 105 mmHg 07/22/2025 11:55 PM EDT [facility] pH Temp Corrected Arterial, POCT 7.36 7.35 - 7.45 07/22/2025 11:55 PM EDT [facility] pCO2 Temp Control Arterial, POCT 33.8(L) 35 - 45 mmHg 07/22/2025 11:55 PM EDT [facility] pO2 Temp Corrected Arterial, POCT 97(HH) 35 - 45 mmHg 07/22/2025 11:55 PM EDT [facility] HCO3 Arterial POCT 18.8(L) 22.0 - 26.0 mmol/L 07/22/2025 11:55 PM EDT [facility] Base Excess Arterial POCT -7(L) 0 - 2 mmol/L 07/22/2025 11:55 PM EDT [facility] SO2 Arterial POCT 97 95 - 98 % 07/22/2025 11:55 PM EDT [facility] FIO2 POCT 40.0 No Established Reference Range % 07/22/2025 11:55 PM EDT [facility] Patient Temperature POCT 99.8 C 07/22/2025 11:55 PM EDT [facility] Blood Arterial blood specimen / Unknown 07/22/2025 11:45 PM EDT 07/22/2025 11:57 PM EDT Jayjay Arias MD LAB POINT OF CARE TE ST DOCKED DEVICE UNSOLICITED RESULTS Final Result Performing Organization Address City/[facility]/ZIP Co de Phone Number [facility] [address] [place] [address], [place] [phone] * (ABNORMAL) Activated partial thromboplastin time (07/22/2025 8:51 PM EDT) Only the most recent of19 resultswithin the time period is included. aPTT 42.4(H) 25.0 - 37.0 sec LAB COAGULATION METHOD 07/22/2025 9:17 PM EDT [facility] Blood Venous blood specimen / Unknown Venipuncture / Unknown 07/22/2025 8:51 PM EDT 07/22/2025 9:02 PM EDT [place] [facility] BLOOD ORDERABLES Final Res ult [facility] [address] [place] [address], [place] [phone] * Transfuse cryoprecipitate (07/22/2025 3:09 PM EDT) [...] 7.35 - 7.45 07/22/2025 3:00 PM EDT [facility] pH Temp Corrected Arterial, POCT 7.30(L) 7.35 - 7.45 07/22/2025 3:00 PM EDT [facility] pCO2 Arterial POCT 43.6 35 - 45 mmHg 07/22/2025 3:00 PM EDT [facility] pCO2 Temp Control Arterial, POCT 43.6 35 - 45 mmHg 07/22/2025 3:00 PM EDT [facility] pO2 Arterial POCT 162(H) 80 - 105 mmHg 07/22/2025 3:00 PM T [facility] pO2 Temp Corrected Arterial, POCT 162(HH) 35 - 45 mmHg 07/22/2025 3:00 PM EDT [facility] HCO3 Arterial POCT 21.5(L) 22.0 - 26.0 mmol/L 07/22/2025 3:00 PM EDT [facility] Base Excess Arterial POCT -5(L) 0 - 2 mmol/L 07/22/2025 3:00 PM T [facility] SO2 Arterial POCT 99(H) 95 - 98 % 07/22/2025 3:00 PM EDT [facility] FIO2 POCT 70.0 No Established Reference Range % 07/22/2025 3:00 PM EDT [facility] Sodium Arterial POCT 143 135 - 145 mmol/L 07/22/2025 3:00 PM EDT [facility] Potassium Arterial POCT 4.1 3.5 - 5.1 mmol/L 07/22/2025 3:00 PM EDT [facility] Ionized Calcium, Arterial POCT 1.16(L) 1.19 - 1.35 mmol/L 07/22/2025 3:00 PM EDT [facility] Glucose Arterial POCT 119 70 - 199 mg/dL 07/22/2025 3:00 PM EDT [facility] Comment: Fasting Reference Range: 70-99 mg/dL Non-Fasting Reference Range: 70-199 mg/dL Hemoglobin Arterial POCT 8.8(L) 13.5 - 18.0 g/dL 07/22/2025 3:00 PM EDT [facility] Hematocrit Arterial POCT 26(L) 40 - 54 % 07/22/2025 3:00 PM EDT [facility] Patient Temperature POCT 37.0 C 07/22/2025 3:00 PM EDT [facility] Blood Arterial blood specimen / Unknown 07/22/2025 2:56 PM EDT 07/22/2025 3:01 PM EDT Jayjay Arias MD LAB POINT OF CARE TE ST DOCKED DEVICE UNSOLICITED RESULTS Final Result [facility] [address] [place] [address], [place] [phone] * Prepare cryoprecipitate: 1 Product (07/22/2025 2:26 PM EDT) Only the most recent of3 resultswithin the time period is included. Product Code [id number] 07/22/2025 3:09 PM EDT [facility] Unit Number [id number] 07/22/20 3:09 PM EDT [facility] Dispense Status Transfused 07/22/2025 3:09 PM EDT [facility] Unit ABO Rh OPOS 07/22/2025 3:09 PM EDT [facility] Unit Expiration Date Time [id number] 07/22/2025 3:09 PM EDT [facility] Unit Blood Type 5100 07/22/2025 3:09 PM EDT [facility] Blood Venous blood specimen / Unknown 07/22/2025 2:26 PM EDT Jayjay Arias MD BLOOD BANK PRODUCT ORDERABLES Final Result [facility] [address] [place] [address], [place] [phone] * (ABNORMAL) Thromboelastograph 6 global hemostasis panel (07/22/2025 2:21 PM EDT) TEG Citrated Kaolin Reaction Time 6.3 4.6 - 9.1 min LAB COAGULATION METHOD 07/22/2025 3:13 PM EDT [facility] TEG Citrated Kaolin Kinetic Time 1.8 0.8 - 2.1 min LAB COAGULATION METHOD 07/22/2025 3:13 PM EDT [facility] TEG Citrated Kaolin Angle 70.7 63.0 - 78.0 deg LAB COAGULATION METHOD 07/22/2025 3:13 PM EDT [facility] Citrated Kaolin - Max Amplitude 54.4 52.0 - 69.0 mm LAB COAGULATION METHOD 07/22/2025 3:13 PM EDT [facility] Citrated Kaolin with Heparinase Reaction Time 6.4 4.3 - 8.3 min LAB COAGULATION METHOD 07/22/2025 3:13 PM EDT [facility] Citrated Rapid TEG- Max Amplitude 51.1(L) 52.0 - 70.0 mm LAB COAGULATION METHOD 07/22/2025 3:13 PM EDT [facility] TEG Citrated Functional Fibrinogen - Max Amplitude 15.2 15.0 - 32.0 mm LAB COAGULATION METHOD 07/22/2025 3:13 PM EDT [facility] Citrated Functional Fibrinogen Level 277.4(L) 278.0 - 581.0 mg/dL LAB COAGULATION METHOD 07/22/2025 3:13 PM EDT [facility] Blood Arterial blood specimen / Unknown 07/22/2025 2:21 PM EDT 07/22/2025 2:25 PM EDT us Jayjay Arias MD LAB BLOOD ORDERABLES Final Res ult [facility] [address] [place] [address], [place] [phone] * Prepare platelets: 1 Product (07/22/2025 2:20 PM EDT) Only the most recent of2 resultswithin the time period is included. Product Code [id number] 07/24/2025 4:24 AM EDT [facility] Unit Number [id number] 07/24/20 4:24 AM EDT [facility] Dispense Status Presumed Transfused 07/24/2025 4:24 AM EDT [facility] Unit ABO Rh OPOS 07/24/2025 4:24 AM EDT [facility] Unit Expiration Date Time [id number] 07/24/2025 4:24 AM EDT [facility] Unit Blood Type 5100 07/24/2025 4:24 AM EDT [facility] Blood Venous blood specimen / Unknown 07/22/2025 2:20 PM EDT us Jayjay Arias MD BLOOD BANK PRODUCT ORDERABLES Final Result [facility] [address] [place] [address], [place] [phone] * Transfuse platelets (07/22/2025 1:59 PM EDT) us Mike Dias MD BLOOD TRANSFUSION ORDERABLES Fi nal Result * Fibrinogen (07/22/2025 11:27 AM EDT) Fibrinogen 171 145 - 415 mg/dL LAB COAGULATION METHOD 07/22/2025 11:54 AM EDT [facility] Blood Arterial blood specimen / Unknown 07/22/2025 11:27 AM EDT 07/22/2025 11:38 AM EDT us Jayjay Arias MD LAB BLOOD ORDERABLES Final Res ult Performing Organization Address [facility]/ZIP Co de Phone Number [facility] [address] [place] [address], [place] [phone] * (ABNORMAL) Platelet count (07/22/2025 11:27 AM EDT) Platelets 106(L) 150 - 450 K/mcL LAB HEMETOLOGY METHOD 07/22/2025 11:46 AM EDT [facility] MPV 07/22/2025 11:46 AM EDT [facility] Blood Arterial blood specimen / Unknown 07/22/2025 11:27 AM EDT 07/22/2025 11:38 AM EDT us Jayjay Arias MD LAB BLOOD ORDERABLES Final Res ult [facility] [address] [place] [address], [place] [phone] * Tissue exam (07/22/2025 10:50 AM EDT) Final Diagnosis A. 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 Negative for acute inflammation and vegetations. 07/23/2025 12:28 PM EDT [facility] Gross Description A. Heart, Mitral valve leaflets: Received in formalin labeled mitral valve leaflets is an irregular, rubbery, off-white to pale yellow, valve leaflet with minimal calcification and vegetations measuring 2.5 x 2.5 x 0.3 cm. There is an undesignated suture looped through the leaflet. The chordae tendinae are fused and thickened. Power Operator sections are submitted in 1 cassette labeled A1, 2 pieces. 07/22/25 07/23/2025 12:28 PM EDT [facility] Disclaimer The technical components of this case were performed at [address] # [id number] 07/23/2025 12:28 PM EDT [facility] Tissue Heart structure / Unknown 07/22/2025 10:50 AM EDT 07/22/2025 11:09 AM EDT Jayjay Arias MD LAB PATHOLOGY ORDERABLES Final Result [facility] [address] [place] [address], * ANESTHESIA PAC LINE PLACEMENT (07/22/2025 8:37 [...] Signed Date: 07/20/2025 15:23 ET Workstation ID: [id number] Transcribed By: Self Edit Transcribed Date: 07/20/2025 [...] Signed Date: 07/20/2025 15:23 ET Workstation ID: [id number] Transcribed By: Self Edit Transcribed Date: 07/20/2025 15:19 ET us Jayjay Arias MD IMG XR PROCEDURES Final Result * (ABNORMAL) Lipid panel with reflex to direct LDL (07/20/2025 1:14 PM EDT) Cholesterol 97 0 - 200 mg/dL LAB CHEMISTRY METHOD 07/20/2025 2:49 PM EDT [facility] Triglycerides 102 <150 mg/dL LAB CHEMISTRY METHOD 07/20/2025 2:49 PM EDT [facility] HDL 44 32 - 70 mg/dL LAB CHEMISTRY METHOD 07/20/2025 2:49 PM EDT [facility] LDL Calculated 33(L) 50 - 130 mg/dL LAB CHEMISTRY METHOD 07/20/2025 2:49 PM EDT [facility] VLDL Cholesterol Don 20.4 mg/dL LAB CHEMISTRY METHOD 07/20/2025 2:49 PM EDT [facility] Comment:No established refer ence range. Blood Venous blood specimen / Unknown Venipuncture / Unknown 07/20/2025 1:14 PM EDT 07/20/2025 1:52 PM EDT us Jayjay Arias MD LAB BLOOD ORDERABLES Final Res ult Performing Organization Address [facility]/ZIP Co de Phone Number [facility] [address] [place] [address], [place] [phone] * Prealbumin (07/20/2025 1:14 PM EDT) Prealbumin 18 17 - 34 mg/dL LAB CHEMISTRY METHOD 07/20/2025 2:43 PM EDT [facility] Blood Venous blood specimen / Unknown Venipuncture / Unknown 07/20/2025 1:14 PM EDT 07/20/2025 1:52 PM EDT us Jayjay Arias MD LAB BLOOD ORDERABLES Final Res ult [facility] [address] [place] [address], [place] [phone] * (ABNORMAL) B-type natriuretic peptide (07/20/2025 1:14 PM EDT) Only the most recent of2 resultswithin the time period is included. BNP 581(H) 0 - 100 pcg/mL LAB CHEMISTRY METHOD 07/20/2025 2:51 PM EDT [facility] Blood Venous blood specimen / Unknown Venipuncture / Unknown 07/20/2025 1:14 PM EDT 07/20/2025 1:52 PM EDT us Jayjay Arias MD LAB BLOOD ORDERABLES Final Res ult [facility] [address] [place] [address], [place] [phone] * Pulmonary function testing: Carbon Monoxide Diffusing [...] to verify the correct patient, procedure, equipment, customer support assistant and site/side marked as required. [...] us Gerber Good MD [facility] Final Result * (ABNORMAL) Urinalysis with reflex microscopic (07/16/2025 10:15 PM EDT) Specific [place] Urine 1.022 1.003 - 1.030 LAB URINALYSIS - AUTOMATED METHOD 07/16/2025 10:26 PM [facility] pH, Urine 7.0 5.0 - 8.0 pH LAB URINALYSIS - AUTOMATED METHOD 07/16/2025 10:26 PM [facility] Leukocytes, Urine Negative Negative LAB URINALYSIS - AUTOMATED METHOD 07/16/2025 10:26 PM [facility] Nitrite, Urine Negative Negative LAB URINALYSIS - AUTOMATED METHOD 07/16/2025 10:26 PM [facility] Protein, Urine Negative <=Trace mg/dL LAB URINALYSIS - AUTOMATED METHOD 07/16/2025 10:26 PM [facility] Glucose, Urine 500(A) Negative mg/dL LAB URINALYSIS - AUTOMATED METHOD 07/16/2025 10:26 PM [facility] Ketones, Urine Negative Negative mg/dL LAB URINALYSIS - AUTOMATED METHOD 07/16/2025 10:26 PM [facility] Urobilinogen, Urine 1.0 0.2 - 1.0 mg/dL LAB URINALYSIS - AUTOMATED METHOD 07/16/2025 10:26 PM EDT [facility] Bilirubin, Urine Negative Negative LAB URINALYSIS - AUTOMATED METHOD 07/16/2025 10:26 PM EDT [facility] Blood, Urine Negative Negative LAB URINALYSIS - AUTOMATED METHOD 07/16/2025 10:26 PM EDT [facility] Urine Urine specimen obtained by clean catch procedure / Unknown 07/16/2025 10:15 PM EDT 07/16/2025 10:23 PM EDT us Jayjay Arias MD LAB URINE ORDERABLES Final Res ult [facility] [address] [place] [address], [place] [phone] * LEFT HEART CATH / CORONARY ANGIOGRAPHY, [...] performed from right brachial approach with 5Fr [place] advanced to PA wedge under fluoro guidance. PA sat obtained and right heart pullback performed. Right radial access achieved and 6Fr Slender sheath placed. LHC performed with 5Fr Verbena catheter. LV pullback performed and bilateral coronary angiography performed with same catheter. Hemostasis achieved with TR band. Hemodynamics stable. No complications. us Gerber Good MD CV CARDIAC CATH PROCEDURE S Final Result * POCT Cardiac cath blood gas (07/16/2025 1:29 PM EDT) Only the most recent of2 resultswithin the time period is included. pCO2 Cath POCT 39.0 mmHg 07/16/2025 1:36 PM EDT [facility] pO2 Cath POCT 63 mmHg 07/16/2025 1:36 PM EDT [facility] SO2 Cath POCT 92 % 07/16/2025 1:36 PM EDT [facility] Sample Site POCT Aorta 07/16/2025 1:36 PM EDT [facility] Device POCT [id number] 07/16/2025 1:36 PM EDT [facility] POCT Comment ROOM AIR 07/16/2025 1:36 PM EDT [facility] Blood Aortic structure / Unknown 07/16/2025 1:29 PM EDT 07/16/2025 1:38 PM EDT us Mohinder Yo MD LAB POINT OF CARE TE ST DOCKED DEVICE UNSOLICITED RESULTS Final Result [facility] [address] [place] [address], [place] [phone] * Lavender tube (07/16/2025 4:50 AM EDT) Extra Tube Hold for add-ons. 07/16/2025 7:01 AM EDT [facility] Comment:Auto resulted. Blood Venous blood specimen / Unknown Venipuncture / Unknown 07/16/2025 4:50 AM EDT 07/16/2025 5:10 AM EDT us Mohinder Yo MD LAB BLOOD ORDERABLES Final R esult [facility] [address] [place] [address], [place] [phone] * PABLO COMPLETE W/ CARDIOVERSION (07/15/2025 8:50 [...] to verify the correct patient, procedure, equipment, customer support assistant and site/side marked as required. [...] Anti-Xa - STAT (07/14/2025 2:34 PM EDT) [facility] Heparin Anti-Xa 1.77() 0.30 - 0.70 I Unit/mL LAB COAGULATION METHOD 07/14/2025 2:52 PM EDT [facility] Blood Venous blood specimen / Unknown Venipuncture / Unknown 07/14/2025 2:34 PM EDT 07/14/2025 2:38 PM EDT Narrative [facility] - 07/14/2025 2:52 PM EDT Therapeutic range listed is for Unfractionated Heparin. LMW Heparin therapeutic range: 0.50-1.20 IU/mL us Tiffany RUTHERF[facility] LAB BLOOD ORDERABLES Final Result [facility] [address] [place] [address], [place] [phone] * (ABNORMAL) TRANSTHORACIC ECHOCARDIOGRAM (TTE) COMPLETE W/ CONTRAST (07/14/2025 9:44 AM EDT) [facility] Left Atrium Minor Ashley 5.3 cm CV PACS Left Atrium Major Ashley 6.1 cm CV PACS LA Area Sys [...] S' 14 cm/s CV PACS RA Major Ashley 5.1 cm CV PACS RA Major Ashley Index 2.9(A) 2.1 - 2.7 cm/m2 CV [...] the time period is included. Pathologist [facility] High Sensitivity Troponin I 18 <=79 ng/L LAB CHEMISTRY METHOD 07/13/2025 2:53 PM EDT [facility] Blood Venous blood specimen / Unknown Venipuncture / Unknown 07/13/2025 2:23 PM EDT 07/13/2025 2:30 PM EDT Narrative [facility] - 07/13/2025 2:53 PM EDT High levels of biotin in samples may falsely decrease hsTroponin values. Use caution when interpreting hsTroponin results in patients taking biotin who exhibit renal impairment (eGFR <60) or in patients taking more than 20 mg/day of biotin. Qi [facility]HER[facility] LAB BLOOD ORDERABLES Final Resul t [facility] [address] [place] [address], * Fentanyl and metabolite, quantitative, urine (07/13/2025 11:11 AM EDT) [facility] Fentanyl Confirm, Urine Negative Negative ng/mL 07/16/2025 10:14 PM EDT [facility] Norfentanyl Confirm, Urine Negative Negative ng/mL 07/16/2025 10:14 PM EDT [facility] Creatinine 130 20 - 250 mg/dL 07/16/2025 10:14 PM EDT [facility] Adulterants Negative 07/16/2025 10:14 PM EDT [facility] Comment: Confirmation Decision Limits Fentanyl 1 [...] developed and the performance characteristics determined by [facility]. This confirmation testing has not been cleared or approved by the FDA. The laboratory is regulated under CLIA as qualified to perform high-complexity testing. This test is used for patient testing purposes. It should not be regarded as investigational or for research. Test performed at [facility], [address] , [place] [address] Ena Krishnamurthy MD, PhD - [employer] Consult[employer]er Urine Urine specimen from urethra / Unknown Non-blood Collection / Unknown 07/13/2025 11:11 AM EDT 07/13/2025 11:29 AM EDT us Qi [facility] LAB URINE ORDERABLES Edited Resu lt - Final [facility] [address] [place] [address] * (ABNORMAL) Drug abuse screen 8a panel, urine (07/13/2025 11:11 AM EDT) [facility] Signature Amphetamine Screen, Ur Negative Negative LAB CHEMISTRY METHOD 11:51 AM EDT [facility] Comment:Certain OTC medicati ons containing ephedrine, phenylephrine, pseudoephedrine and phenylpropanolamine can cause false positive results. Barbiturate Screen, Ur Negative Negative LAB CHEMISTRY METHOD 11:51 AM EDT [facility] Benzodiazepine Screen, Ur Positive(A ) Negative LAB CHEMISTRY METHOD 11:51 AM EDT [facility] Cocaine Screen, Ur Negative Negative LAB CHEMISTRY METHOD 11:51 AM EDT [facility] Opiate Screen, Ur Negative Negative LAB CHEMISTRY METHOD 11:51 AM EDT [facility] Cannabinoid (THC) Screen, Ur Positive(A ) Negative LAB CHEMISTRY METHOD 11:51 AM EDT [facility] Comment:Specimens from patie nts taking pantoprazole sodium (Protonix) have been shown to produce false positive results. Oxycodone Screen, Ur Negative Negative LAB CHEMISTRY METHOD 11:51 AM [facility] Fentanyl, Ur Negative Negative LAB CHEMISTRY METHOD 11:51 AM [facility] Urine Urine specimen obtained by clean catch procedure / Unknown Non-blood Collection / Unknown 07/13/2025 11:11 AM EDT 07/13/2025 11:29 AM EDT Narrative [facility] - 07/13/2025 11:51 AM EDT [...] R[facility]HER[facility] LAB URINE ORDERABLES Final Resul t [facility] [address] [place] [address], * Respiratory virus panel molecular study (07/13/2025 10:11 AM EDT) Adenovirus Detection by PCR Not Detected Not Detected LAB MICROBIOLOGY METHOD 07/13/2025 12:01 PM EDT [facility] Influenza A PCR Not Detected Not Detected LAB MICROBIOLOGY METHOD 07/13/2025 12:01 PM EDT [facility] Influenza B PCR Not Detected Not Detected LAB MICROBIOLOGY METHOD 07/13/2025 12:01 PM EDT [facility] Coronavirus 229E Not Detected Not Detected LAB MICROBIOLOGY METHOD 07/13/2025 12:01 PM EDT [facility] Coronavirus HKU1 Not Detected Not Detected LAB MICROBIOLOGY METHOD 07/13/2025 12:01 PM EDT [facility] Coronavirus OC43 Not Detected Not Detected LAB MICROBIOLOGY METHOD 07/13/2025 12:01 PM EDT [facility] Coronavirus NL63 Not Detected Not Detected LAB MICROBIOLOGY METHOD 07/13/2025 12:01 PM EDT [facility] Parainfluenza Virus 1 Not Detected Not Detected LAB MICROBIOLOGY METHOD 07/13/2025 12:01 PM EDT [facility] Parainfluenza Virus 2 Not Detected Not Detected LAB MICROBIOLOGY METHOD 07/13/2025 12:01 PM EDT [facility] Parainfluenza Virus 3 Not Detected Not Detected LAB MICROBIOLOGY METHOD 07/13/2025 12:01 PM EDT [facility] Parainfluenza Virus 4 Not Detected Not Detected LAB MICROBIOLOGY METHOD [facility]/13[facility] RSV PCR Not Detected Not Detected LAB MICROBIOLOGY METHOD 07/13/2025 12:01 PM EDT [facility] Human Metapneumovirus A and B Not Detected Not Detected LAB MICROBIOLOGY METHOD 07/13/2025 12:01 PM EDT [facility] Rhinovirus/Entero virus Not Detected Not Detected LAB MICROBIOLOGY METHOD 07/13/2025 12:01 PM EDT [facility] Bordetella pertussis Not Detected Not Detected LAB MICROBIOLOGY METHOD 07/13/2025 12:01 PM EDT [facility] Bordetella parapertussis Not Detected Not Detected LAB MICROBIOLOGY METHOD 07/13/2025 12:01 PM EDT [facility] Mycoplasma pneumo by PCR Not Detected Not Detected LAB MICROBIOLOGY METHOD 07/13/2025 12:01 PM EDT [facility] Chlamydia pneumoniae Not Detected Not Detected LAB MICROBIOLOGY METHOD 07/13/2025 12:01 PM EDT [facility] SARS COV-2 Not Detected Not Detected LAB MICROBIOLOGY METHOD 07/13/2025 12:01 PM EDT [facility] Swab Both anterior nares / Unknown Non-blood Collection / Unknown 07/13/2025 10:11 AM EDT 07/13/2025 10:47 AM EDT Narrative [facility] - 07/13/2025 12:01 PM EDT Testing was performed using the [employer] Respiratory Pathogen PCR Assay. All results must [...] ORDER LOBITO Final Result Performing Organization Address City/[facility]/ZIP Co de Phone Number [facility] [address] [place] [address], [place] [phone] * Thyroid stimulating hormone with reflex to free t4 and free t3 (07/13/2025 7:59 AM EDT) TSH 2.90 0.40 - 4.00 mcIU/mL LAB CHEMISTRY METHOD 07/13/2025 9:36 AM EDT [facility] Blood Venous blood specimen / Unknown Venipuncture / Unknown 07/13/2025 7:59 AM EDT 07/13/2025 8:10 AM EDT Deyanira Nguyen MD LAB BLOOD ORDERABLES Final Res ult [facility] [address] [place] [address], [place] [phone] * Procalcitonin (07/13/2025 7:59 AM EDT) Procalcitonin 0.02 <=0.16 ng/mL LAB CHEMISTRY METHOD 07/13/2025 10:32 AM EDT [facility] Blood Venous blood specimen / Unknown Venipuncture / Unknown 07/13/2025 7:59 AM EDT 07/13/2025 8:10 AM EDT Narrative [facility] - 07/13/2025 10:32 AM EDT [...] MD LAB BLOOD ORDERABLES Final Res ult [facility] [address] [place] [address], [place] [phone] * Lipase (07/13/2025 7:59 AM EDT) Lipase 18 13 - 75 unit/L LAB CHEMISTRY METHOD 07/13/2025 8:35 AM EDT [facility] Blood Venous blood specimen / Unknown Venipuncture / Unknown 07/13/2025 7:59 AM EDT 07/13/2025 8:10 AM EDT Holger Vazquez MD LAB BLOOD ORDERABLES Final Resul t Performing Organization Address City/[facility]/ZIP Co de Phone Number [facility] [address] [place] [address], [place] [phone] * Hemoglobin A1c (07/13/2025 7:59 AM EDT) Hemoglobin A1C 5.9 <6.5 % LAB CHEMISTRY METHOD 07/13/2025 1:13 PM EDT [facility] Mean Bld Glu Estim. 123 mg/dL LAB CHEMISTRY METHOD 07/13/2025 1:13 PM EDT [facility] Blood Venous blood specimen / Unknown Venipuncture / Unknown 07/13/2025 7:59 AM EDT 07/13/2025 8:10 AM EDT us Qi RUTHERFORD LAB BLOOD ORDERABLES Final Resul t Performing Organization Address [facility] Co de Phone Number [facility] [address] [place] [address], [place] [phone] * Ethanol (07/13/2025 7:59 AM EDT) Ethanol Level <3 0 - 10 mg/dL LAB CHEMISTRY METHOD 07/13/2025 10:59 AM EDT [facility] Blood Venous blood specimen / Unknown Venipuncture / Unknown 07/13/2025 7:59 AM EDT 07/13/2025 8:10 AM EDT us Qi RUTHER[facility] LAB BLOOD ORDERABLES Final Resul t [facility] [address] [place] [address], * [facility] 30-74 MINUTES (07/13/2025 7:14 AM [...] currently active code status orders. Care Teams Cardiology Clinical Consultant Relationship Specialty Start Date End Date Holger Manuel NP [address] [place] [id number] PCP - General Family Medicine 07/20/25
== END 2025-08-26 09:34 | disposition home or self-care (01) ==
LOC: HO.HCS 08:44
PROVIDERS: PCP Nurse Practitioner Family; Visit Provider Internal Medicine
DX: I25.10 Atherosclerotic heart disease of native coronary artery without angina pectoris (principal); Z95.1 Presence of aortocoronary bypass graft; Z95.3 Presence of xenogenic heart valve; I42.9 Cardiomyopathy, unspecified; I48.0 Paroxysmal atrial fibrillation; E11.9 Type 2 diabetes mellitus without complications; I44.5 Left posterior fascicular block
CPT/HCPCS: 93010; 99215; G2211

== ENCOUNTER 2025-08-28 11:31 | Outpatient (REF) | payer MEDICARE, SELFPAY ==
--- OUTSIDE RECORDS SUMMARY | 2025-08-28 14:17 | XMS_ITS | Clinical Summary ---
Author Organization [facility] Address [address] [place] [address] Phone Care Team Providers Care Articulation Officer Name Role Phone Holger Manuel NP Primary Care Provider + [phone] Allergies No known active allergies Medications metFORMIN [...] CMS/HCC V28) Hypertension Type II diabetes mellitus ([facility] V24, [facility] V28) Encounters Date Type Department Care Team Description 08/20/2025 10:10 AM EDT Office Visit [facility] - [address] [place] [address] Salma Strong PA Atrial fibrillation with RVR ([facility] V24, [facility] V28) (Primary Dx) 08/19/2025 9:30 AM EDT Office Visit Cardiothoracic Surgery - [place] [address] [place] [address] Jayjay Powell PA S/P MVR (mitral valve replacement) (Primary Dx); S/P CABG x 1 08/11/2025 Telephone [facility] - [address] [place] [phone] Salma Strong PA 08/04/2025 Telephone [facility] CV Pre Admission Testing [address] [place] [phone] Gavi Ahumada RN 07/22/2025 7:15 AM EDT - 07/22/2025 1:37 PM EDT Surgery [facility] OR [address] [place] [phone] Jayjay Arias MD REPLACE VALVE MITRAL [[id number] (CPT ) +1 more] 07/22/2025 7:14 AM EDT Anesthesia Event [facility] CV OR [address] [place] [phone] Gerber Quinones MD Wilson, Gary S, MD 07/22/2025 5:27 AM EDT - 07/31/2025 4:08 PM EDT Hospital Encounter [facility] CV Surg Card 8-[address] [place] [phone] Jayjay Arias MD Mitral valve insufficiency, unspecified etiology (Primary Dx); Atrial fibrillation with RVR ([facility] V24, [facility] V28); Nonrheumatic mitral valve regurgitation; Atherosclerosis of [place] coronary artery of [place] heart without angina pectoris; S/P CABG x 1; S/P MVR (mitral valve replacement) Discharge Disposition: Home-Health Care [facility] 07/20/2025 2:59 PM EDT - 07/20/2025 11:59 PM EDT Hospital Encounter [facility] Xray [address] [place] [address] Discharge Disposition: Home or Self Care 07/20/2025 1:30 PM EDT Consult [facility] CV Pre Admission Testing [address] [place] [address] Vida Restrepo PA SOB (shortness of breath) (Primary Dx); IFG (impaired fasting glucose); Hyperlipidemia, unspecified hyperlipidemia type; Pre-op testing; Nonrheumatic mitral valve regurgitation; Cardiomyopathy, unspecified type ([facility] V24, [facility] V28); Atrial fibrillation with RVR ([facility] V24, [facility] V28); Chronic obstructive pulmonary disease, unspecified COPD type ([facility] V24, [facility] V28); Primary hypertension; Type 2 diabetes mellitus with other specified complication, without long-term current use of insulin ([facility] V24, [facility] V28) 07/20/2025 12:25 PM EDT - 07/20/2025 11:59 PM EDT Hospital Encounter [facility] Pulmonary Lab [address] [place] [address] Pre-op testing Discharge Disposition: Home or Self Care 07/17/2025 12:29 PM EDT Anesthesia Event [facility]iac [facility] Cardiac [address] [place] [phone] Wolf Azul MD 07/16/2025 1:00 PM EDT - 07/16/2025 4:00 PM EDT Surgery [facility] Cardiac [address] [place] [phone] Holger Coates MD Left heart cath / Coronary angiography 07/15/2025 8:06 AM EDT Anesthesia Event [facility] [address] [place] [phone] Casey Flanagan MD 07/13/2025 7:26 AM EDT - 07/18/2025 3:15 PM EDT Hospital Encounter [facility] Intermediate Care Unit [address] [place] [address] Holger Vazquez MD Bukalo, Nermina, MD Kokosadze, Estate, MD Atrial fibrillation with RVR ([facility] V24, [facility] V28) (Primary Dx); Cardiomyopathy, unspecified type ([facility] V24, [facility] V28); Nonrheumatic mitral valve regurgitation; A-fib ([facility] V24, [facility] V28) Discharge Disposition: Home-Health Care [facility] from Last 3 Months Surgical History Surgery [...] 09/17/2014 DX:Herniated lumbar intervertebral disc; COMMENT: Sees [facility] COPD (chronic obstructive pu lmonary disease) ([facility] V24, [facility] V28) Type II diabetes mellitus ([facility] V24, [facility] V28) CAD (coronary artery disease) s/ p stent in 2020 at [facility] Mitral valve prolapse Heart murmur Myocardial infarction ([facility] V24, [facility] V28) 08/2022 Inferoposterior STEMI s/p le ft circumflex stent CHF (congestive heart failur e) ([facility] V24, [facility] V28) AF (paroxysmal atrial fibril lation) ([facility] V24, [facility] V28) Heart failure with mid-range ejection fraction (HFmEF) ([facility] V24, [facility] V28) Severe mitral regurgitation FARHAT (acute kidney injury) ([facility] V24) 07/2025 Peripheral neuropathy OA (osteoarthritis) Cardiac arrest ([facility] V24, [facility] V28) 08/2022 VF cardiac arrest BPH (benign prostatic hyperplasia) Hypertension Family History Medical History Relation Name Comments No Known Problems Aunt Fainting Brother 1 Heart disease Brother 1 GA COPD Brother 2 Seizures Brother 3 No [...] Status Comments Aunt Brother 1 (Age 55) [place] Brother 2 Alive Brother 3 Alive Father [...] this topic Medical Devices Implanted Type Area Practicing Dermatologist Device Identifier Shelf Expiration Date Model / Serial / Lot Valve Mitral Mitris Resilia Sz 29 - [id number] - [id number] Implanted:Q ty: 1 on 07/22/2025 by Jayjay Arias MD at [facility] Heart Valve N/A: Heart [employer] ELE 03/25/2030 [id number] / [id number] / N/A Hemostat Absorb Surgicel 6x9in Ster Nuknit - Sn/A - [id number] Implanted:Q ty: 2 on 07/22/2025 by Jayjay Arias MD at [facility] Hemostasis N/A: Chest [employer] 12/12/2029 1946 / N/A / [id number] Plate Manubrium - Sn/A - [id number] Implanted:Q ty: 1 on 07/22/2025 by Jayjay Arias MD at [facility] Internal and External Fixation N/A: Sternum CHUCK [employer]ANI[employer]ILL[employer]AC[employer] [id number] / N/A / N/A Plate X - Sn/A - [id number] Implanted:Q ty: 2 on 07/22/2025 by Jayjay Arias MD at [facility] Internal and External Fixation N/A: Sternum [employer] [id number] / N/A / N/A Screw Sd Locking 2.3x14mm - Sn/A - [id number] Implanted:Q ty: 12 on 07/22/2025 by Jayjay Arias MD at [facility] Internal and External Fixation N/A: Sternum [employer] [id number] / N/A / N/A Screw Sd Locking 2.3x16mm - Sn/A - [id number] Implanted:Q ty: 10 on 07/22/2025 by Jayjay Arias MD at [facility] Internal and External Fixation N/A: Sternum [employer] [id number] / N/A / N/A Procedures Procedure Name [...] STAT 07/22/2025 2:21 PM EDT Atherosclerosis of [place] coronary artery of [place] heart without angina pectoris Nonrheumatic mitral valve [...] STAT 07/22/2025 11:27 AM EDT Atherosclerosis of [place] coronary artery of [place] heart without angina pectoris Nonrheumatic mitral valve regurgitation PLATELET COUNT STAT 07/22/2025 11:27 AM EDT Atherosclerosis of [place] coronary artery of [place] heart without angina pectoris Nonrheumatic mitral valve [...] PROCEDURE 07/22/2025 7:14 AM EDT Atherosclerosis of [place] coronary artery of [place] heart without angina pectoris Nonrheumatic mitral valve regurgitation Paroxysmal atrial fibrillation (CMS/HCC V24, CMS/HCC V28) VA ENDO SURG CORONARY ART BYPASS PROC INCL VIDEO-ASSISTED HARVEST VEIN(S) 07/22/2025 7:14 AM EDT Atherosclerosis of [place] coronary artery of [place] heart without angina pectoris Nonrheumatic mitral valve regurgitation Paroxysmal atrial fibrillation (CMS/HCC V24, CMS/HCC V28) VA CORONARY ARTERY BYPASS VEIN ONLY SINGLE CORONARY VENOUS GRAFT 07/22/2025 7:14 AM EDT Atherosclerosis of [place] coronary artery of [place] heart without angina pectoris Nonrheumatic mitral valve regurgitation Paroxysmal atrial fibrillation (CMS/HCC V24, CMS/HCC V28) VA REPLACEMENT MITRAL VALVE WITH CARDIOPULMONARY BYPASS 07/22/2025 7:14 AM EDT Atherosclerosis of [place] coronary artery of [place] heart without angina pectoris Nonrheumatic mitral valve regurgitation Paroxysmal atrial fibrillation (CMS/HCC V24, CMS/HCC V28) VA ECHOCARDIOGRAPHY TRANSESOPHAGEAL REAL-TIME W IMG DOC INCL PROBE PLCMNT 07/22/2025 7:14 AM EDT Atherosclerosis of [place] coronary artery of [place] heart without angina pectoris Nonrheumatic mitral valve [...] GEMUSE QTc 471 ms GEMUSE P Wave [place] 60 degrees GEMUSE R [place] 92 degrees GEMUSE T [place] -78 degrees GEMUSE ECG Interpretation Normal sinus rhythm Rightward axis T wave abnormality, consider inferior ischemia When compared with ECG of 17-JUL-2025 00:15, Sinus rhythm has replaced Atrial fibrillation Vent. rate has decreased BY 56 BPM Questionable change in QRS duration Confirmed by KAHLIL WHITEHEAD ([id number]) on 08/27/2025 9:32:03 PM GEMUSE 08/20/2025 10:0 5 AM EDT 08/27/2025 9:32 PM EDT Salma RUTHERFORD ECG ORDERABLES Edited Result - Final GEMUSE * POCT Glucose, blood (07/31/2025 1:15 PM EDT) Only the most recent of73 resultswithin the time period is included. Glucose POCT 107 70 - 199 mg/dL 07/31/2025 1:15 PM EDT [facility] Comment: Fasting Reference Range: 70-99 mg/dL Non-Fasting Reference Range: 70-199 mg/dL POCT Comment Notified Nurse 07/31/2025 1:15 PM EDT [facility] Blood Capillary blood specimen / Unknown 07/31/2025 1:15 PM EDT 07/31/2025 1:16 PM EDT Jayjay Arias MD LAB POINT OF CARE TE ST DOCKED DEVICE UNSOLICITED RESULTS Final Result Performing Organization Address City/[facility]/ZIP Co de Phone Number [facility] [address] [place] [address], [place] [phone] * (ABNORMAL) Prothrombin time with INR (07/31/2025 8:17 AM EDT) Only the most recent of13 resultswithin the time period is included. Protime 15.8(H) 10.5 - 13.3 sec LAB COAGULATION METHOD 07/31/2025 8:53 AM EDT [facility] INR 1.4(H) 0.8 - 1.1 LAB COAGULATION METHOD 07/31/2025 8:53 AM EDT [facility] Blood Venous blood specimen / Unknown Venipuncture / Unknown 07/31/2025 8:17 AM EDT 07/31/2025 8:31 AM EDT Narrative [facility] - 07/31/2025 8:53 AM EDT Std. Therapy 2.0-3.0 INR High Dose Therapy 3.0-4.5 INR Ranges may vary depending on clinical indications and protocol. Fabio RUTHERFORD LAB BLOOD ORDERABLES Final Resul t Performing Organization Address City/[facility]/ZIP Co de Phone Number [facility] [address] [place] [address], [place] [phone] * Potassium (07/31/2025 8:17 AM EDT) Only the most recent of6 resultswithin the time period is included. Potassium 4.1 3.5 - 5.1 mmol/L LAB CHEMISTRY METHOD 07/31/2025 9:12 AM EDT [facility] Blood Venous blood specimen / Unknown Venipuncture / Unknown 07/31/2025 8:17 AM EDT 07/31/2025 8:31 AM EDT Fabio Borjas [place] LAB BLOOD ORDERABLES Final Resul t [facility] [address] [place] [address], [place] [phone] * Magnesium (07/31/2025 8:17 AM EDT) Only the most recent of13 resultswithin the time period is included. Magnesium 2.0 1.7 - 2.8 mg/dL LAB CHEMISTRY METHOD 07/31/2025 9:12 AM EDT [facility] Blood Venous blood specimen / Unknown Venipuncture / Unknown 07/31/2025 8:17 AM EDT 07/31/2025 8:31 AM EDT Fabio Borjas [place] LAB BLOOD ORDERABLES Final Resul t Performing Organization Address City/[facility]/ZIP Co de Phone Number [facility] [address] [place] [address], [place] [phone] * Calcium, ionized (07/31/2025 8:17 AM EDT) Only the most recent of8 resultswithin the time period is included. Calcium Ionized 1.22 1.19 - 1.35 mg/dL LAB BLOOD GAS METHOD 07/31/2025 8:39 AM EDT [facility] Blood Venous blood specimen / Unknown Venipuncture / Unknown 07/31/2025 8:17 AM EDT 07/31/2025 8:29 AM EDT Fabio Borjas [place] LAB BLOOD ORDERABLES Final Resul t [facility] [address] [place] [address], [place] [phone] * XR Chest 1 View (07/31/2025 6:07 AM EDT) Only the most recent of5 resultswithin the time period is included. Anatomical Region Laterality Modality Body Radiographic Jana ging 07/31/2025 7:05 AM EDT Impressions 07/31/2025 7:08 AM EDT Removal of right IJ central line and [place]aina catheter. Improved visualization of the left lung base with mild atelectasis in small left pleural effusion remaining. -------- FINAL REPORT -------- Dictated By: Julian Mayfield Dictated Date: 07/31/2025 07:05 ET Assigned Physician: Julian Mayfield Reviewed and Electronically Signed By: Julian Mayfield Signed Date: 07/31/2025 07:08 ET Workstation ID: [id number] Transcribed By: Self Edit Transcribed Date: 07/31/2025 07:05 ET Narrative 07/31/2025 7:08 AM EDT EXAM: XR CHEST 1 VIEW HISTORY: s/p MVR CABG COMPARISON:07/27/2025, 07/23/2025, 07/22/2025 FINDINGS: Interval removal of right IJ central line and [place]a catheter. Cardiac silhouette remains enlarged. Improved visualization of left lung base with mild atelectasis remaining and small pleural effusion. The right lung is clear. No pneumothorax. Status post sternotomy and mitral valve replacement. Procedure Note Julian Mayfield MD - 07/31/2025 EXAM: XR CHEST 1 VIEW HISTORY: s/p MVR CABG COMPARISON:07/27/2025, 07/23/2025, 07/22/2025 FINDINGS: Interval removal of right IJ central line and [place]aina catheter. Cardiacsilhouette remains enlarged. Improved visualization of left lung base withmild atelectasis remaining and small pleural effusion. The right lung isclear. No pneumothorax. Status post sternotomy and mitral valvereplacement. IMPRESSION: Removal of right IJ central line and [place]aina catheter. Improvedvisualization of the left lung base with mild atelectasis in small leftpleural effusion remaining. -------- FINAL REPORT -------- Dictated By: Julian Mayfield Dictated Date: 07/31/2025 07:05 ET Assigned Physician: Julian Mayfield Reviewed and Electronically Signed By: Julian Mayfield Signed Date: 07/31/2025 07:08 ET Workstation ID: [id number] Transcribed By: Self Edit Transcribed Date: 07/31/2025 07:05 ET us Josafat RUTHERFORD IMG XR PROCEDURES Final Result * (ABNORMAL) Complete blood count (07/30/2025 6:34 AM EDT) Only the most recent of11 resultswithin the time period is included. WBC 7.7 4.0 - 10.5 K/mcL LAB HEMETOLOGY METHOD 07/30/2025 7:13 AM EDT [facility] RBC 2.78(L) 4.70 - 6.00 M/mcL LAB HEMETOLOGY METHOD 07/30/2025 7:13 AM EDT [facility] Hemoglobin 8.9(L) 13.5 - 18.0 g/dL LAB HEMETOLOGY METHOD 07/30/2025 7:13 AM EDT [facility] Hematocrit 27.3(L) 40.0 - 54.0 % LAB HEMETOLOGY METHOD 07/30/2025 7:13 AM EDT [facility] MCV 98.2 78.0 - 100.0 FL LAB HEMETOLOGY METHOD 07/30/2025 7:13 AM EDT [facility] MCH 32.1 25.0 - 33.0 pcg LAB HEMETOLOGY METHOD 07/30/2025 7:13 AM EDT [facility] MCHC 32.7 32.0 - 36.0 g/dL LAB HEMETOLOGY METHOD 07/30/2025 7:13 AM EDT [facility] RDW 15.0 12.1 - 17.7 % LAB HEMETOLOGY METHOD 07/30/2025 7:13 AM EDT [facility] Platelets 218 150 - 450 K/mcL LAB HEMETOLOGY METHOD 07/30/2025 7:13 AM EDT [facility] Comment:Verified by repeat a nalysis MPV 9.0 7.4 - 11.4 FL LAB HEMETOLOGY METHOD 07/30/2025 7:13 AM EDT [facility] Blood Venous blood specimen / Unknown Venipuncture / Unknown 07/30/2025 6:34 AM EDT 07/30/2025 6:58 AM EDT Fabio RUTHERFORD LAB BLOOD ORDERABLES Final Resul t Performing Organization Address City/[facility]/ZIP Co de Phone Number [facility] [address] [place] [address], [place] [phone] * Phosphorus (07/30/2025 6:34 AM EDT) Only the most recent of7 resultswithin the time period is included. Phosphorus 3.4 2.5 - 4.5 mg/dL LAB CHEMISTRY METHOD 07/30/2025 7:39 AM EDT [facility] Blood Venous blood specimen / Unknown Venipuncture / Unknown 07/30/2025 6:34 AM EDT 07/30/2025 6:58 AM EDT Fabio RUTHERFORD LAB BLOOD ORDERABLES Final Resul t Performing Organization Address City/[facility]/ZIP Co de Phone Number [facility] [address] [place] [address], [place] [phone] * (ABNORMAL) Basic metabolic panel (07/30/2025 6:34 AM EDT) Only the most recent of16 resultswithin the time period is included. Sodium 139 135 - 145 mmol/L LAB CHEMISTRY METHOD 07/30/2025 7:39 AM EDT [facility] Potassium 4.4 3.5 - 5.1 mmol/L LAB CHEMISTRY METHOD 07/30/2025 7:39 AM EDT [facility] Comment:Slightly Hemolyzed Chloride 105 98 - 107 mmol/L LAB CHEMISTRY METHOD 07/30/2025 7:39 AM EDT [facility] CO2 25 24 - 32 mmol/L LAB CHEMISTRY METHOD 07/30/2025 7:39 AM EDT [facility] Anion Gap 9 5 - 14 LAB CHEMISTRY METHOD 07/30/2025 7:39 AM EDT [facility] Glucose 93 70 - 199 mg/dL LAB CHEMISTRY METHOD 07/30/2025 7:39 AM EDT [facility] BUN 20 9 - 20 mg/dL LAB CHEMISTRY METHOD 07/30/2025 7:39 AM EDT [facility] Creatinine 0.80 0.70 - 1.30 mg/dL LAB CHEMISTRY METHOD 07/30/2025 7:39 AM EDT [facility] eGFR 98 >=60 mL/min/1. 73m2 LAB CHEMISTRY METHOD 07/30/2025 7:39 AM EDT [facility] Comment:Calculation based on the Chronic Kidney Disease Epidemiology Collaboration (CKD-EPI) equation refit without adjustment for race. BUN/Creatinine Ratio 25.0(H) 12.0 - 20.0 LAB CHEMISTRY METHOD 07/30/2025 7:39 AM EDT [facility] Calcium 8.4 8.4 - 10.2 mg/dL LAB CHEMISTRY METHOD 07/30/2025 7:39 AM EDT [facility] Blood Venous blood specimen / Unknown Venipuncture / Unknown 07/30/2025 6:34 AM EDT 07/30/2025 6:58 AM EDT us Fabio RUTHERFORD LAB BLOOD ORDERABLES Final Resul t [facility] [address] [place] [address], [place] [phone] * Lactate, whole blood (07/29/2025 5:12 AM EDT) Only the most recent of4 resultswithin the time period is included. Pathologist [facility] Lactate, Whole Blood 1.2 0.5 - 2.2 mmol/L LAB BLOOD GAS METHOD 07/29/2025 5:53 AM EDT [facility] Blood Blood sample taken from central line / Unknown Venipuncture / Unknown 07/29/2025 5:12 AM EDT 07/29/2025 5:28 AM EDT us [place] R[facility] LAB BLOOD ORDERABLES Final Res ult [facility] [address] [place] [address], [place] [phone] * (ABNORMAL) Hemoglobin and hematocrit (07/28/2025 2:44 PM EDT) Only the most recent of4 resultswithin the time period is included. Pathologist [facility] Hemoglobin 8.1(L) 13.5 - 18.0 g/dL LAB HEMETOLOGY METHOD 07/28/2025 3:02 PM EDT [facility] Hematocrit 23.7(L) 40.0 - 54.0 % LAB HEMETOLOGY METHOD 07/28/2025 3:02 PM EDT [facility] Blood Venous blood specimen / Unknown Venipuncture / Unknown 07/28/2025 2:44 PM EDT 07/28/2025 2:55 PM EDT us [place] [facility] LAB BLOOD ORDERABLES Final Res ult [facility] [address] [place] [address], [place] [phone] * Prepare RBC: 1 Units (07/28/2025 7:45 AM EDT) Only the most recent of3 resultswithin the time period is included. Product Code [id number] 07/29/2025 10:07 AM EDT [facility] Unit Number [id number] 07/29/20 10:07 AM EDT [facility] Crossmatch Compatible 07/28/2025 7:49 AM EDT [facility] Dispense Status Released From Crossmatch 07/29/2025 10:07 AM EDT [facility] Unit ABO Rh OPOS 07/29/2025 10:07 AM EDT [facility] Unit Expiration Date Time [id number] 07/29/2025 10:07 AM EDT [facility] Unit Blood Type 5100 07/29/2025 10:07 AM EDT [facility] Blood Venous blood specimen / Unknown 07/28/2025 7:45 AM EDT 07/28/2025 5:43 AM EDT [place] [facility] PRODUCT ORDERABLES Final Result [facility] [address] [place] [address], [place] [phone] * Mixed venous blood gas (07/28/2025 5:24 AM EDT) Only the most recent of7 resultswithin the time period is included. pH, Mixed Venous Blood 7.41 7.35 - 7.45 pH LAB BLOOD GAS METHOD 07/28/2025 5:52 AM EDT [facility] Carbon Dioxide Mixed Venous 43 mmHg LAB BLOOD GAS METHOD 07/28/2025 5:52 AM EDT [facility] Comment:No established refer ence range. PO2 Mixed Venous 30 mmHg LAB BLOOD GAS METHOD 07/28/2025 5:52 AM EDT [facility] Comment:No established refer ence range. Bicarbonate Mixed Venous 25.6 mmol/L LAB BLOOD GAS METHOD 07/28/2025 5:52 AM EDT [facility] Comment:No established refer ence range. Oxygen Saturation Mixed Venous 47.7 % LAB BLOOD GAS METHOD 07/28/2025 5:52 AM EDT [facility] Comment:No established refer ence range. Base Excess Mixed Venous 2.2 mmol/L LAB BLOOD GAS METHOD 07/28/2025 5:52 AM EDT [facility] Comment:No established refer ence range. Blood Mixed venous blood specimen / Unknown Existing Catheter / Unknown 07/28/2025 5:24 AM EDT 07/28/2025 5:42 AM EDT us Mark R[facility] LAB BLOOD ORDERABLES Final Result [facility] [address] [place] [address], [place] [phone] * Type and screen (07/28/2025 5:24 AM EDT) Only the most recent of4 resultswithin the time period is included. ABO Group O 07/28/2025 7:21 AM EDT [facility] Rh Type Positive 07/28/2025 7:21 AM EDT [facility] Antibody Screen Negative 07/28/2025 7:21 AM EDT [facility] Blood Venous blood specimen / Unknown Existing Catheter / Unknown 07/28/2025 5:24 AM EDT 07/28/2025 5:43 AM EDT us Mark [facility] LAB BLOOD BANK TEST ORDERA BLES Final Result [facility] [address] [place] [address], [place] [phone] * (ABNORMAL) Comprehensive metabolic panel (07/28/2025 3:34 AM EDT) Only the most recent of2 resultswithin the time period is included. Sodium 139 135 - 145 mmol/L LAB CHEMISTRY METHOD 07/28/2025 4:08 AM EDT [facility] Potassium 3.6 3.5 - 5.1 mmol/L LAB CHEMISTRY METHOD 07/28/2025 4:08 AM EDT [facility] Chloride 107 98 - 107 mmol/L LAB CHEMISTRY METHOD 07/28/2025 4:08 AM EDT [facility] CO2 26 24 - 32 mmol/L LAB CHEMISTRY METHOD 07/28/2025 4:[facility] Anion Gap 6 5 - 14 LAB CHEMISTRY METHOD 07/28/2025 4:[facility] Glucose 106(H) 70 - 99 mg/dL LAB CHEMISTRY METHOD 07/28/2025 4:08 AM EDT [facility] BUN 15 9 - 20 mg/dL LAB CHEMISTRY METHOD 07/28/2025 4:08 AM [facility] Creatinine 0.70 0.70 - 1.30 mg/dL LAB CHEMISTRY METHOD 07/28/2025 4[facility] e[facility] 102 >=60 mL/min/1. 73m2 LAB CHEMISTRY METHOD 07/28/2025 4:08 AM T [facility] Comment:Calculation based on the Chronic Kidney Disease Epidemiology Collaboration (CKD-EPI) equation refit without adjustment for race. BUN/Creatinine Ratio 21.4(H) 12.0 - 20.0 LAB CHEMISTRY METHOD 07/28/2025 4:08 AM [facility] Calcium 7.6(L) 8.4 - 10.2 mg/dL LAB CHEMISTRY METHOD 07/28/2025 4:08 AM [facility] AST (SGOT) 38 5 - 40 unit/L LAB CHEMISTRY METHOD 07/28/2025 4:08 AM EDT [facility] ALT (SGPT) 141(H) 7 - 52 unit/L LAB CHEMISTRY METHOD 07/28/2025 4:08 AM EDT [facility] Alkaline Phosphatase 75 34 - 104 unit/L LAB CHEMISTRY METHOD 07/28/2025 4:08 AM EDT [facility] Total Protein 5.2(L) 6.4 - 8.5 g/dL LAB CHEMISTRY METHOD 07/28/2025 4:08 AM EDT [facility] Albumin 3.2(L) 3.5 - 5.0 g/dL LAB CHEMISTRY METHOD 07/28/2025 4:08 AM EDT [facility] Total Bilirubin 1.3(H) 0.3 - 1.0 mg/dL LAB CHEMISTRY METHOD 07/28/2025 4:08 AM EDT [facility] Blood Blood sample taken from central line / Unknown Venipuncture / Unknown 07/28/2025 3:34 AM EDT 07/28/2025 3:38 AM EDT Jayjay Arias MD LAB BLOOD ORDERABLES Final Res ult [facility] [address] [place] [address], [place] [phone] * (ABNORMAL) CBC auto differential (07/27/2025 2:57 AM EDT) Only the most recent of5 resultswithin the time period is included. WBC 7.1 4.0 - 10.5 K/mcL LAB HEMETOLOGY METHOD 07/27/2025 3:23 AM EDT [facility] RBC 2.43(L) 4.70 - 6.00 M/mcL LAB HEMETOLOGY METHOD 07/27/2025 3:23 AM EDT [facility] Hemoglobin 7.9(L) 13.5 - 18.0 g/dL LAB HEMETOLOGY METHOD 07/27/2025 3:23 AM EDT [facility] Hematocrit 23.4(L) 40.0 - 54.0 % LAB HEMETOLOGY METHOD 07/27/2025 3:23 AM EDT [facility] MCV 96.1 78.0 - 100.0 FL LAB HEMETOLOGY METHOD 07/27/2025 3:23 AM EDT [facility] MCH 32.4 25.0 - 33.0 pcg LAB HEMETOLOGY METHOD 07/27/2025 3:23 AM EDT [facility] MCHC 33.7 32.0 - 36.0 g/dL LAB HEMETOLOGY METHOD 07/27/2025 3:23 AM EDT [facility] RDW 15.5 12.1 - 17.7 % LAB HEMETOLOGY METHOD 07/27/2025 3:23 AM EDT [facility] Platelets 89(L) 150 - 450 K/mcL LAB HEMETOLOGY METHOD 07/27/2025 3:23 AM EDT [facility] Comment:Verified by repeat a nalysis MPV 9.0 7.4 - 11.4 FL LAB HEMETOLOGY METHOD 07/27/2025 3:23 AM EDT [facility] Neutrophils Relative 74.8(H) 44.0 - 74.0 % LAB HEMETOLOGY METHOD 07/27/2025 3:23 AM EDT [facility] Lymphocytes Relative 12.1(L) 20.0 - 48.0 % LAB HEMETOLOGY METHOD 07/27/2025 3:23 AM EDT [facility] Monocytes Relative 11.9 2.0 - 12.0 % LAB HEMETOLOGY METHOD 07/27/2025 3:23 AM EDT [facility] Eosinophils Relative 0.6 0.0 - 6.0 % LAB HEMETOLOGY METHOD 07/27/2025 3:23 AM EDT [facility] Basophils Relative 0.6 0.0 - 2.0 % LAB HEMETOLOGY METHOD 07/27/2025 3:23 AM EDT [facility] Neutrophils Absolute 5.30 1.80 - 7.80 K/mcL LAB HEMETOLOGY METHOD 07/27/2025 3:23 AM EDT [facility] Lymphocytes Absolute 0.90(L) 1.00 - 3.20 K/mcL LAB HEMETOLOGY METHOD 07/27/2025 3:23 AM EDT [facility] Monocytes Absolute 0.80 0.00 - 0.80 K/mcL LAB HEMETOLOGY METHOD 07/27/2025 3:23 AM EDT [facility] Eosinophils Absolute 0.00 0.00 - 0.50 K/mcL LAB HEMETOLOGY METHOD 07/27/2025 3:23 AM EDT [facility] Basophils Absolute 0.00 0.00 - 0.20 K/mcL LAB HEMETOLOGY METHOD 07/27/2025 3:23 AM EDT [facility] Blood Venous blood specimen / Unknown Venipuncture / Unknown 07/27/2025 2:57 AM EDT 07/27/2025 3:08 AM EDT [place] LAB BLOOD ORDERABLES Final Result [facility] [address] [place] [address], [place] [phone] * (ABNORMAL) Hepatic function panel (07/27/2025 2:57 AM EDT) Only the most recent of3 resultswithin the time period is included. ALT (SGPT) 200(H) 7 - 52 unit/L LAB CHEMISTRY METHOD 07/27/2025 3:37 AM EDT [facility] AST (SGOT) 70(H) 5 - 40 unit/L LAB CHEMISTRY METHOD 07/27/2025 3:37 AM EDT [facility] Alkaline Phosphatase 76 34 - 104 unit/L LAB CHEMISTRY METHOD 07/27/2025 3:37 AM EDT [facility] Bilirubin, Direct 0.3(H) 0.0 - 0.2 mg/dL LAB CHEMISTRY METHOD 07/27/2025 3:37 AM EDT [facility] Total Bilirubin 1.1(H) 0.3 - 1.0 mg/dL LAB CHEMISTRY METHOD 07/27/2025 3:37 AM EDT [facility] Total Protein 5.3(L) 6.4 - 8.5 g/dL LAB CHEMISTRY METHOD 07/27/2025 3:37 AM EDT [facility] Albumin 3.2(L) 3.5 - 5.0 g/dL LAB CHEMISTRY METHOD 07/27/2025 3:37 AM EDT [facility] Globulin, Total 2.1(L) 2.3 - 3.5 g/dL LAB CHEMISTRY METHOD 07/27/2025 3:37 AM EDT [facility] A/G Ratio 1.5 LAB CHEMISTRY METHOD 07/27/2025 3:37 AM EDT [facility] Blood Venous blood specimen / Unknown Venipuncture / Unknown 07/27/2025 2:57 AM EDT 07/27/2025 3:08 AM EDT us Bereket [place] LAB BLOOD ORDERABLES Final Resul t [facility] [address] [place] [address], [place] [phone] * (ABNORMAL) TRANSTHORACIC ECHOCARDIOGRAM (TTE) LIMITED W/ [...] Size 5.2 cm CV PACS MV Deceleration [place] 7.8 m/s2 CV PACS E Wave Deceleration [...] BLOOD GAS METHOD 07/24/2025 3:35 AM EDT [facility] pCO2, Arterial 35 35 - 45 mmHg LAB BLOOD GAS METHOD 07/24/2025 3:35 AM EDT [facility] pO2, Arterial 89 80 - 105 mmHg LAB BLOOD GAS METHOD 07/24/2025 3:35 AM EDT [facility] HCO3, Arterial 24.5 22.0 - 26.0 mmol/L LAB BLOOD GAS METHOD 07/24/2025 3:35 AM EDT [facility] O2 Sat, Arterial 97.4 95.0 - 98.0 % LAB BLOOD GAS METHOD 07/24/2025 3:35 AM EDT [facility] Base Excess, Arterial -0.6(L) 0.0 - 2.0 mmol/L LAB BLOOD GAS METHOD 07/24/2025 3:35 AM EDT [facility] Blood Arterial blood specimen / Unknown Arterial Puncture / Unknown 07/24/2025 3:19 AM EDT 07/24/2025 3:24 AM EDT us Jayjay Arias MD LAB BLOOD ORDERABLES Final Res ult [facility] [address] [place] [address], [place] [phone] * Transfuse RBC (07/23/2025 8:31 AM EDT) Only the most recent of2 resultswithin the time period is included. us [place] BLOOD TRANSFUSION ORDERABLES F inal Result * (ABNORMAL) Acute kidney injury score (07/23/2025 4:36 AM EDT) FARHAT Risk Score 2.33(H) <=0.31 LAB MICROBIOLOGY METHOD 07/23/2025 7:44 AM EDT [facility] Urine Urine specimen obtained by clean catch procedure / Unknown Non-blood Collection / Unknown 07/23/2025 4:36 AM EDT 07/23/2025 4:42 AM EDT Narrative [facility] - 07/23/2025 7:44 AM EDT Intended use patients 21 years of age or older with Nephrocheck FARHAT Risk Scores of less than or equal to 0.30 are at a lower risk of developing moderate to severe FARHAT within 12 hours of assessment than those with FARHAT Risk Scores of > 0.30. us [place] LAB URINE ORDERABLES Final Res ult [facility] [address] [place] [address], [place] [phone] * Triglyceride Monitoring (07/22/2025 11:56 PM EDT) [facility] Triglycerides 101 <150 mg/dL LAB CHEMISTRY METHOD 07/23/2025 12:45 AM EDT [facility] Blood Venous blood specimen / Unknown Venipuncture / Unknown 07/22/2025 11:56 PM EDT 07/23/2025 12:06 AM EDT us [place] LAB BLOOD ORDERABLES Final Res ult Performing Organization Address [facility]/ZIP Co de Phone Number [facility] [address] [place] [address], [place] [phone] * (ABNORMAL) POCT Arterial blood gas (07/22/2025 11:45 PM EDT) Only the most recent of6 resultswithin the time period is included. [facility] Sample Site POCT ART 07/22/2025 11:55 PM EDT [facility] pH Arterial POCT 7.37 7.35 - 7.45 07/22/2025 11:55 PM EDT [facility] pCO2 Arterial POCT 32.8(L) 35 - 45 mmHg 07/22/2025 11:55 PM EDT [facility] pO2 Arterial POCT 93 80 - 105 mmHg 07/22/2025 11:55 PM EDT [facility] pH Temp Corrected Arterial, POCT 7.36 7.35 - 7.45 07/22/2025 11:55 PM EDT [facility] pCO2 Temp Control Arterial, POCT 33.8(L) 35 - 45 mmHg 07/22/2025 11:55 PM EDT [facility] pO2 Temp Corrected Arterial, POCT 97(HH) 35 - 45 mmHg 07/22/2025 11:55 PM EDT [facility] HCO3 Arterial POCT 18.8(L) 22.0 - 26.0 mmol/L 07/22/2025 11:55 PM EDT [facility] Base Excess Arterial POCT -7(L) 0 - 2 mmol/L 07/22/2025 11:55 PM EDT [facility] SO2 Arterial POCT 97 95 - 98 % 07/22/2025 11:55 PM EDT [facility] FIO2 POCT 40.0 No Established Reference Range % 07/22/2025 11:55 PM EDT [facility] Patient Temperature POCT 99.8 C 07/22/2025 11:55 PM EDT [facility] Blood Arterial blood specimen / Unknown 07/22/2025 11:45 PM EDT 07/22/2025 11:57 PM EDT Jayjay Arias MD LAB POINT OF CARE TE ST DOCKED DEVICE UNSOLICITED RESULTS Final Result [facility] [address] [place] [address], [place] [phone] * (ABNORMAL) Activated partial thromboplastin time (07/22/2025 8:51 PM EDT) Only the most recent of19 resultswithin the time period is included. aPTT 42.4(H) 25.0 - 37.0 sec LAB COAGULATION METHOD 07/22/2025 9:17 PM EDT [facility] Blood Venous blood specimen / Unknown Venipuncture / Unknown 07/22/2025 8:51 PM EDT 07/22/2025 9:02 PM EDT [place] LAB BLOOD ORDERABLES Final Res ult [facility] [address] [place] [address], [place] [phone] * Transfuse cryoprecipitate (07/22/2025 3:09 PM EDT) Only the most recent of4 resultswithin the time period is included. us Mike Dias MD BLOOD TRANSFUSION ORDERABLES Fi nal Result * (ABNORMAL) POCT Arterial blood gas, NA, K, ICAL, GLU, HH (07/22/2025 2:56 PM EDT) Only the most recent of14 resultswithin the time period is included. pH Arterial POCT 7.30(L) 7.35 - 7.45 07/22/2025 3:00 PM EDT [facility] pH Temp Corrected Arterial, POCT 7.30(L) 7.35 - 7.45 07/22/2025 3:00 PM EDT [facility] pCO2 Arterial POCT 43.6 35 - 45 mmHg 07/22/2025 3:00 PM EDT [facility] pCO2 Temp Control Arterial, POCT 43.6 35 - 45 mmHg 07/22/2025 3:00 PM EDT [facility] pO2 Arterial POCT 162(H) 80 - 105 mmHg 07/22/2025 3:00 PM EDT [facility] pO2 Temp Corrected Arterial, POCT 162(HH) 35 - 45 mmHg 07/22/2025 3:00 PM EDT [facility] HCO3 Arterial POCT 21.5(L) 22.0 - 26.0 mmol/L 07/22/2025 3:00 PM EDT [facility] Base Excess Arterial POCT -5(L) 0 - 2 mmol/L 07/22/2025 3:00 PM EDT [facility] SO2 Arterial POCT 99(H) 95 - 98 % 07/22/2025 3:00 PM EDT [facility] FIO2 POCT 70.0 No Established Reference Range % 07/22/2025 3:00 PM EDT [facility] Sodium Arterial POCT 143 135 - 145 mmol/L 07/22/2025 3:00 PM EDT [facility] Potassium Arterial POCT 4.1 3.5 - 5.1 mmol/L 07/22/2025 3:00 PM EDT [facility] Ionized Calcium, Arterial POCT 1.16(L) 1.19 - 1.35 mmol/L 07/22/2025 3:00 PM EDT [facility] Glucose Arterial POCT 119 70 - 199 mg/dL 07/22/2025 3:00 PM EDT [facility] Comment: Fasting Reference Range: 70-99 mg/dL Non-Fasting Reference Range: 70-199 mg/dL Hemoglobin Arterial POCT 8.8(L) 13.5 - 18.0 g/dL 07/22/2025 3:00 PM EDT [facility] Hematocrit Arterial POCT 26(L) 40 - 54 % 07/22/2025 3:00 PM EDT [facility] Patient Temperature POCT 37.0 C 07/22/2025 3:00 PM EDT [facility] Blood Arterial blood specimen / Unknown 07/22/2025 2:56 PM EDT 07/22/2025 3:01 PM EDT us Jayjay Arias MD LAB POINT OF CARE TE ST DOCKED DEVICE UNSOLICITED RESULTS Final Result [facility] [address] [place] [address], [place] [phone] * Prepare cryoprecipitate: 1 Product (07/22/2025 2:26 PM EDT) Only the most recent of3 resultswithin the time period is included. [facility] Product Code [id number] 07/22/2025 3:09 PM EDT [facility] Unit Number [id number] 07/22/20 3:09 PM EDT [facility] Dispense Status Transfused 07/22/2025 3:09 PM EDT [facility] Unit ABO Rh OPOS 07/22/2025 3:09 PM EDT [facility] Unit Expiration Date Time [id number] 07/22/2025 3:09 PM EDT [facility] Unit Blood Type 5100 07/22/2025 3:09 PM EDT [facility] Blood Venous blood specimen / Unknown 07/22/2025 2:26 PM EDT Jayjay Arias MD BLOOD BANK PRODUCT ORDERABLES Final Result [facility] [address] [place] [address], [place] [phone] * (ABNORMAL) Thromboelastograph 6 global hemostasis panel (07/22/2025 2:21 PM EDT) TEG Citrated Kaolin Reaction Time 6.3 4.6 - 9.1 min LAB COAGULATION METHOD 07/22/2025 3:13 PM EDT [facility] TEG Citrated Kaolin Kinetic Time 1.8 0.8 - 2.1 min LAB COAGULATION METHOD 07/22/2025 3:13 PM EDT [facility] TEG Citrated Kaolin Angle 70.7 63.0 - 78.0 deg LAB COAGULATION METHOD 07/22/2025 3:13 PM EDT [facility] Citrated Kaolin - Max Amplitude 54.4 52.0 - 69.0 mm LAB COAGULATION METHOD 07/22/2025 3:13 PM EDT [facility] Citrated Kaolin with Heparinase Reaction Time 6.4 4.3 - 8.3 min LAB COAGULATION METHOD 07/22/2025 3:13 PM EDT [facility] Citrated Rapid TEG- Max Amplitude 51.1(L) 52.0 - 70.0 mm LAB COAGULATION METHOD 07/22/2025 3:13 PM EDT [facility] TEG Citrated Functional Fibrinogen - Max Amplitude 15.2 15.0 - 32.0 mm LAB COAGULATION METHOD 07/22/2025 3:13 PM EDT [facility] Citrated Functional Fibrinogen Level 277.4(L) 278.0 - 581.0 mg/dL LAB COAGULATION METHOD 07/22/2025 3:13 PM EDT [facility] Blood Arterial blood specimen / Unknown 07/22/2025 2:21 PM EDT 07/22/2025 2:25 PM EDT Jayjay Arias MD LAB BLOOD ORDERABLES Final Res ult [facility] [address] [place] [address], [place] [phone] * Prepare platelets: 1 Product (07/22/2025 2:20 PM EDT) Only the most recent of2 resultswithin the time period is included. Product Code [id number] 07/24/2025 4:24 AM EDT [facility] Unit Number [id number] 07/24/20 4:24 AM EDT [facility] Dispense Status Presumed Transfused 07/24/2025 4:24 AM EDT [facility] Unit ABO Rh OPOS 07/24/2025 4:24 AM EDT [facility] Unit Expiration Date Time [id number] 07/24/2025 4:24 AM EDT [facility] Unit Blood Type 5100 07/24/2025 4:24 AM EDT [facility] Blood Venous blood specimen / Unknown 07/22/2025 2:20 PM EDT us Jayjay Arias MD BLOOD BANK PRODUCT ORDERABLES Final Result [facility] [address] [place] [address], [place] [phone] * Transfuse platelets (07/22/2025 1:59 PM EDT) us Mike Dias MD BLOOD TRANSFUSION ORDERABLES Fi nal Result * Fibrinogen (07/22/2025 11:27 AM EDT) Fibrinogen 171 145 - 415 mg/dL LAB COAGULATION METHOD 07/22/2025 11:54 AM EDT [facility] Blood Arterial blood specimen / Unknown 07/22/2025 11:27 AM EDT 07/22/2025 11:38 AM EDT us Jayjay Arias MD LAB BLOOD ORDERABLES Final Res ult Performing Organization Address [facility]/ZIP Co de Phone Number [facility] [address] [place] [address], [place] [phone] * (ABNORMAL) Platelet count (07/22/2025 11:27 AM EDT) Platelets 106(L) 150 - 450 K/mcL LAB HEMETOLOGY METHOD 07/22/2025 11:46 AM EDT [facility] MPV 07/22/2025 11:46 AM EDT [facility] Blood Arterial blood specimen / Unknown 07/22/2025 11:27 AM EDT 07/22/2025 11:38 AM EDT us Jayjay Arias MD LAB BLOOD ORDERABLES Final Res ult [facility] [address] [place] [address], [place] [phone] * Tissue exam (07/22/2025 10:50 AM EDT) Final Diagnosis A. 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 Negative for acute inflammation and vegetations. 07/23/2025 12:28 PM EDT [facility] Gross Description A. Heart, Mitral valve leaflets: Received in formalin labeled mitral valve leaflets is an irregular, rubbery, off-white to pale yellow, valve leaflet with minimal calcification and vegetations measuring 2.5 x 2.5 x 0.3 cm. There is an undesignated suture looped through the leaflet. The chordae tendinae are fused and thickened. Annual Giving Manager sections are submitted in 1 cassette labeled A1, 2 pieces. 07/22/25 07/23/2025 12:28 PM EDT [facility] Disclaimer The technical components of this case were performed at [address] [address] CLIA # [id number] 07/23/2025 12:28 PM EDT [facility] Tissue Heart structure / Unknown 07/22/2025 10:50 AM EDT 07/22/2025 11:09 AM EDT Jayjay Arias MD LAB PATHOLOGY ORDERABLES Final Result [facility] [address] [place] [address], [place] [phone] * ANESTHESIA PAC LINE PLACEMENT (07/22/2025 8:37 [...] of2 resultswithin the time period is included. Provider Onbase ECG ORDERABLES Final Result * [...] Signed Date: 07/20/2025 15:23 ET Workstation ID: [id number] Transcribed By: Self Edit Transcribed Date: 07/20/2025 [...] Signed Date: 07/20/2025 15:23 ET Workstation ID: [id number] Transcribed By: Self Edit Transcribed Date: 07/20/2025 15:19 ET us Jayjay Arias MD IMG XR PROCEDURES Final Result * (ABNORMAL) Lipid panel with reflex to direct LDL (07/20/2025 1:14 PM EDT) Cholesterol 97 0 - 200 mg/dL LAB CHEMISTRY METHOD 07/20/2025 2:49 PM EDT [facility] Triglycerides 102 <150 mg/dL LAB CHEMISTRY METHOD 07/20/2025 2:49 PM EDT [facility] HDL 44 32 - 70 mg/dL LAB CHEMISTRY METHOD 07/20/2025 2:49 PM EDT [facility] LDL Calculated 33(L) 50 - 130 mg/dL LAB CHEMISTRY METHOD 07/20/2025 2:49 PM EDT [facility] VLDL Cholesterol Don 20.4 mg/dL LAB CHEMISTRY METHOD 07/20/2025 2:49 PM EDT [facility] Comment:No established refer ence range. Blood Venous blood specimen / Unknown Venipuncture / Unknown 07/20/2025 1:14 PM EDT 07/20/2025 1:52 PM EDT us Jayjay Arias MD LAB BLOOD ORDERABLES Final Res ult [facility] [address] [place] [address], [place] [phone] * Prealbumin (07/20/2025 1:14 PM EDT) Prealbumin 18 17 - 34 mg/dL LAB CHEMISTRY METHOD 07/20/2025 2:43 PM EDT [facility] Blood Venous blood specimen / Unknown Venipuncture / Unknown 07/20/2025 1:14 PM EDT 07/20/2025 1:52 PM EDT Jayjay Arias MD LAB BLOOD ORDERABLES Final Res ult Performing Organization Address City/[facility]/ZIP Co de Phone Number [facility] [address] [place] [address], [place] [phone] * (ABNORMAL) B-type natriuretic peptide (07/20/2025 1:14 PM EDT) Only the most recent of2 resultswithin the time period is included. BNP 581(H) 0 - 100 pcg/mL LAB CHEMISTRY METHOD 07/20/2025 2:51 PM EDT [facility] Blood Venous blood specimen / Unknown Venipuncture / Unknown 07/20/2025 1:14 PM EDT 07/20/2025 1:52 PM EDT Jayjay Arias MD LAB BLOOD ORDERABLES Final Res ult Performing Organization Address [facility] Co de Phone Number [facility] [address] [place] [address], [place] [phone] * Pulmonary function testing: Carbon Monoxide Diffusing [...] PFT ORDERABLES Final Result * ECG-Annotated (07/20/2025) Provider Onally [facility] ECG ORDERABLES Final Result * Cardioversion external [...] the correct patient, procedure, equipment, customer support executive and site/side marked as required. Sedation: Patient [...] us Gerber Good MD CV [facility] Final Result * (ABNORMAL) Urinalysis with reflex microscopic (07/16/2025 10:15 PM EDT) Specific [place] Urine 1.022 1.003 - 1.030 LAB URINALYSIS - AUTOMATED METHOD 07/16/2025 10:26 PM [facility] pH, Urine 7.0 5.0 - 8.0 pH LAB URINALYSIS - AUTOMATED METHOD 07/16/2025 10:26 PM [facility] Leukocytes, Urine Negative Negative LAB URINALYSIS - AUTOMATED METHOD 07/16/2025 10:26 PM [facility] Nitrite, Urine Negative Negative LAB URINALYSIS - AUTOMATED METHOD 07/16/2025 10:26 PM [facility] Protein, Urine Negative <=Trace mg/dL LAB URINALYSIS - AUTOMATED METHOD 07/16/2025 10:26 PM [facility] Glucose, Urine 500(A) Negative mg/dL LAB URINALYSIS - AUTOMATED METHOD 07/16/2025 10:26 PM [facility] Ketones, Urine Negative Negative mg/dL LAB URINALYSIS - AUTOMATED METHOD 07/16/2025 10:26 PM [facility] Urobilinogen, Urine 1.0 0.2 - 1.0 mg/dL LAB URINALYSIS - AUTOMATED METHOD 07/16/2025 10:26 PM EDT [facility] Bilirubin, Urine Negative Negative LAB URINALYSIS - AUTOMATED METHOD 07/16/2025 10:26 PM EDT [facility] Blood, Urine Negative Negative LAB URINALYSIS - AUTOMATED METHOD 07/16/2025 10:26 PM EDT [facility] Urine Urine specimen obtained by clean catch procedure / Unknown 07/16/2025 10:15 PM EDT 07/16/2025 10:23 PM EDT us Jayjay Arias MD LAB URINE ORDERABLES Final Res ult [facility] [address] [place] [address], * LEFT HEART CATH / CORONARY ANGIOGRAPHY, [...] performed from right brachial approach with 5Fr [place] advanced to PA wedge under fluoro guidance. PA sat obtained and right heart pullback performed. Right radial access achieved and 6Fr Slender sheath placed. LHC performed with 5Fr [place] catheter. LV pullback performed and bilateral coronary angiography performed with same catheter. Hemostasis achieved with TR band. Hemodynamics stable. No complications. us Gerber Good MD CV CARDIAC CATH PROCEDURE S Final Result * POCT Cardiac cath blood gas (07/16/2025 1:29 PM EDT) Only the most recent of2 resultswithin the time period is included. pCO2 Cath POCT 39.0 mmHg 07/16/2025 1:36 PM EDT [facility] pO2 Cath POCT 63 mmHg 07/16/2025 1:36 PM EDT [facility] SO2 Cath POCT 92 % 07/16/2025 1:36 PM EDT [facility] Sample Site POCT Aorta 07/16/2025 1:36 PM EDT [facility] Device POCT [id number] 07/16/2025 1:36 PM EDT [facility] POCT Comment ROOM AIR 07/16/2025 1:36 PM EDT [facility] Blood Aortic structure / Unknown 07/16/2025 1:29 PM EDT 07/16/2025 1:38 PM EDT us Mohinder Yo MD LAB POINT OF CARE TE ST DOCKED DEVICE UNSOLICITED RESULTS Final Result Performing Organization Address City/[facility]/ZIP Co de Phone Number [facility] [address] [place] [address], [place] [phone] * Lavender tube (07/16/2025 4:50 AM EDT) Extra Tube Hold for add-ons. 07/16/2025 7:01 AM EDT [facility] Comment:Auto resulted. Blood Venous blood specimen / Unknown Venipuncture / Unknown 07/16/2025 4:50 AM EDT 07/16/2025 5:10 AM EDT us Mohinder Yo MD LAB BLOOD ORDERABLES Final R esult [facility] [address] [place] [address], [place] [phone] * PABLO COMPLETE W/ CARDIOVERSION (07/15/2025 8:50 [...] the correct patient, procedure, equipment, customer support executive and site/side marked as required. Sedation: Patient [...] LAB COAGULATION METHOD 07/14/2025 2:52 PM EDT [facility] Blood Venous blood specimen / Unknown Venipuncture / Unknown 07/14/2025 2:34 PM EDT 07/14/2025 2:38 PM EDT Narrative [facility] - 07/14/2025 2:52 PM EDT Therapeutic range listed is for Unfractionated Heparin. LMW Heparin therapeutic range: 0.50-1.20 IU/mL [facility] BLOOD ORDERABLES Final Result [facility] [address] [place] [address], [place] [phone] * (ABNORMAL) TRANSTHORACIC ECHOCARDIOGRAM (TTE) COMPLETE W/ CONTRAST (07/14/2025 9:44 AM EDT) Left Atrium Minor [place] 5.3 cm CV PACS Left Atrium Major [place] 6.1 cm CV PACS LA Area Sys [...] S' 14 cm/s CV PACS RA Major [place]um 5.1 cm CV PACS RA Major [place] Index 2.9(A) 2.1 - 2.7 cm/m2 CV PACS AV Area 2D 2.2 cm2 CV PACS GREARDO Index (2D) 1.24 cm2/m2 CV PACS TV [...] lateral. All other segments are normal. Valdemar Whitehead MD CV ECHO PROCEDURES Final R esult * Troponin I high sensitivity (07/13/2025 2:23 PM EDT) Only the most recent of3 resultswithin the time period is included. High Sensitivity Troponin I 18 <=79 ng/L LAB CHEMISTRY METHOD 07/13/2025 2:53 PM EDT [facility] Blood Venous blood specimen / Unknown Venipuncture / Unknown 07/13/2025 2:23 PM EDT 07/13/2025 2:30 PM EDT Narrative [facility] - 07/13/2025 2:53 PM EDT High levels of biotin in samples may falsely decrease hsTroponin values. Use caution when interpreting hsTroponin results in patients taking biotin who exhibit renal impairment (eGFR <60) or in patients taking more than 20 mg/day of biotin. us Qi [facility] BLOOD ORDERABLES Final Resul t [facility] [address] [place] [address], * Fentanyl and metabolite, quantitative, urine (07/13/2025 11:11 AM EDT) Fentanyl Confirm, Urine Negative Negative ng/mL 07/16/2025 10:14 PM EDT [facility] Norfentanyl Confirm, Urine Negative Negative ng/mL 07/16/2025 10:14 PM EDT [facility] Creatinine 130 20 - 250 mg/dL 07/16/2025 10:14 PM EDT [facility] Adulterants Negative 07/16/2025 10:14 PM EDT [facility] Comment: Confirmation Decision Limits Fentanyl 1 [...] developed and the performance characteristics determined by [facility]. This confirmation testing has not been cleared or approved by the FDA. The laboratory is regulated under CLIA as qualified to perform high-complexity testing. This test is used for patient testing purposes. It should not be regarded as investigational or for research. Test performed at [facility], [address] , [place] [address] Ena Krishnamurthy MD, PhD - Machinist Supervisor Outside Urine Urine specimen from urethra / Unknown Non-blood Collection / Unknown 07/13/2025 11:11 AM EDT 07/13/2025 11:29 AM EDT us [facility] URINE ORDERABLES Edited Resu lt - Final [facility] [address] [place] [address] * (ABNORMAL) Drug abuse screen 8a panel, urine (07/13/2025 11:11 AM EDT) Amphetamine Screen, Ur Negative Negative LAB CHEMISTRY METHOD 11:51 AM EDT [facility] Comment:Certain OTC medicati ons containing ephedrine, phenylephrine, pseudoephedrine and phenylpropanolamine can cause false positive results. Barbiturate Screen, Ur Negative Negative LAB CHEMISTRY METHOD 11:51 AM EDT [facility] Benzodiazepine Screen, Ur Positive(A ) Negative LAB CHEMISTRY METHOD 11:51 AM EDT [facility] Cocaine Screen, Ur Negative Negative LAB CHEMISTRY METHOD 11:51 AM [facility] Opiate Screen, Ur Negative Negative LAB CHEMISTRY METHOD 11:51 AM [facility] Cannabinoid (THC) Screen, Ur Positive(A ) Negative LAB CHEMISTRY METHOD 11:51 AM EDT [facility] Comment:Specimens from patie nts taking pantoprazole sodium (Protonix) have been shown to produce false positive results. Oxycodone Screen, Ur Negative Negative LAB CHEMISTRY METHOD 11:51 AM [facility] Fentanyl, Ur Negative Negative LAB CHEMISTRY METHOD 11:51 AM [facility] Urine Urine specimen obtained by clean catch procedure / Unknown Non-blood Collection / Unknown 07/13/2025 11:11 AM EDT 07/13/2025 11:29 AM EDT Narrative [facility] - 07/13/2025 11:51 AM EDT Assay cutoffs: Amphetamines 1000 ng/mL Barbiturates 200 ng/mL Benzodiazepines 200 ng/mL Cocaine 300 ng/mL Fentanyl 1 ng/mL Opiates 300 ng/mL Oxycodone 100 ng/mL THC 50 ng/mL Semi-quantitative assay for screening purposes only. Unconfirmed screening result should not be used for non-medical purposes. *ALTERNATE METHOD CONFIRMATION DONE UPON REQUEST ONLY* us [facility] URINE ORDERABLES Final Resul t [facility] [address] [place] [address], * Respiratory virus panel molecular study (07/13/2025 10:11 AM EDT) Pathologist [facility] Adenovirus Detection by PCR Not Detected Not Detected LAB MICROBIOLOGY METHOD 07/13/2025 12:01 PM EDT [facility] Influenza A PCR Not Detected Not Detected LAB MICROBIOLOGY METHOD 07/13/2025 12:01 PM EDT [facility] Influenza B PCR Not Detected Not Detected LAB MICROBIOLOGY METHOD 07/13/2025 12:01 PM EDT [facility] Coronavirus 229E Not Detected Not Detected LAB MICROBIOLOGY METHOD 07/13/2025 12:01 PM EDT [facility] Coronavirus HKU1 Not Detected Not Detected LAB MICROBIOLOGY METHOD 07/13/2025 12:01 PM EDT [facility] Coronavirus OC43 Not Detected Not Detected LAB MICROBIOLOGY METHOD 07/13/2025 12:01 PM EDT [facility] Coronavirus NL63 Not Detected Not Detected LAB MICROBIOLOGY METHOD 07/13/2025 12:01 PM EDT [facility] Parainfluenza Virus 1 Not Detected Not Detected LAB MICROBIOLOGY METHOD 07/13/2025 12:01 PM EDT [facility] Parainfluenza Virus 2 Not Detected Not Detected LAB MICROBIOLOGY METHOD 07/13/2025 12:01 PM EDT [facility] Parainfluenza Virus 3 Not Detected Not Detected LAB MI[facility]BIOLOGY [facility] Par[facility] Virus 4 Not Detected Not Detected LAB MICROBIOLOGY METHOD 07/13/2025 12:01 PM EDT [facility] RSV PCR Not Detected Not Detected LAB MICROBIOLOGY METHOD 07/13/2025 12:01 PM EDT [facility] Human Metapneumovirus A and B Not Detected Not Detected LAB MICROBIOLOGY METHOD 07/13/2025 12:01 PM EDT [facility] Rhinovirus/Entero virus Not Detected Not Detected LAB MICROBIOLOGY METHOD 07/13/2025 12:01 PM EDT [facility] Bordetella pertussis Not Detected Not Detected LAB MICROBIOLOGY METHOD 07/13/2025 12:01 PM EDT [facility] Bordetella parapertussis Not Detected Not Detected LAB MICROBIOLOGY METHOD 07/13/2025 12:01 PM EDT [facility] Mycoplasma pneumo by PCR Not Detected Not Detected LAB MICROBIOLOGY METHOD 07/13/2025 12:01 PM EDT [facility] Chlamydia pneumoniae Not Detected Not Detected LAB MICROBIOLOGY METHOD 07/13/2025 12:01 PM EDT [facility] SARS COV-2 Not Detected Not Detected LAB MICROBIOLOGY METHOD 07/13/2025 12:01 PM EDT [facility] Swab Both anterior nares / Unknown Non-blood Collection / Unknown 07/13/2025 10:11 AM EDT 07/13/2025 10:47 AM EDT Narrative [facility] - 07/13/2025 12:01 PM EDT Testing was performed using the [employer] Respiratory Pathogen PCR Assay. All results must [...] MICROBIOLOGY - GENERAL ORDER LOBITO Final Result [facility] [address] [place] [address], * Thyroid stimulating hormone with reflex to free t4 and free t3 (07/13/2025 7:59 AM EDT) TSH 2.90 0.40 - 4.00 mcIU/mL LAB CHEMISTRY METHOD 07/13/2025 9:36 AM EDT [facility] Blood Venous blood specimen / Unknown Venipuncture / Unknown 07/13/2025 7:59 AM EDT 07/13/2025 8:10 AM EDT Deyanira Nguyen MD LAB BLOOD ORDERABLES Final Res ult Performing Organization Address [facility]/ZIP Co de Phone Number [facility] [address] [place] [address], [place] [phone] * Procalcitonin (07/13/2025 7:59 AM EDT) Procalcitonin 0.02 <=0.16 ng/mL LAB CHEMISTRY METHOD 07/13/2025 10:32 AM EDT [facility] Blood Venous blood specimen / Unknown Venipuncture / Unknown 07/13/2025 7:59 AM EDT 07/13/2025 8:10 AM EDT Narrative [facility] - 07/13/2025 10:32 AM EDT Procalcitonin [...] ORDERABLES Final Res ult Performing Organization Address [facility]/ZIP Co de Phone Number [facility] [address] [place] [address], [place] [phone] * Lipase (07/13/2025 7:59 AM EDT) Lipase 18 13 - 75 unit/L LAB CHEMISTRY METHOD 07/13/2025 8:35 AM EDT [facility] Blood Venous blood specimen / Unknown Venipuncture / Unknown 07/13/2025 7:59 AM EDT 07/13/2025 8:10 AM EDT Holger Vazquez MD LAB BLOOD ORDERABLES Final Resul t Performing Organization Address City/[facility]/ZIP Co de Phone Number [facility] [address] [place] [address], [place] [phone] * Hemoglobin A1c (07/13/2025 7:59 AM EDT) Pathologist [facility] Hemoglobin A1C 5.9 <6.5 % LAB CHEMISTRY METHOD 07/13/2025 1:13 PM EDT [facility] Mean Bld Glu Estim. 123 mg/dL LAB CHEMISTRY METHOD 07/13/2025 1:13 PM EDT [facility] Blood Venous blood specimen / Unknown Venipuncture / Unknown 07/13/2025 7:59 AM EDT 07/13/2025 8:10 AM EDT us Qi [facility] BLOOD ORDERABLES Final Resul t Performing Organization Address [facility]/ZIP Co de Phone Number [facility] [address] [place] [address], [place] [phone] * Ethanol (07/13/2025 7:59 AM EDT) Pathologist [facility] Ethanol Level <3 0 - 10 mg/dL LAB CHEMISTRY METHOD 07/13/2025 10:59 AM EDT [facility] Blood Venous blood specimen / Unknown Venipuncture / Unknown 07/13/2025 7:59 AM EDT 07/13/2025 8:10 AM EDT us [facility] BLOOD ORDERABLES Final Resul t [facility] [address] [place] [address], [place] [phone] * [facility] 30-[facility]ES (07/13/2025 [...] specialty: no Care discussed with: admitting provider Holger Vazquez MD IN CLINIC/BEDSIDE ORDERABLES Fin [...] currently active code status orders. Care Teams Articulation Officer Relationship Specialty Start Date End Date Holger Manuel NP [address] [place] [address] PCP - General Family Medicine 07/20/25
[2025-09-01 20:42] LABS: Alk.Phos Iso. Macrohepatic 0 % (<=0); Alk.Phos Isoenzymes Bone 20 % (28-66); Alk.Phos Isoenzymes Intest 31 % (1-24); Alk.Phos Isoenzymes Liver 49 % (25-69); Alk.Phos Isoenzymes Placental 0 % (<=0); Alk.Phos Isoenzymes Total 171 U/L (35-144)
== END 2025-08-28 11:32 | disposition home or self-care (01) ==
LOC: HO.HMGCLDS 11:31
PROVIDERS: PCP Nurse Practitioner Family; Visit Provider Nurse Practitioner Family
DX: Z13.29 Encounter for screening for other suspected endocrine disorder (principal); R79.89 Other specified abnormal findings of blood chemistry; R74.8 Abnormal levels of other serum enzymes
CPT/HCPCS: 36415; 84080; 84443; 86376

== ENCOUNTER → 2025-09-14 13:08 | Outpatient (REF) | payer MEDICARE, SELFPAY ==
--- NOTE | 2025-09-14 13:12 | CA_ITS ---
Transthoracic Echocardiogram Patient (Last, First, Middle): Slick Chanel, Gender: M Date of : 1960 Age: 65 Procedure Date: 09/14/2025 Procedure Type: Transthoracic Echocardiogram Location: OP Height: 170.18 cm Weight: 64.86 kg BSA: 1.75 m2 Heart Rate: bpm BP: 100 / 62 mmHg Correction Officer Head: JOSE D Referring MD: Poncho Priest MD Symptoms: I25.10 - Atherosclerotic heart disease of [place] coronary artery without... Study Quality: Adequate ECG Rhythm: Sinus Conclusions: - The left ventricular systolic function is mildly decreased. The visually estimated ejection fraction is between 45-50%. - The basal inferolateral segment is akinetic. - The basal inferior segment is hypokinetic. - A bioprosthetic mitral valve is present. The prosthetic mitral valve appears to be functioning normally. Findings Left Ventricle Mildly increased left ventricular cavity size. There is normal left ventricular wall thickness. The left ventricular systolic function is mildly decreased. The visually estimated ejection fraction is between 45-50%. There is evidence of regional wall motion abnormalities. Diastolic function is indeterminate on the basis of available data. Wall Motion Rest Echo Findings The basal inferior segment is hypokinetic. The basal inferolateral segment is akinetic. Right Ventricle Mildly increased right ventricular cavity size. There is normal right ventricular systolic function. Atria The left atrium is mildly dilated. The right atrium is normal in size. Aortic Valve There is moderate calcification of the aortic valve. There is no aortic valve stenosis. There is no aortic valve regurgitation. Mitral Valve A bioprosthetic mitral valve is present. The prosthetic mitral valve appears to be functioning normally. There is no mitral valve regurgitation. Pulmonic Valve The pulmonic valve is likely normal. Tricuspid Valve There is trace tricuspid valve regurgitation. There is no evidence of pulmonary hypertension. Great Vessels The asc aorta is normal in size. Venous The inferior vena cava is normal in size and collapses greater than 50% with inspiration. Pericardium/Pleural There is a small loculated pericardial effusion overlying the left ventricle. Prior Study Comparison No prior study available for comparison. Measurements 2D Linear Measurements IVSd: 0.96 0.6-0.9/0.6-1.0 cm LVIDd: 5.76 3.9-5.3/4.2-5.9 cm LVIDd Index: 3.29 2.4-3.2/2.2-3.1 cm/m2 LVIDs: 5.00 2.0-3.6 cm LVPWd: 1.04 0.7-1.1 cm LA Diam: 4.00 2.7-3.8/3.0-4.0 cm LAIDs Index: 2.29 1.5-2.3 cm/m2 LV Mass: 287.42 67-162/88-224 g LV Mass Index: 164.24 43-95/49-115 g/m2 LVOT Diam: 2.10 3.0+(-)1.3 cm 2D Systolic Function EF 4C: 57.80 >55% EF 2C: 47.40 >55% EF BiP: 52.90 >55% Mitral Valve MV VTI: 0.42 MV Pk Hilario: 1.44 MV Mn Hilario: 0.71 MV Pk Grad: 8.00 MV Mn Grad: 3.00 MV Pk E: 1.48 MV PK A: 0.46 MV Decel Time: 329.00 E/A: 3.30 E'Lateral: 4.90 E'Medial: 5.55 E/E' Med: 26.70 E/E' Lat: 30.20 PHT: 96.00 MVA PHT: 2.29 MVA Continuity: 2.11 Decel [place]: 4.50 Aortic Valve AoV Pk Hilario: 1.57 AoV Mn Hilario: 1.15 AoV VTI: 0.36 AoV Pk Grad: 10.00 Aov Mn Grad: 6.00 GERARDO Cont.VTI: 2.43 LVOT LVOT Pk Hilario: 1.21 LVOT Mn Hilario: 0.83 LVOT VTI: 0.25 LVOT Pk Grad: 6.00 LVOT Mn Grad: 3.00 LVOT Diam: 2.10 LVOT Area: 3.46 Diastolic Function MV Pk E: 1.48 MV Pk A: 0.46 E/A: 3.30 E'Medial: 5.55 E/E' Med: 26.70 E' Laterial: 4.90 E/E' Lat: 30.20 Right Ventricle TAPSE (mm): 15.10 TVS' Hilario: 10.00 Tricuspid Valve TR Pk Hilario: 2.65 TR Pk Grad: 28.00 RA Press: 3.00 RVSP: 31.00 Great Vessels Aorta Sinus of Valsalva: 3.45 2.0-3.[address] [place]: 2.63 1.7-3.4 cm Ao Asc: 3.30 2.1-3.4 cm Pulmonary Veins Pulm Vein S/D 0.80 Updated in Other Vendor System with Status of Final Poncho Priest MD electronically signed on 09/15/2025 8:15:08 AM with status of Final
== END ==
LOC: HO.CARD 13:08
PROVIDERS: PCP Nurse Practitioner Family; Visit Provider Internal Medicine
DX: I48.0 Paroxysmal atrial fibrillation (principal); I25.10 Atherosclerotic heart disease of native coronary artery without angina pectoris; I25.2 Old myocardial infarction
CPT/HCPCS: 93242; 93306

== ENCOUNTER → 2025-09-14 13:12 | Outpatient (BNV) | payer MEDICARE, SELFPAY | PROVIDERS: PCP Nurse Practitioner Family; Visit Provider Internal Medicine | DX: I51.89 Other ill-defined heart diseases (principal); Z95.3 Presence of xenogenic heart valve | CPT/HCPCS: 93306 ==

== ENCOUNTER 2025-10-15 14:01 | Outpatient (AMB) | payer MEDICARE, SELFPAY ==
--- NOTE | 2025-10-15 14:22 | MHC.OFFVIS ---
Vital Signs 10/15/25 14:23 Height 5 ft 7 in Weight 142 lb BMI 22.2 BP 122/68 Blood Pressure Location Lt brachial Position Sitting Pulse 66 Pulse Source Monitor Intake Visit Reasons: 6wk/holter/echo Allergies No Known Allergies Allergy (Verified 08/12/25 09:08) Medication List - Last Reconciled 10/15/25 by Poncho Priest MD apixaban (Eliquis) 5 mg PO BID 90 days aspirin (Adult Aspirin Regimen) 81 mg PO DAILY atorvastatin 80 mg PO DAILY 90 days blood sugar diagnostic (FreeStyle Lite Strips) As directed blood sugar diagnostic (True Metrix Glucose Test Strip) Test blood sugar once a day blood-glucose meter (FreeStyle [place] Lite kit) bid diazepam 5 mg PO BID PRN 30 days empagliflozin (Jardiance) 10 mg PO DAILY fenofibric acid (choline) 45 mg PO BEDTIME gabapentin 900 mg (3 x 300 mg) PO TID 30 days lancets (FreeStyle Lancets) bid lancets (Lancets,Thin) Test blood sugar twice a day metformin ER 500 mg PO BID 90 days metoprolol tartrate 25 mg PO BID 90 days HPI Comments Details: Slick returns for follow-up. Multiple risk factors including diabetes, hypertension, dyslipidemia, smoking, history of cocaine use. In 2021, he had VF arrest. Then diagnosed to have inferior wall myocardial infarction and occluded circumflex. Underwent drug-eluting stent. He also had severe disease in the RCA, medically treated. He had atrial fibrillation that setting and was on amiodarone/Eliquis but then they were all stopped after few months. He was doing well but in 07/2025, was admitted to [facility] with atrial fibrillation and rapid rate. He underwent PABLO/cardioversion. The same time, he was diagnosed with severe mitral regurgitation. Then admitted to [facility] in [place] and he underwent CABG x1 to RCA and bioprosthetic mitral valve replacement. Since that discharge, he states he is doing good. No new concerns. No cardiac symptoms. [facility] Medical History (Updated 10/15/25 @ 15:25 by Poncho Priest MD) CAD (coronary artery disease) History of ST elevation myocardial infarction (STEMI) (~08/2022) History of cardiac arrest (~08/2022) Afib (~08/2022) Hypertension, essential Hyperlipidemia Diabetes COPD (chronic obstructive pulmonary disease) Nicotine dependence, cigarettes, uncomplicated Cocaine use GERD (gastroesophageal reflux disease) BPH (benign prostatic hyperplasia) Hypertensive retinopathy Nephrolithiasis Peripheral neuropathy Cervical radiculopathy Chronic low back pain Osteoarthritis of hips, bilateral Surgical History (Updated 08/26/25 @ 09:20 by Poncho Priest MD) Status post mitral valve replacement with bioprosthetic valve Status post aorto-coronary artery bypass graft S/P CABG x 1 Mitral valve replaced History of heart artery stent History of neck surgery History of cholecystectomy History of colonoscopy Family History Brother Myocardial infarction Social History Housing: Other Patient Tobacco Use Status: Former Tobacco user Cigarettes Per Day: 5 Years Smoked: Started at 13 years old ,quit 06/29/2025 e-Cigarette/Vaping Use: Never Used Second Hand Smoke Exposure: No service: Yes Current occupational status: disabled Cognitive needs: No Hearing needs: Yes Vision needs: No Review of Systems Const Denies weakness ENT Denies dizziness Card Denies chest pain, Denies chest pain with activity, Denies syncope, Denies rapid heart rate, Denies pedal edema, Denies edema, Denies leg edema, Denies lightheadedness, Denies palpitations, Denies dyspnea, Denies dyspnea on exertion and Denies orthopnea Resp Denies cough, Denies dyspnea and Denies dyspnea on exertion GI Denies hematochezia and Denies change in stool character Musc Denies abnormal gait, Denies muscle cramps, Denies muscle weakness, Denies numbness, Denies radiating pain into limb and Denies tingling Neuro Denies abnormal gait, Denies dizziness, Denies syncope, Denies numbness, Denies tingling and Denies weakness Endo Denies palpitations Physical Exam Vital Signs: Last Vital Signs Pulse 66 10/15/25 14:23 BP 122/68 10/15/25 14:23 BMI result Body Mass Index 22.2 Const General: comfortable and no acute distress Orientation/consciousness: patient oriented x3 HEENT Other: Unremarkable Head: Yes normal to inspection Neck Neck: Yes normal visual inspection Chest Chest palpation & inspection: normal inspection of the chest Resp Auscultation: clear to auscultation bilaterally Cardio Palpation: normal PMI Heart sounds: S1 normal heart sound present, S2 normal heart sound present, no gallops, no murmurs and no rubs GI Palpation (GI): Soft to palpation Back/Spine/Pelvis Other: unremarkable Skin General skin exam: no rashes or lesions noted Neuro General: patient oriented x3 Extrem General: Yes normal to inspection Psych Mental Status: mental status grossly normal Office Procedures EKG Details: EKG with underlying sinus rhythm at 66/Min; rightward axis; nonspecific intraventricular conduction delay; [place] [id number], Complete Assessment & Plan Assessment & Plan (1) Atherosclerotic cardiovascular disease: Code(s): I25.10 - Atherosclerotic heart disease of [place] coronary artery without angina pectoris Category: Medical Plan: Cardiac catheterization-07/2025-possibly at [facility]-normal left main; LAD with mild diffuse disease; circumflex with mild diffuse disease; RCA with 80-90% lesion in the distal part. Status post CABG x1 to RCA. Clinically, no angina. Continue statins. (2) Status post aorto-coronary artery bypass graft: Code(s): Z95.1 - Presence of aortocoronary bypass graft Category: Surgical Plan: He is recovering well. Recommend cardiac rehabilitation. (3) Status post mitral valve replacement with bioprosthetic valve: Code(s): Z95.3 - Presence of xenogenic heart valve Category: Surgical Plan: Per [facility] notes, he had severe mitral regurgitation and underwent #29 pericardial mitral valve replacement. In the echocardiogram, normally functioning bioprosthetic mitral valve. In fact endocarditis prophylaxis per protocol. (4) Cardiomyopathy: Code(s): I42.9 - Cardiomyopathy, unspecified Category: Medical Plan: Per available notes, LVEF was apparently 40-45% per PABLO in July. Global hypokinesis with severe mitral regurgitation. Suspect more so nonischemic and could be related to atrial fibrillation. In the follow up echocardiogram at [facility], LVEF is 45-50%. Due to lowish blood pressures may not be able tolerate guideline based medical therapy. (5) PAF (paroxysmal atrial fibrillation): Code(s): I48.0 - Paroxysmal atrial fibrillation Category: Medical Plan: Status post Maze procedure during CABG and also had atrial appendage clip. Stop amiodarone. Continue Eliquis. (6) NSVT (nonsustained ventricular tachycardia): Code(s): I47.29 - Other ventricular tachycardia Category: Medical Plan: Monomorphic NSVT for 24 beats on Holter. We will go up on the beta-john dosing. Could be scar related. If recurrent, we will discuss with EP. (7) Diabetes: Code(s): E11.9 - Type 2 diabetes mellitus without complications Category: Medical Plan: In the past, has taken metformin/Jardiance, but currently listed to be only on metformin. We can rather use Jardiance. Not clear if he needs a metformin as well. We will check with PCP. Plan Discussion Notes I reviewed the patient's current medication regimen with him. I instructed him to discontinue amiodarone, which he was taking for atrial fibrillation. We discussed his metoprolol, and I advised increasing the frequency to one pill twice a day to better manage the episodes of tachycardia noted on his heart monitor. I also addressed Jardiance, explaining its benefits for both his heart condition and diabetes, and recommended he restart the medication. I informed the patient that I will notify PCP regarding these changes, who will then determine the need for metformin. We agreed to a follow-up appointment in approximately three months to reassess his condition. Patient was informed and verbally consented to the use of an ambient scribe for clinic note documentation during this visit. Orders: Orders ECG 7 day holter monitor 3 Months I47.29 - Other ventricular tachycardia Medications: Changed From metoprolol tartrate 25 mg PO DAILY To metoprolol tartrate 25 mg PO BID 180 tabs 1RF 90 days Discontinued amiodarone Discontinued Reason: Doctor's Order 200 mg PO DAILY 30 tabs 5RF Patient Instructions: - Stop taking the medication called amiodarone. - Change your metoprolol dose. You will now take one pill in the morning and one pill in the evening to help control your fast heart rate. - Start taking your Jardiance medication again. This medicine is for your heart and can also help with diabetes. - We will let your other doctor, Holger, know about these changes, and he will decide if you still need to take metformin. - You have a follow-up appointment in about three months. Coding Level of Care Code Est Pt Level 4 (50208) Complex visit Add On G2211 Diagnoses Atherosclerotic cardiovascular disease I25.10 Status post aorto-coronary artery bypass graft Z95.1 Status post mitral valve replacement with bioprosthetic valve Z95.3 Cardiomyopathy I42.9 PAF (paroxysmal atrial fibrillation) I48.0 NSVT (nonsustained ventricular tachycardia) I47.29 Diabetes E11.9 CPT Codes EKG - CPT: 93737-[id number], Complete ([id number])
[2025-10-15 14:23] VITALS: BP 122/68; PULSE 66; BMI 22.2
== END 2025-10-15 14:51 | disposition home or self-care (01) ==
LOC: HO.HCS 14:02
PROVIDERS: PCP Nurse Practitioner Family; Visit Provider Internal Medicine
DX: I25.10 Atherosclerotic heart disease of native coronary artery without angina pectoris (principal); Z95.1 Presence of aortocoronary bypass graft; Z95.3 Presence of xenogenic heart valve; I42.9 Cardiomyopathy, unspecified; I48.0 Paroxysmal atrial fibrillation; I47.29 Other ventricular tachycardia; E11.9 Type 2 diabetes mellitus without complications
CPT/HCPCS: 93010; 99214; G2211

== ENCOUNTER → 2025-10-15 14:01 | Outpatient (BNVA) | payer MEDICARE, SELFPAY | PROVIDERS: PCP Nurse Practitioner Family; Visit Provider Internal Medicine | DX: I25.10 Atherosclerotic heart disease of native coronary artery without angina pectoris (principal); I48.0 Paroxysmal atrial fibrillation; I47.29 Other ventricular tachycardia; E11.9 Type 2 diabetes mellitus without complications; Z95.3 Presence of xenogenic heart valve; Z95.1 Presence of aortocoronary bypass graft | CPT/HCPCS: 93005; 99212 ==

== ENCOUNTER 2025-10-23 13:18 | Outpatient (AMB) | payer MEDICARE, SELFPAY ==
--- NOTE | 2025-10-23 13:42 | A.OFFVIS_ITS ---
Intake Visit Reasons: doubling PSA/BPH/PVR/UA(set) Intake Note: Reason for Visit: New Patient BPH/Doubling PSA Urology Meds: None Blood Thinners: Aspirin, Eliquis Antibiotic Allergy: None Labs: PSA: 1.05 (01/15/2024) PSA 2.71 (08/25/2025) Imaging: None Last PVR: None PVR: 49ML Family History: Prostate Cancer? no Bladder Cancer? No Kidney Cancer? No Previous Urology? 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 Had recently started Jardiance within the last 2 years. Well known irritative of bladder and prostate. Repeat PSA six-month [facility] Medical History CAD (coronary artery disease) History of ST elevation myocardial infarction (STEMI) (~08/2022) History of cardiac arrest (~08/2022) Afib (~08/2022) Hypertension, essential Hyperlipidemia Diabetes COPD (chronic obstructive pulmonary disease) Nicotine dependence, cigarettes, uncomplicated Cocaine use GERD (gastroesophageal reflux disease) BPH (benign prostatic hyperplasia) Hypertensive retinopathy Nephrolithiasis Peripheral neuropathy Cervical radiculopathy Chronic low back pain Osteoarthritis of hips, bilateral Surgical History Status post mitral valve replacement with bioprosthetic valve Status post aorto-coronary artery bypass graft S/P CABG x 1 Mitral valve replaced History of heart artery stent History of neck surgery History of cholecystectomy History of colonoscopy Family History Brother Myocardial infarction Social History Housing: Other Patient Tobacco Use Status: Former Tobacco user Cigarettes Per Day: 5 Years Smoked: Started at 13 years old ,quit 06/29/2025 e-Cigarette/Vaping Use: Never Used Second Hand Smoke Exposure: No service: Yes Current occupational status: disabled Cognitive needs: No Hearing needs: Yes Vision needs: No Office Procedures Post Void Residual Post Residual Void Post Void Residual (PVR): 49 [id number] Void Residual by ultrasound Results AMB Urinalysis, Automated UA Leukoctes 0 Samra/uL Last Edit by Candice Richardson, A on 10/23/25 13:43 UA Nitrite Negative Last Edit by Candice Richardson, A on 10/23/25 13:43 UA Urobilinogen 0.2 mg/dL Last Edit by Candice Richardson, A on 10/23/25 13:4 3 UA Protein 0 mg/dL Last Edit by Candice Richardson, A on 10/23/25 13:43 UA pH 5.5 Last Edit by Candice Richardson, A on 10/23/25 13:43 UA Blood 0 Alexandru/uL Last Edit by Candice Richardson, A on 10/23/25 13:43 UA Specific [place] 1.015 Last Edit by Candice Richardson, A on 10/23/25 13: 43 UA Ketone Negative Last Edit by Candice Richardson, A on 10/23/25 13:43 UA Bilirubin 0 mg/dL Last Edit by Candice Richardson, A on 10/23/25 13:43 UA Glucose 1000 mg/dL Last Edit by Candice Richardson, A on 10/23/25 13:43 Results Reviewed Results Reviewed: Laboratory Last Values Urine pH (Auto) 5.5 10/23/25 13:42 Specific [place] (Auto) 1.015 10/23/25 13:42 Urine Protein (Auto) 0 mg/dL 10/23/25 13:42 Glucose (UA)(Auto) 1000 mg/dL 10/23/25 13:42 Urine Ketones (Auto) Negative 10/23/25 13:42 Urine Blood (Auto) 0 Alexandru/uL 10/23/25 13:42 Urine Nitrite (Auto) Negative 10/23/25 13:42 Urine Bilirubin (Auto) 0 mg/dL 10/23/25 13:42 Urine Urobilinogen (Auto) 0.2 mg/dL 10/23/25 13:42 Leukocyte Esterase (Auto) 0 Samra/uL 10/23/25 13:42 Assessment & Plan Assessment & Plan Orders: Orders AMB Urinalysis Automated Today Z13.9 - Encounter for screening, unspecified AMB Post Void Residual by ultrasound Today N40.0 - Benign prostatic hyperplasia without lower urinary tract symptoms Coding CPT Codes Post Residual Void - PVR CPT Code: 74749-[id number] Void Residual by ultrasound ([id number])
--- OUTSIDE RECORDS SUMMARY | 2025-10-23 18:52 | XMS_ITS | Clinical Summary ---
Author Organization [facility] Address [address] [place] [address] Phone Care Team Providers Care Ups Driver Name Role Phone Holger Manuel NP Primary Care Provider + [phone] Allergies No known active allergies Medications metFORMIN [...] 2 (two) times a day. 30 each 5 07/31/20 26 Active furosemide (Lasix) 20 mg tablet Take 1 tablet (20 mg total) by mouth 1 (one) time each day. 30 each 5 07/31/20 26 Active potassium chloride (KLOR-CON M20) 20 mEq [...] stop taking the potassium 30 each 11 07/31/2025 4:12 PM EDT 5 07/31/20 26 Active apixaban (ELIQUIS) 5 mg tablet Take 1 tablet (5 mg total) by mouth 2 (two) times a day. 60 tablet 2 07/31/2025 4:12 PM EDT Active amiodarone (PACERONE) 200 mg tablet Take 1 tablet (200 mg total) by mouth 1 (one) time each day. 1 Active Active Problems Problem Noted Date Diagnosed Date Acute on chronic diastolic (congestive) heart fa ilure 07/27/2025 Secondary hypercoagulable state 07/27/2025 S/P MVR (mitral valve replacement) 07/25/2025 S/P CABG x 1 07/25/2025 H/O maze procedure 07/25/2025 History of left atrial appendage closure 025 Mitral regurgitation 07/22/2025 Atrial fibrillation with RVR 07/13/2025 Cardiomyopathy 07/13/2025 Nonrheumatic mitral valve regurgitation 07/13/20 25 COPD (chronic obstructive pulmonary disease) Hypertension Type II diabetes mellitus Encounters Date Type Department Care Team Description 09/22/2025 Telephone [facility] [address] [place] [phone] Jeremiah Parra 09/18/2025 Telephone [facility] [address] [place] [address] Jeremiah Parra 08/20/2025 10:10 AM EDT Office Visit [facility] - [address] [place] [address] Salma Strong PA Atrial fibrillation with RVR (CMS/HCC V24, CMS/HCC V28) (Primary Dx) 08/19/2025 9:30 AM EDT Office Visit [facility] [place] [address] [place] [address] Jayjay Powell PA S/P MVR (mitral valve replacement) (Primary Dx); S/P CABG x 1 08/11/2025 Telephone [facility] [address] [place] [address] Salma Strong PA 08/04/2025 Telephone [facility] CV Pre Admission Testing [address] [place] [address] Gavi Ahumada RN 07/22/2025 5:27 AM EDT - 07/31/2025 4:08 PM EDT Hospital Encounter [facility] CV Surg Card 8-9 [address] [place] [address] Jayjay Arias MD Mitral valve insufficiency, unspecified etiology (Primary Dx); Atrial fibrillation with RVR ([facility] V24, [facility] V28); Nonrheumatic mitral valve regurgitation; Atherosclerosis of [place] coronary artery of [place] heart without angina pectoris; S/P CABG x 1; S/P MVR (mitral valve replacement) Discharge Disposition: Home-Health Care [facility] from Last 3 Months [...] 09/17/2014 DX:Herniated lumbar intervertebral disc; COMMENT: Sees [facility] COPD (chronic obstructive pu lmonary disease) ([facility]/HCC V24, [facility] V28) Type II diabetes mellitus ([facility]/HCC V24, [facility]/HCC V28) CAD (coronary artery disease) s/ p stent in 2020 at [facility] Mitral valve prolapse Heart murmur Myocardial infarction ([facility]/H CC V24, [facility] V28) 08/2022 Inferoposterior STEMI s/p le ft circumflex stent CHF (congestive heart failur e) ([facility] V24, [facility] V28) AF (paroxysmal atrial fibril lation) ([facility] V24, [facility] V28) Heart failure with mid-range ejection fraction (HFmEF) ([facility]/HCC V24, [facility] V28) Severe mitral regurgitation FARHAT (acute kidney injury) ([facility] V24) 07/2025 Peripheral neuropathy OA (osteoarthritis) Cardiac arrest ([facility] V24, [facility] V28) 08/2022 VF cardiac arrest BPH (benign prostatic hyperplasia) Hypertension Family History Medical History Relation Name Comments No Known Problems Aunt Fainting Brother 1 Heart disease Brother 1 [place] COPD Brother 2 Seizures Brother 3 No [...] Status Comments Aunt Brother 1 (Age 55) [place] Brother 2 Alive Brother 3 Alive Father [...] not to disclose 2024 5:27 AM EDT Last Filed Vital Signs Vital Sign Reading [...] Albumin-Creatinine Ratio (uACR) 10/28/2022 Depression Screening 11/12/2024 COVID-19 Vaccine ( season) 2025 12/02/2024, 05/12/2021, 04/14/2021 Influenza Vaccine (#1) 2025 , 08/19/2021, 10/19/2020, Additional history exists Diabetes: Blood Sugar Control Test (HGBA1C) 01/10/2026 [...] this topic Medical Devices Implanted Type [employer] Device Identifier Shelf Expiration Date Model / Serial / Lot Valve Mitral Mitris Resilia Sz 29 - [id number] - [id number] Implanted:Q ty: 1 on 07/22/2025 by Jayjay Arias MD at [facility] Heart Valve N/A: Heart [employer] 03/25/2030 [id number] / [id number] / N/A Hemostat Absorb Surgicel 6x9in Ster Nuknit - Sn/A - [id number] Implanted:Q ty: 2 on 07/22/2025 by Jayjay Arias MD at [facility] Hemostasis N/A: Chest [employer] 12/12/2029 1946 / N/A / [id number] Plate Manubrium - Sn/A - [id number] Implanted:Q ty: 1 on 07/22/2025 by Jayjay Arias MD at [facility] Internal and External Fixation N/A: Sternum [employer]UCK [employer] [id number] / N/A / N/A Plate X - Sn/A - [id number] Implanted:Q ty: 2 on 07/22/2025 by Jayjay Arias MD at [facility] Internal and External Fixation N/A: Sternum [employer] [id number] / N/A / N/A Screw Sd Locking 2.3x14mm - Sn/A - [id number] Implanted:Q ty: 12 on 07/22/2025 by Jayjay Arias MD at [facility] Internal and External Fixation N/A: Sternum [employer] [id number] / N/A / N/A Screw Sd Locking 2.3x16mm - Sn/A - [id number] Implanted:Q ty: 10 on 07/22/2025 by Jayjay Arias MD at [facility] Internal and External Fixation N/A: Sternum [employer] [id number] / N/A / N/A Procedures Procedure Name [...] PM EDT POCT GLUCOSE BLOOD Routine 07/30/2025 12 :19 PM EDT POCT GLUCOSE BLOOD Routine 07/30/2025 [...] 5:12 AM EDT CALCIUM, IONIZED Routine 07/29/2025 12:0 6 AM EDT LACTATE Timed 07/29/2025 12:06 AM EDT POCT GLUCOSE BLOOD Routine 07/28/2025 9: 18 PM EDT OXYGEN THERAPY, ADULT Routine 07/28/2025 8:00 PM EDT LACTATE Timed 07/28/2025 7:19 PM EDT POCT GLUCOSE BLOOD Routine 07/28/2025 5: 44 PM EDT HEMOGLOBIN AND HEMATOCRIT Routine 07/28/2025 2:44 PM EDT POCT GLUCOSE BLOOD Routine 07/28/2025 12 :48 PM EDT LACTATE Timed 07/28/2025 12:36 PM [...] AM EDT POCT GLUCOSE BLOOD Routine 07/27/2025 10 :11 PM EDT OXYGEN THERAPY, ADULT Routine 07/27/2025 8:00 PM EDT OXYGEN THERAPY, ADULT Routine 07/27/2025 6:25 PM EDT OXYGEN THERAPY, ADULT Routine 07/27/2025 6:25 PM EDT POCT GLUCOSE BLOOD Routine 07/27/2025 6: 03 PM EDT POCT GLUCOSE BLOOD Routine 07/27/2025 11 :41 AM EDT POCT GLUCOSE BLOOD Routine 07/27/2025 [...] valve replacement) POCT GLUCOSE BLOOD Routine 2025 12 :38 PM EDT MIXED VENOUS BLOOD GAS Timed [...] AM EDT POCT GLUCOSE BLOOD Routine 07/24/2025 10 :22 PM EDT POCT GLUCOSE BLOOD Routine 07/24/2025 8: 20 PM EDT OXYGEN THERAPY, ADULT Routine 07/24/2025 8:00 PM EDT PROTHROMBIN TIME WITH INR Routine 07/24/2025 2:21 PM EDT POCT GLUCOSE BLOOD Routine 07/24/2025 12 :07 PM EDT POCT GLUCOSE BLOOD Routine 07/24/2025 [...] AM EDT POCT GLUCOSE BLOOD Routine 07/24/2025 12 :59 AM EDT LIPID PANEL WITH REFLEX TO DIRECT LDL STAT 07/20/2025 1:14 PM EDT Hyperlipidemia, unspecified hyperlipidemia type HEMOGLOBIN A1C Add-On 07/13/2025 7:59 AM EDT from Last 3 Months or Most Recently Relevant to Health Maintenance Results * ECG 12 lead (08/20/2025 12:24 PM EDT) Ventricular Rate ECG 61 BPM GEMUSE Atrial Rate 61 BPM GEMUSE P-R Interval 138 ms GEMUSE QRS Duration 116 ms GEMUSE Q-T Interval 468 ms GEMUSE QTc 471 ms GEMUSE P Wave [place] 60 degrees GEMUSE R [place] 92 degrees GEMUSE T [place] -78 degrees GEMUSE ECG Interpretation Normal sinus rhythm Rightward axis T wave abnormality, consider inferior ischemia When compared with ECG of 17-JUL-2025 00:15, Sinus rhythm has replaced Atrial fibrillation Vent. rate has decreased BY 56 BPM Questionable change in QRS duration Confirmed by KAHLIL WHITEHEAD ([id number]) on 08/27/2025 9:32:03 PM GEMUSE 08/20/2025 10:0 5 AM EDT 08/27/2025 9:32 PM EDT us Salma RUTHERFORD ECG ORDERABLES Edited Result - Final GEMUSE * POCT Glucose, blood (07/31/2025 1:15 PM EDT) Only the most recent of34 resultswithin the time period is included. [facility] Glucose POCT 107 70 - 199 mg/dL 07/31/2025 1:15 PM EDT [facility] Comment: Fasting Reference Range: 70-99 mg/dL Non-Fasting Reference Range: 70-199 mg/dL POCT Comment Notified Nurse 07/31/2025 1:15 PM EDT [facility] Blood Capillary blood specimen / Unknown 07/31/2025 1:15 PM EDT 07/31/2025 1:16 PM EDT Jayjay Arias MD LAB POINT OF CARE TE ST DOCKED DEVICE UNSOLICITED RESULTS Final Result [facility] [address] [place] [address], [place] [phone] * (ABNORMAL) Prothrombin time with INR (07/31/2025 8:17 AM EDT) Only the most recent of8 resultswithin the time period is included. Protime 15.8(H) 10.5 - 13.3 sec LAB COAGULATION METHOD 07/31/2025 8:53 AM EDT [facility] INR 1.4(H) 0.8 - 1.1 LAB COAGULATION METHOD 07/31/2025 8:53 AM EDT [facility] Blood Venous blood specimen / Unknown Venipuncture / Unknown 07/31/2025 8:17 AM EDT 07/31/2025 8:31 AM EDT Narrative [facility] - 07/31/2025 8:53 AM EDT Std. Therapy 2.0-3.0 INR High Dose Therapy 3.0-4.5 INR Ranges may vary depending on clinical indications and protocol. us Fabio RUTHERFORD LAB BLOOD ORDERABLES Final Resul t [facility] [address] [place] [address], [place] [phone] * Potassium (07/31/2025 8:17 AM EDT) Only the most recent of2 resultswithin the time period is included. Potassium 4.1 3.5 - 5.1 mmol/L LAB CHEMISTRY METHOD 07/31/2025 9:12 AM EDT [facility] Blood Venous blood specimen / Unknown Venipuncture / Unknown 07/31/2025 8:17 AM EDT 07/31/2025 8:31 AM EDT us Fabio [facility] LAB BLOOD ORDERABLES Final Resul t [facility] [address] [place] [address], [place] [phone] * Magnesium (07/31/2025 8:17 AM EDT) Only the most recent of9 resultswithin the time period is included. Magnesium 2.0 1.7 - 2.8 mg/dL LAB CHEMISTRY METHOD 07/31/2025 9:12 AM EDT [facility] Blood Venous blood specimen / Unknown Venipuncture / Unknown 07/31/2025 8:17 AM EDT 07/31/2025 8:31 AM EDT Fabio RUTHERFORD LAB BLOOD ORDERABLES Final Resul t [facility] [address] [place] [address], [place] [phone] * Calcium, ionized (07/31/2025 8:17 AM EDT) Only the most recent of6 resultswithin the time period is included. Calcium Ionized 1.22 1.19 - 1.35 mg/dL LAB BLOOD GAS METHOD 07/31/2025 8:39 AM EDT [facility] Blood Venous blood specimen / Unknown Venipuncture / Unknown 07/31/2025 8:17 AM EDT 07/31/2025 8:29 AM EDT Fabio R[facility]HERFORD LAB BLOOD ORDERABLES Final Resul t [facility] [address] [place] [address], [place] [phone] * XR Chest 1 View (07/31/2025 6:07 AM EDT) Only the most recent of2 resultswithin the time period is included. Anatomical Region Laterality Modality Body Radiographic Jana ging 07/31/2025 7:05 AM EDT Impressions 07/31/2025 7:08 AM EDT Removal of right IJ central line and [place] catheter. Improved visualization of the left lung base with mild atelectasis in small left pleural effusion remaining. -------- FINAL REPORT -------- Dictated By: Julian [place] Dictated Date: 07/31/2025 07:05 ET Assigned Physician: Julian [place] Reviewed and Electronically Signed By: Julian [place] Signed Date: 07/31/2025 07:08 ET Workstation ID: [id number] Transcribed By: Self Edit Transcribed Date: 07/31/2025 07:05 ET Narrative 07/31/2025 7:08 AM EDT EXAM: XR CHEST 1 VIEW HISTORY: s/p MVR CABG COMPARISON:07/27/2025, 07/23/2025, 07/22/2025 FINDINGS: Interval removal of right IJ central line and [place] catheter. Cardiac silhouette remains enlarged. Improved visualization of left lung base with mild atelectasis remaining and small pleural effusion. The right lung is clear. No pneumothorax. Status post sternotomy and mitral valve replacement. Procedure Note Julian [place] MD - 07/31/2025 EXAM: XR CHEST 1 VIEW HISTORY: s/p MVR CABG COMPARISON:07/27/2025, 07/23/2025, 07/22/2025 FINDINGS: Interval removal of right IJ central line and [place] catheter. Cardiacsilhouette remains enlarged. Improved visualization of left lung base withmild atelectasis remaining and small pleural effusion. The right lung isclear. No pneumothorax. Status post sternotomy and mitral valvereplacement. IMPRESSION: Removal of right IJ central line and [place] catheter. Improvedvisualization of the left lung base with mild atelectasis in small leftpleural effusion remaining. -------- FINAL REPORT -------- Dictated By: Julian [place] Dictated Date: 07/31/2025 07:05 ET Assigned Physician: Julian [place] Reviewed and Electronically Signed By: uJlian [place] Signed Date: 07/31/2025 07:08 ET Workstation ID: [id number] Transcribed By: Self Edit Transcribed Date: 07/31/2025 07:05 ET Josafat RUTHERFORD IMG XR PROCEDURES Final Result * (ABNORMAL) Complete blood count (07/30/2025 6:34 AM EDT) Only the most recent of7 resultswithin the time period is included. WBC 7.7 4.0 - 10.5 K/mcL LAB HEMETOLOGY METHOD 07/30/2025 7:13 AM EDT [facility] RBC 2.78(L) 4.70 - 6.00 M/mcL LAB HEMETOLOGY METHOD 07/30/2025 7:13 AM EDT [facility] Hemoglobin 8.9(L) 13.5 - 18.0 g/dL LAB HEMETOLOGY METHOD 07/30/2025 7:13 AM EDT [facility] Hematocrit 27.3(L) 40.0 - 54.0 % LAB HEMETOLOGY METHOD 07/30/2025 7:13 AM EDT [facility] MCV 98.2 78.0 - 100.0 FL LAB HEMETOLOGY METHOD 07/30/2025 7:13 AM EDT [facility] MCH 32.1 25.0 - 33.0 pcg LAB HEMETOLOGY METHOD 07/30/2025 7:13 AM EDT [facility] MCHC 32.7 32.0 - 36.0 g/dL LAB HEMETOLOGY METHOD 07/30/2025 7:13 AM EDT [facility] RDW 15.0 12.1 - 17.7 % LAB HEMETOLOGY METHOD 07/30/2025 7:13 AM EDT [facility] Platelets 218 150 - 450 K/mcL LAB HEMETOLOGY METHOD 07/30/2025 7:13 AM EDT [facility] Comment:Verified by repeat a nalysis MPV 9.0 7.4 - 11.4 FL LAB HEMETOLOGY METHOD 07/30/2025 7:13 AM EDT [facility] Blood Venous blood specimen / Unknown Venipuncture / Unknown 07/30/2025 6:34 AM EDT 07/30/2025 6:58 AM EDT Fabio Borjas [facility] LAB BLOOD ORDERABLES Final Resul t [facility] [address] [place] [address], [place] [phone] * Phosphorus (07/30/2025 6:34 AM EDT) Only the most recent of5 resultswithin the time period is included. Phosphorus 3.4 2.5 - 4.5 mg/dL LAB CHEMISTRY METHOD 07/30/2025 7:39 AM EDT [facility] Blood Venous blood specimen / Unknown Venipuncture / Unknown 07/30/2025 6:34 AM EDT 07/30/2025 6:58 AM EDT Fabio RUTHERFORD LAB BLOOD ORDERABLES Final Resul t Performing Organization Address City/[facility]/ZIP Co de Phone Number [facility] [address] [place] [address], [place] [phone] * (ABNORMAL) Basic metabolic panel (07/30/2025 6:34 AM EDT) Only the most recent of7 resultswithin the time period is included. Sodium 139 135 - 145 mmol/L LAB CHEMISTRY METHOD 07/30/2025 7:39 AM EDT [facility] Potassium 4.4 3.5 - 5.1 mmol/L LAB CHEMISTRY METHOD 07/30/2025 7:39 AM EDT [facility] Comment:Slightly Hemolyzed Chloride 105 98 - 107 mmol/L LAB CHEMISTRY METHOD 07/30/2025 7:39 AM EDT [facility] CO2 25 24 - 32 mmol/L LAB CHEMISTRY METHOD 07/30/2025 7:39 AM EDT [facility] Anion Gap 9 5 - 14 LAB CHEMISTRY METHOD 07/30/2025 7:39 AM EDT [facility] Glucose 93 70 - 199 mg/dL LAB CHEMISTRY METHOD 07/30/2025 7:39 AM EDT [facility] BUN 20 9 - 20 mg/dL LAB CHEMISTRY METHOD 07/30/2025 7:39 AM EDT [facility] Creatinine 0.80 0.70 - 1.30 mg/dL LAB CHEMISTRY METHOD 07/30/2025 7:39 AM EDT [facility] eGFR 98 >=60 mL/min/1. 73m2 LAB CHEMISTRY METHOD 07/30/2025 7:39 AM EDT [facility] Comment:Calculation based on the Chronic Kidney Disease Epidemiology Collaboration (CKD-EPI) equation refit without adjustment for race. BUN/Creatinine Ratio 25.0(H) 12.0 - 20.0 LAB CHEMISTRY METHOD 07/30/2025 7:39 AM EDT [facility] Calcium 8.4 8.4 - 10.2 mg/dL LAB CHEMISTRY METHOD 07/30/2025 7:39 AM EDT [facility] Blood Venous blood specimen / Unknown Venipuncture / Unknown 07/30/2025 6:34 AM EDT 07/30/2025 6:58 AM EDT us Fabio RUTHERFORD LAB BLOOD ORDERABLES Final Resul t [facility] [address] [place] [address], [place] [phone] * Lactate, whole blood (07/29/2025 5:12 AM EDT) Only the most recent of4 resultswithin the time period is included. Lactate, Whole Blood 1.2 0.5 - 2.2 mmol/L LAB BLOOD GAS METHOD 07/29/2025 5:53 AM EDT [facility] Blood Blood sample taken from central line / Unknown Venipuncture / Unknown 07/29/2025 5:12 AM EDT 07/29/2025 5:28 AM EDT us [place] R[facility] LAB BLOOD ORDERABLES Final Res ult Performing Organization Address City/[facility]/ZIP Co de Phone Number [facility] [address] [place] [address], [place] [phone] * (ABNORMAL) Hemoglobin and hematocrit (07/28/2025 2:44 PM EDT) Hemoglobin 8.1(L) 13.5 - 18.0 g/dL LAB HEMETOLOGY METHOD 07/28/2025 3:02 PM EDT [facility] Hematocrit 23.7(L) 40.0 - 54.0 % LAB HEMETOLOGY METHOD 07/28/2025 3:02 PM EDT [facility] Blood Venous blood specimen / Unknown Venipuncture / Unknown 07/28/2025 2:44 PM EDT 07/28/2025 2:55 PM EDT us [place] [facility] LAB BLOOD ORDERABLES Final Res ult Performing Organization Address City/[facility]/ZIP Co de Phone Number [facility] [address] [place] [address], * Prepare RBC: 1 Units (07/28/2025 7:45 AM EDT) Product Code [id number] 07/29/2025 10:07 AM EDT [facility] Unit Number [id number] 07/29/20 10:07 AM EDT [facility] Crossmatch Compatible 07/28/2025 7:49 AM EDT [facility] Dispense Status Released From Crossmatch 07/29/2025 10:07 AM EDT [facility] Unit ABO Rh OPOS 07/29/2025 10:07 AM EDT [facility] Unit Expiration Date Time 07/29/2025 10:07 AM EDT [facility] Unit Blood Type 5100 07/29/2025 10:07 AM EDT [facility] Blood Venous blood specimen / Unknown 07/28/2025 7:45 AM EDT 07/28/2025 5:43 AM EDT us [place] [facility] BLOOD BANK PRODUCT ORDERABLES Final Result [facility] [address] [place] [address], [place] [phone] * Mixed venous blood gas (07/28/2025 5:24 AM EDT) Only the most recent of4 resultswithin the time period is included. pH, Mixed Venous Blood 7.41 7.35 - 7.45 pH LAB BLOOD GAS METHOD 07/28/2025 5:52 AM EDT [facility] Carbon Dioxide Mixed Venous 43 mmHg LAB BLOOD GAS METHOD 07/28/2025 5:52 AM EDT [facility] Comment:No established refer ence range. PO2 Mixed Venous 30 mmHg LAB BLOOD GAS METHOD 07/28/2025 5:52 AM EDT [facility] Comment:No established refer ence range. Bicarbonate Mixed Venous 25.6 mmol/L LAB BLOOD GAS METHOD 07/28/2025 5:52 AM EDT [facility] Comment:No established refer ence range. Oxygen Saturation Mixed Venous 47.7 % LAB BLOOD GAS METHOD 07/28/2025 5:52 AM EDT [facility] Comment:No established refer ence range. Base Excess Mixed Venous 2.2 mmol/L LAB BLOOD GAS METHOD 07/28/2025 5:52 AM EDT [facility] Comment:No established refer ence range. Blood Mixed venous blood specimen / Unknown Existing Catheter / Unknown 07/28/2025 5:24 AM EDT 07/28/2025 5:42 AM EDT us Mark R[facility] LAB BLOOD ORDERABLES Final Result Performing Organization Address [facility]/ZIP Co de Phone Number [facility] [address] [place] [address], * Type and screen (07/28/2025 5:24 AM EDT) ABO Group O 07/28/2025 7:21 AM EDT [facility] Rh Type Positive 07/28/2025 7:21 AM EDT [facility] Antibody Screen Negative 07/28/2025 7:21 AM EDT [facility] Blood Venous blood specimen / Unknown Existing Catheter / Unknown 07/28/2025 5:24 AM EDT 07/28/2025 5:43 AM EDT us Mrak [facility] LAB BLOOD BANK TEST ORDERA BLES Final Result Performing Organization Address [facility]/ZIP Co de Phone Number [facility] [address] [place] [address], * (ABNORMAL) Comprehensive metabolic panel (07/28/2025 3:34 AM EDT) Sodium 139 135 - 145 mmol/L LAB CHEMISTRY METHOD 07/28/2025 4:08 AM EDT [facility] Potassium 3.6 3.5 - 5.1 mmol/L LAB CHEMISTRY METHOD 07/28/2025 4:08 AM EDT [facility] Chloride 107 98 - 107 mmol/L LAB CHEMISTRY METHOD 07/28/2025 4:08 AM EDT [facility] CO2 26 24 - 32 mmol/L LAB CHEMISTRY METHOD 07/28/2025 4:08 AM [facility] Anion Gap 6 5 - 14 LAB CHEMISTRY METHOD 07/28/2025 4:08 AM [facility] Glucose 106(H) 70 - 99 mg/dL LAB CHEMISTRY METHOD 07/28/2025 4:08 AM [facility] BUN 15 9 - 20 mg/dL LAB CHEMISTRY METHOD 07/28/2025 4:08 AM [facility] Creatinine 0.70 0.70 - 1.30 mg/dL LAB CHEMISTRY METHOD 07/28/2025 4:08 AM [facility] eGFR 102 >=60 mL/min/1. 73m2 LAB CHEMISTRY METHOD 07/28/2025 4:08 AM [facility] Comment:Calculation based on the Chronic Kidney Disease Epidemiology Collaboration (CKD-EPI) equation refit without adjustment for race. BUN/Creatinine Ratio 21.4(H) 12.0 - 20.0 LAB CHEMISTRY METHOD 07/28/2025 4:08 AM [facility] Calcium 7.6(L) 8.4 - 10.2 mg/dL LAB CHEMISTRY METHOD 07/28/2025 4:08 AM [facility] AST (SGOT) 38 5 - 40 unit/L LAB CHEMISTRY METHOD 07/28/2025 4:08 AM [facility] ALT (SGPT) 141(H) 7 - 52 unit/L LAB CHEMISTRY METHOD 07/28/2025 4:08 AM [facility] Alkaline Phosphatase 75 34 - 104 unit/L LAB CHEMISTRY METHOD 07/28/2025 4:08 AM [facility] Total Protein 5.2(L) 6.4 - 8.5 g/dL LAB CHEMISTRY METHOD 07/28/2025 4:08 AM [facility] Albumin 3.2(L) 3.5 - 5.0 g/dL LAB CHEMISTRY METHOD 07/28/2025 4:08 AM EDT [facility] Total Bilirubin 1.3(H) 0.3 - 1.0 mg/dL LAB CHEMISTRY METHOD 07/28/2025 4:08 AM EDT [facility] Blood Blood sample taken from central line / Unknown Venipuncture / Unknown 07/28/2025 3:34 AM EDT 07/28/2025 3:38 AM EDT us Jayjay Arias MD LAB BLOOD ORDERABLES Final Res ult [facility] [address] [place] [address], [place] [phone] * (ABNORMAL) CBC auto differential (07/27/2025 2:57 AM EDT) WBC 7.1 4.0 - 10.5 K/mcL LAB HEMETOLOGY METHOD 07/27/2025 3:23 AM EDT [facility] RBC 2.43(L) 4.70 - 6.00 M/mcL LAB HEMETOLOGY METHOD 07/27/2025 3:23 AM EDT [facility] Hemoglobin 7.9(L) 13.5 - 18.0 g/dL LAB HEMETOLOGY METHOD 07/27/2025 3:23 AM EDT [facility] Hematocrit 23.4(L) 40.0 - 54.0 % LAB HEMETOLOGY METHOD 07/27/2025 3:23 AM EDT [facility] MCV 96.1 78.0 - 100.0 FL LAB HEMETOLOGY METHOD 07/27/2025 3:23 AM EDT [facility] MCH 32.4 25.0 - 33.0 pcg LAB HEMETOLOGY METHOD 07/27/2025 3:23 AM EDT [facility] MCHC 33.7 32.0 - 36.0 g/dL LAB HEMETOLOGY METHOD 07/27/2025 3:23 AM EDT [facility] RDW 15.5 12.1 - 17.7 % LAB HEMETOLOGY METHOD 07/27/2025 3:23 AM EDT [facility] Platelets 89(L) 150 - 450 K/mcL LAB HEMETOLOGY METHOD 07/27/2025 3:23 AM EDT [facility] Comment:Verified by repeat a nalysis MPV 9.0 7.4 - 11.4 FL LAB HEMETOLOGY METHOD 07/27/2025 3:23 AM EDT [facility] Neutrophils Relative 74.8(H) 44.0 - 74.0 % LAB HEMETOLOGY METHOD 07/27/2025 3:23 AM EDT [facility] Lymphocytes Relative 12.1(L) 20.0 - 48.0 % LAB HEMETOLOGY METHOD 07/27/2025 3:23 AM EDT [facility] Monocytes Relative 11.9 2.0 - 12.0 % LAB HEMETOLOGY METHOD 07/27/2025 3:23 AM EDT [facility] Eosinophils Relative 0.6 0.0 - 6.0 % LAB HEMETOLOGY METHOD 07/27/2025 3:23 AM EDT [facility] Basophils Relative 0.6 0.0 - 2.0 % LAB HEMETOLOGY METHOD 07/27/2025 3:23 AM EDT [facility] Neutrophils Absolute 5.30 1.80 - 7.80 K/mcL LAB HEMETOLOGY METHOD 07/27/2025 3:23 AM EDT [facility] Lymphocytes Absolute 0.90(L) 1.00 - 3.20 K/mcL LAB HEMETOLOGY METHOD 07/27/2025 3:23 AM EDT [facility] Monocytes Absolute 0.80 0.00 - 0.80 K/mcL LAB HEMETOLOGY METHOD 07/27/2025 3:23 AM EDT [facility] Eosinophils Absolute 0.00 0.00 - 0.50 K/mcL LAB HEMETOLOGY METHOD 07/27/2025 3:23 AM EDT [facility] Basophils Absolute 0.00 0.00 - 0.20 K/mcL LAB HEMETOLOGY METHOD 07/27/2025 3:23 AM EDT [facility] Blood Venous blood specimen / Unknown Venipuncture / Unknown 07/27/2025 2:57 AM EDT 07/27/2025 3:08 AM EDT us Mark [facility] LAB BLOOD ORDERABLES Final Result [facility] [address] [place] [address], [place] [phone] * (ABNORMAL) Hepatic function panel (07/27/2025 2:57 AM EDT) Only the most recent of2 resultswithin the time period is included. ALT (SGPT) 200(H) 7 - 52 unit/L LAB CHEMISTRY METHOD 07/27/2025 3:37 AM EDT [facility] AST (SGOT) 70(H) 5 - 40 unit/L LAB CHEMISTRY METHOD 07/27/2025 3:37 AM EDT [facility] Alkaline Phosphatase 76 34 - 104 unit/L LAB CHEMISTRY METHOD 07/27/2025 3:37 AM EDT [facility] Bilirubin, Direct 0.3(H) 0.0 - 0.2 mg/dL LAB CHEMISTRY METHOD 07/27/2025 3:37 AM EDT [facility] Total Bilirubin 1.1(H) 0.3 - 1.0 mg/dL LAB CHEMISTRY METHOD 07/27/2025 3:37 AM EDT [facility] Total Protein 5.3(L) 6.4 - 8.5 g/dL LAB CHEMISTRY METHOD 07/27/2025 3:37 AM EDT [facility] Albumin 3.2(L) 3.5 - 5.0 g/dL LAB CHEMISTRY METHOD 07/27/2025 3:37 AM EDT [facility] Globulin, Total 2.1(L) 2.3 - 3.5 g/dL LAB CHEMISTRY METHOD 07/27/2025 3:37 AM EDT [facility] A/G Ratio 1.5 LAB CHEMISTRY METHOD 07/27/2025 3:37 AM EDT [facility] Blood Venous blood specimen / Unknown Venipuncture / Unknown 07/27/2025 2:57 AM EDT 07/27/2025 3:08 AM EDT us Bereket [facility] LAB BLOOD ORDERABLES Final Resul t [facility] [address] [place] [address], [place] [phone] * (ABNORMAL) TRANSTHORACIC ECHOCARDIOGRAM (TTE) LIMITED W/ [...] Size 5.2 cm CV PACS MV Deceleration Iron 7.8 m/s2 CV PACS E Wave Deceleration [...] Arterial blood gas (07/24/2025 3:19 AM EDT) pH, Arterial 7.43 7.35 - 7.45 pH LAB BLOOD GAS METHOD 07/24/2025 3:35 AM EDT [facility] pCO2, Arterial 35 35 - 45 mmHg LAB BLOOD GAS METHOD 07/24/2025 3:35 AM EDT [facility] pO2, Arterial 89 80 - 105 mmHg LAB BLOOD GAS METHOD 07/24/2025 3:35 AM EDT [facility] HCO3, Arterial 24.5 22.0 - 26.0 mmol/L LAB BLOOD GAS METHOD 07/24/2025 3:35 AM EDT [facility] O2 Sat, Arterial 97.4 95.0 - 98.0 % LAB BLOOD GAS METHOD 07/24/2025 3:35 AM EDT [facility] Base Excess, Arterial -0.6(L) 0.0 - 2.0 mmol/L LAB BLOOD GAS METHOD 07/24/2025 3:35 AM EDT [facility] Blood Arterial blood specimen / Unknown Arterial Puncture / Unknown 07/24/2025 3:19 AM EDT 07/24/2025 3:24 AM EDT us Jayjay Arias MD LAB BLOOD ORDERABLES Final Res ult [facility] [address] [place] [address], [place] [phone] * (ABNORMAL) Lipid panel with reflex to direct LDL (07/20/2025 1:14 PM EDT) Cholesterol 97 0 - 200 mg/dL LAB CHEMISTRY METHOD 07/20/2025 2:49 PM EDT [facility] Triglycerides 102 <150 mg/dL LAB CHEMISTRY METHOD 07/20/2025 2:49 PM EDT [facility] HDL 44 32 - 70 mg/dL LAB CHEMISTRY METHOD 07/20/2025 2:49 PM EDT [facility] LDL Calculated 33(L) 50 - 130 mg/dL LAB CHEMISTRY METHOD 07/20/2025 2:49 PM EDT [facility] VLDL Cholesterol Don 20.4 mg/dL LAB CHEMISTRY METHOD 07/20/2025 2:49 PM EDT [facility] Comment:No established refer ence range. Blood Venous blood specimen / Unknown Venipuncture / Unknown 07/20/2025 1:14 PM EDT 07/20/2025 1:52 PM EDT Jayjay Arias MD LAB BLOOD ORDERABLES Final Res ult [facility] [address] [place] [address], [place] [phone] * Hemoglobin A1c (07/13/2025 7:59 AM EDT) Hemoglobin A1C 5.9 <6.5 % LAB CHEMISTRY METHOD 07/13/2025 1:[address] [facility] Mean Bld Glu Estim. 123 mg/dL LAB CHEMISTRY METHOD 07/13/2025 1:[address] [facility] Blood Venous blood specimen / Unknown Venipuncture / Unknown 07/13/2025 7:59 AM EDT 07/13/2025 8:10 AM EDT us Qi [facility] LAB BLOOD ORDERABLES Final Resul t [facility] [place] ([facility]) [facility] [address] [place] [address], from Last 3 Months or Most Recently [...] currently active code status orders. Care Teams Ups Driver Relationship Specialty Start Date End Date Holger Manuel NP [address] [place] [id number] PCP - General Family Medicine 07/20/25
== END 2025-10-23 14:22 | disposition home or self-care (01) ==
LOC: HO.HUSH 13:19
PROVIDERS: PCP Nurse Practitioner Family; Visit Provider Urology
DX: Z13.9 Encounter for screening, unspecified (principal)

== ENCOUNTER → 2025-10-23 13:18 | Outpatient (BNVA) | payer MEDICARE, SELFPAY | PROVIDERS: PCP Nurse Practitioner Family; Visit Provider Urology | DX: N40.0 Benign prostatic hyperplasia without lower urinary tract symptoms (principal) | CPT/HCPCS: 51798; 81003 ==